=== PATIENT | male | born 1950 | race Caucasian/White ===

== ENCOUNTER 2019-04-15 07:28 | Outpatient (RCR) | payer MEDICARE, OTHER, SELFPAY | END 2019-04-27 00:01 | LOC: SOT 07:28 | PROVIDERS: Family Provider Internal Medicine; Visit Provider Orthopaedic Surgery | DX: Z98.890 Other specified postprocedural states (principal) | CPT/HCPCS: 97110 ×3; 97140 ×2; 97166; L3806 ==

== ENCOUNTER 2019-04-28 09:30 | Outpatient (RCR) | payer MEDICARE, SELFPAY | END 2019-05-28 23:59 | disposition home or self-care (01) | LOC: SOT 09:30 | PROVIDERS: Family Provider Internal Medicine; PCP Orthopaedic Surgery; Visit Provider Internal Medicine | DX: Z98.890 Other specified postprocedural states (principal) | CPT/HCPCS: 97035; 97110; 97112; 97140 ==

== ENCOUNTER 2019-05-31 06:00 | Outpatient (RCR) | payer MEDICARE, SELFPAY | END 2019-06-26 23:59 | disposition home or self-care (01) | LOC: SOT 06:00 | PROVIDERS: Family Provider Internal Medicine; PCP Orthopaedic Surgery; Visit Provider Internal Medicine | DX: Z98.890 Other specified postprocedural states (principal) | CPT/HCPCS: 97035; 97110; 97112; 97140 ==

== ENCOUNTER 2019-06-27 06:00 | Outpatient (RCR) | payer SELFPAY | END 2019-06-28 23:00 | disposition home or self-care (01) | LOC: SOT 06:00 | PROVIDERS: Family Provider Internal Medicine; PCP Orthopaedic Surgery; Visit Provider Internal Medicine | DX: Z01.89 Encounter for other specified special examinations (principal) ==

== ENCOUNTER 2021-12-17 13:36 | Outpatient (RCR) | payer MEDICARE, OTHER, SELFPAY ==
[2021-12-04 13:06] VITALS: BMI 30.4
[2021-12-04 13:11] VITALS: BP 123/85; PULSE 89; RESP 18; TEMP 36.8; O2SAT 96
[2021-12-04] MEDS: ertapenem 1,000 MG in sodium chloride 0.9% (plus) 100 ML 200 MG IV (13:55)
[2021-12-05] MEDS: ertapenem 1,000 MG in sodium chloride 0.9% (plus) 100 ML 200 MG IV (13:05)
[2021-12-05 13:25] VITALS: BP 96/71; PULSE 80; RESP 18; TEMP 36.6; O2SAT 96
[2021-12-06 13:04] VITALS: BP 149/77; PULSE 85; RESP 18; TEMP 36.8; O2SAT 96
[2021-12-06] MEDS: ertapenem 1,000 MG in sodium chloride 0.9% (plus) 100 ML 200 MG IV (13:14)
[2021-12-07] MEDS: ertapenem 1,000 MG in sodium chloride 0.9% (plus) 100 ML 200 MG IV (13:02)
[2021-12-07 13:04] VITALS: BP 133/80; PULSE 96; RESP 18; TEMP 36.7; O2SAT 96
[2021-12-08 08:55] VITALS: BP 136/81; PULSE 88; RESP 18; TEMP 37.1; O2SAT 95
[2021-12-08] MEDS: ertapenem 1,000 MG in sodium chloride 0.9% (plus) 100 ML 200 MG IV (09:00)
[2021-12-09 08:51] VITALS: BP 137/83; PULSE 87; RESP 16; TEMP 37.1; O2SAT 95
[2021-12-09] MEDS: ertapenem 1,000 MG in sodium chloride 0.9% (plus) 100 ML 200 MG IV (08:55)
[2021-12-10 13:00] VITALS: BP 157/83; PULSE 86; RESP 18; TEMP 36.8; O2SAT 94
--- NOTE | 2021-12-10 13:00 | PC.NURSE ---
Monae from Dr. Davidson's office called to inform this nurse to keep midline catheter in place at this time. Pt to have weekly dressing changes and flushes per protocol. Repeat urine culture to obtained next Friday.
[2021-12-10] MEDS: ertapenem 1,000 MG in sodium chloride 0.9% (plus) 100 ML 200 MG IV (13:10)
[2021-12-17 13:10] VITALS: BP 127/86; PULSE 113; RESP 18; TEMP 36.8; O2SAT 97
--- NOTE | 2021-12-17 13:42 | PC.NURSE ---
sorbaview dressing applied
--- NOTE | 2021-12-17 13:47 | PC.NURSE ---
Addendum entered by Lisbeth Miller RN 12/17/21 14:23: Midline catheter removed from right upper arm. Pressure held for approx 2 minutes. No bleeding or hematoma noted. Pt instructed to call Dr. Davidson for any increasing redness, purulent drainage, or warmth at insertion site. Instructed pt to go to ER for any SOB or chest pain. Original Note: [id number]. Lisbeth called Dr Davidson's office and spoke to Monae to report redness and leaking of PICC line site. Order to DC PICC line given.
== END 2021-12-26 23:59 | disposition home or self-care (01) ==
LOC: GILAB 13:36
PROVIDERS: PCP Orthopaedic Surgery; Visit Provider Family Medicine
DX: N41.9 Inflammatory disease of prostate, unspecified (principal); B96.20 Unspecified Escherichia coli [E. coli] as the cause of diseases classified elsewhere
CPT/HCPCS: 36569; 96365; C1751; J1335

== ENCOUNTER 2021-12-17 14:39 | Outpatient (CLI) | payer MEDICARE, OTHER, SELFPAY ==
--- NOTE | 2021-12-17 14:48 | CTR_ITS ---
PROCEDURE INFORMATION: Exam: CT Abdomen And Pelvis With Contrast Exam date and time: 12/17/2021 3:48 PM Age: 71 years old Clinical indication: Abdominal pain; Localized; Right lower quadrant (rlq); Patient HX: RT lower groin area pain and lump; Additional info: R inguinal pain, stat TECHNIQUE: Imaging protocol: Computed tomography of the abdomen and pelvis with contrast. Radiation optimization: All CT scans at this facility use at least one of these dose optimization techniques: automated exposure control; mA and/or kV adjustment per patient size (includes targeted exams where dose is matched to clinical indication); or iterative reconstruction. Contrast material: VISIPAQUE; Contrast volume: 95 ml; Contrast route: INTRAVENOUS (IV); Other contrast: Oral, ReadiCat, 450ml; COMPARISON: No relevant prior studies available. RADIATION DOSE METRICS: Total DLP (mGy-cm): 1198.63 FINDINGS: Diaphragm: Hiatal hernia measuring about 6 cm. Liver: Mild hepatomegaly with no cirrhosis or discrete mass. Gallbladder and bile ducts: Normal. No calcified stones. No ductal dilation. Pancreas: Normal. No ductal dilation. Spleen: Mild splenomegaly. Adrenal glands: Normal. No mass. Kidneys and ureters: Minimal left hydronephrosis with no obstructing calculi or obstructing mass along the left ureter. Bilateral simple renal cysts measuring up to 3.1 cm on the right and 1.6 cm on the left. Stomach and bowel: Low proximal colonic stool burden however there is large amount of fecal retention in the rectum. Colonic diverticulosis. No bowel obstruction, pneumatosis or. The luminal bowel contrast reached the mid small bowel with no evidence of abnormal small bowel or colonic dilatation. Appendix: Normal appendix not identified. Intraperitoneal space: See Soft tissues finding. Vasculature: No abdominal aortic aneurysm. Lymph nodes: No enlarged mesenteric or abdominopelvic adenopathy. Urinary bladder: Moderate urinary bladder distention with mild diffuse wall thickening. There is small amount of air in the anterior bladder lumen. Reproductive: Enlarged prostate. Bones/joints: No acute fracture. Soft tissues: There is a low-density heterogeneous mass with thick irregular enhancing wall demonstrating 1 component in the right inferior rectus abdominus musculature, measuring about 12.2 by 6.3 cm cross-section and is contiguous with a heterogeneous low-density mass in the right lower quadrant mesentery with probable involvement of the adjacent small bowel. The right lower quadrant mesenteric component measures about 8.8 by 8.3 cm. Unclear if the epicenter of this neoplastic process is a arising from the right rectus musculature/right inguinal hernia or right lower quadrant mesentery/bowel loops or appendix however foci of air are seen within this mass suggesting communication with the bowel lumen. Neoplastic mass of appendiceal origin may be present in this setting as there is a suggestion of communication with the lower cecum on axial image 55. The mass also extends to the right superolateral aspect of the urinary bladder likely resulting in bladder-bowel/tumor fistula. Infiltrative mild soft tissue edema is noted in the suprapubic/bilateral inguinal region and along the anterior and lateral right lower quadrant suggesting inflammatory response/mild edema. CT/CT abdomen pelvis w con* [id number] IMPRESSION: 1. Heterogeneous soft tissue mass in the right lower quadrant mesentery, suspicious for malignancy, probably involving adjacent small distal small bowel. The mass is contiguous with another soft tissue component which may be arising from the right lower rectus abdominal muscle/right inguinal hernia. The mass also extends to the urinary bladder with probable bladder-bowel/tumor fistula. No evidence of bowel obstruction, free air or enlarged adenopathy otherwise. No other obvious visceral metastasis. Specific possible etiology is unclear but may represent lymphoma or other locally aggressive/infiltrative neoplasm or sarcoma. Tumor of appendiceal origin may also be considered due to its location. Follow-up delayed CT imaging may be helpful to assess luminal bowel contrast progressing through the area of tumor. Surgical consultation should be obtained. 2. Colonic diverticulosis. Significant rectal fecal retention is noted. 3. Prominent hiatal hernia. 4. Urinary bladder wall thickening which may be related to cystitis/hypertrophy. An element of tumor infiltration may also be present in this setting. 5. Mildly enlarged prostate. 6. Mild hepatosplenomegaly. 7. Minimal left hydronephrosis with no obstructing calculi or obstructing ureteral mass. This may be related to mild reflux. COMMENTS: Consistent with the [employer]'s Incidental Findings Committee white paper (J Am Ernst Radiol 2018): Any incidental renal lesion less than 1 cm or classified as too small to characterize, or any incidental cystic renal lesion characterized as simple-appearing, is likely benign. No follow-up imaging is recommended for these lesions per consensus recommendations based on imaging criteria.
[2021-12-17] MEDS: iodixanol 320 mg/mL 100mL Btl IV (16:06)
[2021-12-17 16:07] LABS: Blood Urea Nitrogen 18 mg/dL (8-23); Glomerular Filtration Rate 83.4 mL/min (90-130)
== END 2021-12-17 14:40 | disposition home or self-care (01) ==
PROVIDERS: PCP Orthopaedic Surgery; Visit Provider Internal Medicine
DX: R10.31 Right lower quadrant pain (principal); R19.00 Intra-abdominal and pelvic swelling, mass and lump, unspecified site; K57.90 Diverticulosis of intestine, part unspecified, without perforation or abscess without bleeding; K44.9 Diaphragmatic hernia without obstruction or gangrene; N40.0 Benign prostatic hyperplasia without lower urinary tract symptoms; R16.2 Hepatomegaly with splenomegaly, not elsewhere classified
CPT/HCPCS: 74177; 82565; 84520

== ENCOUNTER → 2021-12-21 07:57 | Outpatient (BNVA) | payer MEDICARE, OTHER, SELFPAY | PROVIDERS: PCP Orthopaedic Surgery; Visit Provider Surgery | DX: R19.00 Intra-abdominal and pelvic swelling, mass and lump, unspecified site (principal); R30.0 Dysuria | CPT/HCPCS: 99204 ==

== ENCOUNTER 2022-01-04 09:11 | Day surgery (SDC) | payer MEDICARE, OTHER, SELFPAY ==
[2022-01-03 11:28] VITALS: BMI 28.7
[2022-01-04 09:47] VITALS: BP 117/64; PULSE 99; RESP 18; TEMP 36.4; O2SAT 95
[2022-01-04] MEDS: sodium chloride 0.9% 1,000 ML 30 ML IV (10:23)
--- NOTE | 2022-01-04 11:31 | ANES.PREANE2 ---
Pre-Anesthetic Assessment Height/Weight: Height 1.91 m Weight 104.326 kg Temp Pulse Resp BP Pulse Ox O2 Del Method 97.6 F 99 18 117/64 95 01/04/22 09:47 01/04/22 09:47 01/04/22 09:47 01/04/22 09:47 01/04/22 09:47 01/04/22 09:47 Operation Date: 01/04/22 10:45 Proposed Procedures p Colonoscopy 87737/abd mass R19.00(Not Applicable) - Micheal Urena DO Familial anesthetic complications: none Was Beta Vannessa taken within 24 hours: Yes Was Clonidine taken within 24 hours: N/A Last intake: Intake Last Liquid Date 01/03/22 Last Liquid Time 23:50 Last Solid Date 01/02/22 Last Solid Time 22:00 Social No alcohol and No tobacco Exam alert, oriented x 3, clear to auscultation bilaterally and regular rate & rhythm Airway Submandibular: within normal limits Cervical ROM: within normal limits Mallampati: Class II CV/HEM Hypertension Anesthetic Plan ASA status: 2 Anesthesia: MAC Medications/Allergies Home Medications Medication Instructions Recorded Confirmed Last Taken Type amlodipine 10 mg tablet 10 mg PO DAILY 12/05/21 01/03/22 01/03/22 History lisinopril 40 mg tablet 40 mg PO DAILY 12/05/21 01/03/22 01/03/22 History montelukast 10 mg tablet 10 mg PO DAILY 12/05/21 01/03/22 01/03/22 History oxycodone 10 mg tablet 10 mg PO Q6H PRN pain 1 week #28 12/21/21 01/03/22 01/03/22 Rx tabs metoprolol succinate 25 mg capsule 25 mg PO DAILY #30 ea 01/01/22 01/03/22 01/03/22 Rx sprinkle, ext. release 24 hr peg 3350-electrolytes 236 240 ml PO Q10M #4,000 mL 01/01/22 01/03/22 01/03/22 Rx gram-22.74 gram-6.74 gram-5.86 gram solution (Golytely) sulfamethoxazole 800 1 tab PO BID 10 days #60 tabs 01/01/22 01/03/22 01/03/22 Rx mg-trimethoprim 160 mg tablet (Bactrim DS) acetaminophen 500 mg capsule 500 mg PO Q6H PRN Pain 01/04/22 01/04/22 01/04/22 History naproxen sodium 220 mg tablet 220 mg PO BID PRN Pain 01/04/22 01/04/22 01/04/22 History (Aleve) Allergies Allergy/AdvReac Type Severity Reaction Status Date / Time Penicillins Allergy Intermediate ADR-Itching Verified 01/01/22 09:54 [facility] Anesthesia Medical History (Updated 01/01/22 @ 10:14 by Arden Mccartyh MD) Abdominal pain History of broken leg Right leg Hypertension Small bowel fistula Small bowel mass Surgical History History of esophagogastroduodenoscopy (EGD) 20 + yrs ago Hx of colonoscopy Family History Brother Diabetes Social History Smoking and tobacco status: current every day smoker Data Anesthesia Cardiac Studies: No Data to Display
--- NOTE | 2022-01-04 11:51 | W.PM.OPSUD ---
Surgery/Procedure H&P Update DATE OF PROCEDURE: January 04, 2022 DATE H&P PERFORMED: 12/21/21 CHANGES TO PREVIOUS DOCUMENTATION: Getting colonoscopy as part of workup for abdominal mass PLANNED PROCEDURE: Operation Date: 01/04/22 10:45 Proposed Procedures p Colonoscopy 55207/abd mass R19.00(Not Applicable) - Micheal Urena DO
[2022-01-04 14:45] VITALS: BP 107/64; PULSE 72; RESP 16; TEMP 36.1; O2SAT 91
--- NOTE | 2022-01-04 14:49 | ANE.PACU2 ---
Inpatient post-anesthesia follow up: Airway intact: Yes Vital signs: Temperature 97.6 F Pulse Rate 99 Respiratory Rate 18 Blood Pressure 117/64 Pulse Oximetry 95 Oxygen Delivery Me thod Room Air Oxygen Flow Rate Fraction of Inspir ed Oxygen Hydration adequate: Yes Nausea and vomiting: No Pain level: 1 Mental status: Baseline
[2022-01-04 14:50] VITALS: BP 94/64; PULSE 79; RESP 18; O2SAT 92
[2022-01-04 15:00] VITALS: BP 122/69; PULSE 80; RESP 18; O2SAT 94
[2022-01-10 12:49] LABS: Mismatch Repari Proteins-IHC See Report
== END 2022-01-04 15:20 | disposition home or self-care (01) ==
PROVIDERS: PCP Family Medicine; Visit Provider Surgery
PROC: 0DJD8ZZ Inspection of Lower Intestinal Tract, Via Natural or Artificial Opening Endoscopic (ICD-10-PCS; CPT 45378; principal; 2022-01-04 10:45)
DX: C18.9 Malignant neoplasm of colon, unspecified (principal); K57.30 Diverticulosis of large intestine without perforation or abscess without bleeding; I10 Essential (primary) hypertension; F17.200 Nicotine dependence, unspecified, uncomplicated; Z88.0 Allergy status to penicillin
CPT/HCPCS: 45380; 45381; 88305; 88360; J2704; J7030

== ENCOUNTER 2022-01-14 06:30 | Outpatient (CLI) | payer MEDICARE, OTHER, SELFPAY ==
--- NOTE | 2022-01-14 07:00 | CT_ITS ---
WS: [id number] CT PELVIS WITH CONTRAST HISTORY: Follow-up small bowel mass. TECHNIQUE: Contiguous imaging is performed of the pelvis with contrast. Delayed imaging is also submi tted. Coronal and sagittal reformats are reviewed. All CT scans at [facility] use at least on e of these dose optimization techniques: automated exposure control; mA and/or kV adjustment per en ent size (includes targeted exams where dose is matched to clinical indication); or iterative reconst ruction. DLP: 930.61 mGy.cm COMPARISON: 12/17/2021 CT abdomen and pelvis. Initial imaging to the pelvis obtained at 7:48 AM. Oral contrast is predominantly within the proximal to mid small bowel. Aggressive, invasive appearing soft tissue mass in the RIGHT lower quadrant. This was described on 12/17/2021 with no improvement. T here is a necrotic mass in the RIGHT lower quadrant inseparable from the tortuous distal sigmoid, dis zonia small bowel, urinary bladder and extending through the anterior pelvic wall musculature. Infiltra ting aggressive appearing soft tissue mass in the RIGHT lower quadrant measures at least 10.4 x 10.1 cm. There are additional components of this mass. There are fistulous connections extending to the starks bcutaneous soft tissue and also suspected into the urinary bladder and possibly the distal small dom l versus cecum. Follow-up imaging obtained at 11:47 AM. This was to help clarify the extent of involvement. There is oral contrast now within a very small portion of the mass in the RIGHT lower quadrant which I believe this part of the small bowel. The urinary bladder is distended with contrast but there is also air p resent. There does appear to be a tract extending between the urinary bladder and the mass in the RIG HT lower quadrant. Suspect the appendix is involved within this mass. The superficial collection extending into the anterior pelvis to include the rectus muscles extending transversely by 15.5 cm x 5.3 cm in depth. There are a few foci of air present. This collection exte nds along the RIGHT high inguinal region into the pelvis. There is diffuse bladder wall thickening. More focal bladder wall thickening measures up to 1.4 cm at the apex on the RIGHT which is the area of the suspected fistula. RIGHT renal cyst. Prostate gland is enlarged with central calcifications. IMPRESSION: 1. There is a large complex mass in the RIGHT lower quadrant which is probably a neoplastic mass wit h necrosis and numerous fistulous connections. As there is a history of the sigmoid neoplasm and this probably arises from the sigmoid neoplasm with a fistulous connection to the distal small bowel and possibly the cecum and colovesical fistula. Suspect encasement of the appendix. Consider mucinous thuy nocarcinoma. 2. Additional fistulous connection may be from the bladder or the GI tract that extends superficial with a collection in the rectus muscle of the anterior pelvis. This collection measures at least 15.5 x 5.3 cm. 3. No free fluid. Notified Arden Mccarthy MD and Dr. Urena at 01/14/2022 1:08 PM.
[2022-01-14] MEDS: iohexol 350 mg/mL 100 mL Btl IV (07:59)
== END 2022-01-14 06:31 | disposition home or self-care (01) ==
LOC: RAD 06:30
PROVIDERS: PCP Family Medicine; Visit Provider Family Medicine
DX: R19.00 Intra-abdominal and pelvic swelling, mass and lump, unspecified site (principal); K63.89 Other specified diseases of intestine; K63.2 Fistula of intestine
CPT/HCPCS: 72193

== ENCOUNTER → 2022-01-15 13:53 | Outpatient (BNVA) | payer MEDICARE, OTHER, SELFPAY | PROVIDERS: PCP Family Medicine; Visit Provider Surgery | DX: Z09 Encounter for follow-up examination after completed treatment for conditions other than malignant neoplasm (principal); C18.7 Malignant neoplasm of sigmoid colon | CPT/HCPCS: 99212 ==

== ENCOUNTER 2022-01-16 07:49 | Oncology outpatient (recurring) (ONCR) | payer MEDICARE, OTHER, SELFPAY | END 2022-01-25 23:59 | disposition home or self-care (01) | PROVIDERS: PCP Family Medicine; Visit Provider Internal Medicine Hematology & Oncology | DX: C18.7 Malignant neoplasm of sigmoid colon (principal); K59.00 Constipation, unspecified; R63.4 Abnormal weight loss; Z68.29 Body mass index [BMI] 29.0-29.9, adult; Z87.891 Personal history of nicotine dependence | CPT/HCPCS: 99204 ==

== ENCOUNTER 2022-01-18 11:54 | Outpatient (CLI) | payer MEDICARE, OTHER, SELFPAY ==
[2022-01-16 12:16] VITALS: BMI 29.7
--- NOTE | 2022-01-18 | US_ITS ---
WS: [id number] Limited pelvic ultrasound evaluation. HISTORY: Patient presents for biopsy of a pelvic mass. Patient has a known colon cancer. COMPARISON: Pelvic CT 01/14/[address] abdomen and pelvis 12/17/2021. Request is for biopsy of the superficial soft tissue mass in the lower pelvic abdominal wall. There i s no mass in the space of Retzius. This soft tissue mass along the anterior pelvic wall contains flui d with a mildly thickened wall but no increased vascularity. There is no discrete mass identified. Th is is a fluid-filled structure that has a fistulous connection deep within the RIGHT pelvis through t he inguinal canal. There is a large tract extending into the pelvis. This tract was identified on the prior CT and communicates with either the small bowel, colon or bladder. Patient has multiple fistul ous tracts that were demonstrated by CT. There is no identifiable mass for which biopsy should be per formed. If biopsy is performed of this fluid collection which is probably a contained urinoma or melissa ection containing GI tract material patient will be at risk for additional fistulous tracts. I have explained in detail the risks and complications of performing a biopsy of this collection. Saira ray does have known sigmoid neoplasm but there is no additional mass for which biopsy can be safely performed in the RIGHT adnexa or along the anterior subcutaneous pelvic soft tissues. US/US pelvic limited 32424 IMPRESSION: Superficial soft tissue mass within the pelvis connects via a wide mouth fistul a into the pelvis either to the urinary bladder or the GI tract or both. These were identified also on the recent CT. No additional mass for which biopsy can be performed.
--- NOTE | 2022-01-18 12:20 | US_ITS ---
WS: [id number] Limited pelvic ultrasound evaluation. HISTORY: Patient presents for biopsy of a pelvic mass. Patient has a known colon cancer. COMPARISON: Pelvic CT 01/14/[address] abdomen and pelvis 12/17/2021. Request is for biopsy of the superficial soft tissue mass in the lower pelvic abdominal wall. There i s no mass in the space of Retzius. This soft tissue mass along the anterior pelvic wall contains flui d with a mildly thickened wall but no increased vascularity. There is no discrete mass identified. Th is is a fluid-filled structure that has a fistulous connection deep within the RIGHT pelvis through t he inguinal canal. There is a large tract extending into the pelvis. This tract was identified on the prior CT and communicates with either the small bowel, colon or bladder. Patient has multiple fistul ous tracts that were demonstrated by CT. There is no identifiable mass for which biopsy should be per formed. If biopsy is performed of this fluid collection which is probably a contained urinoma or melissa ection containing GI tract material patient will be at risk for additional fistulous tracts. I have explained in detail the risks and complications of performing a biopsy of this collection. Saira ray does have known sigmoid neoplasm but there is no additional mass for which biopsy can be safely performed in the RIGHT adnexa or along the anterior subcutaneous pelvic soft tissues.
[2022-01-18 12:21] VITALS: BP 156/73; PULSE 86; RESP 18; TEMP 36.5; O2SAT 95
[2022-01-18 13:01] LABS: INR 1.03 (0.8-1.2)
[2022-01-18] MEDS: sodium chloride 0.9% 1,000 ML 30 ML IV (13:15)
[2022-01-18 13:20] VITALS: BP 117/53; PULSE 78; PULSE 80; RESP 16; RESP 18; TEMP 36.6; TEMP 36.7; O2SAT 98
[2022-01-18 14:00] VITALS: BP 144/82; PULSE 80; RESP 18; O2SAT 96
== END 2022-01-18 14:18 | disposition home or self-care (01) ==
LOC: GILAB 11:59
PROVIDERS: Radiology Diagnostic Radiology; PCP Family Medicine; Visit Provider Internal Medicine Hematology & Oncology
DX: R19.00 Intra-abdominal and pelvic swelling, mass and lump, unspecified site (principal)
CPT/HCPCS: 76705; 76857; 85610; J7030

== ENCOUNTER 2022-01-24 11:04 | Day surgery (SDC) | payer MEDICARE, OTHER, SELFPAY ==
[2022-01-23 13:24] VITALS: BMI 30.5
--- NOTE | 2022-01-24 | SCC_ITS ---
Procedure done: Mediport insertion 2.9 seconds of fluoroscopic guidance, for a cumulative dose of 0.53 mGy, was provided to Dr. Urena by the radiology department. C-arm images of the chest were saved for the patient's permanent record. [facility]
[2022-01-24 11:23] VITALS: BP 141/77; PULSE 94; RESP 18; TEMP 36.3; O2SAT 95
[2022-01-24] MEDS: sodium chloride 0.9% 1,000 ML 30 ML IV (11:43)
--- NOTE | 2022-01-24 11:55 | ANES.PREANE2 ---
Pre-Anesthetic Assessment Height/Weight: Height 1.88 m Weight 107.955 kg Temp Pulse Resp BP Pulse Ox O2 Del Method 97.4 F L 94 18 141/77 95 01/24/22 11:23 01/24/22 11:23 01/24/22 11:23 01/24/22 11:23 01/24/22 11:23 01/24/22 11:44 Preop Diagnosis: Intraabdominal mass Operation Date: 01/24/22 12:45 Proposed Procedures p lap excisional bx of intraabdominal mass 95839,R19.00(Not Applicable) - Micheal Urena DO Familial anesthetic complications: none Was Beta Vannessa taken within 24 hours: N/A Was Clonidine taken within 24 hours: N/A Last intake: Intake Last Liquid Date 01/23/22 Last Liquid Time 23:59 Last Solid Date 01/23/22 Last Solid Time 23:59 Social No alcohol and No tobacco Exam alert, oriented x 3, clear to auscultation bilaterally and regular rate & rhythm Airway Mallampati: Class III CV/HEM Hypertension GI colon cancer Anesthetic Plan ASA status: 4 Anesthesia: General Risk of > 500 ml blood loss (7ml/kg in children): No Medications/Allergies Home Medications Medication Instructions Recorded Confirmed Last Taken Type amlodipine 10 mg tablet 10 mg PO DAILY 12/05/21 01/23/22 01/17/22 History lisinopril 40 mg tablet 40 mg PO DAILY 12/05/21 01/23/22 01/17/22 History montelukast 10 mg tablet 10 mg PO DAILY 12/05/21 01/23/22 01/17/22 History oxycodone 10 mg tablet 10 mg PO Q6H PRN pain 1 week #28 12/21/21 01/23/22 01/03/22 Rx tabs metoprolol succinate 25 mg capsule 25 mg PO DAILY #30 ea 01/01/22 01/23/22 01/17/22 Rx sprinkle, ext. release 24 hr sulfamethoxazole 800 1 tab PO BID 10 days #60 tabs 01/01/22 01/23/22 01/17/22 Rx mg-trimethoprim 160 mg tablet (Bactrim DS) acetaminophen 500 mg capsule 500 mg PO Q6H PRN Pain 01/04/22 01/23/22 01/17/22 History naproxen sodium 220 mg tablet 220 mg PO BID PRN Pain 01/04/22 01/23/22 01/04/22 History (Aleve) Allergies Allergy/AdvReac Type Severity Reaction Status Date / Time Penicillins Allergy Intermediate ADR-Itching Verified 01/23/22 13:22 Current Medications Generic Name Dose Route Start Last Admin Trade Name Freq PRN Reason Stop Dose Admin Sodium Chloride 1,000 mls @ 30 mls/hr 01/24/22 11:15 01/24/22 11:43 Sodium Chloride 0.9% IV 01/25/22 11:14 30 mls/hr .Q24H SUSANA Administration PFSH Anesthesia Medical History Abdominal pain Adenocarcinoma of sigmoid colon History of broken leg Right leg Hypertension Small bowel fistula Small bowel mass Surgical History History of esophagogastroduodenoscopy (EGD) 20 + yrs ago Hx of colonoscopy Family History Brother Diabetes Social History Smoking and tobacco status: former smoker Data Anesthesia : 01/24/22 11:25 Cardiac Studies: No Data to Display
[2022-01-24 12:10] LABS: Anion Gap 14.7 (5-19); Blood Urea Nitrogen 19 mg/dL (8-23); Calcium 8.9 mg/dL (8.5-10.5); Carbon Dioxide 23 mmol/L (22-29); Chloride 99 mmol/L (98-107); Glomerular Filtration Rate 73.9 mL/min (90-130); Glucose 101 mg/dL (65-115); Osmolality Calculated 276 mOsm/kg (285-295); Potassium 4.7 mmol/L (3.5-5.1); Sodium 132 mmol/L (136-145)
[2022-01-24] MEDS: vancomycin 1,000 MG in sodium chloride 0.9% 250 ML 250 MG IV (12:15)
--- NOTE | 2022-01-24 13:16 | W.PM.OPSUD ---
Surgery/Procedure H&P Update DATE OF PROCEDURE: January 24, 2022 DATE H&P PERFORMED: 01/15/22 CHANGES TO PREVIOUS DOCUMENTATION: Patient will go for laparoscopic excisional biopsy of intra-abdominal mass. The risks and benefits of the procedure, including but not limited to, bleeding, infection, damage to surrounding structures, need to convert to a laparotomy, scar, numbness, pain, were explained to the patient. He was understands risks and wishes to proceed PREOP DIAGNOSIS: Intraabdominal mass PLANNED PROCEDURE: Operation Date: 01/24/22 12:45 Proposed Procedures p lap excisional bx of intraabdominal mass 10660,R19.00(Not Applicable) - Micheal Urena DO
--- NOTE | 2022-01-24 13:25 | SC_ITS ---
WS: [id number] Exam: C-arm FL for CVA [id number] Date/Time of Exam: 01/24/2022 2:03 PM Reason For Exam: portacath insertion Single anterior posterior C-arm image of the upper chest is submitted for evaluation. The image depicts a left subclavian MediPort in place most likely ending in the region of the lower o ne third of the SVC. The visualized upper lung guzman are clear. No pneumothorax is seen. An ET tube is noted in the airway. No other significant finding on this limited study.
[2022-01-24] MEDS: heparin, porcine 1,000 unit/mL INJ 10 mL 10000 UNIT INJECTION (14:10)
--- NOTE | 2022-01-24 14:49 | SUR.OPER ---
1415 port a cath procedure finished. 1424 lap procedure started.
[2022-01-24 14:57] VITALS: BP 115/63; PULSE 69; RESP 21; TEMP 36.4; O2SAT 98
--- NOTE | 2022-01-24 14:57 | P.OP_ITS ---
Operative Report Date of procedure: January 24, 2022 Pre-op diagnosis: Preop Diagnosis Intraabdominal mass Post-op diagnosis: other (Sigmoid adenocarcinoma) Procedure done: Mediport insertion Diagnostic laparoscopy Surgeon: Dr. Micheal Urena DO Anesthesia: General Estimated blood loss (mL): 5 Complications: None apparent Brief History: This is a very pleasant 71-year-old gentleman with known sigmoid adenocarcinoma. Presentation on physical exam and CT were suspicious for possible second primary cancer. Mediport insertion and diagnostic laparoscopy were indicated. The risks and benefits of the procedures were explained and documented. Procedure: The patient was taken to the operating room and placed supine on the operating room table. All bony prominences were padded. She was given IV sedation and monitored throughout the case by the anesthesia personnel. SCDs were placed and turned on. The arms were tucked to the side. Patient received Ancef 2 g preoperatively IV. The bilateral chest wall was prepped and draped in usual sterile fashion using chlorhexidine base prep. Sterile drapes were applied. We did procedure pause prior to beginning. An 18 gauge needle was placed in the left subclavian vein. Dark, nonpulsatile blood was aspirated. A guidewire was placed through the needle centrally toward the atrial/vena caval junction. Fluoroscopy visualized good placement. The needle was removed and the guidewire was clipped to the drape with a hemostat. Further local anesthetic was infiltrated in the soft tissues of the right/left chest wall and a #15 blade was used to make a horizontal skin incision. A subcut aneous Mediport pocket was created using Bovie cautery, dissecting down through the skin and subcutaneous tissues. Meticulous hemostasis was achieved. The Mediport was sutured in position using 3-0 vicryl suture x2 stitches. A #15 blade was used to make a small skin abdon around the guidewire insertion area. The Mediport tubing was tunneled through the subcutaneous tissues up to the needle insertion location. A dilator with a peel-away sheath was placed over the guidewire and placed centrally. After measuring with fluoroscopy, the Mediport tubing was cut to length so that the tip would end at the atrial/vena caval junction. The inner cannula and the guidewire were removed, leaving the dilator sheath in place. The Mediport was flushed. The tip of the catheter was inserted through the peel-away sheath and the peel-away sheath removed in the standard fashion. The Mediport was accessed with a straight Wallis needle and dark, nonpulsatile blood was aspirated and flushed using heparinized saline to hep-lock the Mediport. Final fluoroscopy visualization showed no kink in the catheter and the tip of the Mediport tubing near the atrial/vena caval junction. Both skin incisions were thoroughly irrigated and suctioned dry. Meticulous hemostasis noted. The Mediport incision was closed using interrupted 3-0 Vicryl suture for the deep dermal layer and 4-0 Vicryl run to close the skin edge. The left subclavian insertion site incision was closed with a single subcuticular stitch. Skin glue was applied as a topical dressing. This was allowed to dry. The drapes were then removed. The abdomen was inspected prepped and draped in the usual sterile fashion. 2% lidocaine with epinephrine was used to anesthetize the left upper quadrant. A 5 mm incision was made. A Veress needle was used to bring 15 mm intra-abdominal insufflation. A 5 mm trocar was then placed under Optiview. A 12 mm trocar was then placed in the left lower quadrant under direct vision. The abdomen was inspected. There was a very large and irregular sigmoid colon with adhesions to the bladder and the right groin. There was no extraluminal mass to biopsy. Photos were taken. Attempting any biopsy would have meant puncturing the sigmoid colon. The 12 mm port site fascia was closed with 0 Vicryl in a David-Cindy in a [id number]-[id number] fashion. Insufflation was removed. Skin was closed with 4-0 Monocryl in a subcuticular interrupted fashion. Skin glue was applied. Patient tolerated the procedure well. Patient was awakened from anesthesia and transferred via her cart to the recovery room in stable condition. All needle, sponge, and instrument counts were correct per the operating personnel x2 counts.
--- NOTE | 2022-01-24 15:00 | XR_ITS ---
WS: [id number] Exam: XR chest 1V portable [id number] Date/Time of Exam: 01/24/2022 3:00 PM Reason For Exam: S/P MEDIPORT No previous exams. The lungs are fully expanded and clear. A left subclavian MediPort has been placed and ends in the lo wer one third of the SVC. Normal cardiomediastinal silhouette for portable technique. No pleural effu sions. Bony structures are intact. XR/XR chest 1V portable [id number] IMPRESSION: 1. Left subclavian Mediport ending in the expected region of the lower one thir d of the SVC. No acute cardiopulmonary finding.
[2022-01-24 15:02] VITALS: BP 124/63; PULSE 66; RESP 20; O2SAT 99
[2022-01-24 15:11] VITALS: BP 110/53; PULSE 65; RESP 18; O2SAT 93
[2022-01-24 15:18] VITALS: BP 112/53; PULSE 64; RESP 17; TEMP 36.4; O2SAT 95
[2022-01-24 15:50] VITALS: BP 115/61; PULSE 65; RESP 18; TEMP 36.4; O2SAT 95
== END 2022-01-24 15:52 | disposition home or self-care (01) ==
PROVIDERS: Anesthesiology; PCP Family Medicine; Visit Provider Surgery
PROC: (CPT 49320; principal; 2022-01-24 12:35)
PROC: (CPT 36561; 2022-01-24 12:35)
DX: C18.7 Malignant neoplasm of sigmoid colon (principal); I10 Essential (primary) hypertension; Z87.891 Personal history of nicotine dependence
CPT/HCPCS: 36561; 49320; 36415; 51702; 71045; 76000; 77001; 80048; C1788; J1100; J1644; J2370; J2405; J2704; J2710; J3010; J3370; J3490; J7030; J7050

== ENCOUNTER 2022-01-31 14:03 | Oncology outpatient (recurring) (ONCR) | payer MEDICARE, OTHER, SELFPAY ==
[2022-01-31 14:28] LABS: Basophils % 0.4 %; Eosinophils # 0.2 10^3/uL (0.0-0.8); Eosinophils % 2.9 %; Hematocrit 36.5 % (42.0-52.0); Hemoglobin 11.1 g/dL (11.7-16.6); Lymphocytes # 1.7 10^3/uL (0.8-4.8); Lymphocytes % 21.4 %; Mean Corpuscular HGB Conc 30.4 g/dL (30.0-36.0); Mean Corpuscular Hemoglobin 26.4 pg (28.0-34.0); Mean Corpuscular Volume 86.7 fl (80-94); Monocytes # 0.8 10^3/uL (0.2-0.9); Monocytes % 10.6 %; Neutrophils # 5.11 10^3/uL (1.8-7.7); Neutrophils % 64.2 %; Nucleated Red Blood Cells % 0 %; Platelet Count 272 10^3/cmm (130-400); Red Blood Count 4.21 10^6/uL (4.1-5.3); Red Cell Distribution Width 21.2 % (12.1-15.1)
[2022-01-31 15:03] LABS: Alanine Aminotransferase 14 U/L (0-41); Albumin Level 3.5 g/dL (3.5-5.2); Alkaline Phosphatase 108 U/L (40-130); Anion Gap 13.7 (5-19); Aspartate Amino Transferase 10 U/L (0-40); Blood Urea Nitrogen 23 mg/dL (8-23); Calcium 8.8 mg/dL (8.5-10.5); Cancer Antigen 19 9 16.72 U/mL (0-35); Carbon Dioxide 25 mmol/L (22-29); Chloride 104 mmol/L (98-107); Globulin 3.5 g/dL (1.3-4.6); Glomerular Filtration Rate 59.9 mL/min (90-130); Glucose 117 mg/dL (65-115); Osmolality Calculated 291 mOsm/kg (285-295); Potassium 4.7 mmol/L (3.5-5.1); Sodium 138 mmol/L (136-145); Total Bilirubin 0.2 mg/dL (0.15-1.2)
[2022-01-31 15:34] LABS: Carcinoembryonic Antigen 24.3 ng/mL (0.0-4.7)
== END 2022-02-25 23:59 | disposition home or self-care (01) ==
LOC: ONCMED 14:03
PROVIDERS: PCP Family Medicine; Visit Provider Internal Medicine Hematology & Oncology
DX: C18.7 Malignant neoplasm of sigmoid colon (principal); R19.00 Intra-abdominal and pelvic swelling, mass and lump, unspecified site
CPT/HCPCS: 36415; 80053; 82378; 84153; 85025; 86301; 99214

== ENCOUNTER → 2022-02-05 13:35 | Outpatient (BNVA) | payer MEDICARE, OTHER, SELFPAY | PROVIDERS: PCP Family Medicine; Visit Provider Surgery | DX: C18.7 Malignant neoplasm of sigmoid colon (principal) | CPT/HCPCS: 99214 ==

== ENCOUNTER → 2022-02-22 09:28 | Outpatient (BNVA) | payer MEDICARE, OTHER, SELFPAY | PROVIDERS: PCP Family Medicine; Visit Provider Surgery | DX: C18.7 Malignant neoplasm of sigmoid colon (principal) | CPT/HCPCS: 99212 ==

== ENCOUNTER → 2022-03-04 07:59 | Outpatient (BNVA) | payer MEDICARE, OTHER, SELFPAY | PROVIDERS: PCP Family Medicine; Visit Provider Internal Medicine Medical Oncology | DX: C18.7 Malignant neoplasm of sigmoid colon (principal) | CPT/HCPCS: 99215 ==

== ENCOUNTER → 2022-03-18 07:45 | Outpatient (BNVA) | payer MEDICARE, OTHER, SELFPAY | PROVIDERS: PCP Family Medicine; Visit Provider Nurse Practitioner | DX: C18.7 Malignant neoplasm of sigmoid colon (principal) | CPT/HCPCS: 99214 ==

== ENCOUNTER 2022-03-20 13:00 | Oncology outpatient (recurring) (ONCR) | payer MEDICARE, OTHER, SELFPAY ==
[2022-03-04 08:23] VITALS: BMI 31.9
[2022-03-04 08:35] LABS: Basophils % 0.3 %; Eosinophils # 0.2 10^3/uL (0.0-0.8); Hematocrit 37.3 % (42.0-52.0); Hemoglobin 11.7 g/dL (11.7-16.6); Lymphocytes # 1.8 10^3/uL (0.8-4.8); Lymphocytes % 23.1 %; Mean Corpuscular HGB Conc 31.4 g/dL (30.0-36.0); Mean Corpuscular Hemoglobin 26.4 pg (28.0-34.0); Mean Corpuscular Volume 84.2 fl (80-94); Mean Platelet Volume 8.9 fL (7.4-10.4); Monocytes # 0.7 10^3/uL (0.2-0.9); Monocytes % 9.3 %; Neutrophils # 5.14 10^3/uL (1.8-7.7); Neutrophils % 64.4 %; Nucleated Red Blood Cells % 0 %; Platelet Count 364 10^3/cmm (130-400); Red Blood Count 4.43 10^6/uL (4.1-5.3); Red Cell Distribution Width 19.2 % (12.1-15.1)
[2022-03-04 08:49] LABS: Alanine Aminotransferase 16 U/L (0-41); Albumin Level 3.4 g/dL (3.5-5.2); Alkaline Phosphatase 90 U/L (40-130); Anion Gap 15.3 (5-19); Aspartate Amino Transferase 8 U/L (0-40); Blood Urea Nitrogen 14 mg/dL (8-23); Carbon Dioxide 24 mmol/L (22-29); Chloride 101 mmol/L (98-107); Globulin 3.6 g/dL (1.3-4.6); Glomerular Filtration Rate 83.4 mL/min (90-130); Glucose 93 mg/dL (65-115); Osmolality Calculated 282 mOsm/kg (285-295); Potassium 4.3 mmol/L (3.5-5.1); Sodium 136 mmol/L (136-145); Total Bilirubin 0.2 mg/dL (0.15-1.2)
[2022-03-04] MEDS: dextrose 5% 250 ML 75 ML IV (10:38)
[2022-03-04] MEDS: palonosetron 0.25 mg/5 mL SDV IVP (10:42)
[2022-03-04 11:14] LABS: Iron 34 ug/dL (59-158); Percent Saturation 15.3 % (20-50); Total Iron Binding Capacity 221 mcg/dl; Unsaturated Iron Binding 187 ug/dL (112-347)
[2022-03-04 11:40] LABS: Carcinoembryonic Antigen 23.4 ng/mL (0.0-4.7)
[2022-03-04] MEDS: ELASTOMERIC PUMP PUMP IV (15:23)
[2022-03-04] MEDS: SODIUM CHLORIDE IV (15:23)
[2022-03-04] MEDS: FLUOROURACIL IV (15:23)
[2022-03-04 15:35] VITALS: BP 124/71; PULSE 90; RESP 18; O2SAT 94
[2022-03-06 13:45] VITALS: BP 118/70; PULSE 84; RESP 16; TEMP 36.7; O2SAT 95
[2022-03-18 08:34] LABS: Basophils % 0.1 %; Eosinophils # 0.2 10^3/uL (0.0-0.8); Eosinophils % 2.9 %; Hematocrit 39.5 % (42.0-52.0); Hemoglobin 12.2 g/dL (11.7-16.6); Lymphocytes # 1.6 10^3/uL (0.8-4.8); Lymphocytes % 22.9 %; Mean Corpuscular HGB Conc 30.9 g/dL (30.0-36.0); Mean Corpuscular Hemoglobin 26.5 pg (28.0-34.0); Mean Corpuscular Volume 85.7 fl (80-94); Mean Platelet Volume 9.3 fL (7.4-10.4); Monocytes # 0.7 10^3/uL (0.2-0.9); Monocytes % 9.5 %; Neutrophils # 4.57 10^3/uL (1.8-7.7); Neutrophils % 63.9 %; Nucleated Red Blood Cells % 0 %; Platelet Count 274 10^3/cmm (130-400); Red Blood Count 4.61 10^6/uL (4.1-5.3); Red Cell Distribution Width 19.2 % (12.1-15.1); White Blood Count 7.2 10^3/uL (4.0-10.0)
[2022-03-18 08:52] LABS: Alanine Aminotransferase 21 U/L (0-41); Albumin Level 3.4 g/dL (3.5-5.2); Alkaline Phosphatase 97 U/L (40-130); Aspartate Amino Transferase 14 U/L (0-40); Blood Urea Nitrogen 18 mg/dL (8-23); Calcium 9.2 mg/dL (8.5-10.5); Carbon Dioxide 25 mmol/L (22-29); Chloride 102 mmol/L (98-107); Globulin 3.9 g/dL (1.3-4.6); Glomerular Filtration Rate 95.6 mL/min (90-130); Glucose 150 mg/dL (65-115); Osmolality Calculated 291 mOsm/kg (285-295); Sodium 138 mmol/L (136-145); Total Bilirubin 0.2 mg/dL (0.15-1.2); Total Protein 7.3 g/dL (6.6-8.7)
[2022-03-18] MEDS: dextrose 5% 250 ML 75 ML IV (10:16)
[2022-03-18] MEDS: palonosetron 0.25 mg/5 mL SDV IVP (10:18)
[2022-03-18] MEDS: SODIUM CHLORIDE IV (15:14)
[2022-03-18] MEDS: FLUOROURACIL IV (15:14)
[2022-03-18] MEDS: ELASTOMERIC PUMP PUMP IV (15:14)
[2022-03-18 15:17] VITALS: BP 153/85; PULSE 89; RESP 16; TEMP 36.8; O2SAT 94
[2022-03-20 12:44] VITALS: BP 136/75; PULSE 88; RESP 18; TEMP 37.1; O2SAT 96
== END 2022-03-27 23:59 | disposition home or self-care (01) ==
PROVIDERS: Internal Medicine Hematology & Oncology; PCP Family Medicine; Visit Provider Internal Medicine Medical Oncology
DX: C18.7 Malignant neoplasm of sigmoid colon (principal); Z45.2 Encounter for adjustment and management of vascular access device
CPT/HCPCS: 80053; 82378; 83540; 83550; 85025; 96367; 96368; 96375; 96413; 96415; 96416; 96523; 99213; 99214; J0640; J1100; J2469; J7060; J9190; J9263

== ENCOUNTER 2022-03-27 16:36 | Outpatient (CLI) | payer MEDICARE, OTHER, SELFPAY ==
--- NOTE | 2022-03-27 16:45 | CT_ITS ---
WS: [id number] CT CHEST TECHNIQUE: Contrast enhanced CT of the chest with coronal and sagittal reformatted images. CLINICAL INFORMATION: EVALUATE FOR METASTATIC DISEASE COMPARISON: None. DLP: 838.[address] scans at [facility] use at least one of these dose optimization techniques: automated e xposure control; mA and/or kV adjustment per patient size (includes targeted exams where dose is matc hed to clinical indication); or iterative reconstruction. FINDINGS: Normal caliber thoracic aorta. Aortic calcification. Mild coronary calcification. No mediastinal or h ilar lymphadenopathy. Proximal main pulmonary arteries are normal. No axillary lymphadenopathy. Moderate esophageal hiatal hernia. Mild diffuse fatty infiltration of the liver. Normal portal vein a nd splenic vein. Normal spleen. Adrenal glands are normal. Small bilateral renal cysts partially visu alized. Mild thoracic curve. Mild thoracic kyphosis. Tree-in-bud opacities in the RIGHT lower lobe, LEFT lower lobe, RIGHT middle lobe and LEFT upper lob e along the hilum. Findings likely inflammatory. No focal pneumonia or pleural fluid. No lesions susp icious for metastatic disease. CT/CT chest w con* [id number] IMPRESSION: 1. No pulmonary opacities suspicious for metastatic disease. 2. No mediastinal or hilar lymphadenopathy. 3. A few tree-in-bud opacities in both lower lobes, RIGHT middle lobe, and LEF T upper lobe likely inflammatory. 4. No focal pneumonia or pleural fluid. 5. Moderate esophageal hiatal hernia.
[2022-03-27] MEDS: iohexol 350 mg/mL 500 mL Btl (per mL) IV (17:00)
== END 2022-03-27 16:37 | disposition home or self-care (01) ==
LOC: RAD 16:37
PROVIDERS: PCP Family Medicine; Referring Provider Internal Medicine Medical Oncology; Visit Provider Surgery
DX: C18.9 Malignant neoplasm of colon, unspecified (principal); K44.9 Diaphragmatic hernia without obstruction or gangrene
CPT/HCPCS: 71260; Q9967

== ENCOUNTER 2022-04-22 09:26 | Oncology outpatient (recurring) (ONCR) | payer MEDICARE, OTHER, SELFPAY ==
[2022-04-01] MEDS: alteplase 1 mg/mL SDV 2 mL 2 MG INTRACATH (08:30)
[2022-04-01 08:33] LABS: Basophils % 0.2 %; Eosinophils # 0.1 10^3/uL (0.0-0.8); Eosinophils % 2.4 %; Hematocrit 42.3 % (42.0-52.0); Hemoglobin 13.2 g/dL (11.7-16.6); Lymphocytes # 1.4 10^3/uL (0.8-4.8); Lymphocytes % 23.6 %; Mean Corpuscular HGB Conc 31.2 g/dL (30.0-36.0); Mean Corpuscular Hemoglobin 27.6 pg (28.0-34.0); Mean Corpuscular Volume 88.3 fl (80-94); Mean Platelet Volume 9.8 fL (7.4-10.4); Monocytes # 0.7 10^3/uL (0.2-0.9); Monocytes % 11.3 %; Neutrophils # 3.68 10^3/uL (1.8-7.7); Neutrophils % 62.2 %; Nucleated Red Blood Cells % 0 %; Platelet Count 177 10^3/cmm (130-400); Red Blood Count 4.79 10^6/uL (4.1-5.3); Red Cell Distribution Width 19.9 % (12.1-15.1); White Blood Count 5.9 10^3/uL (4.0-10.0)
[2022-04-01 09:11] LABS: Alanine Aminotransferase 21 U/L (0-41); Albumin Level 3.8 g/dL (3.5-5.2); Alkaline Phosphatase 92 U/L (40-130); Anion Gap 13.3 (5-19); Aspartate Amino Transferase 18 U/L (0-40); Blood Urea Nitrogen 16 mg/dL (8-23); Calcium 9.3 mg/dL (8.5-10.5); Carbon Dioxide 26 mmol/L (22-29); Chloride 102 mmol/L (98-107); Creatinine Clr Calc Pharmacy 84.6434; Globulin 3.4 g/dL (1.3-4.6); Glomerular Filtration Rate 66.2 mL/min (90-130); Glucose 92 mg/dL (65-115); Osmolality Calculated 285 mOsm/kg (285-295); Potassium 4.3 mmol/L (3.5-5.1); Sodium 137 mmol/L (136-145); Total Bilirubin 0.2 mg/dL (0.15-1.2); Total Protein 7.2 g/dL (6.6-8.7)
[2022-04-01] MEDS: dextrose 5% 250 ML 75 ML IV (09:38)
[2022-04-01] MEDS: palonosetron 0.25 mg/5 mL SDV IVP (09:38)
[2022-04-01] MEDS: leucovorin 960 MG in dextrose 5% 250 ML 62.5 MG IV (10:06)
[2022-04-01] MEDS: ELASTOMERIC PUMP PUMP IV (13:50)
[2022-04-01] MEDS: SODIUM CHLORIDE IV (13:50)
[2022-04-01] MEDS: FLUOROURACIL IV (13:50)
[2022-04-03 11:36] VITALS: BP 126/74; PULSE 80; RESP 16; TEMP 37.1; O2SAT 97
[2022-04-15 08:54] LABS: Basophils % 0.3 %; Eosinophils # 0.2 10^3/uL (0.0-0.8); Eosinophils % 3.3 %; Hematocrit 45.2 % (42.0-52.0); Hemoglobin 14.4 g/dL (11.7-16.6); Lymphocytes # 1.7 10^3/uL (0.8-4.8); Lymphocytes % 27.2 %; Mean Corpuscular HGB Conc 31.9 g/dL (30.0-36.0); Mean Corpuscular Hemoglobin 28.2 pg (28.0-34.0); Mean Corpuscular Volume 88.5 fl (80-94); Mean Platelet Volume 10.1 fL (7.4-10.4); Monocytes # 0.8 10^3/uL (0.2-0.9); Monocytes % 13.7 %; Neutrophils # 3.34 10^3/uL (1.8-7.7); Neutrophils % 55.2 %; Nucleated Red Blood Cells % 0 %; Platelet Count 122 10^3/cmm (130-400); Red Blood Count 5.11 10^6/uL (4.1-5.3); Red Cell Distribution Width 18.6 % (12.1-15.1); White Blood Count 6.1 10^3/uL (4.0-10.0)
[2022-04-15 09:10] LABS: Alanine Aminotransferase 25 U/L (0-41); Albumin Level 3.8 g/dL (3.5-5.2); Alkaline Phosphatase 92 U/L (40-130); Anion Gap 15.4 (5-19); Aspartate Amino Transferase 24 U/L (0-40); Blood Urea Nitrogen 20 mg/dL (8-23); Calcium 9.3 mg/dL (8.5-10.5); Carbon Dioxide 24 mmol/L (22-29); Chloride 102 mmol/L (98-107); Globulin 3.3 g/dL (1.3-4.6); Glomerular Filtration Rate 73.9 mL/min (90-130); Glucose 118 mg/dL (65-115); Osmolality Calculated 288 mOsm/kg (285-295); Potassium 4.4 mmol/L (3.5-5.1); Sodium 137 mmol/L (136-145); Total Bilirubin 0.3 mg/dL (0.15-1.2); Total Protein 7.1 g/dL (6.6-8.7)
[2022-04-15] MEDS: dextrose 5% 250 ML 75 ML IV (10:44)
[2022-04-15] MEDS: palonosetron 0.25 mg/5 mL SDV IVP (10:45)
[2022-04-15] MEDS: leucovorin 980 MG in dextrose 5% 250 ML 62.5 MG IV (11:16)
[2022-04-15 13:00] VITALS: BP 137/66; RESP 16; TEMP 36.2; O2SAT 97
[2022-04-15] MEDS: ELASTOMERIC PUMP PUMP IV (13:57)
[2022-04-15] MEDS: FLUOROURACIL IV (13:57)
[2022-04-15] MEDS: SODIUM CHLORIDE IV (13:57)
[2022-04-17 11:46] VITALS: BP 144/90; PULSE 85; RESP 16; TEMP 36.8; O2SAT 97
--- NOTE | 2022-04-22 11:00 | CT_ITS ---
WS: [id number] CT ABDOMEN AND PELVIS WITH CONTRAST HISTORY: Restaging colon cancer. TECHNIQUE: Imaging performed of the abdomen and pelvis with IV contrast. Single phase imaging of the abdomen. Coronal and sagittal reformats are submitted. All CT scans at [facility] use at [facility] [facility] one of these dose optimization techniques: automated exposure control; mA and/or kV adjustment per patient size (includes targeted exams where dose is matched to clinical indication); or iterative re construction. IV CONTRAST: Omnipaque 350; 95 mL IV. Oral contrast: Yes. DLP: 1293.93 mGy.cm COMPARISON: 01/14/2022 and 12/17/2021 Lower thorax: Mild dependent changes at the lung bases. Improved tree-in-bud airspace disease at the lung bases since 03/27/2022. No change in the 2 mm noncalcified nodule LEFT lower lobe. Heart is norm al size. Moderate to large hiatal hernia. Liver/biliary system: Normal size with no intrahepatic dilatation. Gallbladder: Mildly contracted. No adjacent inflammation. Pancreas: Normal size pancreas and pancreatic duct. No adjacent inflammation. Spleen: Normal size spleen. No mass or infarct. Adrenal glands: Normal. Right kidney: Normal size RIGHT kidney. No hydronephrosis. Numerous cortical cysts unchanged in size with the largest measuring 2.0 x 2.5 cm. No ureteral obstruction. Left kidney: Normal size LEFT kidney. Multiple cortical low-attenuation masses are probably cysts. So me of these are too small to characterize. Parapelvic cysts. No hydronephrosis. Aorta: Moderate atherosclerosis with no aneurysm. Lymphadenopathy: None. Free fluid: None. GI tract: Normal appearance of the stomach. No small bowel obstruction or colon obstruction. There has been significant improvement in the complex masses within the pelvis since the prior examin [facility]. Known mass within the distal sigmoid region has significantly decreased in size. Residual mass involving the mucosa and submucosa of the distal sigmoid extends anteriorly and to the RIGHT measuri ng 6.8 x 6.0 cm and extends over a length of 7.1 cm. There is less involvement of the sigmoid and the urinary bladder as compared to the prior study. Contact by the mass on the urinary bladder wall is a pproximately 2.0 cm. There is mild bladder wall thickening along the RIGHT lateral bladder. There is at least 5 cm of contact of the mass within the sigmoid mucosa. Additional small bowel involvement by the tumor in the RIGHT lower quadrant. The small bowel loops that are involved demonstrates fecaliza tion suggesting a long-term obstruction. There is no high-grade obstruction at this time. The complex fistula extending from the RIGHT lower quadrant into the subcutaneous soft tissues and ov er the midline of the pelvis has essentially resolved. There is very mild residual soft tissue thicke lyndsay and a small collection measuring 2.3 x 1.9 cm remaining in the RIGHT inguinal region. There is n o residual air in the urinary bladder. Prostate gland calcifications. Prostate is enlarged. Prominent seminal vesicles. Bones: Unremarkable. CT/CT abdomen pelvis w con* [id number] IMPRESSION: 1. Significant improvement in the multiple fistulous communications and the so ft tissue masses in the pelvis. 2. Residual soft tissue mass associated with the sigmoid colon measures 6.8 x 6.0 x 7.1 cm. This mass extends to involve a small portion of the urinary bladd er and also the distal small bowel. Less contact by this neoplastic mass on the bladder and the small bowel and the sigmoid. 3. Fistulous communicating with the GI tract and the urinary bladder which ext ended into the subcutaneous soft tissue has essentially resolved. There is a ve ry small pocket of remaining fluid measuring 2.3 x 1.9 cm in the RIGHT inguinal region. 4. Resolved air in the urinary bladder. 5. Fecalization of the distal small bowel at the site of the invasive neoplas m consistent with a long-standing obstruction is improving. 6. No hydronephrosis. 7. No metastatic disease to the liver or adrenal glands. 8. Hiatal hernia.
[2022-04-22] MEDS: iohexol 350 mg/mL 500 mL Btl (per mL) IV (11:22)
[2022-04-22] MEDS: iohexol 350 mg/mL 500 mL Btl (per mL) PO (11:22)
== END 2022-04-27 23:59 | disposition home or self-care (01) ==
LOC: ONCMED 04-29 11:57
PROVIDERS: PCP Family Medicine; Visit Provider Internal Medicine Medical Oncology
DX: C18.7 Malignant neoplasm of sigmoid colon; K44.9 Diaphragmatic hernia without obstruction or gangrene
CPT/HCPCS: 36593; 74177; 80053; 82378; 85025; 96367; 96368; 96375; 96413; 96415; 96416; 96523; 99213; 99214; J0640; J1100; J2469; J2997; J7060; J9190; J9263; Q9967

== ENCOUNTER → 2022-04-30 07:46 | Outpatient (BNVA) | payer MEDICARE, OTHER, SELFPAY | PROVIDERS: PCP Family Medicine; Visit Provider Internal Medicine Medical Oncology | DX: C18.7 Malignant neoplasm of sigmoid colon (principal) | CPT/HCPCS: 99214 ==

== ENCOUNTER 2022-05-27 08:00 | Oncology outpatient (recurring) (ONCR) | payer MEDICARE, OTHER, SELFPAY ==
[2022-04-30] MEDS: alteplase 1 mg/mL SDV 2 mL 2 MG INTRACATH (08:10)
[2022-04-30 08:33] LABS: Basophils % 0.2 %; Eosinophils # 0.1 10^3/uL (0.0-0.8); Eosinophils % 2.2 %; Hematocrit 45.6 % (42.0-52.0); Hemoglobin 14.4 g/dL (11.7-16.6); Lymphocytes # 1.5 10^3/uL (0.8-4.8); Mean Corpuscular HGB Conc 31.6 g/dL (30.0-36.0); Mean Corpuscular Hemoglobin 28.2 pg (28.0-34.0); Mean Corpuscular Volume 89.4 fl (80-94); Mean Platelet Volume 9.9 fL (7.4-10.4); Monocytes # 1.1 10^3/uL (0.2-0.9); Monocytes % 16.8 %; Neutrophils # 3.66 10^3/uL (1.8-7.7); Neutrophils % 57.5 %; Nucleated Red Blood Cells % 0 %; Platelet Count 138 10^3/cmm (130-400); Red Cell Distribution Width 18.6 % (12.1-15.1); White Blood Count 6.4 10^3/uL (4.0-10.0)
[2022-04-30 09:02] LABS: Carcinoembryonic Antigen 21.5 ng/mL (0.0-4.7)
[2022-04-30 09:13] LABS: Alanine Aminotransferase 25 U/L (0-41); Albumin Level 3.9 g/dL (3.5-5.2); Alkaline Phosphatase 91 U/L (40-130); Anion Gap 13.7 (5-19); Aspartate Amino Transferase 23 U/L (0-40); Blood Urea Nitrogen 24 mg/dL (8-23); Carbon Dioxide 24 mmol/L (22-29); Chloride 105 mmol/L (98-107); Globulin 3.3 g/dL (1.3-4.6); Glomerular Filtration Rate 66.2 mL/min (90-130); Glucose 98 mg/dL (65-115); Osmolality Calculated 290 mOsm/kg (285-295); Potassium 4.7 mmol/L (3.5-5.1); Sodium 138 mmol/L (136-145); Total Bilirubin 0.3 mg/dL (0.15-1.2); Total Protein 7.2 g/dL (6.6-8.7)
[2022-04-30] MEDS: palonosetron 0.25 mg/5 mL SDV IVP (10:05)
[2022-04-30] MEDS: dextrose 5% 250 ML 75 ML IV (10:05)
[2022-04-30] MEDS: FLUOROURACIL IV (14:43)
[2022-04-30] MEDS: SODIUM CHLORIDE IV (14:43)
[2022-04-30] MEDS: ELASTOMERIC PUMP PUMP IV (14:43)
[2022-04-30 14:45] VITALS: BP 145/81; PULSE 81; RESP 16; TEMP 36.7
[2022-05-14 08:27] LABS: Basophils % 0.5 %; Eosinophils # 0.1 10^3/uL (0.0-0.8); Eosinophils % 1.6 %; Hematocrit 45.8 % (42.0-52.0); Hemoglobin 14.7 g/dL (11.7-16.6); Lymphocytes # 1.9 10^3/uL (0.8-4.8); Lymphocytes % 29.2 %; Mean Corpuscular HGB Conc 32.1 g/dL (30.0-36.0); Mean Corpuscular Hemoglobin 28.2 pg (28.0-34.0); Mean Corpuscular Volume 87.9 fl (80-94); Monocytes # 0.9 10^3/uL (0.2-0.9); Monocytes % 14.3 %; Neutrophils # 3.46 10^3/uL (1.8-7.7); Neutrophils % 54.1 %; Nucleated Red Blood Cells % 0 %; Platelet Count 124 10^3/cmm (130-400); Red Blood Count 5.21 10^6/uL (4.1-5.3); Red Cell Distribution Width 18.4 % (12.1-15.1); White Blood Count 6.4 10^3/uL (4.0-10.0)
[2022-05-14 08:43] LABS: Alanine Aminotransferase 24 U/L (0-41); Alkaline Phosphatase 92 U/L (40-130); Anion Gap 13.7 (5-19); Aspartate Amino Transferase 24 U/L (0-40); Blood Urea Nitrogen 25 mg/dL (8-23); Calcium 9.1 mg/dL (8.5-10.5); Carbon Dioxide 26 mmol/L (22-29); Chloride 99 mmol/L (98-107); Globulin 3.1 g/dL (1.3-4.6); Glomerular Filtration Rate 73.9 mL/min (90-130); Glucose 98 mg/dL (65-115); Osmolality Calculated 282 mOsm/kg (285-295); Potassium 4.7 mmol/L (3.5-5.1); Sodium 134 mmol/L (136-145); Total Bilirubin 0.3 mg/dL (0.15-1.2); Total Protein 7.1 g/dL (6.6-8.7)
[2022-05-14] MEDS: palonosetron 0.25 mg/5 mL SDV IVP (09:31)
[2022-05-14] MEDS: dextrose 5% 250 ML 75 ML IV (09:31)
[2022-05-14] MEDS: SODIUM CHLORIDE IV (13:52)
[2022-05-14] MEDS: ELASTOMERIC PUMP PUMP IV (13:52)
[2022-05-14] MEDS: FLUOROURACIL IV (13:52)
[2022-05-14 14:00] VITALS: BP 135/71; PULSE 73; RESP 16; TEMP 36.4; O2SAT 94
[2022-05-16 11:34] VITALS: BP 148/79; PULSE 84; RESP 18; TEMP 36.9; O2SAT 95
[2022-05-27 08:44] LABS: Basophils % 0.2 %; Eosinophils # 0.2 10^3/uL (0.0-0.8); Eosinophils % 3.2 %; Hematocrit 46.7 % (42.0-52.0); Hemoglobin 14.9 g/dL (11.7-16.6); Lymphocytes # 1.7 10^3/uL (0.8-4.8); Lymphocytes % 28.5 %; Mean Corpuscular HGB Conc 31.9 g/dL (30.0-36.0); Mean Corpuscular Hemoglobin 28.2 pg (28.0-34.0); Mean Corpuscular Volume 88.3 fl (80-94); Mean Platelet Volume 10.2 fL (7.4-10.4); Monocytes # 0.9 10^3/uL (0.2-0.9); Monocytes % 15.5 %; Neutrophils # 3.15 10^3/uL (1.8-7.7); Neutrophils % 52.3 %; Nucleated Red Blood Cells % 0 %; Platelet Count 104 10^3/cmm (130-400); Red Blood Count 5.29 10^6/uL (4.1-5.3); Red Cell Distribution Width 18.1 % (12.1-15.1)
[2022-05-27 09:28] LABS: Alanine Aminotransferase 30 U/L (0-41); Albumin Level 3.9 g/dL (3.5-5.2); Alkaline Phosphatase 107 U/L (40-130); Anion Gap 15.2 (5-19); Aspartate Amino Transferase 29 U/L (0-40); Blood Urea Nitrogen 21 mg/dL (8-23); Calcium 9.1 mg/dL (8.5-10.5); Carbon Dioxide 25 mmol/L (22-29); Chloride 100 mmol/L (98-107); Globulin 3.2 g/dL (1.3-4.6); Glomerular Filtration Rate 73.9 mL/min (90-130); Glucose 104 mg/dL (65-115); Osmolality Calculated 285 mOsm/kg (285-295); Potassium 4.2 mmol/L (3.5-5.1); Sodium 136 mmol/L (136-145); Total Bilirubin 0.5 mg/dL (0.15-1.2); Total Protein 7.1 g/dL (6.6-8.7)
[2022-05-27] MEDS: dextrose 5% 250 ML 75 ML IV (09:52)
[2022-05-27] MEDS: palonosetron 0.25 mg/5 mL SDV IVP (09:53)
[2022-05-27] MEDS: leucovorin 980 MG in dextrose 5% 250 ML 62.5 MG IV (10:16)
[2022-05-27] MEDS: DEXTROSE 5% IV (10:17)
[2022-05-27] MEDS: OXALIPLATIN IV (10:17)
[2022-05-27 14:08] VITALS: BP 142/84; PULSE 72; RESP 16; TEMP 36.4; O2SAT 96
== END 2022-05-28 23:59 | disposition home or self-care (01) ==
PROVIDERS: PCP Family Medicine; Visit Provider Internal Medicine Medical Oncology
DX: Z51.11 Encounter for antineoplastic chemotherapy (principal); C18.7 Malignant neoplasm of sigmoid colon; N32.1 Vesicointestinal fistula; R97.0 Elevated carcinoembryonic antigen [CEA]; Z79.899 Other long term (current) drug therapy; Z87.891 Personal history of nicotine dependence
CPT/HCPCS: 36593; 80053; 82378; 85025; 96367; 96368; 96375; 96413; 96415; 96416; 96523; 99213; 99214; J0640; J1100; J2469; J2997; J7060; J9190; J9263

== ENCOUNTER 2022-06-21 13:17 | Outpatient (CLI) | payer MEDICARE, OTHER, SELFPAY ==
[2022-06-21] MEDS: iohexol 350 mg/mL 500 mL Btl (per mL) PO (13:49)
[2022-06-21] MEDS: iohexol 350 mg/mL 500 mL Btl (per mL) IV (13:49)
--- NOTE | 2022-06-21 15:30 | CT_ITS ---
WS: [id number] CT ABDOMEN PELVIS TECHNIQUE: Contrast-enhanced CT of the abdomen and pelvis with coronal and sagittal reformatted image s. CLINICAL INFORMATION: restaging COMPARISON: CT April 22, 2022 DLP: 1097.[address] scans at [facility] use at least one of these dose optimization techniques: automated e xposure control; mA and/or kV adjustment per patient size (includes targeted exams where dose is matc hed to clinical indication); or iterative reconstruction. FINDINGS:Peripheral enhancing soft tissue mass in the RIGHT lower quadrant presumably sigmoid neoplas m measuring 5.6 x 5.2 x 6.8 cm AP by transverse by craniocaudal is stable in appearance. Stable fistu lous connection to the dome of the bladder unchanged in appearance. Stable involvement of the adjacen t sigmoid colon. This also contacts the ileum and cecum in the RIGHT lower quadrant with similar-appe aring fecalization of the distal small bowel today. No evidence of high-grade obstruction. Mild hepatomegaly. Diffuse fatty infiltration liver. Normal spleen. Moderate esophageal hiatal hernia . Normal portal vein and splenic vein. Adrenal glands are normal. Normal renal parenchymal enhancemen t. No hydronephrosis in either kidney. Bilateral renal cortical cysts. Normal pancreas. Lung bases ar e well aerated. Normal caliber abdominal aorta. Aortic calcification. Sigmoid diverticulosis. Gallbladder is contracted. Adrenal glands are normal. Tiny incidental fat-con taining umbilical hernia. Enlarged prostate with calcification measuring 4.[address]/CT abdomen pelvis w con* [id number] IMPRESSION: 1. Stable sigmoid mass in the RIGHT lower quadrant with fistulous connection t o the dome of the bladder. No air within the bladder today. Overall size of the mass measures 5.6 x 5.2 x 6.8 cm not significantly changed compared to previou s. No evidence of progression. 2. Persistent contact of the cecum and ileum RIGHT lower quadrant with similar appearing fecalization of the ileum unchanged. 3. No other significant changes compared to previous. 4. Moderate esophageal hiatal hernia. 5. Enlarged calcified prostate measuring 4.9 CM. Recommend correlation PSA. En larged thickened seminal vesicles bilaterally.
== END 2022-06-21 13:18 | disposition home or self-care (01) ==
PROVIDERS: PCP Family Medicine; Visit Provider Nurse Practitioner Family
DX: C18.7 Malignant neoplasm of sigmoid colon (principal); R19.03 Right lower quadrant abdominal swelling, mass and lump
CPT/HCPCS: 74177; Q9967

== ENCOUNTER 2022-06-24 08:00 | Oncology outpatient (recurring) (ONCR) | payer MEDICARE, OTHER, SELFPAY ==
[2022-05-29 12:08] VITALS: BP 153/86; PULSE 98; RESP 16; TEMP 36.3; O2SAT 95
[2022-06-10 08:40] LABS: Basophils % 0.2 %; Eosinophils # 0.1 10^3/uL (0.0-0.8); Eosinophils % 1.2 %; Hematocrit 46.6 % (42.0-52.0); Lymphocytes # 1.6 10^3/uL (0.8-4.8); Lymphocytes % 19.8 %; Mean Corpuscular HGB Conc 32.2 g/dL (30.0-36.0); Mean Corpuscular Volume 90.1 fl (80-94); Mean Platelet Volume 10.1 fL (7.4-10.4); Monocytes % 12.6 %; Neutrophils # 5.42 10^3/uL (1.8-7.7); Neutrophils % 65.8 %; Nucleated Red Blood Cells % 0 %; Platelet Count 110 10^3/cmm (130-400); Red Blood Count 5.17 10^6/uL (4.1-5.3); Red Cell Distribution Width 18.1 % (12.1-15.1); White Blood Count 8.2 10^3/uL (4.0-10.0)
[2022-06-10 09:05] LABS: Alanine Aminotransferase 27 U/L (0-41); Albumin Level 3.7 g/dL (3.5-5.2); Alkaline Phosphatase 110 U/L (40-130); Anion Gap 13.1 (5-19); Aspartate Amino Transferase 28 U/L (0-40); Blood Urea Nitrogen 27 mg/dL (8-23); Calcium 9.5 mg/dL (8.5-10.5); Carbon Dioxide 26 mmol/L (22-29); Chloride 101 mmol/L (98-107); Globulin 3.1 g/dL (1.3-4.6); Glomerular Filtration Rate 73.9 mL/min (90-130); Glucose 117 mg/dL (65-115); Osmolality Calculated 288 mOsm/kg (285-295); Potassium 4.1 mmol/L (3.5-5.1); Sodium 136 mmol/L (136-145); Total Bilirubin 0.5 mg/dL (0.15-1.2); Total Protein 6.8 g/dL (6.6-8.7)
[2022-06-10] MEDS: palonosetron 0.25 mg/5 mL SDV IVP (09:52)
[2022-06-10] MEDS: dextrose 5% 250 ML 75 ML IV (09:52)
[2022-06-10] MEDS: leucovorin 980 MG in dextrose 5% 250 ML 62.5 MG IV (10:24)
[2022-06-10] MEDS: OXALIPLATIN IV (10:24)
[2022-06-10] MEDS: DEXTROSE 5% IV (10:24)
[2022-06-10 14:30] VITALS: BP 142/82; PULSE 90; RESP 16; TEMP 36.8; O2SAT 98
[2022-06-12 10:54] VITALS: BP 137/74; PULSE 87; RESP 16; TEMP 36.8; O2SAT 97
[2022-06-24 08:34] LABS: Basophils % 0.3 %; Eosinophils # 0.1 10^3/uL (0.0-0.8); Eosinophils % 1.8 %; Hematocrit 45.7 % (42.0-52.0); Hemoglobin 14.8 g/dL (11.7-16.6); Lymphocytes # 1.3 10^3/uL (0.8-4.8); Lymphocytes % 20.9 %; Mean Corpuscular HGB Conc 32.4 g/dL (30.0-36.0); Mean Corpuscular Hemoglobin 29.3 pg (28.0-34.0); Mean Corpuscular Volume 90.5 fl (80-94); Mean Platelet Volume 10.2 fL (7.4-10.4); Monocytes % 15.5 %; Neutrophils % 61.2 %; Nucleated Red Blood Cells % 0 %; Platelet Count 93 10^3/cmm (130-400); Red Blood Count 5.05 10^6/uL (4.1-5.3); Red Cell Distribution Width 17.6 % (12.1-15.1); White Blood Count 6.2 10^3/uL (4.0-10.0)
[2022-06-24 09:02] LABS: Carcinoembryonic Antigen 18.8 ng/mL (0.0-4.7)
[2022-06-24 09:13] LABS: Alanine Aminotransferase 31 U/L (0-41); Albumin Level 3.6 g/dL (3.5-5.2); Alkaline Phosphatase 96 U/L (40-130); Anion Gap 15.5 (5-19); Aspartate Amino Transferase 31 U/L (0-40); Blood Urea Nitrogen 13 mg/dL (8-23); Calcium 9.2 mg/dL (8.5-10.5); Carbon Dioxide 24 mmol/L (22-29); Chloride 99 mmol/L (98-107); Globulin 3.4 g/dL (1.3-4.6); Glomerular Filtration Rate 73.9 mL/min (90-130); Glucose 112 mg/dL (65-115); Osmolality Calculated 279 mOsm/kg (285-295); Potassium 4.5 mmol/L (3.5-5.1); Sodium 134 mmol/L (136-145); Total Bilirubin 0.5 mg/dL (0.15-1.2)
[2022-06-24] MEDS: palonosetron 0.25 mg/5 mL SDV IVP (10:09)
[2022-06-24] MEDS: dextrose 5% 250 ML 75 ML IV (10:09)
[2022-06-24] MEDS: OXALIPLATIN IV (10:48)
[2022-06-24] MEDS: DEXTROSE 5% IV (10:48)
[2022-06-24] MEDS: leucovorin 980 MG in dextrose 5% 250 ML 62.5 MG IV (10:48)
[2022-06-24 14:41] VITALS: BP 151/83; PULSE 77; RESP 16; TEMP 37; O2SAT 94
== END 2022-06-25 23:59 | disposition home or self-care (01) ==
PROVIDERS: Nurse Practitioner Family; PCP Family Medicine; Visit Provider Internal Medicine Medical Oncology
DX: C18.7 Malignant neoplasm of sigmoid colon (principal); Z51.11 Encounter for antineoplastic chemotherapy; Z79.52 Long term (current) use of systemic steroids; Z79.899 Other long term (current) drug therapy
CPT/HCPCS: 74177; 80053; 82378; 85025; 96366; 96367; 96375; 96413; 96415; 96416; 96417; 96523; 99214; J0640; J1100; J2469; J7060; J9190; J9263; Q9967

== ENCOUNTER → 2022-07-15 08:06 | Outpatient (BNVA) | payer MEDICARE, OTHER, SELFPAY | PROVIDERS: PCP Family Medicine; Visit Provider Nurse Practitioner | DX: C18.7 Malignant neoplasm of sigmoid colon (principal) | CPT/HCPCS: 99214 ==

== ENCOUNTER 2022-07-17 12:30 | Oncology outpatient (recurring) (ONCR) | payer MEDICARE, OTHER, SELFPAY ==
[2022-07-15 08:36] LABS: Basophils % 0.6 %; Eosinophils # 0.3 10^3/uL (0.0-0.8); Eosinophils % 5.5 %; Hematocrit 45.5 % (42.0-52.0); Hemoglobin 14.6 g/dL (11.7-16.6); Lymphocytes # 1.6 10^3/uL (0.8-4.8); Lymphocytes % 33.1 %; Mean Corpuscular HGB Conc 32.1 g/dL (30.0-36.0); Mean Corpuscular Hemoglobin 29.8 pg (28.0-34.0); Mean Corpuscular Volume 92.9 fl (80-94); Mean Platelet Volume 10.2 fL (7.4-10.4); Monocytes # 0.9 10^3/uL (0.2-0.9); Monocytes % 17.4 %; Neutrophils # 2.14 10^3/uL (1.8-7.7); Neutrophils % 43.2 %; Nucleated Red Blood Cells % 0 %; Platelet Count 122 10^3/cmm (130-400); Red Cell Distribution Width 16.9 % (12.1-15.1)
[2022-07-15 09:17] LABS: Alanine Aminotransferase 33 U/L (0-41); Albumin Level 3.6 g/dL (3.5-5.2); Alkaline Phosphatase 77 U/L (40-130); Anion Gap 12.6 (5-19); Aspartate Amino Transferase 30 U/L (0-40); Blood Urea Nitrogen 19 mg/dL (8-23); Calcium 8.9 mg/dL (8.5-10.5); Carbon Dioxide 26 mmol/L (22-29); Chloride 106 mmol/L (98-107); Globulin 3.5 g/dL (1.3-4.6); Glomerular Filtration Rate 66.2 mL/min (90-130); Glucose 107 mg/dL (65-115); Osmolality Calculated 293 mOsm/kg (285-295); Potassium 4.6 mmol/L (3.5-5.1); Sodium 140 mmol/L (136-145); Total Bilirubin 0.3 mg/dL (0.15-1.2); Total Protein 7.1 g/dL (6.6-8.7)
[2022-07-15] MEDS: dextrose 5% 250 ML 75 ML IV (09:59)
[2022-07-15] MEDS: palonosetron 0.25 mg/5 mL SDV IVP (10:02)
[2022-07-15] MEDS: LEUCOVORIN IV (10:48)
[2022-07-15] MEDS: DEXTROSE 5% IV (10:48)
[2022-07-15] MEDS: SODIUM CHLORIDE IV (14:46)
[2022-07-15] MEDS: ELASTOMERIC PUMP PUMP IV (14:46)
[2022-07-15] MEDS: FLUOROURACIL IV (14:46)
[2022-07-17 11:25] VITALS: BP 128/72; PULSE 83; RESP 20; TEMP 36.8; O2SAT 94
== END 2022-07-26 23:59 | disposition home or self-care (01) ==
PROVIDERS: Nurse Practitioner Family; PCP Family Medicine; Visit Provider Internal Medicine Medical Oncology
DX: C18.7 Malignant neoplasm of sigmoid colon (principal)
CPT/HCPCS: 80053; 85025; 96366; 96368; 96375; 96413; 96415; 96416; 96417; 96523; 99214; J0640; J1100; J2469; J7060; J9190; J9263

== ENCOUNTER → 2022-08-12 08:14 | Outpatient (BNVA) | payer MEDICARE, OTHER, SELFPAY | PROVIDERS: PCP Family Medicine; Visit Provider Nurse Practitioner | DX: C18.7 Malignant neoplasm of sigmoid colon (principal) | CPT/HCPCS: 99214 ==

== ENCOUNTER 2022-08-14 13:31 | Oncology outpatient (recurring) (ONCR) | payer MEDICARE, OTHER, SELFPAY ==
[2022-07-29 08:03] VITALS: BP 138/75; PULSE 74; RESP 16; TEMP 36.8; O2SAT 97
[2022-07-29 08:21] LABS: Basophils % 0.2 %; Eosinophils # 0.3 10^3/uL (0.0-0.8); Eosinophils % 6.2 %; Hematocrit 44.2 % (42.0-52.0); Hemoglobin 14.4 g/dL (11.7-16.6); Lymphocytes # 1.5 10^3/uL (0.8-4.8); Lymphocytes % 32.7 %; Mean Corpuscular HGB Conc 32.6 g/dL (30.0-36.0); Mean Corpuscular Hemoglobin 30.1 pg (28.0-34.0); Mean Corpuscular Volume 92.3 fl (80-94); Mean Platelet Volume 9.7 fL (7.4-10.4); Monocytes # 0.6 10^3/uL (0.2-0.9); Monocytes % 12.8 %; Neutrophils # 2.16 10^3/uL (1.8-7.7); Neutrophils % 47.9 %; Nucleated Red Blood Cells % 0 %; Platelet Count 89 10^3/cmm (130-400); Red Blood Count 4.79 10^6/uL (4.1-5.3); Red Cell Distribution Width 16.7 % (12.1-15.1); White Blood Count 4.5 10^3/uL (4.0-10.0)
[2022-07-29 08:53] LABS: Carcinoembryonic Antigen 21.8 ng/mL (0.0-4.7)
[2022-07-29 09:04] LABS: Alanine Aminotransferase 40 U/L (0-41); Albumin Level 3.6 g/dL (3.5-5.2); Alkaline Phosphatase 89 U/L (40-130); Anion Gap 14.9 (5-19); Aspartate Amino Transferase 36 U/L (0-40); Blood Urea Nitrogen 16 mg/dL (8-23); Calcium 8.8 mg/dL (8.5-10.5); Carbon Dioxide 21 mmol/L (22-29); Chloride 101 mmol/L (98-107); Globulin 3.3 g/dL (1.3-4.6); Glomerular Filtration Rate 73.9 mL/min (90-130); Glucose 150 mg/dL (65-115); Osmolality Calculated 280 mOsm/kg (285-295); Potassium 3.9 mmol/L (3.5-5.1); Sodium 133 mmol/L (136-145); Total Bilirubin 0.5 mg/dL (0.15-1.2); Total Protein 6.9 g/dL (6.6-8.7)
[2022-07-29] MEDS: palonosetron 0.25 mg/5 mL SDV IVP (09:45)
[2022-07-29] MEDS: dextrose 5% 250 ML 75 ML IV (09:45)
[2022-07-29] MEDS: leucovorin 980 MG in dextrose 5% 250 ML 62.5 MG IV (10:16)
[2022-07-29] MEDS: oxaliplatin 180 MG in dextrose 5% 250 ML 71.5 MG IV (10:16)
[2022-07-29 14:20] VITALS: BP 126/75; PULSE 76; RESP 16; TEMP 36.4; O2SAT 96
[2022-07-31 12:08] VITALS: BP 135/68; PULSE 72; RESP 16; TEMP 37.2; O2SAT 96
[2022-08-12 08:33] VITALS: BP 151/93; PULSE 77; RESP 16; TEMP 36.9; O2SAT 96
[2022-08-12 08:56] LABS: Basophils % 0.6 %; Eosinophils # 0.2 10^3/uL (0.0-0.8); Eosinophils % 4.4 %; Hematocrit 44.2 % (42.0-52.0); Hemoglobin 14.6 g/dL (11.7-16.6); Lymphocytes # 1.6 10^3/uL (0.8-4.8); Mean Corpuscular Hemoglobin 30.7 pg (28.0-34.0); Mean Corpuscular Volume 92.9 fl (80-94); Mean Platelet Volume 10.3 fL (7.4-10.4); Monocytes # 0.7 10^3/uL (0.2-0.9); Monocytes % 13.4 %; Neutrophils # 2.84 10^3/uL (1.8-7.7); Neutrophils % 52.2 %; Nucleated Red Blood Cells % 0 %; Platelet Count 85 10^3/cmm (130-400); Red Blood Count 4.76 10^6/uL (4.1-5.3); Red Cell Distribution Width 16.4 % (12.1-15.1); White Blood Count 5.4 10^3/uL (4.0-10.0)
[2022-08-12 09:05] LABS: Alanine Aminotransferase 45 U/L (0-41); Albumin Level 3.6 g/dL (3.5-5.2); Alkaline Phosphatase 94 U/L (40-130); Anion Gap 14.1 (5-19); Aspartate Amino Transferase 35 U/L (0-40); Blood Urea Nitrogen 16 mg/dL (8-23); Calcium 8.9 mg/dL (8.5-10.5); Carbon Dioxide 24 mmol/L (22-29); Chloride 100 mmol/L (98-107); Globulin 3.6 g/dL (1.3-4.6); Glucose 114 mg/dL (65-115); Osmolality Calculated 280 mOsm/kg (285-295); Potassium 4.1 mmol/L (3.5-5.1); Sodium 134 mmol/L (136-145); Total Bilirubin 0.5 mg/dL (0.15-1.2); Total Protein 7.2 g/dL (6.6-8.7)
[2022-08-12] MEDS: dextrose 5% 250 ML 75 ML IV (11:19)
[2022-08-12] MEDS: palonosetron 0.25 mg/5 mL SDV IVP (11:20)
[2022-08-12] MEDS: leucovorin 980 MG in dextrose 5% 250 ML 62.5 MG IV (12:02)
[2022-08-12] MEDS: oxaliplatin 180 MG in dextrose 5% 250 ML 71.5 MG IV (12:02)
[2022-08-12 15:45] VITALS: BP 124/78; PULSE 78; RESP 16; TEMP 36.9; O2SAT 97
[2022-08-14 13:39] VITALS: BP 114/72; PULSE 95; RESP 20; TEMP 37.2; O2SAT 96
== END 2022-08-25 23:59 | disposition home or self-care (01) ==
PROVIDERS: Nurse Practitioner; PCP Family Medicine; Visit Provider Internal Medicine Medical Oncology
DX: C18.7 Malignant neoplasm of sigmoid colon (principal)
CPT/HCPCS: 80053; 82378; 84153; 85025; 96366; 96367; 96368; 96375; 96413; 96415; 96416; 96417; 96523; 99214; J0640; J1100; J2469; J7060; J9190; J9263

== ENCOUNTER 2022-08-30 07:49 | Outpatient (CLI) | payer MEDICARE, OTHER, SELFPAY ==
[2022-08-30] MEDS: iohexol 350 mg/mL 500 mL Btl (per mL) PO (07:56)
[2022-08-30] MEDS: iohexol 350 mg/mL 500 mL Btl (per mL) IV (07:56)
--- NOTE | 2022-08-30 09:00 | CT_ITS ---
WS: [id number] CT scan of the abdomen and pelvis with Oral and IV contrast. Additional two-dimensional coronal and s agittal reconstruction was performed. 08/30/2022 Clinical Data: evaluation of treatment Comparison: CT abdomen pelvis, 06/21/2022 DLP: 2106.[address] scans at [facility] use at least one of these dose optimization techniques: automated e xposure control; mA and/or kV adjustment per patient size (includes targeted exams where dose is matc hed to clinical indication); or iterative reconstruction. Findings: The lower lungs show no nodules, masses or effusions. There is a moderate hiatal hernia. The liver, gallbladder, spleen, adrenal glands and pancreas are normal. The kidneys show equal bilateral contrast excretion with multiple simple cysts but no masses. No taylor l calculi or hydronephrosis is seen. The abdominal aorta is normal in size with calcification in the wall.. No appendicitis or diverticulitis is seen. There are numerous sigmoid diverticula Oral contrast is in the stomach and small bowel and there is no bowel dilatation. There is a soft tissue mass in the rig ht lower quadrant measuring 4.8 x 5.1 x 6.8 cm which is unchanged in size or configuration. It abuts the right side of the dome of the bladder, the right abdominal wall and probably the distal small ed wel. The bladder is unremarkable. No inguinal hernia is seen. There is a small fat-containing umbilical he rnia. The prostate is enlarged with calcifications. The bones of the lower thorax, lumbar spine, pelvis, and hips are normal. CT/CT abdomen pelvis w con* [id number] Impression: 1. Right lower quadrant soft tissue mass unchanged in size or configuration. 2. No change in intra-abdominal or pelvic organs from prior scan.
== END 2022-08-30 07:50 | disposition home or self-care (01) ==
LOC: RAD 07:53
PROVIDERS: PCP Family Medicine; Visit Provider Nurse Practitioner
DX: C18.7 Malignant neoplasm of sigmoid colon (principal)
CPT/HCPCS: 74177; Q9967

== ENCOUNTER 2022-09-15 14:08 | Emergency (ER) | payer MEDICARE, OTHER, SELFPAY ==
[2022-09-15 14:17] VITALS: BP 141/83; PULSE 80; RESP 21; TEMP 37; O2SAT 94; BMI 35.9
[2022-09-15 14:23] VITALS: PULSE 75; O2SAT 96
[2022-09-15] MEDS: dexamethasone 10 mg/mL INJ IVP (14:24)
[2022-09-15] MEDS: diphenhydrAMINE 50 mg/mL SDV 1mL IVP (14:24)
[2022-09-15] MEDS: famotidine 20 mg/2 mL INJ 40 MG IVP (14:24)
--- NOTE | 2022-09-15 14:25 | ED_ITS ---
HPI - Allergic Reaction General: Chief complaint: Allergic Reaction Stated complaint: allergic reaction lips swelling Time Seen by Provider: 09/15/22 14:19 History of Present Illness: HPI narrative: Patient presents to the ER this morning with lips and cheek swelling. Patient said this started earlier this morning. Patient does not have any trouble breathing. Patient is on lisinopril and took MiraLAX this morning but he has done both these for years. Patient is allergic to penicillin. MD complaint: allergic reaction and facial swelling Onset (ago): hour(s) (Earlier today) Exposure: unknown Known history of allergy to: Penicillin Associated symptoms: Reports facial swelling and lip swelling; Deny abdominal pain, nausea or vomiting Severity: mild Treatment prior to arrival: none Previous Allergic Reaction History: none Review of Systems General: Reports: 10 or more systems reviewed and unremarkable except in HPI and below Const: Denies: fever(s) or chills Eyes: Denies: change in vision or photophobia ENMT: Denies: throat pain or odynophagia Card: Denies: chest pain, palpitations or irregular heart rhythm Resp: Denies: dyspnea, productive cough or non-productive cough GI: Denies: abdominal pain, nausea or vomiting : Denies: flank pain Musc: Denies: neck pain or back pain Skin/Breast: Denies: rash or pruritus All/Imm: Reports: facial swelling PFS ED PFSH: Medical History Adenocarcinoma of sigmoid colon History of broken leg Right leg Hypertension Surgical History History of esophagogastroduodenoscopy (EGD) 20 + yrs ago History of laparoscopy (01/24/22) Hx of colonoscopy (01/04/22) Family History Brother Diabetes Social History Smoking and tobacco status: former smoker Physical Exam Const: COMMON NORMALS: no acute distress, average body habitus, patient oriented x3, no limitations, healthy appearing, alert and well nourished HENMT: COMMON NORMALS: normocephalic, atraumatic, external ears normal, Normal external nose present and moist oral mucous membranes HEAD & SCALP: normocephalic and atraumatic NOSE: Normal external nose present EXTERNAL EAR: Yes external ears normal OTHER: Patient is very hard of hearing, lips are swollen with bottom lip being more swollen and top lip. Eye: COMMON NORMALS: Equal, round and reactive pupils present, EOMs intact bilaterally, conjunctivae normal and no scleral icterus CONJUNCTIVA: Yes conjunctivae normal PUPIL: Yes Equal, round and reactive pupils present Neck/C-Spine: COMMON NORMALS: full ROM, no lymphadenopathy, supple, no me ningeal signs, no JVD and Thyroid normal THYROID: Thyroid normal Lymph: LYMPHATIC: no lymphadenopathy noted Chest: COMMONS NORMALS: normal inspection of the chest and normal palpation of entire chest wall Resp: COMMON NORMALS: normal respiratory effort, No retractions, No use of accessory muscles and clear to auscultation bilaterally AUSCULTATION: clear to auscultation bilaterally Cardio: COMMON NORMALS: no JVD, regular rate, regular rhythm, S1 normal heart sound present, S2 normal heart sound present, No gallops present (Cardio), No clicks present (Cardio), No murmurs present (Cardio) and No rub (Cardio) RATE: regular rate RHYTHM: regular rhythm HEART SOUNDS: S1 normal heart sound present and S2 normal heart sound present GI: COMMON NORMALS: Normal to inspection, nondistended, normoactive bowel sounds present, Soft to palpation and non-tender PALPATION: Yes Soft to palpation : COMMON NORMALS: Yes no CVA tenderness BLADDER/KIDNEY EXAM: Yes no CVA tenderness Back/Pelvis: COMMON NORMALS: no CVA tenderness Neuro: COMMON NORMALS: patient oriented x3 SENSORIUM/ORIENTATION: Yes alert MENINGEAL SIGNS: Yes no meningeal signs Course Vital Signs: Vital signs: Vital Signs Temperature 98.6 F 09/15/22 14:17 Pulse Rate 70 09/15/22 14:38 Respiratory Rate 21 H 09/15/22 14:17 Blood Pressure 141/83 09/15/22 14:17 Pulse Oximetry 96 09/15/22 14:38 Oxygen Delivery Me thod Room Air 09/15/22 14:38 MDM - Allergic Reaction Medical Decision Making Patient presents to the ER with complaints of swelling of his right cheek and lips. Patient cannot think of anything that he has been over the last several days any different than what he has done before. Patient is on lisinopril but has been on this for many years. Patient is also . Patient was given IV Pepcid Benadryl and Decadron with some relief. Patient will be discharged home and is to follow-up with his family practice physician as it may be possible that the lisinopril is the root of the cause of this angioedema. Differential Diagnosis Likely angioedema; Unlikely anaphylaxis, allergic reaction, contact dermatitis, adverse reaction to drug, viral enanthem or urticaria Medical Records I reviewed the patient's medical records. Lab Data I reviewed the patient's lab results. Discharge Plan Discharge Patient Disposition: Home Clinical Impression: Angioedema Condition: Stable Prescriptions: No Action metoprolol succinate 25 mg capsule,sprinkle,ER 24hr 25 mg PO DAILY Qty: 30 12RF oxycodone 10 mg tablet 10 mg PO Q6H PRN (Reason: pain) 7 Days Qty: 28 0RF prochlorperazine maleate [Compazine] 10 mg tablet 10 mg PO Q4H PRN (Reason: Mild Nausea) Qty: 30 3RF lorazepam 1 mg tablet 0.5 - 1 mg PO Q6H PRN (Reason: Severe Nausea) Qty: 30 3RF budesonide-formoterol [Symbicort] 160-4.5 mcg/actuation HFA aerosol inhaler 1 inh inhalation BID Qty: 10.2 3RF Rx Instructions: 340B amlodipine 10 mg Tablet 10 mg PO DAILY montelukast 10 mg Tablet 10 mg PO DAILY lisinopril 40 mg Tablet 40 mg PO DAILY naproxen sodium [Aleve] 220 mg Tablet 220 mg PO BID PRN (Reason: Pain) Hold Instructions: Resume on 01/07/22. acetaminophen 500 mg Capsule 500 mg PO Q6H PRN (Reason: Pain) Discharge Orders: Discharge ED (Routine); Ordered 09/15/22 Ordered By: Bryce Mcintosh Referrals: Arden Mccarthy MD [Primary Care Provider] - 1 week Patient Instructions: Angioedema (ED), Allergic Reaction Activity Restrictions/Additional Instructions: Please follow-up with your primary care practitioner within the next 1 week. May benefit from further testing and evaluation and/or referral. Please stop taking your lisinopril until seen by primary care as this is unlikely but may be the cause of your facial swelling. Coding Level of Care Code ED [employer] for Kaz Olvera
[2022-09-15 14:38] VITALS: PULSE 70; O2SAT 96
[2022-09-15 15:24] VITALS: PULSE 70; O2SAT 96
== END 2022-09-15 15:25 | disposition home or self-care (01) ==
PROVIDERS: Emergency Provider Emergency Medicine; PCP Family Medicine
DX: T78.3XXA Angioneurotic edema, initial encounter (principal); I10 Essential (primary) hypertension; Z85.038 Personal history of other malignant neoplasm of large intestine; Z87.891 Personal history of nicotine dependence; X58.XXXA Exposure to other specified factors, initial encounter
CPT/HCPCS: 96374; 96375; 99284; J1100; J1200; J3490

== ENCOUNTER 2022-09-17 11:04 | Oncology outpatient (recurring) (ONCR) | payer MEDICARE, OTHER, SELFPAY ==
[2022-09-17 11:17] VITALS: BP 131/77; PULSE 80; RESP 20; TEMP 37.1; O2SAT 96
[2022-09-17 12:08] LABS: Basophils % 0.3 %; Eosinophils # 0.1 10^3/uL (0.0-0.8); Eosinophils % 0.5 %; Hematocrit 44.1 % (42.0-52.0); Hemoglobin 14.3 g/dL (11.7-16.6); Lymphocytes # 1.6 10^3/uL (0.8-4.8); Lymphocytes % 13.7 %; Mean Corpuscular HGB Conc 32.4 g/dL (30.0-36.0); Mean Corpuscular Hemoglobin 30.8 pg (28.0-34.0); Mean Platelet Volume 10.1 fL (7.4-10.4); Monocytes # 1.2 10^3/uL (0.2-0.9); Monocytes % 10.1 %; Neutrophils # 9.02 10^3/uL (1.8-7.7); Neutrophils % 75.1 %; Nucleated Red Blood Cells % 0 %; Platelet Count 175 10^3/cmm (130-400); Red Blood Count 4.64 10^6/uL (4.1-5.3); Red Cell Distribution Width 14.9 % (12.1-15.1)
[2022-09-17 12:46] LABS: Carcinoembryonic Antigen 22.3 ng/mL (0.0-4.7)
[2022-09-17 13:10] LABS: Alanine Aminotransferase 33 U/L (0-41); Albumin Level 3.6 g/dL (3.5-5.2); Alkaline Phosphatase 81 U/L (40-130); Aspartate Amino Transferase 26 U/L (0-40); Blood Urea Nitrogen 26 mg/dL (8-23); Calcium 8.7 mg/dL (8.5-10.5); Carbon Dioxide 20 mmol/L (22-29); Chloride 101 mmol/L (98-107); Globulin 3.7 g/dL (1.3-4.6); Glucose 93 mg/dL (65-115); Osmolality Calculated 284 mOsm/kg (285-295); Sodium 135 mmol/L (136-145); Total Bilirubin 0.4 mg/dL (0.15-1.2); Total Protein 7.3 g/dL (6.6-8.7)
[2022-09-17 13:16] LABS: Anion Gap 17.9 (5-19); Potassium 3.9 mmol/L (3.5-5.1)
== END 2022-09-25 23:59 | disposition home or self-care (01) ==
PROVIDERS: PCP Family Medicine; Visit Provider Internal Medicine Medical Oncology
DX: C18.7 Malignant neoplasm of sigmoid colon; G62.0 Drug-induced polyneuropathy; T45.1X5A Adverse effect of antineoplastic and immunosuppressive drugs, initial encounter; Z79.899 Other long term (current) drug therapy; Z87.891 Personal history of nicotine dependence
CPT/HCPCS: 80053; 82378; 85025; 99214; J1642

== ENCOUNTER 2022-10-15 08:00 | Oncology outpatient (recurring) (ONCR) | payer MEDICARE, OTHER, SELFPAY ==
[2022-09-30 08:15] VITALS: BP 154/90; PULSE 70; RESP 16; TEMP 36.3; O2SAT 95
[2022-09-30 08:31] LABS: Basophils % 0.3 %; Eosinophils # 0.1 10^3/uL (0.0-0.8); Eosinophils % 1.5 %; Hemoglobin 13.9 g/dL (11.7-16.6); Lymphocytes # 1.4 10^3/uL (0.8-4.8); Lymphocytes % 17.2 %; Mean Corpuscular HGB Conc 33.1 g/dL (30.0-36.0); Mean Corpuscular Hemoglobin 31.4 pg (28.0-34.0); Mean Corpuscular Volume 94.8 fl (80-94); Mean Platelet Volume 9.8 fL (7.4-10.4); Monocytes # 0.7 10^3/uL (0.2-0.9); Monocytes % 8.6 %; Neutrophils # 5.63 10^3/uL (1.8-7.7); Neutrophils % 71.9 %; Nucleated Red Blood Cells % 0 %; Platelet Count 141 10^3/cmm (130-400); Red Blood Count 4.43 10^6/uL (4.1-5.3); Red Cell Distribution Width 14.8 % (12.1-15.1); White Blood Count 7.8 10^3/uL (4.0-10.0)
[2022-09-30 08:50] LABS: Alanine Aminotransferase 27 U/L (0-41); Albumin Level 3.6 g/dL (3.5-5.2); Alkaline Phosphatase 99 U/L (40-130); Anion Gap 13.9 (5-19); Aspartate Amino Transferase 28 U/L (0-40); Blood Urea Nitrogen 20 mg/dL (8-23); Carbon Dioxide 25 mmol/L (22-29); Chloride 102 mmol/L (98-107); Globulin 3.5 g/dL (1.3-4.6); Glucose 120 mg/dL (65-115); Osmolality Calculated 288 mOsm/kg (285-295); Potassium 3.9 mmol/L (3.5-5.1); Sodium 137 mmol/L (136-145); Total Bilirubin 0.5 mg/dL (0.15-1.2); Total Protein 7.1 g/dL (6.6-8.7)
[2022-09-30] MEDS: ondansetron 2 mg/ML SDV 2 mL 8 MG IVP (09:42)
[2022-09-30] MEDS: sodium chloride 0.9% 250 ML 75 ML IV (09:42)
[2022-09-30] MEDS: leucovorin 1,000 MG in dextrose 5% 250 ML 500 MG IV (11:50)
[2022-09-30] MEDS: SODIUM CHLORIDE IV (12:12)
[2022-09-30] MEDS: FLUOROURACIL IV (12:12)
[2022-09-30] MEDS: ELASTOMERIC PUMP PUMP IV (12:12)
[2022-09-30 12:16] VITALS: BP 150/85; PULSE 66; RESP 16; TEMP 37.1; O2SAT 97
[2022-09-30 12:52] LABS: Add Urine Culture? Yes; Add Urine Microscopic? YES; Bacteria Urine 4+ /hpf; Bilirubin Urine Neg (Negative); Blood Urine 2+ (Negative); Glucose Urine UA Norm (Normal); Ketones Urine Negative (Negative); Leukocyte Esterase Urine 2+ (Negative); Nitrate Urine Positive (Negative); Protein Urine 1+ (Negative); RBC Urine 0-4 /hpf (0-2); Specific Gravity, Urine 1.015 (1.005-1.030); Squamous Epithelial Cell Urine 0-4 /hpf (0-5); Urine Appearance Cloudy (CLEAR); Urine Color Yellow (Yellow); Urobilinogen Urine Norm (Negative); WBC Urine 40-55 /hpf (0-5); pH Urine 6 (5-7)
[2022-10-02 09:10] VITALS: BP 140/83; PULSE 72; RESP 16; TEMP 37.1; O2SAT 98
[2022-10-14 07:58] VITALS: BP 151/90; PULSE 73; RESP 18; TEMP 36.9; O2SAT 95
[2022-10-14 08:18] LABS: Basophils % 0.2 %; Eosinophils # 0.1 10^3/uL (0.0-0.8); Eosinophils % 1.8 %; Hematocrit 43.4 % (42.0-52.0); Hemoglobin 14.2 g/dL (11.7-16.6); Lymphocytes # 1.6 10^3/uL (0.8-4.8); Lymphocytes % 24.8 %; Mean Corpuscular HGB Conc 32.7 g/dL (30.0-36.0); Mean Corpuscular Hemoglobin 31.2 pg (28.0-34.0); Mean Corpuscular Volume 95.4 fl (80-94); Mean Platelet Volume 9.9 fL (7.4-10.4); Monocytes # 0.7 10^3/uL (0.2-0.9); Monocytes % 10.3 %; Neutrophils # 4.06 10^3/uL (1.8-7.7); Neutrophils % 62.6 %; Nucleated Red Blood Cells % 0 %; Platelet Count 126 10^3/cmm (130-400); Red Blood Count 4.55 10^6/uL (4.1-5.3); Red Cell Distribution Width 15.6 % (12.1-15.1); White Blood Count 6.5 10^3/uL (4.0-10.0)
[2022-10-14 08:38] LABS: Alanine Aminotransferase 21 U/L (0-41); Albumin Level 3.7 g/dL (3.5-5.2); Alkaline Phosphatase 95 U/L (40-130); Anion Gap 12.2 (5-19); Aspartate Amino Transferase 25 U/L (0-40); Blood Urea Nitrogen 19 mg/dL (8-23); Calcium 8.9 mg/dL (8.5-10.5); Carbon Dioxide 26 mmol/L (22-29); Chloride 102 mmol/L (98-107); Globulin 3.3 g/dL (1.3-4.6); Glucose 103 mg/dL (65-115); Osmolality Calculated 285 mOsm/kg (285-295); Potassium 4.2 mmol/L (3.5-5.1); Sodium 136 mmol/L (136-145); Total Bilirubin 0.6 mg/dL (0.15-1.2)
[2022-10-14] MEDS: sodium chloride 0.9% 250 ML 75 ML IV (10:01)
[2022-10-14] MEDS: ondansetron 2 mg/ML SDV 2 mL 8 MG IVP (10:02)
[2022-10-14 10:22] LABS: Add Urine Microscopic? YES; Bilirubin Urine Neg (Negative); Blood Urine 2+ (Negative); Glucose Urine UA Norm (Normal); Ketones Urine Negative (Negative); Leukocyte Esterase Urine 2+ (Negative); Nitrate Urine Positive (Negative); Protein Urine 1+ (Negative); Urine Appearance Hazy (CLEAR); Urine Color Yellow (Yellow); Urobilinogen Urine Norm (Negative); pH Urine 5 (5-7)
[2022-10-14 10:23] LABS: Add Urine Culture? Yes; Bacteria Urine 2+ /hpf; Squamous Epithelial Cell Urine 0-4 /hpf (0-5); WBC Urine >100 /hpf (0-5)
[2022-10-15 07:55] VITALS: BP 167/91; PULSE 73; RESP 16; TEMP 36.7; O2SAT 93
[2022-10-15] MEDS: sodium chloride 0.9% 250 ML IV (08:08)
[2022-10-15] MEDS: ondansetron 2 mg/ML SDV 2 mL 8 MG IVP (08:09)
[2022-10-15] MEDS: leucovorin 1,000 MG in dextrose 5% 250 ML 500 MG IV (09:26)
[2022-10-15] MEDS: SODIUM CHLORIDE IV (10:11)
[2022-10-15] MEDS: FLUOROURACIL IV (10:11)
[2022-10-15] MEDS: ELASTOMERIC PUMP PUMP IV (10:11)
[2022-10-15 10:20] VITALS: BP 167/91; PULSE 73; RESP 16; TEMP 36.7; O2SAT 94
== END 2022-10-15 23:59 | disposition home or self-care (01) ==
PROVIDERS: Nurse Practitioner; Nurse Practitioner Family; PCP Family Medicine; Visit Provider Internal Medicine Medical Oncology
DX: Z51.11 Encounter for antineoplastic chemotherapy; C18.7 Malignant neoplasm of sigmoid colon; Z45.2 Encounter for adjustment and management of vascular access device; Z79.899 Other long term (current) drug therapy; Z87.891 Personal history of nicotine dependence
CPT/HCPCS: 80053; 81001; 85025; 87077; 87086; 87186; 96368; 96374; 96375; 96413; 96416; 96417; 96523; 99214; J0640; J1642; J2405; J7050; J7060; J9190; Q5107

== ENCOUNTER 2022-10-17 08:36 | Oncology outpatient (recurring) (ONCR) | payer MEDICARE, OTHER, SELFPAY ==
[2022-10-17 09:15] VITALS: BP 146/87; PULSE 78; RESP 18; TEMP 37.1; O2SAT 95
== END 2022-10-25 23:59 | disposition home or self-care (01) ==
PROVIDERS: PCP Family Medicine; Visit Provider Internal Medicine Medical Oncology
DX: Z45.2 Encounter for adjustment and management of vascular access device (principal); Z51.11 Encounter for antineoplastic chemotherapy; C18.7 Malignant neoplasm of sigmoid colon; R97.0 Elevated carcinoembryonic antigen [CEA]; G62.0 Drug-induced polyneuropathy; T45.1X5A Adverse effect of antineoplastic and immunosuppressive drugs, initial encounter; K13.79 Other lesions of oral mucosa; Z79.899 Other long term (current) drug therapy; Z87.891 Personal history of nicotine dependence
CPT/HCPCS: 96523; J1642

== ENCOUNTER → 2022-11-01 12:15 | Outpatient (BNVA) | payer MEDICARE, OTHER, SELFPAY | PROVIDERS: PCP Family Medicine; Visit Provider Nurse Practitioner Family | DX: R50.9 Fever, unspecified (principal); N39.0 Urinary tract infection, site not specified | CPT/HCPCS: 81000; 87077; 87086; 87184 ==

== ENCOUNTER 2022-11-05 08:48 | Inpatient (IN) | payer MEDICARE, OTHER, SELFPAY ==
[2022-11-05] VITALS (68 sets, daily range): BP systolic 117–148; BP diastolic 56–81; PULSE 78–115; RESP 18–33; TEMP 36.9; O2SAT 91–98; BMI 35.3
--- NOTE | 2022-11-05 09:47 | XRR_ITS ---
PROCEDURE INFORMATION: Exam: XR Chest Exam date and time: 11/05/2022 9:55 AM Age: 72 years old Clinical indication: Cough and dyspnea; Patient HX: HX of colon cancer; Additional info: Dyspnea/cough TECHNIQUE: Imaging protocol: Radiologic exam of the chest. Views: 1 view. COMPARISON: CT chest w con* [id number] 03/27/2022 4:55 PM FINDINGS: Tubes, catheters and devices: A Port-A-Cath overlies and obscures the left axilla with the catheter tip projected over expected course of the superior vena cava. Lungs: Clear. No consolidation. Pleural spaces: Unremarkable. No pleural effusion. No pneumothorax. Heart/Mediastinum: Unremarkable. No cardiomegaly. Bones/joints: Unremarkable. XR/XR chest 1V portable [id number] IMPRESSION: No acute cardiopulmonary disease
--- NOTE | 2022-11-05 09:47 | W.ED.GENADLT ---
HPI - General Adult General: Chief complaint: General Medical Stated complaint: Dr. Moisés BALDWIN Sent Time Seen by Provider: 11/05/22 09:37 Source: patient and family Mode of arrival: ambulatory History of Present Illness: 72-year-old male presents emergency room he has been short of breath he has not been eating well. He has a poor appetite. Patient was diagnosed approximately a year ago with a colon cancer. There is a mass with some fistula he was it was biopsied he also had a laparoscopy identified the mass but the decision was made not to resect he has been undergoing chemo and radiation. He has been very weak for the last 7 to 10 days with some worsening nausea. No hematemesis or coffee-ground emesis he occasionally has bloody stools which is not a new development for him. He is noted to be very tachypneic when he first arrived in the room. He has budesonide?formoterol inhaler as well as albuterol he states that does help some. He is not having any chest pain. Onset (ago): day(s) Relieving factors: none Exacerbating factors: none Associated symptoms: Reports dyspnea; Deny chest pain, confusion, cough, diaphoresis, decreased appetite, fevers/chills, headache(s), malaise, nausea, rash, palpitations, seizures, short of breath, syncope, vomiting or weakness Review of Systems Const: Denies: fever(s), chills, fatigue, malaise or diaphoresis Card: Denies: chest pain, palpitations or syncope Resp: Reports: dyspnea; Denies: productive cough or non-productive cough GI: Denies: abdominal pain, nausea or vomiting : Denies: flank pain, dysuria, urinary frequency or urinary urgency Musc: Denies: neck pain or back pain Skin/Breast: Denies: rash Neuro: Denies: headache(s) or confusion PFS ED PFSH: Medical History Adenocarcinoma of sigmoid colon History of broken leg Right leg Hypertension Surgical History History of esophagogastroduodenoscopy (EGD) 20 + yrs ago History of laparoscopy (01/24/22) Hx of colonoscopy (09/09/22) Family History Brother Diabetes Father CAD (coronary artery disease) Social History Smoking and tobacco status: former smoker Quit status (tobacco): has quit using tobacco Year quit tobacco: 31 years ago Former quit date comment: Smoked for 25+ years Alcohol intake: never Substance/Drug Use: never Physical Exam Const: GENERAL APPEARANCE: cooperative and comfortable ORIENTATION/CONSCIOUSNESS: Yes awake, Yes oriented to person, Yes oriented to place and Yes oriented to time HENMT: COMMON NORMALS: normocephalic, atraumatic and hearing grossly normal bilaterally HEAD & SCALP: normocephalic and atraumatic Resp: COMMON NORMALS: normal respiratory effort, No retractions and No use of accessory muscles AUSCULTATION: rhonchi (Right mid and upper) and wheezes Cardio: COMMON NORMALS: regular rate, regular rhythm and No murmurs present (Cardio) RATE: regular rate RHYTHM: regular rhythm GI: COMMON NORMALS: Soft to palpation and No hepatosplenomegaly present AUSCULTATION: Yes normoactive bowel sounds PALPATION: Yes Soft to palpation, No Tenderness to palpation present (GI), No Guarding due to palpation present (GI) and Yes No hepatosplenomegaly present Extremity: COMMON NORMALS: normal to inspection, capillary refill normal, no clubbing, cyanosis or edema, no calf tenderness and no pedal edema Neuro: SENSORIUM/ORIENTATION: Yes oriented to person, Yes oriented to place and Yes oriented to time Skin: COMMON NORMALS: no rashes or lesions noted GENERAL SKIN EXAM: no rashes or lesions noted Course Vital Signs: Vital signs: Vital Signs Temperature 98.4 F 11/05/22 19:15 Pulse Rate 63 11/06/22 05:10 Respiratory Rate 22 H 11/06/22 05:10 Blood Pressure 101/60 11/06/22 05:10 Pulse Oximetry 93 11/06/22 05:10 Oxygen Delivery Me thod Nasal Cannula 11/05/22 23:04 Oxygen Flow Rate 2 11/05/22 23:04 MDM - General Adult Medical Decision Making Labs and imaging reviewed. Most concerning the patient presented with such significant dyspnea and tachypnea that he may have a PE there is no PE there is mucin filled area of bronchitis. She reported as slowly enlarging. No PE only minimal atelectasis for the area. Suspect some of this may just be undertreated COPD. He does not have any infiltrate or pneumonia. Reviewed the imaging with Dr. Roland he did not feel there was significant pneumonia either. Patient maintain oxygen sat in the emergency room 93 to 95% on room air. He does have an acute kidney injury as well as a cystitis. His baseline creatinine is usually 0.8 2.9, his creatinine today is 2. There is a question of a 9 x 5 cm irregular mass of encapsulated fluid that may be an abscess on CT. Unfortunately we do not have urology available here. I discussed Dr. Curiel's oncologist we both thought it would be in the best interest of the patient be transferred back to [place] where he has been seen before where the surgeon who initially did the laparoscopy on him as. The potential abscess may need to be drained. There is no hydronephrosis at this time. Discussed with [facility] and Dr. Bala Curiel the hospitalist has accepted the patient unfortunately they do not have any beds available and it may be several days. We will start the patient on antibiotics admit consult pulmonology. Patient will be transferred to [place] once a bed becomes available. Cultures have been done. CT of the abdomen and pelvis by renal protocol did not show any nephrolithiasis or obstruction of the ureters. CTA of the chest did not show any PE. Medical Records I reviewed the patient's medical records. Lab Data I reviewed the patient's lab results. 11/06/22 00:55 11/06/22 00:55 Radiology Impressions Chest X-Ray 11/05/22 09:47 IMPRESSION: No acute cardiopulmonary disease Chest CTA 11/05/22 10:51 IMPRESSION: 1. Slowly enlarging tubular shaped density right middle lobe now measuring 2.5 cm in length likely representing mucin filled ectatic bronchus. Follow-up as clinically indicated. 2. Presumed postsurgical changes involving the soft tissues surrounding left-sided chest port which should be confirmed with history of recent surgical intervention. 3. Moderate size hiatal hernia unchanged. 4. Mild-moderate splenomegaly increased in size from previous exam. Abdomen/Pelvis CT 11/05/22 11:32 IMPRESSION: 1. 9 x 5 cm irregular shaped encapsulated fluid collection right mid pelvis stable in size suspicious for abscess collection with some adjacent reactive bladder wall thickening as well as adjacent abdominal wall inflammatory changes mildly progressed from previous exam. Fluid collection would be amenable to percutaneous drainage under CT guidance. 2. Colonic diverticulosis. No compelling evidence of acute diverticulitis. 3. Moderate splenomegaly increased in size from previous exam. 4. Stable bilateral renal cysts. Negative for renal calculi or hydronephrosis. 5. Additional chronic findings as above. Laboratory Results WBC 7.9 10^3/uL (4.0-10.0) 11/05/22 10:00 RBC 4.48 10^6/uL (4.1-5.3) 11/05/22 10:00 Hgb 14.1 g/dL (11.7-16.6) 11/05/22 10:00 Hct 41.3 % (42.0-52.0) L 11/05/22 10:00 MCV 92.2 fl (80-94) 11/05/22 10:00 MCH 31.5 pg (28.0-34.0) 11/05/22 10:00 MCHC 34.1 g/dL (30.0-36.0) 11/05/22 10:00 RDW 17.4 % (12.1-15.1) H 11/05/22 10:00 Plt Count 83 10^3/cmm (130-400) L 11/05/22 10:00 MPV 12.0 fL (7.4-10.4) H 11/05/22 10:00 Lymph % (Auto) Not Reportable 11/05/22 10:00 [place] % (Auto) Not Reportable 11/05/22 10:00 Lymph # (Auto) Not Reportable 11/05/22 10:00 [place] # (Auto) Not Reportable 11/05/22 10:00 Total Counted 100 (0-100) 11/05/22 10:00 Atypical Lymphs % 13.0 % (0-5) H 11/05/22 10:00 Absolute Neutrophils 5.7 10^3/cmm (1.4-6.5) 11/05/22 10:00 Segmented Neutrophils 71 % 11/05/22 10:00 Abs Segm Neuts (Man) 5.6 10/cmm (1.6-7.1) 11/05/22 10:00 Band Neutrophils 1.0 % 11/05/22 10:00 Abs Band Neuts (Man) 0.1 10^3/cmm (0.0-1.2) 11/05/22 10:00 Absolute Lymphocytes 2.1 10^3/cmm (1.2-3.4) 11/05/22 10:00 Lymphocytes (Manual) 14 % 11/05/22 10:00 Monocytes (Manual) 0.0 % 11/05/22 10:00 Absolute Monocytes 0.0 10^3/cmm (0.1-0.6) L 11/05/22 10:00 Eosinophils (Manual) 0 % 11/05/22 10:00 Absolute Eosinophils 0.0 10^3/cmm (0.0-0.7) 11/05/22 10:00 Basophils (Manual) 0.0 % 11/05/22 10:00 Absolute Basophils 0.0 10^3/cmm (0.0-0.2) 11/05/22 10:00 Metamyelocytes 0.0 % 11/05/22 10:00 Myelocytes 1.0 % 11/05/22 10:00 Promyelocytes 0.0 % 11/05/22 10:00 Nucleated RBCs 0.0 /100WBC (0-1) 11/05/22 10:00 Platelet Estimate Decreased (Normal) 11/05/22 10:00 Ovalocytes 1+ H 11/05/22 10:00 Specimen Type Arterial 11/05/22 18:00 Sample Site Brachial, left 11/05/22 18:00 ABG pH 7.45 (7.35-7.45) 11/05/22 18:00 ABG pCO2 28.3 mmHg (35-45) L 11/05/22 18:00 ABG pO2 63.2 mmHg (80.0-100.0) L 11/05/22 18:00 ABG HCO3 19.5 mmol/L (22-26) L 11/05/22 18:00 ABG O2 Saturation 92.5 11/05/22 18:00 ABG Base Excess -3.2 mmol/L (-2.0-2.0) L 11/05/22 18:00 Agusto Test N/a 11/05/22 18:00 A-a O2 Gradient 6.5 mmHg (5-10) 11/05/22 18:00 Hematocrit 42.0 % (42-52) 11/05/22 18:00 Hgb O2 Saturation 90.8 % (95-100) L 11/05/22 18:00 Carboxyhemoglobin 0.8 %THgb (0.4-20.1) 11/05/22 18:00 Methemoglobin 0.9 % (0.4-1.5) 11/05/22 18:00 Total Hemoglobin 13.7 g/dL (14-18) L 11/05/22 18:00 Sodium 128.0 mmol/L (131-143) L 11/05/22 18:00 Potassium 3.7 mmol/L (3.5-5.0) 11/05/22 18:00 Glucose 108.0 mg/dL (70-115) 11/05/22 18:00 Ionized Calcium 1.2 mmol/L (1.1-1.4) 11/05/22 18:00 O2 Delivery Device Room air 11/05/22 18:00 FiO2 21.0 % 11/05/22 18:00 [place] ID Amh 11/05/22 18:00 Sodium 130 mmol/L (136-145) L 11/05/22 10:00 Potassium 4.0 mmol/L (3.5-5.1) 11/05/22 10:00 Chloride 97 mmol/L (98-107) L 11/05/22 10:00 Carbon Dioxide 22 mmol/L (22-29) 11/05/22 10:00 Anion Gap 15.0 (5-19) 11/05/22 10:00 BUN 40 mg/dL (8-23) H 11/05/22 10:00 Creatinine 2.0 mg/dL (0.7-1.2) H 11/05/22 10:00 GFR Calculation Not Reportable 11/05/22 10:00 Glucose 104 mg/dL (65-115) 11/05/22 10:00 Calculated Osmolality 280 mOsm/kg (285-295) L 11/05/22 10:00 Calcium 8.2 mg/dL (8.5-10.5) L 11/05/22 10:00 Total Bilirubin 1.0 mg/dL (0.15-1.2) 11/05/22 10:00 AST 55 U/L (0-40) H 11/05/22 10:00 ALT 41 U/L (0-41) 11/05/22 10:00 Alkaline Phosphatase 94 U/L (40-130) 11/05/22 10:00 C-Reactive Protein 218.8 mg/L (0.0-4.9) H 11/05/22 05:01 NT-Pro-B Natriuret Pep 95 pg/mL (0-125) 11/05/22 05:01 Total Protein 6.6 g/dL (6.6-8.7) 11/05/22 10:00 Albumin 2.9 g/dL (3.5-5.2) L 11/05/22 10:00 Globulin 3.7 g/dL (1.3-4.6) 11/05/22 10:00 Procalcitonin 3.30 ng/mL (0-0.5) H 11/05/22 05:01 Urine Color Dark yellow (Yellow) 11/05/22 10:13 Urine Appearance Cloudy (CLEAR) A 11/05/22 10:13 Urine pH 5 (5-7) 11/05/22 10:13 Ur Specific [place] 1.030 (1.005-1.030) 11/05/22 10:13 Urine Protein Trace (Negative) 11/05/22 10:13 Urine Glucose (UA) Norm (Normal) 11/05/22 10:13 Urine Ketones Negative (Negative) 11/05/22 10:13 Urine Blood 3+ (Negative) H 11/05/22 10:13 Urine Nitrate Negative (Negative) 11/05/22 10:13 Urine Bilirubin Neg (Negative) 11/05/22 10:13 Urine Urobilinogen Norm mg/dL (Negative) 11/05/22 10:13 Ur Leukocyte Esterase 2+ (Negative) H 11/05/22 10:13 Urine RBC 25-40 /hpf (0-2) H 11/05/22 10:13 Urine WBC Too numerous to cnt /hpf (0-5) H 11/05/22 10:13 Ur Squamous Epith Cells 0-4 /hpf (0-5) H 11/05/22 10:13 Amorphous Sediment Not Reportable 11/05/22 10:13 Urine Bacteria 3+ /hpf (NONE) H 11/05/22 10:13 Hyaline Casts 5-10 /lpf H 11/05/22 10:13 Fine Granular Casts 0-4 /lpf H 11/05/22 10:13 Urine Mucus 1+ /hpf 11/05/22 10:13 Ur Oval Fat Bodies 1+ /hpf 11/05/22 10:13 Discharge Plan Discharge Patient Disposition: Xfer Short-Term Hosp Admit Provider: Abelardo Mayorga Clinical Impression: Abscess of male pelvis, Cystitis, Adenocarcinoma of sigmoid colon, Abdominal mass, Mucus plugging of bronchi, Acute kidney injury, Hyponatremia Condition: Stable Coding Level of Care Code ED [employer] Collector for Kaz Olvera
[2022-11-05 10:13] LABS: Hematocrit 41.3 % (42.0-52.0); Hemoglobin 14.1 g/dL (11.7-16.6); Mean Corpuscular HGB Conc 34.1 g/dL (30.0-36.0); Mean Corpuscular Hemoglobin 31.5 pg (28.0-34.0); Mean Corpuscular Volume 92.2 fl (80-94); Platelet Count 83 10^3/cmm (130-400); Red Blood Count 4.48 10^6/uL (4.1-5.3); Red Cell Distribution Width 17.4 % (12.1-15.1); White Blood Count 7.9 10^3/uL (4.0-10.0)
[2022-11-05 10:32] LABS: Alanine Aminotransferase 41 U/L (0-41); Albumin Level 2.9 g/dL (3.5-5.2); Alkaline Phosphatase 94 U/L (40-130); Aspartate Amino Transferase 55 U/L (0-40); Blood Urea Nitrogen 40 mg/dL (8-23); Calcium 8.2 mg/dL (8.5-10.5); Carbon Dioxide 22 mmol/L (22-29); Chloride 97 mmol/L (98-107); Globulin 3.7 g/dL (1.3-4.6); Glucose 104 mg/dL (65-115); Osmolality Calculated 280 mOsm/kg (285-295); Sodium 130 mmol/L (136-145); Total Protein 6.6 g/dL (6.6-8.7)
[2022-11-05] MEDS: sodium chloride 0.9% 1,000 ML 999 ML IV (10:32)
[2022-11-05 10:42] LABS: Add Urine Microscopic? YES; Bilirubin Urine Neg (Negative); Blood Urine 3+ (Negative); Glucose Urine UA Norm (Normal); Ketones Urine Negative (Negative); Leukocyte Esterase Urine 2+ (Negative); Nitrate Urine Negative (Negative); Protein Urine Trace (Negative); Urine Appearance Cloudy (CLEAR); Urine Color Dark Yellow (Yellow); Urobilinogen Urine Norm (Negative); pH Urine 5 (5-7)
--- NOTE | 2022-11-05 10:49 | PC.PHAR ---
Addendum entered by Makayla Rodriguez 11/05/22 10:51: pts states the pt was on a bactrim ds one tab bid filled 11/01/22 10d/s but then states on 11/04/22 the dced the bactrim ds and changed to macrobid 100mg bid ext shows filled 11/04/22 10d/s Original Note: pts verified pts medications-pts states she thinks the medications entered are all the medications the pt takes-last fill dates are in the pharmacy comments
--- NOTE | 2022-11-05 10:51 | CTR_ITS ---
PROCEDURE INFORMATION: Exam: CTA Chest With Contrast Exam date and time: 11/05/2022 11:53 AM Age: 72 years old Clinical indication: Shortness of breath; Patient HX: HX of colon cancer; Additional info: Dyspnea TECHNIQUE: Imaging protocol: Computed tomographic angiography of the chest with contrast. Exam focused on the arteries. 3D rendering (Not supervised by radiologist): MIP and/or 3D reconstructed images were created by the technologist. Radiation optimization: All CT scans at this facility use at least one of these dose optimization techniques: automated exposure control; mA and/or kV adjustment per patient size (includes targeted exams where dose is matched to clinical indication); or iterative reconstruction. Contrast material: OMNI 350; Contrast volume: 100 ml; Contrast route: INTRAVENOUS (IV); REPORTING DATA: Count of CT and Cardiac NM exams in prior 12 months: This patient has received 6 known CTs and 0 known cardiac nuclear medicine studies in the 12 months prior to the current study. COMPARISON: CT chest w con* [id number] 03/27/2022 4:55 PM RADIATION DOSE METRICS: Total DLP (mGy-cm): 632.85 FINDINGS: Tubes, catheters and devices: There is a left-sided chest port whose tip terminates within the SVC. There is some ill-defined fat stranding, skin thickening and subcutaneous air surrounding the chest port that was not present previously and may be due to recent intervention which should be confirmed with history. Pulmonary arteries: Normal. No pulmonary emboli. Aorta: Scattered atherosclerotic changes of the thoracic aorta. No aortic aneurysm. Lungs: There is a tubular shaped low attenuating density within the right middle lobe measuring 2.5 cm in length mildly increased in size from previous exam probably representing mucin filled dilated bronchus. Minor atelectatic changes posteriorly right lung base otherwise lung guzman are aerated and clear. Pleural spaces: Unremarkable. No pneumothorax. No pleural effusion. Heart: Heart is not significantly enlarged. There are moderate calcifications of the coronary arteries. No significant pericardial effusion. Lymph nodes: Unremarkable. No enlarged lymph nodes. Diaphragm: Moderate size hiatal hernia, stable. Spleen is at least mildly enlarged measuring 15.5 cm increased in size from previous exam. Bones/joints: Unremarkable. No acute fracture. Soft tissues: See Tubes, catheters and devices finding. CT/CT angio chest PE protcl [id number] IMPRESSION: 1. Slowly enlarging tubular shaped density right middle lobe now measuring 2.5 cm in length likely representing mucin filled ectatic bronchus. Follow-up as clinically indicated. 2. Presumed postsurgical changes involving the soft tissues surrounding left-sided chest port which should be confirmed with history of recent surgical intervention. 3. Moderate size hiatal hernia unchanged. 4. Mild-moderate splenomegaly increased in size from previous exam.
[2022-11-05 11:00] LABS: Bacteria Urine 3+ /hpf; Mucus Urine 1+ /hpf; RBC Urine 25-40 /hpf (0-2); Squamous Epithelial Cell Urine 0-4 /hpf (0-5); WBC Urine TOO NUMEROUS TO CNT /hpf (0-5)
[2022-11-05 11:01] LABS: Add Urine Culture? Yes; Fine Granular Casts Urine 0-4 /lpf; Oval Fat Bodies Urine 1+ /hpf
[2022-11-05 11:18] LABS: Absolute Neutrophil 5.7 10^3/cmm (1.4-6.5); Absolute Segmented Neutrophil 5.6 10/cmm (1.6-7.1); Band Neutrophils Absolute 0.1 10^3/cmm (0.0-1.2); Eosinophils 0 %; Lymphocytes 14 %; Lymphocytes Absolute 2.1 10^3/cmm (1.2-3.4); Platelet Estimate Decreased (Normal); Segmented Neutrophils 71 %; Slide Review Slide Review Perform; Total Cells Counted 100 (0-100)
[2022-11-05 11:19] LABS: Ovalocytes 1+
--- NOTE | 2022-11-05 11:32 | CTR_ITS ---
PROCEDURE INFORMATION: Exam: CT Abdomen And Pelvis Without Contrast Exam date and time: 11/05/2022 11:48 AM Age: 72 years old Clinical indication: Abdominal pain; Flank; Lower; Prior surgery; Surgery date: 6+ months; Surgery type: Edg, laparoscopy; Additional info: Flank pain TECHNIQUE: Imaging protocol: Computed tomography of the abdomen and pelvis without contrast. Radiation optimization: All CT scans at this facility use at least one of these dose optimization techniques: automated exposure control; mA and/or kV adjustment per patient size (includes targeted exams where dose is matched to clinical indication); or iterative reconstruction. REPORTING DATA: Count of CT and Cardiac NM exams in prior 12 months: This patient has received 6 known CTs and 0 known cardiac nuclear medicine studies in the 12 months prior to the current study. COMPARISON: CT abdomen pelvis w con* [id number] 08/30/2022 8:59 AM RADIATION DOSE METRICS: Total DLP (mGy-cm): 1146.3 FINDINGS: Limitations: Study is technically limited due to motion artifact. Lungs: There are minor atelectatic changes at the lung bases. Diaphragm: Moderate size hiatal hernia unchanged. Liver: Liver is borderline enlarged, unchanged. No masses detected on this noncontrast study. Gallbladder and bile ducts: Gallbladder is difficult to adequately assess due to motion artifact. Pancreas: Unremarkable. Main pancreatic duct is not significantly dilated. Spleen: The spleen is moderately enlarged and appears increased in size from previous exam. Adrenal glands: Normal. No mass. Kidneys and ureters: Stable small cortical cysts some of which are difficult to resolve as a simple cyst on this noncontrast study. No calculi hydronephrosis detected. Stomach and bowel: Multiple diverticuli noted along the descending sigmoid colon, unchanged. Remainder of the GI tract is unremarkable. Appendix: Not visualized.. Intraperitoneal space: Unremarkable. No free air. No significant fluid collection. Vasculature: Abdominal aorta and iliac vessels are diffusely calcified. There is no aortic aneurysm. Lymph nodes: Unremarkable. No enlarged lymph nodes. Urinary bladder: Asymmetric bladder wall thickening more pronounced right of midline along the bladder dome progressed from previous exam and adjacent to the fluid collection. 9 x 5 cm irregular shaped lobulated cystic mass again noted within the right anterior pelvis adjacent to a loop of sigmoid colon and abutting the right dome of the urinary bladder not significantly changed in size from previous exam. There is increasing reactive bladder wall thickening of the adjacent bladder dome as well as some reactive inflammatory thickening of the right lower abdominal wall that has also progressed from previous exam. The changes raises suspicion for abscess collection. Reproductive: Prostate gland is mildly enlarged. Bones/joints: Unremarkable. No acute fracture. Soft tissues: Small fat containing inguinal hernias larger on the right, stable. CT/CT kidney stone [id number] IMPRESSION: 1. 9 x 5 cm irregular shaped encapsulated fluid collection right mid pelvis stable in size suspicious for abscess collection with some adjacent reactive bladder wall thickening as well as adjacent abdominal wall inflammatory changes mildly progressed from previous exam. Fluid collection would be amenable to percutaneous drainage under CT guidance. 2. Colonic diverticulosis. No compelling evidence of acute diverticulitis. 3. Moderate splenomegaly increased in size from previous exam. 4. Stable bilateral renal cysts. Negative for renal calculi or hydronephrosis. 5. Additional chronic findings as above.
[2022-11-05] MEDS: cefTRIAXone 1,000 MG in sodium chloride 0.9% (plus) 50 ML 100 MG IV (11:39)
[2022-11-05] MEDS: iohexol 350 mg/mL 500 mL Btl (per mL) IV (11:53)
--- NOTE | 2022-11-05 13:43 | ECG_ITS ---
[facility] Test Date: 2022-11-05 Pat Name: Kurt Esquivel Department: Room: [facility] Gender: Male Photo Cartographer: : 1950 Requested By: Abelardo Mayorga Order Number: [id number] Jessica MD: Iban Noriega M.D. Measurements Intervals [employer] Rate: 114 P: 80 WY: 177 QRS: -66 QRSD: 110 T: 78 QT: 307 QTc: 423 Interpretive Statements SINUS TACHYCARDIA LEFT AXIS DEVIATION [QRS AXIS < -30] No previous ECG available for comparison Electronically Signed On 11-06-2022 16:48:57 CDT by Iban Noriega M.D. [email or web address]
--- NOTE | 2022-11-05 15:46 | PC.NURSE ---
patient up to BSC- unsteady, attempted to use walker- unable to coordinate with walker, at the bedside patient is agreeable to BSC instead of going to restroom
--- NOTE | 2022-11-05 18:07 | PM.HP ---
Providers/Chief Complaint Primary Care Provider: Arden Mccarthy MD Chief Complaint: SOB, Dr. Curiel Sent History of Present Illness Kurt Esquivel is a 72 year old male with a history of adenocarcinoma of sigmoid colon, on active chemotherapy, his last round of chemotherapy was on October 28, currently on his 20th cycle, currently managed at [facility], recent history of UTI, obesity, hypertension, who presents to [facility] due to weakness, fatigue, wheezing, shortness of breath. Currently patient is alert oriented x3, following all commands, normotensive, respiratory rate 20-25, actively wheezing, tachycardic, on room air, complaining of wheezing and shortness of breath. He tells me that for the last few days he has been having fevers and chills, feeling unwell, fatigue, malaise complain of joint aches, headaches, no nausea, vomiting, no neck pain, neck stiffness no blurry vision, no flank pain, does report dysuria, increased urinary frequency, he saw his primary care was given Bactrim, but he continues to have symptoms, does report poor oral intake, he tells me for the last 24 hours he has been having increased shortness of breath, no calf pain, no calf swelling, no history of heart failure, no hemoptysis, he has been having increased wheezing, no sick contacts, recent travel, no history of aspiration, reports a productive cough. ER provider spoke to [facility] for transfer, as he is in chemotherapy patient through [facility], transfer was initiated, he has been accepted, however he is awaiting a bed, ER provider has called hospitalist team for admission, so patient to be admitted and, watched in the hospital on the inpatient service, as he awaits a bed at [place] Review of Systems Const: Reports: fever(s), chills, body aches, fatigue and malaise Eyes: Denies: change in vision ENMT: Denies: throat pain Card: Denies: chest pain or palpitations Resp: Reports: dyspnea and non-productive cough GI: Denies: abdominal pain : Reports: urinary frequency; Denies: flank pain, difficulty urinating or dysuria Musc: Denies: neck pain or back pain Skin/Breast: Denies: rash Neuro: Denies: headache(s) or numbness in extremities Psych: Denies: anxiety Endo: Denies: polydipsia Medications/Allergies Home Medications Medication Instructions Recorded Confirmed Last Taken Type amlodipine 10 mg tablet 10 mg PO DAILY 12/05/21 11/05/22 11/04/22 History montelukast 10 mg tablet 10 mg PO DAILY 12/05/21 11/05/22 01/17/22 History oxycodone 10 mg tablet 10 mg PO Q6H PRN pain 1 week #28 12/21/21 11/05/22 01/03/22 Rx tabs naproxen sodium 220 mg tablet 220 mg PO BID PRN Pain 01/04/22 11/05/22 01/04/22 History (Aleve) lorazepam 1 mg tablet 0.5 - 1 mg PO Q6H PRN Severe 03/04/22 11/05/22 Unknown Rx Nausea #30 tabs prochlorperazine maleate 10 mg 10 mg PO Q4H PRN Mild Nausea #30 03/04/22 11/05/22 Unknown Rx tablet (Compazine) tabs budesonide-formoterol HFA 160 1 inh inhalation BID #10.2 grams 09/17/22 11/05/22 11/04/22 Rx mcg-4.5 mcg/actuation aerosol inhaler (Symbicort) metoprolol succinate 50 mg 50 mg PO DAILY #30 tabs 10/28/22 11/05/22 11/04/22 Rx tablet,extended release 24 hr nitrofurantoin 100 mg PO BID 10 days #20 caps 11/04/22 11/05/22 11/04/22 Rx monohydrate/macrocrystals 100 mg capsule (Macrobid) acetaminophen 500 mg tablet 1,000 mg PO Q6H PRN Pain 11/05/22 11/05/22 Unknown History aspirin 325 mg tablet 325 mg PO DAILY PRN Headache 11/05/22 11/05/22 Unknown History Allergies Allergy/AdvReac Type Severity Reaction Status Date / Time lisinopril Allergy Severe angioedema Verified 11/05/22 10:49 Penicillins Allergy Intermediate ADR-Itching Verified 11/05/22 10:49 PFSH Acute PFSH: Medical History Adenocarcinoma of sigmoid colon History of broken leg Right leg Hypertension Surgical History History of esophagogastroduodenoscopy (EGD) 20 + yrs ago History of laparoscopy (01/24/22) Hx of colonoscopy (01/04/22) Family History (Updated 11/05/22 @ 18:12 by Abelardo Mayorga MD) Brother Diabetes Father CAD (coronary artery disease) Social History Smoking and tobacco status: former smoker Quit status (tobacco): has quit using tobacco Year quit tobacco: 31 years ago Former quit date comment: Smoked for 25+ years Alcohol intake: never Substance/Drug Use: never Vitals/I&O/Wt Last Vital Signs Temp 98.5 F 11/05/22 08:57 Pulse 111 H 11/05/22 14:00 Resp 31 H 11/05/22 14:00 BP 117/78 11/05/22 15:30 Pulse Ox 93 11/05/22 14:00 O2 Del Method Room Air 11/05/22 11:42 11/05/22 11/05/22 11/05/22 06:59 14:59 22:59 Intake Total 1050 / 1050 Balance 1050 / 1050 Weight last 48 hrs Weight 124.738 kg Physical Exam Const: COMMON NORMALS: no acute distress and patient oriented x3 GENERAL APPEARANCE: cooperative, well kempt and well developed HENMT: COMMON NORMALS: normocephalic, Normal external nose present and oropharynx normal HEAD & SCALP: normocephalic FACE & SINUS: normal facial exam NOSE: Normal external nose present Eye: COMMON NORMALS: Equal, round and reactive pupils present, EOMs intact bilaterally, conjunctivae normal and no scleral icterus CONJUNCTIVA: Yes conjunctivae normal PUPIL: Yes Equal, round and reactive pupils present Neck/C-Spine: COMMON NORMALS: full ROM, no lymphadenopathy, no meningeal signs, no JVD, Thyroid normal and No carotid bruits THYROID: Thyroid normal Lymph: LYMPHATIC: no lymphadenopathy noted Chest: COMMONS NORMALS: normal inspection of the chest Resp: COMMON NORMALS: normal respiratory effort, No retractions and No use of accessory muscles OTHER: Wheezing in upper airways, wheezing in lower lung guzman tachypneic, Cardio: COMMON NORMALS: no JVD, regular rate, regular rhythm, S1 normal heart sound present, S2 normal heart sound present, No murmurs present (Cardio) and Peripheral pulses 2+ throughout RATE: regular rate RHYTHM: regular rhythm HEART SOUNDS: S1 normal heart sound present and S2 normal heart sound present PERIPHERAL PULSES: Peripheral pulses 2+ throughout GI: COMMON NORMALS: Normal to inspection, nondistended, normoactive bowel sounds present, Soft to palpation and non-tender : BLADDER/KIDNEY EXAM: Yes no CVA tenderness Back/Pelvis: COMMON NORMALS: no CVA tenderness Extremity: COMMON NORMALS: normal to inspection, full ROM, capillary refill normal, no calf tenderness and no pedal edema Neuro: COMMON NORMALS: patient oriented x3, CN's II-XII intact bilaterally, moves all extremities, no focal motor deficits and no sensory deficits noted MENINGEAL SIGNS: Yes no meningeal signs Psych: COMMON NORMALS: mental status grossly normal, Normal thought process present, cooperative and speech normal APPEARANCE: Yes well kempt SPEECH: Yes normal speech THOUGHT PROCESS: Normal thought process present Skin: COMMON NORMALS: turgor normal and no jaundice GENERAL SKIN EXAM: turgor normal Data 11/05/22 10:00 11/05/22 10:00 Micro: Microbiology 11/05/22 12:10 Blood Culture - Preliminary Blood SPECIMEN COLLECTED 11/05/22 11:20 Blood Culture - Preliminary Blood SPECIMEN COLLECTED A&P Assessment and plan (1) Acute respiratory failure with hypoxia: (2) History of ESBL E. coli infection: (3) UTI (urinary tract infection): (4) Mucus plugging of bronchi: (5) Pneumonia: (6) Acute kidney injury: (7) Dehydration: (8) Adenocarcinoma of sigmoid colon: (9) Immunocompromised state: (10) Goals of care, counseling/discussion: (11) Hyponatremia: Plan Acute hypoxic respiratory failure -Secondary to mucous plugging -Possibly secondary to underlying pneumonia Plan -We will admit to ICU -Monitor respiratory status closely -Chest vest therapy -Mucomyst -Hypertonic saline -DuoNeb -Follow blood cultures, urine cultures -We will consider steroids based on clinical progress -There is a possibility of aspiration, aspiration pneumonitis, will place on aspiration precautions, clear liquids, speech therapy eval -Broad-spectrum antibiotic therapy UTI with history of ESBL E. coli UTI infections -Does have a penicillin allergy, cannot use Zosyn, will try meropenem, there is a cross-reactivity with penicillins although low, will have to monitor closely for adverse reaction Acute kidney injury -Sec to dehydration, IV fluids Hyponatremia likely sec to dehydration, insensible water losses, IV fluids Colon cancer, currently on chemotherapy, placed on chemo precautions Chronic thrombocytopenia, monitor Attestations Medical Necessity Statement*: Patient requires hospitalization, inpatient, greater than 2 midnights, for acute hypoxic respiratory failure secondary pneumonia, mucous plugging, UTI, history of ESBL infections, hypoxia, hyponatremia, MAT Coding Level of Care Code Acute Code for Chg Fwd Diagnoses Acute respiratory failure with hypoxia J96.01 History of ESBL E. coli infection Z86.19 UTI (urinary tract infection) N39.0 Mucus plugging of bronchi T17.500A Pneumonia J18.9 Acute kidney injury N17.9 Dehydration E86.0 Adenocarcinoma of sigmoid colon C18.7 Immunocompromised state D84.9 Goals of care, counseling/discussion Z71.89 Hyponatremia E87.1
[2022-11-05 18:10] LABS: ABG PCO2 28.3 mmHg (35-45); ABG PH Result 7.45 (7.35-7.45); Alveolar-Arterial Oxygen Gradi 6.5 mmHg (5-10); Base Excess ABG -3.2 mmol/L (-2.0-2.0); Blood Gas Operator Identificat AMH; Blood Gas Sample Site Brachial, left; Blood Gas Sample Type Arterial; Carboxyhemoglobin 0.8 %THgb (0.4-20.1); HCO3 ABG 19.5 mmol/L (22-26); HGB O2 Sat 90.8 % (95-100); Ionized Calcium Level - ABG 1.2 mmol/L (1.1-1.4); Methemoglobin 0.9 % (0.4-1.5); Oxygen Device ROOM AIR; Oxygen Saturation ABG 92.5; PO2 ABG 63.2 mmHg (80.0-100.0); Potassium Level - ABG 3.7 mmol/L (3.5-5.0); Total Hemoglobin 13.7 g/dL (14-18)
--- NOTE | 2022-11-05 18:32 | P.CONIM_ITS ---
Providers/Reason For Consult Consulting Physician/Specialty*: Abraham Marroquin MD/pulmonary critical care Reason for Consult*: Tachypnea Requesting Physician: Dr. Velazquez Attending Physician: Abelardo Mayorga MD Primary Care Provider: Arden Mccarthy MD History of Present Illness History of Present Illness Kurt Esquivel is a 72 year old male With history of hypertension, obesity, adenocarcinoma sigmoid colon active chemotherapy last round on October 28, currently on managed by [facility], recent history of UTI, presented to [facility] due to weakness fatigue, wheezing shortness of breath. During admission patient also complained of having fever, chills, feeling unwell, fatigue-along with shortness of breath and wheezing. He denied any nausea, vomiting, diarrhea, neck pain or neck stiffness, dysuria,. Recently received Bactrim from PCP but did not help. His shortness of breath has worsened over the last 24 hours and hence he came to ER. Denied any sick contacts. As he was actively on chemotherapy being managed by [facility] attempted to transfer-he was accepted but currently no bed available. CTA showed enlarging tubular shaped density right middle lobe measuring 2.5 cm r epresenting mucin filled ectatic bronchus. There is no evidence of PE. There is moderate size hiatal hernia. ABG on room air pH 7.45/PCO2 28/PaO2 63/bicarb 19/saturation 92%-consistent with compensated respiratory alkalosis. Pulmonary consulted for tachypnea and increased shortness of breath with wheezing. Patient was admitted to ICU-for respiratory distress; Patient denied any history of COPD or asthma. He denied any known allergies. Reported that he uses albuterol once in a while prescribed by his oncologist, and says it helps with his breathing. Former smoker smoked for 25+ years and quit 30 years ago. He just received a treatment and reported that it did help with his breathing. Review of Systems General: Reports: 10 or more systems reviewed and unremarkable except in HPI and below Medications/Allergies Home Medications Medication Instructions Recorded Confirmed Last Taken Type amlodipine 10 mg tablet 10 mg PO DAILY 12/05/21 11/05/22 11/04/22 History montelukast 10 mg tablet 10 mg PO DAILY 12/05/21 11/05/22 01/17/22 History oxycodone 10 mg tablet 10 mg PO Q6H PRN pain 1 week #28 12/21/21 11/05/22 01/03/22 Rx tabs naproxen sodium 220 mg tablet 220 mg PO BID PRN Pain 01/04/22 11/05/22 01/04/22 History (Aleve) lorazepam 1 mg tablet 0.5 - 1 mg PO Q6H PRN Severe 03/04/22 11/05/22 Unknown Rx Nausea #30 tabs prochlorperazine maleate 10 mg 10 mg PO Q4H PRN Mild Nausea #30 03/04/22 11/05/22 Unknown Rx tablet (Compazine) tabs budesonide-formoterol HFA 160 1 inh inhalation BID #10.2 grams 09/17/22 11/05/22 11/04/22 Rx mcg-4.5 mcg/actuation aerosol inhaler (Symbicort) metoprolol succinate 50 mg 50 mg PO DAILY #30 tabs 10/28/22 11/05/22 11/04/22 Rx tablet,extended release 24 hr nitrofurantoin 100 mg PO BID 10 days #20 caps 11/04/22 11/05/22 11/04/22 Rx monohydrate/macrocrystals 100 mg capsule (Macrobid) acetaminophen 500 mg tablet 1,000 mg PO Q6H PRN Pain 11/05/22 11/05/22 Unknown History aspirin 325 mg tablet 325 mg PO DAILY PRN Headache 11/05/22 11/05/22 Unknown History Allergies Allergy/AdvReac Type Severity Reaction Status Date / Time lisinopril Allergy Severe angioedema Verified 11/05/22 10:49 Penicillins Allergy Intermediate ADR-Itching Verified 11/05/22 10:49 PFSH Acute PFSH: Medical History Adenocarcinoma of sigmoid colon History of broken leg Right leg Hypertension Surgical History History of esophagogastroduodenoscopy (EGD) 20 + yrs ago History of laparoscopy (01/24/22) Hx of colonoscopy (01/04/22) Family History Brother Diabetes Father CAD (coronary artery disease) Social History Smoking and tobacco status: former smoker Quit status (tobacco): has quit using tobacco Year quit tobacco: 31 years ago Former quit date comment: Smoked for 25+ years Alcohol intake: never Substance/Drug Use: never Vitals/I&O/Wt Last Vital Signs Temp 98.5 F 11/05/22 08:57 Pulse 111 H 11/05/22 14:00 Resp 31 H 11/05/22 14:00 BP 117/78 11/05/22 15:30 Pulse Ox 93 11/05/22 14:00 O2 Del Method Room Air 11/05/22 11:42 11/05/22 11/05/22 11/05/22 06:59 14:59 22:59 Intake Total 1050 / 1050 Balance 1050 / 1050 Weight last 48 hrs Weight 275 lb Physical Exam Narrative: General: alert, NAD HEENT: conj clear, EOMI, PERRL, mmm, Neck: supple, no meningismus Heme: no cervical LAP Respiratory: Inspection: No visible deformity of the chest wall Palpation: Trachea is mildly deviated to the right, bilateral symmetric expansion Percussion: Bilateral tympanic percussion note both anterior and posteriorly Auscultation: Bilateral diffuse expiratory wheeze Cardiovascular: rrr, nl s1s2, no mrg Abdomen: soft, nt, nd, no r/g, bs+ Extremities: pulses +, no edema, no c/c : no CVA tenderness Skin: intact, no rash MSK: no back or neck pain Neurologic: grossly intact Data 11/07/22 06:16 11/07/22 06:16 Other Labs: Radiology Impressions Chest CTA 11/05/22 10:51 IMPRESSION: 1. Slowly enlarging tubular shaped density right middle lobe now measuring 2.5 cm in length likely representing mucin filled ectatic bronchus. Follow-up as clinically indicated. 2. Presumed postsurgical changes involving the soft tissues surrounding left-sided chest port which should be confirmed with history of recent surgical intervention. 3. Moderate size hiatal hernia unchanged. 4. Mild-moderate splenomegaly increased in size from previous exam. Abdomen/Pelvis CT 11/05/22 11:32 IMPRESSION: 1. 9 x 5 cm irregular shaped encapsulated fluid collection right mid pelvis stable in size suspicious for abscess collection with some adjacent reactive bladder wall thickening as well as adjacent abdominal wall inflammatory changes mildly progressed from previous exam. Fluid collection would be amenable to percutaneous drainage under CT guidance. 2. Colonic diverticulosis. No compelling evidence of acute diverticulitis. 3. Moderate splenomegaly increased in size from previous exam. 4. Stable bilateral renal cysts. Negative for renal calculi or hydronephrosis. 5. Additional chronic findings as above. Chest X-Ray 11/06/22 06:00 IMPRESSION: Subsegmental atelectasis. Laboratory Results WBC 7.6 10^3/uL (4.0-10.0) 11/07/22 06:16 RBC 3.81 10^6/uL (4.1-5.3) L 11/07/22 06:16 Hgb 11.6 g/dL (11.7-16.6) L 11/07/22 06:16 Hct 35.4 % (42.0-52.0) L 11/07/22 06:16 MCV 92.9 fl (80-94) 11/07/22 06:16 MCH 30.4 pg (28.0-34.0) 11/07/22 06:16 MCHC 32.8 g/dL (30.0-36.0) 11/07/22 06:16 RDW 17.2 % (12.1-15.1) H 11/07/22 06:16 Plt Count 80 10^3/cmm (130-400) L 11/07/22 06:16 MPV 12.7 fL (7.4-10.4) H 11/07/22 06:16 Neut % (Auto) 47.8 % 11/07/22 06:16 Lymph % (Auto) 47.3 % 11/07/22 06:16 Castro % (Auto) 4.0 % 11/07/22 06:16 Eos % (Auto) 0.0 % 11/07/22 06:16 Baso % (Auto) 0.5 % 11/07/22 06:16 Neut # (Auto) 3.61 10^3/uL (1.8-7.7) 11/07/22 06:16 Lymph # (Auto) 3.6 10^3/uL (0.8-4.8) 11/07/22 06:16 Castro # (Auto) 0.3 10^3/uL (0.2-0.9) 11/07/22 06:16 Eos # (Auto) 0.0 10^3/uL (0.0-0.8) 11/07/22 06:16 Baso # (Auto) 0.0 10^3/uL (0.0-0.1) 11/07/22 06:16 Nucleated RBC % (auto) 0 % 11/07/22 06:16 Total Counted 100 (0-100) 11/05/22 10:00 Atypical Lymphs % 13.0 % (0-5) H 11/05/22 10:00 Absolute Neutrophils 5.7 10^3/cmm (1.4-6.5) 11/05/22 10:00 Segmented Neutrophils 71 % 11/05/22 10:00 Abs Segm Neuts (Man) 5.6 10/cmm (1.6-7.1) 11/05/22 10:00 Band Neutrophils 1.0 % 11/05/22 10:00 Abs Band Neuts (Man) 0.1 10^3/cmm (0.0-1.2) 11/05/22 10:00 Absolute Lymphocytes 2.1 10^3/cmm (1.2-3.4) 11/05/22 10:00 Lymphocytes (Manual) 14 % 11/05/22 10:00 Monocytes (Manual) 0.0 % 11/05/22 10:00 Absolute Monocytes 0.0 10^3/cmm (0.1-0.6) L 11/05/22 10:00 Eosinophils (Manual) 0 % 11/05/22 10:00 Absolute Eosinophils 0.0 10^3/cmm (0.0-0.7) 11/05/22 10:00 Basophils (Manual) 0.0 % 11/05/22 10:00 Absolute Basophils 0.0 10^3/cmm (0.0-0.2) 11/05/22 10:00 Metamyelocytes 0.0 % 11/05/22 10:00 Myelocytes 1.0 % 11/05/22 10:00 Promyelocytes 0.0 % 11/05/22 10:00 Nucleated RBCs 0.0 /100WBC (0-1) 11/05/22 10:00 Nucleated RBCs # 0.0 /100WBC 11/07/22 06:16 Platelet Estimate Decreased (Normal) 11/05/22 10:00 Ovalocytes 1+ H 11/05/22 10:00 Specimen Type Arterial 11/05/22 18:00 Sample Site Brachial, left 11/05/22 18:00 ABG pH 7.45 (7.35-7.45) 11/05/22 18:00 ABG pCO2 28.3 mmHg (35-45) L 11/05/22 18:00 ABG pO2 63.2 mmHg (80.0-100.0) L 11/05/22 18:00 ABG HCO3 19.5 mmol/L (22-26) L 11/05/22 18:00 ABG O2 Saturation 92.5 11/05/22 18:00 ABG Base Excess -3.2 mmol/L (-2.0-2.0) L 11/05/22 18:00 Agusto Test N/a 11/05/22 18:00 A-a O2 Gradient 6.5 mmHg (5-10) 11/05/22 18:00 Hematocrit 42.0 % (42-52) 11/05/22 18:00 Hgb O2 Saturation 90.8 % (95-100) L 11/05/22 18:00 Carboxyhemoglobin 0.8 %THgb (0.4-20.1) 11/05/22 18:00 Methemoglobin 0.9 % (0.4-1.5) 11/05/22 18:00 Total Hemoglobin 13.7 g/dL (14-18) L 11/05/22 18:00 Sodium 128.0 mmol/L (131-143) L 11/05/22 18:00 Potassium 3.7 mmol/L (3.5-5.0) 11/05/22 18:00 Glucose 108.0 mg/dL (70-115) 11/05/22 18:00 Ionized Calcium 1.2 mmol/L (1.1-1.4) 11/05/22 18:00 O2 Delivery Device Room air 11/05/22 18:00 FiO2 21.0 % 11/05/22 18:00 Racehorse Trainer ID Amh 11/05/22 18:00 Sodium 134 mmol/L (136-145) L 11/07/22 06:16 Potassium 4.4 mmol/L (3.5-5.1) 11/07/22 06:16 Chloride 106 mmol/L (98-107) 11/07/22 06:16 Carbon Dioxide 20 mmol/L (22-29) L 11/07/22 06:16 Anion Gap 12.4 (5-19) 11/07/22 06:16 BUN 35 mg/dL (8-23) H 11/07/22 06:16 Creatinine 1.1 mg/dL (0.7-1.2) 11/07/22 06:16 GFR Calculation Not Reportable 11/07/22 06:16 Glucose 154 mg/dL (65-115) H 11/07/22 06:16 Estimat Average Glucose 114 11/05/22 18:44 Hemoglobin A1c 5.6 % (4.0-6.0) 11/05/22 18:44 Calculated Osmolality 289 mOsm/kg (285-295) 11/07/22 06:16 Lactic Acid 2.1 mmol/L (0.5-2.2) 11/05/22 18:44 Lactic Acid (Sepsis) 2.2 mmol/L (0.5-2.2) 11/05/22 21:38 Calcium 8.1 mg/dL (8.5-10.5) L 11/07/22 06:16 Phosphorus 2.4 mg/dL (2.5-4.5) L 11/07/22 06:16 Magnesium 2.6 mg/dL (1.7-2.3) H 11/07/22 06:16 Total Bilirubin 0.6 mg/dL (0.15-1.2) 11/07/22 06:16 AST 54 U/L (0-40) H 11/07/22 06:16 ALT 43 U/L (0-41) H 11/07/22 06:16 Alkaline Phosphatase 77 U/L (40-130) 11/07/22 06:16 Lactate Dehydrogenase 447 U/L (135-225) H 11/05/22 21:38 Troponin T Baseline 16 ng/L (0-15) H 11/05/22 18:44 Troponin T 120 Minute 16.59 ng/L (0-15) H 11/05/22 21:38 Delta Troponin T 0.59 ABS# (0-10) 11/05/22 21:38 Troponin T Hi Sens 6Hr 14.44 ng/L (0-15) 11/06/22 00:55 Troponin T Hi Sens 6Hr Delta -1.56 ng/L (0-12) L 11/06/22 00:55 C-Reactive Protein 218.8 mg/L (0.0-4.9) H 11/05/22 05:01 NT-Pro-B Natriuret Pep 95 pg/mL (0-125) 11/05/22 05:01 Total Protein 5.9 g/dL (6.6-8.7) L 11/07/22 06:16 Albumin 2.6 g/dL (3.5-5.2) L 11/07/22 06:16 Globulin 3.3 g/dL (1.3-4.6) 11/07/22 06:16 Triglycerides 297 mg/dL (0-150) H 11/05/22 18:44 Cholesterol 112 mg/dL (0-200) 11/05/22 18:44 LDL Cholesterol, Calc 39 mg/dL (50-129) L 11/05/22 18:44 HDL Cholesterol 14 mg/dL (60-100) L 11/05/22 18:44 LDL/HDL Ratio 2.79 RATIO (0.00-3.22) 11/05/22 18:44 Cholesterol/HDL Ratio 8.00 mg/dL (1.0-5.00) H 11/05/22 18:44 Procalcitonin 3.30 ng/mL (0-0.5) H 11/05/22 05:01 Urine Color Dark yellow (Yellow) 11/05/22 10:13 Urine Appearance Cloudy (CLEAR) A 11/05/22 10:13 Urine pH 5 (5-7) 11/05/22 10:13 Ur Specific [place] 1.030 (1.005-1.030) 11/05/22 10:13 Urine Protein Trace (Negative) 11/05/22 10:13 Urine Glucose (UA) Norm (Normal) 11/05/22 10:13 Urine Ketones Negative (Negative) 11/05/22 10:13 Urine Blood 3+ (Negative) H 11/05/22 10:13 Urine Nitrate Negative (Negative) 11/05/22 10:13 Urine Bilirubin Neg (Negative) 11/05/22 10:13 Urine Urobilinogen Norm mg/dL (Negative) 11/05/22 10:13 Ur Leukocyte Esterase 2+ (Negative) H 11/05/22 10:13 Urine RBC 25-40 /hpf (0-2) H 11/05/22 10:13 Urine WBC Too numerous to cnt /hpf (0-5) H 11/05/22 10:13 Ur Squamous Epith Cells 0-4 /hpf (0-5) H 11/05/22 10:13 Amorphous Sediment Not Reportable 11/05/22 10:13 Urine Bacteria 3+ /hpf (NONE) H 11/05/22 10:13 Hyaline Casts 5-10 /lpf H 11/05/22 10:13 Fine Granular Casts 0-4 /lpf H 11/05/22 10:13 Urine Mucus 1+ /hpf 11/05/22 10:13 Ur Oval Fat Bodies 1+ /hpf 11/05/22 10:13 Nasal Influ A H1 2009 PCR Not detected (NOT DETECT) 11/06/22 08:50 Adenovirus (PCR) Not detected (NOT DETECT) 11/06/22 08:50 C. pneumoniae DNA (PCR) Not detected (NOT DETECT) 11/06/22 08:50 Coronavirus 229E (PCR) Not detected (NOT DETECT) 11/06/22 08:50 Human Metapneumovir PCR Not detected (NOT DETECT) 11/06/22 08:50 Influenza A (H1) PCR Not detected (NOT DETECT) 11/06/22 08:50 Influenza A (H3) PCR Not detected (NOT DETECT) 11/06/22 08:50 Influenza Type A (PCR) Not detected (NOT DETECT) 11/06/22 08:50 Influenza Type B (PCR) Not detected (NOT DETECT) 11/06/22 08:50 M. pneumoniae (PCR) Not detected (NOT DETECT) 11/06/22 08:50 Parainfluenza 1 (PCR) Not detected (NOT DETECT) 11/06/22 08:50 Parainfluenza 2 (PCR) Not detected (NOT DETECT) 11/06/22 08:50 Parainfluenza 3 (PCR) Not detected (NOT DETECT) 11/06/22 08:50 Parainfluenza 4 (PCR) Not detected (NOT DETECT) 11/06/22 08:50 RSV Type A (PCR) Not detected (NOT DETECT) 11/06/22 08:50 RSV Type B (PCR) Not detected (NOT DETECT) 11/06/22 08:50 Entero/Rhino (PCR) Not detected (NOT DETECT) 11/06/22 08:50 SARS-CoV-2 (PCR) Not detected (NOT DETECT) 11/06/22 08:50 Micro: Microbiology 11/05/22 12:10 Blood Culture - Preliminary Blood SPECIMEN COLLECTED 11/05/22 11:20 Blood Culture - Preliminary Blood SPECIMEN COLLECTED A&P Assessment and plan (1) COPD exacerbation: History of [id number] smoking history-quit 30 years ago Uses albuterol as needed as outpatient ABG showed compensated respiratory alkalosis with hypoxia. Currently on 2 L supplemental oxygen; CT ruled out PE- Recommended to continue scheduled nebulizations with DuoNeb, IV steroids,, IV antibiotics Taper down frequency of nebulizations as well as steroids based on clinical response Patient will need PFTs as outpatient Upon discharge-give prescriptions for ICS/LABA/LAMA-Trelegy or Breztri (2) Mucus plugging of bronchi: Chest vest 3 times daily Mucomyst and hypertonic saline nebulization With moderate hiatal hernia-patient is at risk of developing aspiration pneumonia-counseled about aspiration precautions (3) Acute respiratory failure with hypoxia: Likely secondary to COPD exacerbation Currently requiring 2 L nasal cannula to keep saturations greater than 90% Plan We will monitor for to next 24 hours Consult Attestations Medical Necessity Statement: Currently in COPD exacerbation-just started on treatments and requires at least 24 hours to check for clinical improvement Time Spent in Patient Care: Greater than 35 minutes (>than 50% of time sp ent in counselling and/or direct pt care on unit) . The high probability of a clinically significant, sudden or life threatening deterioration of the patient's [pulmonary] system(s) required my full and direct attention, intervention and personal management. The critical care time is as shown. This time is in addition to time spent performing any reported procedures but includes the following: [x] Data and vital sign review and interpretation [x] Patient assessment, examination and intervention [x] Documentation [x] Medication orders and management Critical Care Time: Critical Care Time (min): 58 Coding Level of Care Code 47248 Diagnoses COPD exacerbation J44.1 Mucus plugging of bronchi T17.500A Acute respiratory failure with hypoxia J96.01 Time Spent (min) 58
--- NOTE | 2022-11-05 18:58 | PC.NURSE ---
report given to juan in ICU
[2022-11-05 19:15] LABS: Lactic Sepsis W/Reflex 2.1 mmol/L (0.5-2.2)
[2022-11-05 19:16] LABS: Cholesterol 112 mg/dL (0-200); HDL Cholesterol 14 mg/dL (60-100); LDL Cholesterol Calculated 39 mg/dL (50-129); LDL HDL Ratio 2.79 RATIO (0.00-3.22); Triglycerides 297 mg/dL (0-150)
[2022-11-05 19:26] LABS: NT Pro B Type Natriuretic Pept 95 pg/mL (0-125)
[2022-11-05] MEDS: enoxaparin 40 mg/0.4 mL Syringe SUBCUT (19:33)
[2022-11-05] MEDS: meropenem 1,000 MG in sodium chloride 0.9% (plus) 50 ML 100 MG IV (19:33)
[2022-11-05] MEDS: pantoprazole 40 mg SDV IVP (19:34)
[2022-11-05] MEDS: dexamethasone 10 mg/mL INJ 6 MG IVP (19:34)
[2022-11-05 19:38] LABS: C Reactive Protein 218.8 mg/L (0.0-4.9)
[2022-11-05] MEDS: sodium chloride 0.9% 1,000 ML 75 ML IV (20:12)
[2022-11-05 20:13] LABS: Troponin(5th) Baseline 16 ng/L (0-15)
[2022-11-05] MEDS: ipratropium-albuterol 3 mL Neb INHALATION ×2 (20:16→23:04)
[2022-11-05] MEDS: acetylcysteine 200 mg/mL SDV 4 mL 100 MG INHALATION ×2 (20:16→23:03)
[2022-11-05] MEDS: sodium chloride 3.5% neb 4 mL Neb INHALATION (20:17)
[2022-11-05 20:38] LABS: Reflex Lactate Order REFLEX LACTIC ORDERD
[2022-11-05] MEDS: ALPRAZolam 0.5 mg Tablet PO (20:42)
[2022-11-05] MEDS: vancomycin 1,750 MG/350 ML PIGGYBACK 233.33 MG IV (20:51)
[2022-11-05 22:42] LABS: Lactic Acid level (Lactate) 2.2 mmol/L (0.5-2.2)
[2022-11-05 22:44] LABS: Troponin 5 2HR 16.59 ng/L (0-15)
[2022-11-05 22:45] LABS: Troponin 5 2HR Delta 0.59 ABS# (0-10)
[2022-11-05 23:20] LABS: Estmated Average Glucose 114; Hemoglobin A1C 5.6 % (4.0-6.0)
[2022-11-06] VITALS (190 sets, daily range): BP systolic 91–138; BP diastolic 53–89; PULSE 60–80; RESP 15–31; TEMP 35.8–36.6; O2SAT 87–99
[2022-11-06 00:15] LABS: Lactate Dehydrogenase 447 U/L (135-225)
[2022-11-06 01:22] LABS: Basophils % 0.3 %; Hematocrit 34.5 % (42.0-52.0); Hemoglobin 11.6 g/dL (11.7-16.6); Lymphocytes # 2.6 10^3/uL (0.8-4.8); Lymphocytes % 27.7 %; Mean Corpuscular HGB Conc 33.6 g/dL (30.0-36.0); Mean Corpuscular Hemoglobin 31.3 pg (28.0-34.0); Mean Platelet Volume 12.9 fL (7.4-10.4); Monocytes # 0.4 10^3/uL (0.2-0.9); Monocytes % 4.7 %; Neutrophils # 6.13 10^3/uL (1.8-7.7); Neutrophils % 66.8 %; Nucleated Red Blood Cells % 0 %; Platelet Count 74 10^3/cmm (130-400); Red Blood Count 3.71 10^6/uL (4.1-5.3); Red Cell Distribution Width 17.2 % (12.1-15.1); White Blood Count 9.2 10^3/uL (4.0-10.0)
[2022-11-06 01:46] LABS: Troponin 5 6HR 14.44 ng/L (0-15)
[2022-11-06 01:48] LABS: Troponin 5 6HR Delta -1.56 ng/L (0-12)
[2022-11-06 01:57] LABS: Slide Review Slide Review Perform
[2022-11-06 02:09] LABS: Alanine Aminotransferase 37 U/L (0-41); Albumin Level 2.5 g/dL (3.5-5.2); Alkaline Phosphatase 80 U/L (40-130); Aspartate Amino Transferase 55 U/L (0-40); Blood Urea Nitrogen 44 mg/dL (8-23); Calcium 7.6 mg/dL (8.5-10.5); Carbon Dioxide 20 mmol/L (22-29); Globulin 3.2 g/dL (1.3-4.6); Glucose 132 mg/dL (65-115); Magnesium 2.2 mg/dL (1.7-2.3); Phosphorus 3.4 mg/dL (2.5-4.5); Total Bilirubin 0.9 mg/dL (0.15-1.2); Total Protein 5.7 g/dL (6.6-8.7)
[2022-11-06 02:27] LABS: Anion Gap 15.8 (5-19); Chloride 98 mmol/L (98-107); Osmolality Calculated 283 mOsm/kg (285-295); Potassium 3.8 mmol/L (3.5-5.1); Sodium 130 mmol/L (136-145)
--- NOTE | 2022-11-06 06:00 | XRR_ITS ---
PROCEDURE INFORMATION: Exam: XR Chest Exam date and time: 11/06/2022 6:01 AM Age: 72 years old Clinical indication: Shortness of breath; Additional info: SOB TECHNIQUE: Imaging protocol: Radiologic exam of the chest. Views: 1 view. COMPARISON: CR XR chest 1V portable [id number] 11/05/2022 9:55 AM FINDINGS: Tubes, catheters and devices: A Port-A-Cath overlies and obscures the left axilla with the catheter tip projected over the superior vena cava. Lungs: There is subsegmental atelectasis of the left costophrenic sulcus. Pleural spaces: Unremarkable. No pleural effusion. No pneumothorax. Heart/Mediastinum: Unremarkable. No cardiomegaly. Bones/joints: Unremarkable. XR/XR chest 1V portable [id number] IMPRESSION: Subsegmental atelectasis.
[2022-11-06] MEDS: sodium chloride 0.9% 1,000 ML 75 ML IV ×2 (07:50→21:02)
[2022-11-06] MEDS: meropenem 1,000 MG in sodium chloride 0.9% (plus) 50 ML 100 MG IV ×2 (07:50→21:01)
[2022-11-06] MEDS: amlodipine 10 mg Tablet PO (08:13)
[2022-11-06] MEDS: metoprolol succinate ER (24 HR) 50 mg Tablet PO (08:13)
[2022-11-06] MEDS: montelukast sodium 10 mg Tablet PO (08:13)
[2022-11-06] MEDS: sodium chloride 3.5% neb 4 mL Neb INHALATION ×2 (08:22→19:54)
[2022-11-06] MEDS: ipratropium-albuterol 3 mL Neb INHALATION ×4 (08:23→23:51)
[2022-11-06 10:50] LABS: Adenovirus Not Detected (NOT DETECT); Chlamydia Pneumoniae Not Detected (NOT DETECT); Coronavirus 229E,HKU1,NL63,OC4 Not Detected (NOT DETECT); Human Metapneumovirus Not Detected (NOT DETECT); Human Rhinovirus/Enterovirus Not Detected (NOT DETECT); Influenza A Not Detected (NOT DETECT); Influenza A H1 Not Detected (NOT DETECT); Influenza A H1-2009 Not Detected (NOT DETECT); Influenza A H3 Not Detected (NOT DETECT); Influenza B Not Detected (NOT DETECT); Mycoplasma Pneumoniae Not Detected (NOT DETECT); Parainfluenza Virus Type 1 Not Detected (NOT DETECT); Parainfluenza Virus Type 2 Not Detected (NOT DETECT); Parainfluenza Virus Type 3 Not Detected (NOT DETECT); Parainfluenza Virus Type 4 Not Detected (NOT DETECT); Respiratory Syncytial Virus A Not Detected (NOT DETECT); Respiratory Syncytial Virus B Not Detected (NOT DETECT); SARS-COV-2 Not Detected (NOT DETECT)
--- NOTE | 2022-11-06 16:28 | PM.PN ---
Subjective Subjective: Patient was seen this morning, he tells me that his wheezing has significantly improved, denies any abdominal pain, no nausea, no vomiting, no chest pain no fevers, no chills overnight, I had a discussion about potential transfer to [place], he still awaiting a bed, he tells me that he does not want to have any chemotherapy anymore, he still wants to be transferred if needed, he is agreeable to stay here at [facility] until a bed becomes available, we did discuss his prior history of ESBL infections, if indeed his urine is positive for ESBL he might require IV antibiotics, especially as is he is an immunocompromise state given his chemotherapy Vitals/I&O/Wt Last Vital Signs Temp 98 F 11/06/22 13:20 Pulse 60 11/06/22 14:05 Resp 24 H 11/06/22 14:05 BP 103/58 11/06/22 14:05 Pulse Ox 92 11/06/22 14:05 O2 Del Method Room Air 11/06/22 13:20 O2 Flow Rate 2 11/05/22 23:04 11/06/22 11/06/22 11/06/22 06:59 14:59 22:59 Intake Total 400 / 1630 1282.5 / 1282.5 Output Total 525 / 525 400 / 400 Balance -125 / 1105 882.5 / 882.5 Weight last 48 hrs Weight 124.738 kg Physical Exam Const: COMMON NORMALS: no acute distress and patient oriented x3 Resp: COMMON NORMALS: normal respiratory effort, No retractions, No use of accessory muscles and clear to auscultation bilaterally AUSCULTATION: clear to auscultation bilaterally Cardio: COMMON NORMALS: regular rate, regular rhythm, S1 normal heart sound present and S2 normal heart sound present RATE: regular rate RHYTHM: regular rhythm HEART SOUNDS: S1 normal heart sound present and S2 normal heart sound present GI: COMMON NORMALS: Normal to inspection, nondistended, normoactive bowel sounds present Extremity: COMMON NORMALS: no pedal edema Neuro: COMMON NORMALS: patient oriented x3 Psych: COMMON NORMALS: mental status grossly normal Data 11/06/22 00:55 11/06/22 00:55 Micro: Microbiology 11/05/22 12:10 Blood Culture - Preliminary Blood NEGATIVE TO DATE 11/05/22 10:13 Urine Culture - Preliminary Urine,Clean Catch Gram Negative Rods 11/05/22 11:20 Blood Culture - Preliminary Blood Staphylococcus epidermidis CXR: My impression: Subsided ental atelectasis A&P Assessment and plan (1) Acute respiratory failure with hypoxia: (2) History of ESBL E. coli infection: (3) UTI (urinary tract infection): (4) Mucus plugging of bronchi: (5) Pneumonia: (6) Acute kidney injury: (7) Dehydration: (8) Adenocarcinoma of sigmoid colon: (9) Immunocompromised state: (10) Goals of care, counseling/discussion: (11) Hyponatremia: (12) COPD exacerbation: Plan Acute hypoxic respiratory failure -Secondary to mucous plugging, COPD exacerbation -Possibly secondary to underlying pneumonia Plan -We will admit to ICU -Monitor respiratory status closely -Chest vest therapy -Mucomyst -Hypertonic saline -DuoNeb -Follow blood cultures, urine cultures -Continue Decadron -There is a possibility of aspiration, aspiration pneumonitis, will place on aspiration precautions, clear liquids, speech therapy eval -Broad-spectrum antibiotic therapy UTI with history of ESBL E. coli UTI infections -Does have a penicillin allergy, cannot use Zosyn, will try meropenem, there is a cross-reactivity with penicillins although low, will have to monitor closely for adverse reaction Acute kidney injury -Sec to dehydration, IV fluids Hyponatremia likely sec to dehydration, insensible water losses, IV fluids Colon cancer, currently on chemotherapy, placed on chemo precautions Chronic thrombocytopenia, monitor Plan for today up out of bed, continue Decadron, continue respiratory therapy eval, continue meropenem, follow cultures,, spoke to patient, spoke to patient's , patient's son, spoke to nursing staff, spoke to pulmonary Attestations Medical Necessity Statement*: Patient requires hospitalization, inpatient, greater than 2 midnights, for UTI, immunocompromise state, respiratory failure, COPD exacerbation Diagnoses Acute respiratory failure with hypoxia J96.01 History of ESBL E. coli infection Z86.19 UTI (urinary tract infection) N39.0 Mucus plugging of bronchi T17.500A Pneumonia J18.9 Acute kidney injury N17.9 Dehydration E86.0 Adenocarcinoma of sigmoid colon C18.7 Immunocompromised state D84.9 Goals of care, counseling/discussion Z71.89 Hyponatremia E87.1 COPD exacerbation J44.1
[2022-11-06] MEDS: pantoprazole 40 mg SDV IVP (17:34)
[2022-11-06] MEDS: enoxaparin 40 mg/0.4 mL Syringe SUBCUT (17:35)
--- NOTE | 2022-11-06 18:31 | P.PN_ITS ---
Subjective Subjective: Seen at bedside today Reported significant improvement in his shortness of breath and wheezing Currently off supplemental oxygen Blood cultures grew 1/4 bottles gram-positive cocci Staph epidermidis likely contamination however given patient on chemotherapy was covered with vancomycin Urine culture 11/05/2022 growing gram-negative rods-most recent urine culture 11/01/2022-growing rosenberg resistant E. coli sensitive to imipenem. -Family at bedside-updated Medications: Reviewed: Yes Vitals/I&O/Wt Last Vital Signs Temp 98 F 11/06/22 13:20 Pulse 68 11/06/22 17:30 Resp 17 11/06/22 17:30 BP 121/80 11/06/22 17:30 Pulse Ox 96 11/06/22 17:30 O2 Del Method Room Air 11/06/22 15:50 O2 Flow Rate 2 11/05/22 23:04 11/06/22 11/06/22 11/06/22 06:59 14:59 22:59 Intake Total 400 / 1630 1282.5 / 1282.5 Output Total 525 / 525 400 / 400 Balance -125 / 1105 882.5 / 882.5 Weight last 48 hrs Weight 275 lb Physical Exam Narrative: General: alert, NAD HEENT: conj clear, EOMI, PERRL, mmm, Neck: supple, no meningismus Heme: no cervical LAP Respiratory: Inspection: No visible deformity of the chest wall Palpation: Trachea is mildly deviated to the right, bilateral symmetric expansion Percussion: Bilateral tympanic percussion note both anterior and posteriorly Auscultation: Significant improvement in bilateral wheeze Cardiovascular: rrr, nl s1s2, no mrg Abdomen: soft, nt, nd, no r/g, bs+ Extremities: pulses +, no edema, no c/c : no CVA tenderness Skin: intact, no rash MSK: no back or neck pain Neurologic: grossly intact Data 11/07/22 06:16 11/07/22 06:16 Other Labs: Radiology Impressions Chest CTA 11/05/22 10:51 IMPRESSION: 1. Slowly enlarging tubular shaped density right middle lobe now measuring 2.5 cm in length likely representing mucin filled ectatic bronchus. Follow-up as clinically indicated. 2. Presumed postsurgical changes involving the soft tissues surrounding left-sided chest port which should be confirmed with history of recent surgical intervention. 3. Moderate size hiatal hernia unchanged. 4. Mild-moderate splenomegaly increased in size from previous exam. Abdomen/Pelvis CT 11/05/22 11:32 IMPRESSION: 1. 9 x 5 cm irregular shaped encapsulated fluid collection right mid pelvis stable in size suspicious for abscess collection with some adjacent reactive bladder wall thickening as well as adjacent abdominal wall inflammatory changes mildly progressed from previous exam. Fluid collection would be amenable to percutaneous drainage under CT guidance. 2. Colonic diverticulosis. No compelling evidence of acute diverticulitis. 3. Moderate splenomegaly increased in size from previous exam. 4. Stable bilateral renal cysts. Negative for renal calculi or hydronephrosis. 5. Additional chronic findings as above. Chest X-Ray 11/06/22 06:00 IMPRESSION: Subsegmental atelectasis. Laboratory Results WBC 7.6 10^3/uL (4.0-10.0) 11/07/22 06:16 RBC 3.81 10^6/uL (4.1-5.3) L 11/07/22 06:16 Hgb 11.6 g/dL (11.7-16.6) L 11/07/22 06:16 Hct 35.4 % (42.0-52.0) L 11/07/22 06:16 MCV 92.9 fl (80-94) 11/07/22 06:16 MCH 30.4 pg (28.0-34.0) 11/07/22 06:16 MCHC 32.8 g/dL (30.0-36.0) 11/07/22 06:16 RDW 17.2 % (12.1-15.1) H 11/07/22 06:16 Plt Count 80 10^3/cmm (130-400) L 11/07/22 06:16 MPV 12.7 fL (7.4-10.4) H 11/07/22 06:16 Neut % (Auto) 47.8 % 11/07/22 06:16 Lymph % (Auto) 47.3 % 11/07/22 06:16 Gillespie % (Auto) 4.0 % 11/07/22 06:16 Eos % (Auto) 0.0 % 11/07/22 06:16 Baso % (Auto) 0.5 % 11/07/22 06:16 Neut # (Auto) 3.61 10^3/uL (1.8-7.7) 11/07/22 06:16 Lymph # (Auto) 3.6 10^3/uL (0.8-4.8) 11/07/22 06:16 Gillespie # (Auto) 0.3 10^3/uL (0.2-0.9) 11/07/22 06:16 Eos # (Auto) 0.0 10^3/uL (0.0-0.8) 11/07/22 06:16 Baso # (Auto) 0.0 10^3/uL (0.0-0.1) 11/07/22 06:16 Nucleated RBC % (auto) 0 % 11/07/22 06:16 Total Counted 100 (0-100) 11/05/22 10:00 Atypical Lymphs % 13.0 % (0-5) H 11/05/22 10:00 Absolute Neutrophils 5.7 10^3/cmm (1.4-6.5) 11/05/22 10:00 Segmented Neutrophils 71 % 11/05/22 10:00 Abs Segm Neuts (Man) 5.6 10/cmm (1.6-7.1) 11/05/22 10:00 Band Neutrophils 1.0 % 11/05/22 10:00 Abs Band Neuts (Man) 0.1 10^3/cmm (0.0-1.2) 11/05/22 10:00 Absolute Lymphocytes 2.1 10^3/cmm (1.2-3.4) 11/05/22 10:00 Lymphocytes (Manual) 14 % 11/05/22 10:00 Monocytes (Manual) 0.0 % 11/05/22 10:00 Absolute Monocytes 0.0 10^3/cmm (0.1-0.6) L 11/05/22 10:00 Eosinophils (Manual) 0 % 11/05/22 10:00 Absolute Eosinophils 0.0 10^3/cmm (0.0-0.7) 11/05/22 10:00 Basophils (Manual) 0.0 % 11/05/22 10:00 Absolute Basophils 0.0 10^3/cmm (0.0-0.2) 11/05/22 10:00 Metamyelocytes 0.0 % 11/05/22 10:00 Myelocytes 1.0 % 11/05/22 10:00 Promyelocytes 0.0 % 11/05/22 10:00 Nucleated RBCs 0.0 /100WBC (0-1) 11/05/22 10:00 Nucleated RBCs # 0.0 /100WBC 11/07/22 06:16 Platelet Estimate Decreased (Normal) 11/05/22 10:00 Ovalocytes 1+ H 11/05/22 10:00 Specimen Type Arterial 11/05/22 18:00 Sample Site Brachial, left 11/05/22 18:00 ABG pH 7.45 (7.35-7.45) 11/05/22 18:00 ABG pCO2 28.3 mmHg (35-45) L 11/05/22 18:00 ABG pO2 63.2 mmHg (80.0-100.0) L 11/05/22 18:00 ABG HCO3 19.5 mmol/L (22-26) L 11/05/22 18:00 ABG O2 Saturation 92.5 11/05/22 18:00 ABG Base Excess -3.2 mmol/L (-2.0-2.0) L 11/05/22 18:00 Agusto Test N/a 11/05/22 18:00 A-a O2 Gradient 6.5 mmHg (5-10) 11/05/22 18:00 Hematocrit 42.0 % (42-52) 11/05/22 18:00 Hgb O2 Saturation 90.8 % (95-100) L 11/05/22 18:00 Carboxyhemoglobin 0.8 %THgb (0.4-20.1) 11/05/22 18:00 Methemoglobin 0.9 % (0.4-1.5) 11/05/22 18:00 Total Hemoglobin 13.7 g/dL (14-18) L 11/05/22 18:00 Sodium 128.0 mmol/L (131-143) L 11/05/22 18:00 Potassium 3.7 mmol/L (3.5-5.0) 11/05/22 18:00 Glucose 108.0 mg/dL (70-115) 11/05/22 18:00 Ionized Calcium 1.2 mmol/L (1.1-1.4) 11/05/22 18:00 O2 Delivery Device Room air 11/05/22 18:00 FiO2 21.0 % 11/05/22 18:00 Tank Insulator Rubber ID Amh 11/05/22 18:00 Sodium 134 mmol/L (136-145) L 11/07/22 06:16 Potassium 4.4 mmol/L (3.5-5.1) 11/07/22 06:16 Chloride 106 mmol/L (98-107) 11/07/22 06:16 Carbon Dioxide 20 mmol/L (22-29) L 11/07/22 06:16 Anion Gap 12.4 (5-19) 11/07/22 06:16 BUN 35 mg/dL (8-23) H 11/07/22 06:16 Creatinine 1.1 mg/dL (0.7-1.2) 11/07/22 06:16 GFR Calculation Not Reportable 11/07/22 06:16 Glucose 154 mg/dL (65-115) H 11/07/22 06:16 Estimat Average Glucose 114 11/05/22 18:44 Hemoglobin A1c 5.6 % (4.0-6.0) 11/05/22 18:44 Calculated Osmolality 289 mOsm/kg (285-295) 11/07/22 06:16 Lactic Acid 2.1 mmol/L (0.5-2.2) 11/05/22 18:44 Lactic Acid (Sepsis) 2.2 mmol/L (0.5-2.2) 11/05/22 21:38 Calcium 8.1 mg/dL (8.5-10.5) L 11/07/22 06:16 Phosphorus 2.4 mg/dL (2.5-4.5) L 11/07/22 06:16 Magnesium 2.6 mg/dL (1.7-2.3) H 11/07/22 06:16 Total Bilirubin 0.6 mg/dL (0.15-1.2) 11/07/22 06:16 AST 54 U/L (0-40) H 11/07/22 06:16 ALT 43 U/L (0-41) H 11/07/22 06:16 Alkaline Phosphatase 77 U/L (40-130) 11/07/22 06:16 Lactate Dehydrogenase 447 U/L (135-225) H 11/05/22 21:38 Troponin T Baseline 16 ng/L (0-15) H 11/05/22 18:44 Troponin T 120 Minute 16.59 ng/L (0-15) H 11/05/22 21:38 Delta Troponin T 0.59 ABS# (0-10) 11/05/22 21:38 Troponin T Hi Sens 6Hr 14.44 ng/L (0-15) 11/06/22 00:55 Troponin T Hi Sens 6Hr Delta -1.56 ng/L (0-12) L 11/06/22 00:55 C-Reactive Protein 218.8 mg/L (0.0-4.9) H 11/05/22 05:01 NT-Pro-B Natriuret Pep 95 pg/mL (0-125) 11/05/22 05:01 Total Protein 5.9 g/dL (6.6-8.7) L 11/07/22 06:16 Albumin 2.6 g/dL (3.5-5.2) L 11/07/22 06:16 Globulin 3.3 g/dL (1.3-4.6) 11/07/22 06:16 Triglycerides 297 mg/dL (0-150) H 11/05/22 18:44 Cholesterol 112 mg/dL (0-200) 11/05/22 18:44 LDL Cholesterol, Calc 39 mg/dL (50-129) L 11/05/22 18:44 HDL Cholesterol 14 mg/dL (60-100) L 11/05/22 18:44 LDL/HDL Ratio 2.79 RATIO (0.00-3.22) 11/05/22 18:44 Cholesterol/HDL Ratio 8.00 mg/dL (1.0-5.00) H 11/05/22 18:44 Procalcitonin 3.30 ng/mL (0-0.5) H 11/05/22 05:01 Urine Color Dark yellow (Yellow) 11/05/22 10:13 Urine Appearance Cloudy (CLEAR) A 11/05/22 10:13 Urine pH 5 (5-7) 11/05/22 10:13 Ur Specific Arroyo 1.030 (1.005-1.030) 11/05/22 10:13 Urine Protein Trace (Negative) 11/05/22 10:13 Urine Glucose (UA) Norm (Normal) 11/05/22 10:13 Urine Ketones Negative (Negative) 11/05/22 10:13 Urine Blood 3+ (Negative) H 11/05/22 10:13 Urine Nitrate Negative (Negative) 11/05/22 10:13 Urine Bilirubin Neg (Negative) 11/05/22 10:13 Urine Urobilinogen Norm mg/dL (Negative) 11/05/22 10:13 Ur Leukocyte Esterase 2+ (Negative) H 11/05/22 10:13 Urine RBC 25-40 /hpf (0-2) H 11/05/22 10:13 Urine WBC Too numerous to cnt /hpf (0-5) H 11/05/22 10:13 Ur Squamous Epith Cells 0-4 /hpf (0-5) H 11/05/22 10:13 Amorphous Sediment Not Reportable 11/05/22 10:13 Urine Bacteria 3+ /hpf (NONE) H 11/05/22 10:13 Hyaline Casts 5-10 /lpf H 11/05/22 10:13 Fine Granular Casts 0-4 /lpf H 11/05/22 10:13 Urine Mucus 1+ /hpf 11/05/22 10:13 Ur Oval Fat Bodies 1+ /hpf 11/05/22 10:13 Nasal Influ A H1 2009 PCR Not detected (NOT DETECT) 11/06/22 08:50 Adenovirus (PCR) Not detected (NOT DETECT) 11/06/22 08:50 C. pneumoniae DNA (PCR) Not detected (NOT DETECT) 11/06/22 08:50 Coronavirus 229E (PCR) Not detected (NOT DETECT) 11/06/22 08:50 Human Metapneumovir PCR Not detected (NOT DETECT) 11/06/22 08:50 Influenza A (H1) PCR Not detected (NOT DETECT) 11/06/22 08:50 Influenza A (H3) PCR Not detected (NOT DETECT) 11/06/22 08:50 Influenza Type A (PCR) Not detected (NOT DETECT) 11/06/22 08:50 Influenza Type B (PCR) Not detected (NOT DETECT) 11/06/22 08:50 M. pneumoniae (PCR) Not detected (NOT DETECT) 11/06/22 08:50 Parainfluenza 1 (PCR) Not detected (NOT DETECT) 11/06/22 08:50 Parainfluenza 2 (PCR) Not detected (NOT DETECT) 11/06/22 08:50 Parainfluenza 3 (PCR) Not detected (NOT DETECT) 11/06/22 08:50 Parainfluenza 4 (PCR) Not detected (NOT DETECT) 11/06/22 08:50 RSV Type A (PCR) Not detected (NOT DETECT) 11/06/22 08:50 RSV Type B (PCR) Not detected (NOT DETECT) 11/06/22 08:50 Entero/Rhino (PCR) Not detected (NOT DETECT) 11/06/22 08:50 SARS-CoV-2 (PCR) Not detected (NOT DETECT) 11/06/22 08:50 Micro: Microbiology 11/05/22 12:10 Blood Culture - Preliminary Blood NEGATIVE TO DATE 11/05/22 10:13 Urine Culture - Preliminary Urine,Clean Catch Gram Negative Rods 11/05/22 11:20 Blood Culture - Preliminary Blood Staphylococcus epidermidis A&P Assessment and plan (1) COPD exacerbation: History of [id number] smoking history-quit 30 years ago Uses albuterol as needed as outpatient ABG showed compensated respiratory alkalosis with hypoxia. Currently on of supplemental oxygen; CT ruled out PE- Recommended to continue scheduled nebulizations with DuoNeb, IV steroids,, IV antibiotics Taper down frequency of nebulizations as well as steroids based on clinical response Patient will need PFTs as outpatient Upon discharge-give prescriptions for ICS/LABA/LAMA-Trelegy or Breztri (2) Mucus plugging of bronchi: Chest vest 3 times daily Mucomyst and hypertonic saline nebulization With moderate hiatal hernia-patient is at risk of developing aspiration p neumonia-counseled about aspiration precautions (3) Acute respiratory failure with hypoxia: Likely secondary to COPD exacerbation-clinically improving Currently off nasal cannula to keep saturations greater than 90% Plan We will monitor for to next 24 hours Attestations 2 Medical Necessity Statement*: Clinically improving pulmonary standpoint, however given his immunocompromise condition and urine culture reports pending he may still need IV antibiotics Time Spent in Patient Care: Greater than 35 minutes (>than 50% of time spent in counselling and/or direct pt care on unit) . Critical Care Time: The high probability of a clinically significant, sudden or life threatening deterioration of the patient's [pulmonary] system(s) required my full and direct attention, intervention and personal management. The critical care time is as shown. This time is in addition to time spent performing any reported procedures but includes the following: [x] Data and vital sign review and interpretation [x] Patient assessment, examination and intervention [x] Documentation [x] Medication orders and management Critical Care Time (min): 42 Coding Level of Care Code 09144 Diagnoses COPD exacerbation J44.1 Mucus plugging of bronchi T17.500A Acute respiratory failure with hypoxia J96.01 Time Spent (min) 42
--- NOTE | 2022-11-06 18:31 | PC.NURSE ---
Spoke to [facility] for update on bed status at 1038 this am. No bed at this time
[2022-11-06] MEDS: dexamethasone 10 mg/mL INJ 6 MG IVP (21:01)
[2022-11-06] MEDS: vancomycin 1,750 MG/350 ML PIGGYBACK 230 MG IV (21:01)
[2022-11-07] VITALS (15 sets, daily range): BP systolic 100–139; BP diastolic 62–78; PULSE 64–85; RESP 16–19; TEMP 36.3–36.4; O2SAT 92–98
[2022-11-07] MEDS: ipratropium-albuterol 3 mL Neb INHALATION ×6 (03:36→23:18)
[2022-11-07 07:03] LABS: Basophils % 0.5 %; Hematocrit 35.4 % (42.0-52.0); Hemoglobin 11.6 g/dL (11.7-16.6); Lymphocytes # 3.6 10^3/uL (0.8-4.8); Lymphocytes % 47.3 %; Mean Corpuscular HGB Conc 32.8 g/dL (30.0-36.0); Mean Corpuscular Hemoglobin 30.4 pg (28.0-34.0); Mean Corpuscular Volume 92.9 fl (80-94); Mean Platelet Volume 12.7 fL (7.4-10.4); Monocytes # 0.3 10^3/uL (0.2-0.9); Neutrophils # 3.61 10^3/uL (1.8-7.7); Neutrophils % 47.8 %; Nucleated Red Blood Cells % 0 %; Platelet Count 80 10^3/cmm (130-400); Red Blood Count 3.81 10^6/uL (4.1-5.3); Red Cell Distribution Width 17.2 % (12.1-15.1); White Blood Count 7.6 10^3/uL (4.0-10.0)
[2022-11-07 07:19] LABS: Alanine Aminotransferase 43 U/L (0-41); Albumin Level 2.6 g/dL (3.5-5.2); Alkaline Phosphatase 77 U/L (40-130); Anion Gap 12.4 (5-19); Aspartate Amino Transferase 54 U/L (0-40); Blood Urea Nitrogen 35 mg/dL (8-23); Calcium 8.1 mg/dL (8.5-10.5); Carbon Dioxide 20 mmol/L (22-29); Chloride 106 mmol/L (98-107); Globulin 3.3 g/dL (1.3-4.6); Glucose 154 mg/dL (65-115); Magnesium 2.6 mg/dL (1.7-2.3); Osmolality Calculated 289 mOsm/kg (285-295); Phosphorus 2.4 mg/dL (2.5-4.5); Potassium 4.4 mmol/L (3.5-5.1); Sodium 134 mmol/L (136-145); Total Bilirubin 0.6 mg/dL (0.15-1.2); Total Protein 5.9 g/dL (6.6-8.7)
[2022-11-07] MEDS: sodium chloride 3.5% neb 4 mL Neb INHALATION ×2 (07:31→20:29)
[2022-11-07] MEDS: acetylcysteine 200 mg/mL SDV 4 mL 100 MG INHALATION ×5 (07:32→23:19)
[2022-11-07 08:12] LABS: Slide Review Slide Review Perform
[2022-11-07] MEDS: meropenem 1,000 MG in sodium chloride 0.9% (plus) 50 ML 100 MG IV ×2 (08:12→17:31)
[2022-11-07] MEDS: montelukast sodium 10 mg Tablet PO (08:12)
[2022-11-07] MEDS: sodium chloride 0.9% 1,000 ML 75 ML IV (12:46)
[2022-11-07] MEDS: vancomycin 1,750 MG/350 ML PIGGYBACK 233.33 MG IV (12:47)
[2022-11-07] MEDS: enoxaparin 40 mg/0.4 mL Syringe SUBCUT (17:31)
[2022-11-07] MEDS: dexamethasone 10 mg/mL INJ 6 MG IVP (17:31)
[2022-11-07] MEDS: pantoprazole 40 mg SDV IVP (17:31)
--- NOTE | 2022-11-07 18:17 | PM.PN ---
Subjective Subjective: - Patient was seen this morning, patient's at bedside, had extensive meeting with patient and family -I discussed his UTI, so far it shows gram-negative rods I am worried about ESBL infection so I Radha continue him on carbapenem for now, if it is a multidrug resistant infection he will likely need IV antibiotics for at least 14 days, I am awaiting identification and cultures which could take another 24 to 48 hours -The other thing is that one of his 4 blood cultures are positive for Staph epidermidis, this could be an contamination so I ordered repeat blood cultures, but it could be a real infection as he has a left chest port in place so I have repeated blood cultures are watching for the next 24 to 48 hours so far he is afebrile -The only reason we take this very seriously is that he is on chemotherapy, he has a foreign bodies such as a port in place, and any infection can become quite severe and he becomes septic and with a high risk of morbidity and mortality, -In terms of his breathing he tells me he is feeling fine, no shortness of breath, no wheezing, no chest pain, palpitation -We discussed his transfer he tells me he does not want to be transferred anymore, as he is doing well and would like to cancel his transfer, I also confirmed this with his at bedside Vitals/I&O/Wt Last Vital Signs Temp 97.5 F L 11/07/22 16:32 Pulse 80 11/07/22 16:32 Resp 18 11/07/22 16:32 BP 139/62 11/07/22 16:32 Pulse Ox 95 11/07/22 16:32 O2 Del Method Room Air 11/07/22 16:32 O2 Flow Rate 2 11/05/22 23:04 11/07/22 11/07/22 11/07/22 06:59 14:59 22:59 Intake Total 350 / 3012.5 1890 / 1890 350 / 2240 Output Total 375 / 1175 Balance -25 / 1837.5 1890 / 189 350 / 2240 Physical Exam Const: COMMON NORMALS: no acute distress and patient oriented x3 Chest: OTHER: Left chest port site clean and dry Resp: COMMON NORMALS: normal respiratory effort, No retractions, No use of accessory muscles and clear to auscultation bilaterally AUSCULTATION: clear to auscultation bilaterally Cardio: COMMON NORMALS: regular rate, regular rhythm, S1 normal heart sound present and S2 normal heart sound present RATE: regular rate RHYTHM: regular rhythm HEART SOUNDS: S1 normal heart sound present and S2 normal heart sound present GI: COMMON NORMALS: Normal to inspection, nondistended, normoactive bowel sounds present and non-tender Extremity: COMMON NORMALS: no pedal edema Neuro: COMMON NORMALS: patient oriented x3 Psych: COMMON NORMALS: mental status grossly normal Data 11/07/22 06:16 11/07/22 06:16 Micro: Microbiology 11/07/22 11:22 Blood Culture - Preliminary Blood SPECIMEN COLLECTED 11/07/22 11:22 Blood Culture - Preliminary Blood SPECIMEN COLLECTED A&P Assessment and plan (1) Acute respiratory failure with hypoxia: (2) History of ESBL E. coli infection: (3) UTI (urinary tract infection): (4) Mucus plugging of bronchi: (5) Pneumonia: (6) Acute kidney injury: (7) Dehydration: (8) Adenocarcinoma of sigmoid colon: (9) Immunocompromised state: (10) Goals of care, counseling/discussion: (11) Hyponatremia: (12) COPD exacerbation: (13) Staphylococcus epidermidis bacteremia: Plan Acute hypoxic respiratory failure -Secondary to mucous plugging, COPD exacerbation -Possibly secondary to underlying pneumonia -Resolving, overall clinically getting better Plan -Currently under medical floors -Monitor respiratory status closely -Chest vest therapy -Mucomyst -Hypertonic saline -DuoNeb -Follow blood cultures, urine cultures -Continue Decadron -Broad-spectrum antibiotic therapy UTI with history of ESBL E. coli UTI infections -Does have a penicillin allergy, cannot use Zosyn, will try meropenem, there is a cross-reactivity with penicillins although low, will have to monitor closely for adverse reaction -Currently tolerating meropenem -Await urine cultures Staph epidermidis bacteremia -1 out of 4 blood cultures positive -Likely contamination however need to rule out true infection -Repeated blood cultures -He is immunocompromise on chemotherapy -He does have a left chest port in place Acute kidney injury -Sec to dehydration, IV fluids Hyponatremia likely sec to dehydration, resolved Colon cancer, currently on chemotherapy, placed on chemo precautions Chronic thrombocytopenia, monitor Plan for today up out of bed, repeat blood cultures, continue vancomycin, up out of bed, follow urine cultures, blood cultures, monitor for fevers Patient would like to cancel his transfer to [facility] Medical Necessity Statement*: Patient requires hospitalization for acute hypoxic respiratory failure, multidrug-resistant UTI, Staph epidermidis bacteremia Coding Level of Care Code 16312 High Time for a total of 70 minutes, includes reviewing past or interval history, examining/interviewing patient, placing orders, counseling patient/family/other support, updating patient/family/other support, discussing plan of care with staff, communicating with other healthcare providers, documenting encounter and coordinating care Diagnoses Acute respiratory failure with hypoxia J96.01 History of ESBL E. coli infection Z86.19 UTI (urinary tract infection) N39.0 Mucus plugging of bronchi T17.500A Pneumonia J18.9 Acute kidney injury N17.9 Dehydration E86.0 Adenocarcinoma of sigmoid colon C18.7 Immunocompromised state D84.9 Goals of care, counseling/discussion Z71.89 Hyponatremia E87.1 COPD exacerbation J44.1 Staphylococcus epidermidis bacteremia R78.81; B95.7
[2022-11-07] MEDS: vancomycin 1,750 MG/350 ML PIGGYBACK 233 MG IV (23:11)
[2022-11-08] VITALS (10 sets, daily range): BP systolic 124–143; BP diastolic 67–85; PULSE 75–89; RESP 14–17; TEMP 35.9–36.6; O2SAT 94–99
[2022-11-08] MEDS: meropenem 1,000 MG in sodium chloride 0.9% (plus) 50 ML 100 MG IV ×3 (01:35→17:41)
[2022-11-08] MEDS: acetylcysteine 200 mg/mL SDV 4 mL 100 MG INHALATION ×2 (03:11→08:26)
[2022-11-08] MEDS: ipratropium-albuterol 3 mL Neb INHALATION ×3 (03:11→23:38)
[2022-11-08 04:32] LABS: Basophils % 0.3 %; Hematocrit 35.1 % (42.0-52.0); Hemoglobin 11.5 g/dL (11.7-16.6); Lymphocytes # 6.8 10^3/uL (0.8-4.8); Lymphocytes % 55.1 %; Mean Corpuscular HGB Conc 32.8 g/dL (30.0-36.0); Mean Corpuscular Hemoglobin 30.3 pg (28.0-34.0); Mean Corpuscular Volume 92.6 fl (80-94); Mean Platelet Volume 12.8 fL (7.4-10.4); Monocytes # 0.5 10^3/uL (0.2-0.9); Monocytes % 3.8 %; Neutrophils # 4.91 10^3/uL (1.8-7.7); Neutrophils % 39.9 %; Nucleated Red Blood Cells % 0 %; Platelet Count 102 10^3/cmm (130-400); Red Blood Count 3.79 10^6/uL (4.1-5.3); Red Cell Distribution Width 17.6 % (12.1-15.1); White Blood Count 12.3 10^3/uL (4.0-10.0)
[2022-11-08 04:57] LABS: Alanine Aminotransferase 46 U/L (0-41); Albumin Level 2.8 g/dL (3.5-5.2); Alkaline Phosphatase 86 U/L (40-130); Blood Urea Nitrogen 26 mg/dL (8-23); Calcium 7.9 mg/dL (8.5-10.5); Carbon Dioxide 20 mmol/L (22-29); Chloride 109 mmol/L (98-107); Globulin 2.7 g/dL (1.3-4.6); Glucose 151 mg/dL (65-115); Magnesium 2.3 mg/dL (1.7-2.3); Osmolality Calculated 294 mOsm/kg (285-295); Phosphorus 1.7 mg/dL (2.5-4.5); Sodium 138 mmol/L (136-145); Total Bilirubin 0.6 mg/dL (0.15-1.2); Total Protein 5.5 g/dL (6.6-8.7)
[2022-11-08 05:02] LABS: Anion Gap 13.4 (5-19); Aspartate Amino Transferase 47 U/L (0-40); Potassium 4.4 mmol/L (3.5-5.1)
[2022-11-08 05:06] LABS: Slide Review Slide Review Perform
[2022-11-08] MEDS: amlodipine 10 mg Tablet PO (08:08)
[2022-11-08] MEDS: metoprolol succinate ER (24 HR) 50 mg Tablet PO (08:08)
[2022-11-08] MEDS: montelukast sodium 10 mg Tablet PO (08:08)
[2022-11-08] MEDS: sodium chloride 3.5% neb 4 mL Neb INHALATION (08:26)
[2022-11-08] MEDS: predniSONE 20 mg Tablet 40 MG PO (10:04)
[2022-11-08] MEDS: vancomycin 1,750 MG/350 ML PIGGYBACK 233 MG IV ×2 (11:31→23:25)
--- NOTE | 2022-11-08 11:54 | PC.SOCIAL ---
Pg 2 IMM Explained to pt Pg 2 IMM. No questions voiced. Provided pt a copy. Initialed, dated, & timed a copy & placed in chart.
--- NOTE | 2022-11-08 17:01 | PM.PN ---
Subjective Subjective: Patient was seen this morning, he tells me that he feels significantly better, no fevers, chills, nausea, vomiting, abdominal pain, -Again I have an extensive discussion with patient and his about his urine culture, it shows E. coli, it looks like is multidrug-resistant I am highly suspicious that it is an ESBL species although is listed as E. coli, he is other cultures that are growing gram-negative rods given that it is only sensitive to Zosyn and cefepime and meropenem it is very likely to be an ESBL species although the lab has not reported it -Nonetheless he is penicillin allergic, -He is going to need Invanz for at least a total of 10 days -He is agreeable to come through outpatient pharmacy for infusions -The big issue is is that one of his 4 blood cultures are positive for Staph epidermidis -I think that this is a contamination, however he does have a port in place, and I want to make sure that its not a port infection -Obviously I cannot take the port out at this time and there is no clinical evidence of port infection no overlying erythematous drainage -Overall he clinically continues to improve afebrile his repeat blood cultures are negative -I have gone over with family states that if by tomorrow his blood cultures remain negative, then I will discharge him home on Invanz for a total of 10 days, which can be given through the port -However if there is any clinical signs of port infection, or if his repeat blood cultures are negative then this is suspicious for port infection and the port has to come out -Obviously the definitive diagnosis is to take out the port and culture the tip, however family is not too keen on this as the Staph epidermidis culture could be a contaminant, and morbidity and convenience associate with port removal, -After discussing all the risks and benefits of all options they voiced understanding, all questions answered, agreed to proceed with plans to follow blood cultures if they remain negative, to call this Staph epidermidis positive blood culture in 1 out of 4 bottles a contaminate, and to continue with a total of 10 days of Invanz through his port, discussed risk and benefits of all options, he voiced understanding, all questions answered, agreed to proceed Vitals/I&O/Wt Last Vital Signs Temp 97.4 F L 11/08/22 15:22 Pulse 83 11/08/22 15:22 Resp 14 11/08/22 15:22 BP 134/85 11/08/22 15:22 Pulse Ox 96 11/08/22 15:22 O2 Del Method Room Air 11/08/22 08:27 O2 Flow Rate 2 11/05/22 23:04 11/08/22 11/08/22 11/08/22 06:59 14:59 22:59 Intake Total 1400 / 3690 1000 / 1000 Balance 1400 / 3690 1000 / 1000 Physical Exam Const: COMMON NORMALS: no acute distress and patient oriented x3 Resp: COMMON NORMALS: normal respiratory effort, No retractions, No use of accessory muscles and clear to auscultation bilaterally AUSCULTATION: clear to auscultation bilaterally Cardio: COMMON NORMALS: regular rate, regular rhythm, S1 normal heart sound present and S2 normal heart sound present RATE: regular rate RHYTHM: regular rhythm HEART SOUNDS: S1 normal heart sound present and S2 normal heart sound present GI: COMMON NORMALS: Normal to inspection, nondistended, normoactive bowel sounds present and non-tender Extremity: COMMON NORMALS: no pedal edema Neuro: COMMON NORMALS: patient oriented x3 Psych: COMMON NORMALS: mental status grossly normal Data 11/08/22 04:03 11/08/22 04:03 Micro: Microbiology 11/05/22 10:13 Urine Culture - Preliminary Urine,Clean Catch Gram Negative Rods Gram Negative Rods#2 11/07/22 11:22 Blood Culture - Preliminary Blood NEGATIVE TO DATE 11/07/22 11:22 Blood Culture - Preliminary Blood NEGATIVE TO DATE A&P Assessment and plan (1) Acute respiratory failure with hypoxia: (2) History of ESBL E. coli infection: (3) UTI (urinary tract infection): (4) Mucus plugging of bronchi: (5) Pneumonia: (6) Acute kidney injury: (7) Dehydration: (8) Adenocarcinoma of sigmoid colon: (9) Immunocompromised state: (10) Goals of care, counseling/discussion: (11) Hyponatremia: (12) COPD exacerbation: (13) Staphylococcus epidermidis bacteremia: Plan Acute hypoxic respiratory failure -Secondary to mucous plugging, COPD exacerbation -Possibly secondary to underlying pneumonia -Resolved Plan -Currently under medical floors -Monitor respiratory status closely -Chest vest therapy can discontinued -Mucomyst can be discontinued -Hypertonic saline can be discontinued -DuoNeb can be as needed -Follow blood cultures, urine cultures -Transition to p.o. prednisone UTI with history of ESBL E. coli UTI infections -Multidrug-resistant E. coli currently on meropenem -Likely discharged on Invanz 1 g every 24 hours for total of 10 days -Await pending urine cultures Staph epidermidis bacteremia -Currently on vancomycin -1 out of 4 blood cultures positive -Likely contamination however need to rule out true infection, given port -Repeated blood cultures so far negative -He is immunocompromise on chemotherapy -He does have a left chest port in place, no clinical or physical signs of infection Acute kidney injury -Resolved, stop fluids Hyponatremia likely sec to dehydration, resolved Colon cancer, immunocompromise state, currently on chemotherapy, placed on chemo precautions Chronic thrombocytopenia, monitor Plan for today, up out of bed, follow repeat blood cultures, follow repeat urine cultures, continue Vanco, continue meropenem, discharge planning Attestations Medical Necessity Statement*: Patient requires hospitalization for respiratory failure, multidrug-resistant E. coli infection, concerns for Staph epidermidis bacteremia with chest port in place, immunocompromise state, receiving chemotherapy Coding Level of Care Code 77408 High Time for a total of 60 minutes, includes reviewing past or interval history, examining/interviewing patient, placing orders, counseling patient/family/other support, updating patient/family/other support, discussing plan of care with staff, communicating with other healthcare providers, documenting encounter and coordinating care Diagnoses Acute respiratory failure with hypoxia J96.01 History of ESBL E. coli infection Z86.19 UTI (urinary tract infection) N39.0 Mucus plugging of bronchi T17.500A Pneumonia J18.9 Acute kidney injury N17.9 Dehydration E86.0 Adenocarcinoma of sigmoid colon C18.7 Immunocompromised state D84.9 Goals of care, counseling/discussion Z71.89 Hyponatremia E87.1 COPD exacerbation J44.1 Staphylococcus epidermidis bacteremia R78.81; B95.7
[2022-11-08] MEDS: enoxaparin 40 mg/0.4 mL Syringe SUBCUT (17:41)
[2022-11-08] MEDS: pantoprazole 40 mg SDV IVP (18:31)
[2022-11-08] MEDS: zolpidem 5 mg Tablet PO (21:42)
[2022-11-08 22:54] LABS: Vancomycin Trough 16.2 ug/mL (10-15)
[2022-11-09] VITALS: BP 144/87; PULSE 69; RESP 16; TEMP 36.8; O2SAT 96
[2022-11-09] MEDS: meropenem 1,000 MG in sodium chloride 0.9% (plus) 50 ML 100 MG IV ×2 (01:11→08:23)
[2022-11-09 04:00] VITALS: BP 123/77; PULSE 68; RESP 17; TEMP 36.4; O2SAT 94
[2022-11-09 05:13] LABS: Basophils % 0.2 %; Hematocrit 34.9 % (42.0-52.0); Hemoglobin 11.5 g/dL (11.7-16.6); Lymphocytes # 8.6 10^3/uL (0.8-4.8); Mean Corpuscular Volume 94.1 fl (80-94); Mean Platelet Volume 11.6 fL (7.4-10.4); Monocytes # 0.7 10^3/uL (0.2-0.9); Neutrophils % 27.7 %; Nucleated Red Blood Cells % 0 %; Platelet Count 164 10^3/cmm (130-400); Red Blood Count 3.71 10^6/uL (4.1-5.3); Red Cell Distribution Width 17.6 % (12.1-15.1)
[2022-11-09 05:43] LABS: Slide Review Slide Review Perform
[2022-11-09 05:48] LABS: Anion Gap 12.4 (5-19); Blood Urea Nitrogen 19 mg/dL (8-23); Calcium 8.2 mg/dL (8.5-10.5); Carbon Dioxide 20 mmol/L (22-29); Chloride 112 mmol/L (98-107); Glucose 101 mg/dL (65-115); Osmolality Calculated 292 mOsm/kg (285-295); Potassium 4.4 mmol/L (3.5-5.1); Sodium 140 mmol/L (136-145)
[2022-11-09 08:00] VITALS: BP 116/66; PULSE 64; RESP 18; TEMP 36.6; O2SAT 95
[2022-11-09] MEDS: amlodipine 10 mg Tablet PO (08:23)
[2022-11-09] MEDS: predniSONE 20 mg Tablet 40 MG PO (08:23)
[2022-11-09] MEDS: montelukast sodium 10 mg Tablet PO (08:24)
[2022-11-09] MEDS: metoprolol succinate ER (24 HR) 50 mg Tablet PO (08:24)
[2022-11-09 08:51] VITALS: PULSE 66; RESP 16; O2SAT 96
--- NOTE | 2022-11-09 11:33 | P.DS_ITS ---
Discharge Providers Date of Admission: 11/05/22 18:15 Date of Discharge: November 09, 2022 Attending Provider at Admission: Abelardo Mayorga MD Attending Provider at Discharge: Abelardo Mayorga MD Primary Care Provider: Arden Mccarthy MD Diagnoses at Discharge Discharge Diagnosis (1) Acute respiratory failure with hypoxia: Status: Acute (2) History of ESBL E. coli infection: Status: Acute (3) UTI (urinary tract infection): Status: Acute (4) Mucus plugging of bronchi: Status: Acute (5) Pneumonia: Status: Acute (6) Acute kidney injury: Status: Acute (7) Dehydration: Status: Acute (8) Adenocarcinoma of sigmoid colon: Status: Acute (9) Immunocompromised state: Status: Acute (10) Goals of care, counseling/discussion: Status: Acute (11) Hyponatremia: Status: Acute (12) COPD exacerbation: Status: Acute (13) Staphylococcus epidermidis bacteremia: Status: Acute Reason for Visit Reason for Visit: NICOLASA, Dr. Curiel Sent Hospital Course Hospital Course Kurt Esquivel is a 72 year old male with a history of adenocarcinoma of sigmoid colon, on active chemotherapy, his last round of chemotherapy was on October 28, currently on his 20th cycle, currently managed at [facility], recent history of UTI, obesity, hypertension, who presents to [facility] due to weakness, fatigue, wheezing, shortness of breath.? Currently patient is alert oriented x3, following all commands, normotensive, respiratory rate 20-25, actively wheezing, tachycardic, on room air, complaining of wheezing and shortness of breath.? He tells me that for the last few days he has been having fevers and chills, feeling unwell, fatigue, malaise complain of joint aches, headaches, no nausea, vomiting, no neck pain, neck stiffness no blurry vision, no flank pain, does report dysuria, increased urinary frequency, he saw his primary care was given Bactrim, but he continues to have symptoms, does report poor oral intake, he tells me for the last 24 hours he has been having increased shortness of breath, no calf pain, no calf swelling, no history of heart failure, no hemoptysis, he has been having increased wheezing, no sick contacts, recent travel, no history of aspiration, reports a productive cough.? ER provider spoke to [facility] for transfer, as he is in chemotherapy patient through [facility], transfer was initiated, he has been accepted, however he is awaiting a bed, ER provider has called hospitalist team for admission, so patient to be admitted and, watched in the hospital on the inpatient service, as he awaits a bed at [place] Patient was admitted to [facility] for acute hypoxic respiratory failure secondary to mucous plugging, COPD exacerbation, managed in the ICU, with chest vest therapy, hypertonic saline, Mucomyst, pulmonary was consulted, overall patient clinically improved, on room air, no significant wheezing, discharged on 3 more days of prednisone Patient was found to have a UTI on admission, with history of ESBL UTI infections, his urine culture from 11/01/2022 grew multidrug-resistant E. coli, he has a penicillin allergy, managed with meropenem during hospital ligation, discharged on Invanz 1 g every 24 hours for 7 remaining days. His urine cultures from this hospitalization are pending, need to be monitored, but highly suspicious for multidrug-resistant E. coli. During his hospitalization 1 of 4 blood cultures were positive for Staph epidermidis, managed with vancomycin he does have a port in place, is immunocompromise as he is on chemotherapy, no clinical signs of port infection, 3 remaining blood cultures are no growth to date, repeat blood cultures were drawn which are no growth to date , he was overall he is back to baseline significantly clinically improved, I feel likely this is a contamination, however I was honest with patient that there is still a risk that this could be a port infection. After discussing the risks and benefits of all options, he voiced understanding, all questions answered, agreed to medically manage, keep port in place, follow cultures, if he develops any fevers, chills, or if he recurrently has bacteremia, then the port will have to be removed. Him and his voiced understanding, all questions answered, agreed to proceed. Physical Exam Const: COMMON NORMALS: no acute distress and patient oriented x3 Resp: COMMON NORMALS: normal respiratory effort, No retractions, No use of accessory muscles and clear to auscultation bilaterally AUSCULTATION: clear to auscultation bilaterally Cardio: COMMON NORMALS: regular rate, regular rhythm, S1 normal heart sound present and S2 normal heart sound present RATE: regular rate RHYTHM: reg ular rhythm HEART SOUNDS: S1 normal heart sound present and S2 normal heart sound present GI: COMMON NORMALS: Normal to inspection, nondistended, normoactive bowel sounds present and non-tender Extremity: COMMON NORMALS: no pedal edema Neuro: COMMON NORMALS: patient oriented x3 Psych: COMMON NORMALS: mental status grossly normal Discharge Data Studies Completed and Pending Completed Studies During Hospitalization Category Date Time Status CT angio chest PE protcl [id number] Stat Cat Scan 11/05/22 10:[address] kidney stone [id number] Stat Cat Scan 11/05/22 11:32 Completed XR chest 1V portable [id number] QAM Exams 11/06/22 06:00 Completed XR chest 1V portable [id number] Stat Exams 11/05/22 09:47 Completed Pending at discharge Category Date Time Status Basic Metabolic Panel AM LABS Lab 11/10/22 04:00 Ordered Basic Metabolic Panel AM LABS Lab 11/11/22 04:00 Ordered Blood Culture Stat Lab 11/05/22 12:10 Results Blood Culture Stat Lab 11/07/22 11:22 Results Complete Blood Count w/Auto AM LABS Lab 11/10/22 04:00 Ordered Complete Blood Count w/Auto AM LABS Lab 11/11/22 04:00 Ordered Pneumocystis PCP [Pneumocystis jiroveci Qual PCR] Lab 11/06/22 00:07 Ordered Routine Sputum Culture and Gram Stain Stat Lab 11/05/22 18:01 Uncollected Urine Culture Stat Lab 11/05/22 10:13 Results Radiology Impressions Chest CTA 11/05/22 10:51 IMPRESSION: 1. Slowly enlarging tubular shaped density right middle lobe now measuring 2.5 cm in length likely representing mucin filled ectatic bronchus. Follow-up as clinically indicated. 2. Presumed postsurgical changes involving the soft tissues surrounding left-sided chest port which should be confirmed with history of recent surgical intervention. 3. Moderate size hiatal hernia unchanged. 4. Mild-moderate splenomegaly increased in size from previous exam. Abdomen/Pelvis CT 11/05/22 11:32 IMPRESSION: 1. 9 x 5 cm irregular shaped encapsulated fluid collection right mid pelvis stable in size suspicious for abscess collection with some adjacent reactive bladder wall thickening as well as adjacent abdominal wall inflammatory changes mildly progressed from previous exam. Fluid collection would be amenable to percutaneous drainage under CT guidance. 2. Colonic diverticulosis. No compelling evidence of acute diverticulitis. 3. Moderate splenomegaly increased in size from previous exam. 4. Stable bilateral renal cysts. Negative for renal calculi or hydronephrosis. 5. Additional chronic findings as above. Chest X-Ray 11/06/22 06:00 IMPRESSION: Subsegmental atelectasis. Laboratory Results WBC 13.0 10^3/uL (4.0-10.0) H 11/09/22 04:30 RBC 3.71 10^6/uL (4.1-5.3) L 11/09/22 04:30 Hgb 11.5 g/dL (11.7-16.6) L 11/09/22 04:30 Hct 34.9 % (42.0-52.0) L 11/09/22 04:30 MCV 94.1 fl (80-94) H 11/09/22 04:30 MCH 31.0 pg (28.0-34.0) 11/09/22 04:30 MCHC 33.0 g/dL (30.0-36.0) 11/09/22 04:30 RDW 17.6 % (12.1-15.1) H 11/09/22 04:30 Plt Count 164 10^3/cmm (130-400) D 11/09/22 04:30 MPV 11.6 fL (7.4-10.4) H 11/09/22 04:30 Neut % (Auto) 27.7 % 11/09/22 04:30 Lymph % (Auto) 66.0 % 11/09/22 04:30 [place] % (Auto) 5.0 % 11/09/22 04:30 Eos % (Auto) 0.0 % 11/09/22 04:30 Baso % (Auto) 0.2 % 11/09/22 04:30 Neut # (Auto) 3.60 10^3/uL (1.8-7.7) 11/09/22 04:30 Lymph # (Auto) 8.6 10^3/uL (0.8-4.8) H 11/09/22 04:30 [place] # (Auto) 0.7 10^3/uL (0.2-0.9) 11/09/22 04:30 Eos # (Auto) 0.0 10^3/uL (0.0-0.8) 11/09/22 04:30 Baso # (Auto) 0.0 10^3/uL (0.0-0.1) 11/09/22 04:30 Nucleated RBC % (auto) 0 % 11/09/22 04:30 Total Counted 100 (0-100) 11/05/22 10:00 Atypical Lymphs % 13.0 % (0-5) H 11/05/22 10:00 Absolute Neutrophils 5.7 10^3/cmm (1.4-6.5) 11/05/22 10:00 Segmented Neutrophils 71 % 11/05/22 10:00 Abs Segm Neuts (Man) 5.6 10/cmm (1.6-7.1) 11/05/22 10:00 Band Neutrophils 1.0 % 11/05/22 10:00 Abs Band Neuts (Man) 0.1 10^3/cmm (0.0-1.2) 11/05/22 10:00 Absolute Lymphocytes 2.1 10^3/cmm (1.2-3.4) 11/05/22 10:00 Lymphocytes (Manual) 14 % 11/05/22 10:00 Monocytes (Manual) 0.0 % 11/05/22 10:00 Absolute Monocytes 0.0 10^3/cmm (0.1-0.6) L 11/05/22 10:00 Eosinophils (Manual) 0 % 11/05/22 10:00 Absolute Eosinophils 0.0 10^3/cmm (0.0-0.7) 11/05/22 10:00 Basophils (Manual) 0.0 % 11/05/22 10:00 Absolute Basophils 0.0 10^3/cmm (0.0-0.2) 11/05/22 10:00 Metamyelocytes 0.0 % 11/05/22 10:00 Myelocytes 1.0 % 11/05/22 10:00 Promyelocytes 0.0 % 11/05/22 10:00 Nucleated RBCs 0.0 /100WBC (0-1) 11/05/22 10:00 Nucleated RBCs # 0.0 /100WBC 11/09/22 04:30 Platelet Estimate Decreased (Normal) 11/05/22 10:00 Ovalocytes 1+ H 11/05/22 10:00 Specimen Type Arterial 11/05/22 18:00 Sample Site Brachial, left 11/05/22 18:00 ABG pH 7.45 (7.35-7.45) 11/05/22 18:00 ABG pCO2 28.3 mmHg (35-45) L 11/05/22 18:00 ABG pO2 63.2 mmHg (80.0-100.0) L 11/05/22 18:00 ABG HCO3 19.5 mmol/L (22-26) L 11/05/22 18:00 ABG O2 Saturation 92.5 11/05/22 18:00 ABG Base Excess -3.2 mmol/L (-2.0-2.0) L 11/05/22 18:00 Agusto Test N/a 11/05/22 18:00 A-a O2 Gradient 6.5 mmHg (5-10) 11/05/22 18:00 Hematocrit 42.0 % (42-52) 11/05/22 18:00 Hgb O2 Saturation 90.8 % (95-100) L 11/05/22 18:00 Carboxyhemoglobin 0.8 %THgb (0.4-20.1) 11/05/22 18:00 Methemoglobin 0.9 % (0.4-1.5) 11/05/22 18:00 Total Hemoglobin 13.7 g/dL (14-18) L 11/05/22 18:00 Sodium 128.0 mmol/L (131-143) L 11/05/22 18:00 Potassium 3.7 mmol/L (3.5-5.0) 11/05/22 18:00 Glucose 108.0 mg/dL (70-115) 11/05/22 18:00 Ionized Calcium 1.2 mmol/L (1.1-1.4) 11/05/22 18:00 O2 Delivery Device Room air 11/05/22 18:00 FiO2 21.0 % 11/05/22 18:00 Plant Safety Engineer ID [id number] 11/05/22 18:00 Sodium 140 mmol/L (136-145) 11/09/22 04:30 Potassium 4.4 mmol/L (3.5-5.1) 11/09/22 04:30 Chloride 112 mmol/L (98-107) H 11/09/22 04:30 Carbon Dioxide 20 mmol/L (22-29) L 11/09/22 04:30 Anion Gap 12.4 (5-19) 11/09/22 04:30 BUN 19 mg/dL (8-23) 11/09/22 04:30 Creatinine 0.8 mg/dL (0.7-1.2) 11/09/22 04:30 GFR Calculation Not Reportable 11/09/22 04:30 Glucose 101 mg/dL (65-115) 11/09/22 04:30 Estimat Average Glucose 114 11/05/22 18:44 Hemoglobin A1c 5.6 % (4.0-6.0) 11/05/22 18:44 Calculated Osmolality 292 mOsm/kg (285-295) 11/09/22 04:30 Lactic Acid 2.1 mmol/L (0.5-2.2) 11/05/22 18:44 Lactic Acid (Sepsis) 2.2 mmol/L (0.5-2.2) 11/05/22 21:38 Calcium 8.2 mg/dL (8.5-10.5) L 11/09/22 04:30 Phosphorus 1.7 mg/dL (2.5-4.5) L 11/08/22 04:03 Magnesium 2.3 mg/dL (1.7-2.3) 11/08/22 04:03 Total Bilirubin 0.6 mg/dL (0.15-1.2) 11/08/22 04:03 AST 47 U/L (0-40) H 11/08/22 04:03 ALT 46 U/L (0-41) H 11/08/22 04:03 Alkaline Phosphatase 86 U/L (40-130) 11/08/22 04:03 Lactate Dehydrogenase 447 U/L (135-225) H 11/05/22 21:38 Troponin T Baseline 16 ng/L (0-15) H 11/05/22 18:44 Troponin T 120 Minute 16.59 ng/L (0-15) H 11/05/22 21:38 Delta Troponin T 0.59 ABS# (0-10) 11/05/22 21:38 Troponin T Hi Sens 6Hr 14.44 ng/L (0-15) 11/06/22 00:55 Troponin T Hi Sens 6Hr Delta -1.56 ng/L (0-12) L 11/06/22 00:55 C-Reactive Protein 218.8 mg/L (0.0-4.9) H 11/05/22 05:01 NT-Pro-B Natriuret Pep 95 pg/mL (0-125) 11/05/22 05:01 Total Protein 5.5 g/dL (6.6-8.7) L 11/08/22 04:03 Albumin 2.8 g/dL (3.5-5.2) L 11/08/22 04:03 Globulin 2.7 g/dL (1.3-4.6) 11/08/22 04:03 Triglycerides 297 mg/dL (0-150) H 11/05/22 18:44 Cholesterol 112 mg/dL (0-200) 11/05/22 18:44 LDL Cholesterol, Calc 39 mg/dL (50-129) L 11/05/22 18:44 HDL Cholesterol 14 mg/dL (60-100) L 11/05/22 18:44 LDL/HDL Ratio 2.79 RATIO (0.00-3.22) 11/05/22 18:44 Cholesterol/HDL Ratio 8.00 mg/dL (1.0-5.00) H 11/05/22 18:44 Procalcitonin 3.30 ng/mL (0-0.5) H 11/05/22 05:01 Urine Color Dark yellow (Yellow) 11/05/22 10:13 Urine Appearance Cloudy (CLEAR) A 11/05/22 10:13 Urine pH 5 (5-7) 11/05/22 10:13 Ur Specific [place] 1.030 (1.005-1.030) 11/05/22 10:13 Urine Protein Trace (Negative) 11/05/22 10:13 Urine Glucose (UA) Norm (Normal) 11/05/22 10:13 Urine Ketones Negative (Negative) 11/05/22 10:13 Urine Blood 3+ (Negative) H 11/05/22 10:13 Urine Nitrate Negative (Negative) 11/05/22 10:13 Urine Bilirubin Neg (Negative) 11/05/22 10:13 Urine Urobilinogen Norm mg/dL (Negative) 11/05/22 10:13 Ur Leukocyte Esterase 2+ (Negative) H 11/05/22 10:13 Urine RBC 25-40 /hpf (0-2) H 11/05/22 10:13 Urine WBC Too numerous to cnt /hpf (0-5) H 11/05/22 10:13 Ur Squamous Epith Cells 0-4 /hpf (0-5) H 11/05/22 10:13 Amorphous Sediment Not Reportable 11/05/22 10:13 Urine Bacteria 3+ /hpf (NONE) H 11/05/22 10:13 Hyaline Casts 5-10 /lpf H 11/05/22 10:13 Fine Granular Casts 0-4 /lpf H 11/05/22 10:13 Urine Mucus 1+ /hpf 11/05/22 10:13 Ur Oval Fat Bodies 1+ /hpf 11/05/22 10:13 Nasal Influ A H1 2009 PCR Not detected (NOT DETECT) 11/06/22 08:50 Vancomycin Trough 16.2 ug/mL (10-15) H 11/08/22 22:22 Adenovirus (PCR) Not detected (NOT DETECT) 11/06/22 08:50 C. pneumoniae DNA (PCR) Not detected (NOT DETECT) 11/06/22 08:50 Coronavirus 229E (PCR) Not detected (NOT DETECT) 11/06/22 08:50 Human Metapneumovir PCR Not detected (NOT DETECT) 11/06/22 08:50 Influenza A (H1) PCR Not detected (NOT DETECT) 11/06/22 08:50 Influenza A (H3) PCR Not detected (NOT DETECT) 11/06/22 08:50 Influenza Type A (PCR) Not detected (NOT DETECT) 11/06/22 08:50 Influenza Type B (PCR) Not detected (NOT DETECT) 11/06/22 08:50 M. pneumoniae (PCR) Not detected (NOT DETECT) 11/06/22 08:50 Parainfluenza 1 (PCR) Not detected (NOT DETECT) 11/06/22 08:50 Parainfluenza 2 (PCR) Not detected (NOT DETECT) 11/06/22 08:50 Parainfluenza 3 (PCR) Not detected (NOT DETECT) 11/06/22 08:50 Parainfluenza 4 (PCR) Not detected (NOT DETECT) 11/06/22 08:50 RSV Type A (PCR) Not detected (NOT DETECT) 11/06/22 08:50 RSV Type B (PCR) Not detected (NOT DETECT) 11/06/22 08:50 Entero/Rhino (PCR) Not detected (NOT DETECT) 11/06/22 08:50 SARS-CoV-2 (PCR) Not detected (NOT DETECT) 11/06/22 08:50 Vitals Last Vital Signs Temp 97.8 F 11/09/22 08:00 Pulse 66 11/09/22 08:51 Resp 16 11/09/22 08:51 BP 116/66 11/09/22 08:00 Pulse Ox 96 11/09/22 08:51 O2 Del Method Room Air 11/09/22 08:51 O2 Flow Rate 2 11/09/22 08:00 Discharge Plan Discharge Patient Disposition: Home Condition: Stable Prescriptions: New prednisone 20 mg Tablet 40 mg PO DAILY 2 Days Qty: 4 0RF ertapenem [Invanz] 1 gram recon soln 1 g IV DAILY 7 Days Qty: 10 0RF tamsulosin [Flomax] 0.4 mg capsule 0.4 mg PO DAILY 30 Days Qty: 30 0RF Continued metoprolol succinate 50 mg tablet extended release 24 hr 50 mg PO DAILY Qty: 30 3RF oxycodone 10 mg tablet 10 mg PO Q6H PRN (Reason: pain) 7 Days Qty: 28 0RF prochlorperazine maleate [Compazine] 10 mg tablet 10 mg PO Q4H PRN (Reason: Mild Nausea) Qty: 30 3RF lorazepam 1 mg tablet 0.5 - 1 mg PO Q6H PRN (Reason: Severe Nausea) Qty: 30 3RF budesonide-formoterol [Symbicort] 160-4.5 mcg/actuation HFA aerosol inhaler 1 inh inhalation BID Qty: 10.2 3RF Rx Instructions: 340B aspirin 325 mg Tablet 325 mg PO DAILY PRN (Reason: Headache) acetaminophen [Tylenol Ex Str Rapid Release] 500 mg Tablet 1,000 mg PO Q6H PRN (Reason: Pain) amlodipine 10 mg Tablet 10 mg PO DAILY montelukast 10 mg Tablet 10 mg PO DAILY naproxen sodium [Aleve] 220 mg Tablet 220 mg PO BID PRN (Reason: Pain) Hold Instructions: Resume on 01/07/22. Discontinued nitrofurantoin monohyd/m-cryst [Macrobid] 100 mg capsule 100 mg PO BID 10 Days Qty: 20 0RF Rx Instructions: must administer with a meal/food for 10 days (rx filled 11/04/22) Discharge Orders: Discharge Order (Routine); Ordered 11/09/22 Ordered By: Abelardo Mayorga Other Ambulatory Orders: Miscellaneous Procedure (Order) Location: None Selected Ordered By: Abelardo Mayorga Referrals: Out patient GI Lab [facility] [Other] (You will need to come in daily for 7days, starting Friday, at 0830 for an IV infusion of Invanz 1G daily. You can check in at the Surgical entrance on Friday- Friday. On the weekends, you will have to check in at the ER. ) Theresa Harrison MD [Hospitalist] - 2 weeks Arden Mccarthy MD [Primary Care Provider] - Discharge Diet: Regular Discharge Activity: Resume usual activity Patient Instructions: Opioid Safety, Pain Management Activity Restrictions/Additional Instructions: - Please see your primary care provider next week for recheck CBC CMP Discharge Attestations Time Spent in Discharge Care*: greater than 30 min Quality Metrics Clinical Quality Measures [ No reported AMI, CVA or VTE this stay] Coding Level of Care Code 36618 Total time (in minutes) for Discharge: 45 Diagnoses Acute respiratory failure with hypoxia J96.01 History of ESBL E. coli infection Z86.19 UTI (urinary tract infection) N39.0 Mucus plugging of bronchi T17.500A Pneumonia J18.9 Acute kidney injury N17.9 Dehydration E86.0 Adenocarcinoma of sigmoid colon C18.7 Immunocompromised state D84.9 Goals of care, counseling/discussion Z71.89 Hyponatremia E87.1 COPD exacerbation J44.1 Staphylococcus epidermidis bacteremia R78.81; B95.7
[2022-11-09 12:00] VITALS: BP 129/70; PULSE 80; RESP 16; TEMP 36.4; O2SAT 94
--- NOTE | 2022-11-09 12:44 | PC.NURSE ---
Patient and family verbalized understanding of discharge instructions, home medications, and follow up appointments. Patients prescriptions delivered to patient prior to discharge. Patient refused to have port needle removed due to complications in accessing port.
[2022-11-09 12:48] VITALS: BP 129/70; PULSE 80; RESP 16; TEMP 36.4; O2SAT 94
== END 2022-11-09 12:50 | disposition home or self-care (01) | DRG 191 ==
LOC: ER 14:18 → ICU 18:16 → MEDSURG 11-06 23:14
PROVIDERS: Internal Medicine Pulmonary Disease; Admitting Provider Family Medicine; Emergency Provider Family Medicine; PCP Family Medicine; Visit Provider Family Medicine
DX: J44.1 Chronic obstructive pulmonary disease with (acute) exacerbation (principal); C18.7 Malignant neoplasm of sigmoid colon; T17.890A Other foreign object in other parts of respiratory tract causing asphyxiation, initial encounter; N39.0 Urinary tract infection, site not specified; N17.9 Acute kidney failure, unspecified; E87.1 Hypo-osmolality and hyponatremia; D84.821 Immunodeficiency due to drugs; Z16.12 Extended spectrum beta lactamase (ESBL) resistance; E87.3 Alkalosis; Z79.899 Other long term (current) drug therapy; Z87.440 Personal history of urinary (tract) infections; E66.9 Obesity, unspecified; Z68.35 Body mass index [BMI] 35.0-35.9, adult; I10 Essential (primary) hypertension; X58.XXXA Exposure to other specified factors, initial encounter; B96.20 Unspecified Escherichia coli [E. coli] as the cause of diseases classified elsewhere; Z88.0 Allergy status to penicillin; Z79.891 Long term (current) use of opiate analgesic; E86.0 Dehydration; D69.6 Thrombocytopenia, unspecified; T45.1X5A Adverse effect of antineoplastic and immunosuppressive drugs, initial encounter; B95.8 Unspecified staphylococcus as the cause of diseases classified elsewhere; Z95.828 Presence of other vascular implants and grafts; K44.9 Diaphragmatic hernia without obstruction or gangrene
CPT/HCPCS: 36415; 36600; 51798; 71045; 71275; 74176; 80048; 80051; 80053; 80061; 80202; 81001; 82330; 82805; 83036; 83605; 83615; 83735; 83880; 84100; 84145; 84484; 85007; 85025; 86140; 87040; 87077; 87086; 87150; 87186; 87205; 87486; 87581; 87633; 92523; 92610; 93005; 94640; 94669; 96361; 96372; 96374; 96376; 99285; C9113; J0696; J1100; J1650; J2185; J3372; J7030; J7512; J7608; Q9967

== ENCOUNTER 2022-11-14 09:30 | Oncology outpatient (recurring) (ONCR) | payer MEDICARE, OTHER, SELFPAY ==
[2022-10-28 08:34] VITALS: BP 160/91; PULSE 87; RESP 18; TEMP 37.3; O2SAT 96
[2022-10-28 08:48] LABS: Basophils % 0.2 %; Eosinophils # 0.1 10^3/uL (0.0-0.8); Eosinophils % 2.2 %; Hematocrit 42.7 % (42.0-52.0); Hemoglobin 14.2 g/dL (11.7-16.6); Lymphocytes % 15.2 %; Mean Corpuscular HGB Conc 33.3 g/dL (30.0-36.0); Mean Corpuscular Volume 93.2 fl (80-94); Mean Platelet Volume 9.1 fL (7.4-10.4); Monocytes # 0.8 10^3/uL (0.2-0.9); Neutrophils # 4.35 10^3/uL (1.8-7.7); Neutrophils % 69.1 %; Nucleated Red Blood Cells % 0 %; Platelet Count 100 10^3/cmm (130-400); Red Blood Count 4.58 10^6/uL (4.1-5.3); Red Cell Distribution Width 15.7 % (12.1-15.1); White Blood Count 6.3 10^3/uL (4.0-10.0)
[2022-10-28 09:03] LABS: Alanine Aminotransferase 24 U/L (0-41); Albumin Level 3.8 g/dL (3.5-5.2); Alkaline Phosphatase 94 U/L (40-130); Anion Gap 8.8 (5-19); Aspartate Amino Transferase 22 U/L (0-40); Blood Urea Nitrogen 12 mg/dL (8-23); Calcium 8.8 mg/dL (8.5-10.5); Carbon Dioxide 27 mmol/L (22-29); Chloride 101 mmol/L (98-107); Globulin 3.2 g/dL (1.3-4.6); Glucose 113 mg/dL (65-115); Osmolality Calculated 277 mOsm/kg (285-295); Potassium 3.8 mmol/L (3.5-5.1); Sodium 133 mmol/L (136-145); Total Bilirubin 0.8 mg/dL (0.15-1.2)
[2022-10-28] MEDS: dextrose 5% 250 ML 75 ML IV (10:52)
[2022-10-28] MEDS: ondansetron 2 mg/ML SDV 2 mL 8 MG IVP (10:55)
[2022-10-28 10:56] LABS: Bilirubin Urine Neg (Negative); Blood Urine 2+ (Negative); Glucose Urine UA Norm (Normal); Ketones Urine Negative (Negative); Leukocyte Esterase Urine 1+ (Negative); Nitrate Urine Negative (Negative); Protein Urine 3+ (Negative); Specific Gravity, Urine 1.025 (1.005-1.030); Urine Appearance Clear (CLEAR); Urine Color Dark Yellow (Yellow); Urobilinogen Urine 1 mg/dL (Negative); pH Urine 5 (5-7)
[2022-10-28 10:58] LABS: Add Urine Culture? Yes; Bacteria Urine 1+ /hpf; Mucus Urine 1+ /hpf; WBC Urine 15-25 /hpf (0-5)
[2022-10-28] MEDS: leucovorin 1,000 MG in dextrose 5% 250 ML 500 MG IV (11:12)
[2022-10-28] MEDS: SODIUM CHLORIDE IV (11:51)
[2022-10-28] MEDS: ELASTOMERIC PUMP PUMP IV (11:51)
[2022-10-28] MEDS: FLUOROURACIL IV (11:51)
[2022-10-28 12:05] VITALS: BP 164/91; PULSE 88; RESP 16; TEMP 37.6; O2SAT 95
[2022-10-30 10:40] VITALS: BP 143/82; PULSE 100; RESP 20; TEMP 38.2; O2SAT 95
[2022-11-14 09:16] VITALS: BMI 35.8
[2022-11-14 09:17] VITALS: BP 144/89; PULSE 76; RESP 18; TEMP 36.4; O2SAT 97
[2022-11-14 09:30] LABS: Basophils % 0.2 %; Eosinophils % 0.7 %; Hematocrit 38.5 % (42.0-52.0); Hemoglobin 12.3 g/dL (11.7-16.6); Lymphocytes # 2.5 10^3/uL (0.8-4.8); Lymphocytes % 43.4 %; Mean Corpuscular HGB Conc 31.9 g/dL (30.0-36.0); Mean Platelet Volume 9.7 fL (7.4-10.4); Monocytes # 0.6 10^3/uL (0.2-0.9); Monocytes % 10.7 %; Neutrophils # 2.46 10^3/uL (1.8-7.7); Neutrophils % 42.2 %; Nucleated Red Blood Cells % 0 %; Platelet Count 157 10^3/cmm (130-400); Red Blood Count 3.97 10^6/uL (4.1-5.3); Red Cell Distribution Width 17.2 % (12.1-15.1); White Blood Count 5.8 10^3/uL (4.0-10.0)
[2022-11-14 09:57] LABS: Carcinoembryonic Antigen 31.3 ng/mL (0.0-4.7)
[2022-11-14 10:08] LABS: Alanine Aminotransferase 64 U/L (0-41); Alkaline Phosphatase 119 U/L (40-130); Anion Gap 11.5 (5-19); Aspartate Amino Transferase 39 U/L (0-40); Blood Urea Nitrogen 16 mg/dL (8-23); Calcium 7.8 mg/dL (8.5-10.5); Carbon Dioxide 28 mmol/L (22-29); Chloride 103 mmol/L (98-107); Globulin 2.9 g/dL (1.3-4.6); Glucose 93 mg/dL (65-115); Osmolality Calculated 287 mOsm/kg (285-295); Potassium 4.5 mmol/L (3.5-5.1); Sodium 138 mmol/L (136-145); Total Bilirubin 0.5 mg/dL (0.15-1.2); Total Protein 5.9 g/dL (6.6-8.7)
== END 2022-11-25 23:59 | disposition home or self-care (01) ==
PROVIDERS: Nurse Practitioner Family; PCP Family Medicine; Visit Provider Internal Medicine Medical Oncology
DX: C18.7 Malignant neoplasm of sigmoid colon (principal)
CPT/HCPCS: 36591; 80053; 81001; 82378; 85025; 87086; 96368; 96375; 96413; 96416; 96523; 99214; J0640; J1642; J2405; J7060; J9190

== ENCOUNTER 2022-11-16 08:30 | Outpatient (RCR) | payer MEDICARE, OTHER, SELFPAY ==
[2022-11-10] MEDS: ertapenem 1,000 MG in sodium chloride 0.9% (plus) 100 ML 200 MG IV (08:42)
[2022-11-10 09:05] VITALS: BP 127/76; PULSE 78; RESP 17; TEMP 36.6; O2SAT 95
[2022-11-11 08:25] VITALS: BP 140/86; PULSE 66; RESP 18; TEMP 36.2; O2SAT 97
[2022-11-11] MEDS: ertapenem 1,000 MG in sodium chloride 0.9% (plus) 100 ML 200 MG IV (08:35)
[2022-11-12 08:25] VITALS: BP 157/96; PULSE 70; RESP 20; TEMP 36.3; O2SAT 95
[2022-11-12] MEDS: ertapenem 1,000 MG in sodium chloride 0.9% (plus) 100 ML 200 MG IV (08:35)
[2022-11-13] MEDS: ertapenem 1,000 MG in sodium chloride 0.9% (plus) 100 ML 200 MG IV (08:40)
[2022-11-13 08:50] VITALS: BP 144/81; PULSE 79; RESP 18; TEMP 36.6; O2SAT 95
[2022-11-14 08:25] VITALS: BP 129/73; PULSE 71; RESP 18; TEMP 36.3; O2SAT 96
[2022-11-14] MEDS: ertapenem 1,000 MG in sodium chloride 0.9% (plus) 100 ML 200 MG IV (08:30)
[2022-11-15 08:25] VITALS: BP 128/81; PULSE 78; RESP 18; TEMP 36.6; O2SAT 97
[2022-11-15] MEDS: ertapenem 1,000 MG in sodium chloride 0.9% (plus) 100 ML 200 MG IV (08:42)
[2022-11-16] MEDS: ertapenem 1,000 MG in sodium chloride 0.9% (plus) 100 ML 200 MG IV (08:37)
[2022-11-16 08:40] VITALS: BP 136/95; PULSE 73; RESP 18; TEMP 36.2; O2SAT 96
== END 2022-11-25 23:59 | disposition home or self-care (01) ==
LOC: GILAB 08:30
PROVIDERS: PCP Family Medicine; Visit Provider Family Medicine
DX: N39.0 Urinary tract infection, site not specified (principal); Z86.19 Personal history of other infectious and parasitic diseases; Z79.899 Other long term (current) drug therapy
CPT/HCPCS: 96365; J1335; J1642

== ENCOUNTER 2022-11-21 10:53 | Emergency (ER) | payer MEDICARE, OTHER, SELFPAY ==
[2022-11-21 10:56] VITALS: BP 126/71; PULSE 94; RESP 16; TEMP 37.3; O2SAT 94
[2022-11-21 12:49] LABS: Add Urine Microscopic? YES; Bilirubin Urine 1+ (Negative); Blood Urine 3+ (Negative); Glucose Urine UA Norm (Normal); Ketones Urine 1+ (Negative); Leukocyte Esterase Urine 2+ (Negative); Nitrate Urine Positive (Negative); Protein Urine 3+ (Negative); RBC Urine >100 /hpf (0-2); Urine Appearance Cloudy (CLEAR); Urine Color Red (Yellow); Urobilinogen Urine 1 mg/dL (Negative); WBC Urine 15-25 /hpf (0-5); pH Urine 7 (5-7)
[2022-11-21 12:50] LABS: Add Urine Culture? Yes; Bacteria Urine 1+ /hpf; Squamous Epithelial Cell Urine 0-4 /hpf (0-5)
--- NOTE | 2022-11-21 12:54 | ED_ITS ---
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 He states he began having associated chills and subjective fevers. This morning he began noticing bright red hematuria. Patient denies dysuria. He is not having any flank pain. Patient was here in our emergency department on 11/05. CT imaging at that time showed a 9 x 5 cm irregular shaped encapsulated fluid collection that was abutting the right dome of the urinary bladder. There was concern for possible abscess. Plan was for patient to be transferred to [facility] but wait time was several days so patient was subsequently admitted to our hospital to await transfer. During his time here he decided he no longer wished to be transferred so this was canceled. While in the hospital he was being treated for a presumed ESBL cystitis. He states he just finished 7 days worth of IV antibiotics for this. Complaint: other (hematuria) Onset (ago): hour(s) Relieving factors: none Exacerbating factors: none Associated symptoms: Reports hematuria; Deny dysuria, nausea or vomiting Review of Systems Const: Reports: fever(s) (subjective ) and chills; Denies: body aches or fatigue Card: Denies: chest pain Resp: Denies: dyspnea GI: Reports: abdominal pain; Denies: nausea, vomiting or diarrhea : Reports: hematuria; Denies: flank pain, difficulty urinating, dysuria, urinary frequency or urinary urgency Musc: Reports: back pain; Denies: neck pain, extremity pain, extremity swelling or joint pain Skin/Breast: Denies: rash Neuro: Denies: headache(s), numbness in extremities, weakness in extremities, sensory changes or dizziness PFS ED PFSH: Medical History Adenocarcinoma of sigmoid colon History of broken leg Right leg Hypertension Surgical History History of esophagogastroduodenoscopy (EGD) 20 + yrs ago History of laparoscopy (01/24/22) Hx of colonoscopy (01/04/22) Family History Brother Diabetes Father CAD (coronary artery disease) Social History Smoking and tobacco status: former smoker Quit status (tobacco): has quit using tobacco Year quit tobacco: 31 years ago Former quit date comment: Smoked for 25+ years Alcohol intake: never Substance/Drug Use: never Physical Exam Const: COMMON NORMALS: no acute distress, no limitations, alert and well nourished GENERAL APPEARANCE: cooperative NUTRITIONAL APPEARANCE: overweight ORIENTATION/CONSCIOUSNESS: Yes awake, Yes oriented to person, Yes oriented to place and Yes oriented to time Resp: COMMON NORMALS: normal respiratory effort and clear to auscultation bilaterally AUSCULTATION: clear to auscultation bilaterally Cardio: COMMON NORMALS: regular rate and regular rhythm RATE: regular rate RHYTHM: regular rhythm GI: COMMON NORMALS: Normal to inspection, nondistended, normoactive bowel sounds present, Soft to palpation, non-tender, No hepatosplenomegaly present and no masses INSPECTION: Yes normal to inspection PALPATION: Yes Soft to palpation and Yes No hepatosplenomegaly present : COMMON NORMALS: Yes no CVA tenderness BLADDER/KIDNEY EXAM: Yes no CVA tenderness Back/Pelvis: COMMON NORMALS: no CVA tenderness, thoracic and lumbar spine normal to inspection and no thoracic nor lumbar tenderness LUMBAR SPINE/LOWER BACK: Yes paraspinal muscle spasm PELVIS: Yes buttocks normal SACROILIAC JOINTS: Yes SI joints normal SACRUM: no tenderness COCCYX: no tenderness OTHER: tenderness across lower back Extremity: COMMON NORMALS: normal to inspection GENERAL: Yes normal exam except as noted Neuro: SENSORIUM/ORIENTATION: Yes alert, Yes oriented to person, Yes oriented to place and Yes oriented to time Skin: COMMON NORMALS: no rashes or lesions noted GENERAL SKIN EXAM: no rashes or lesions noted Course Consultations: Consultation #1: Dr. Sood-[facility] colorectal surgeon-accepts transfer; states admitting physician will be Dr. Rose Vital Signs: Vital signs: Vital Signs Temperature 99.1 F 11/21/22 10:56 Pulse Rate 103 H 11/21/22 17:46 Respiratory Rate 18 11/21/22 17:46 Blood Pressure 169/83 11/21/22 17:46 Pulse Oximetry 94 11/21/22 17:46 Oxygen Delivery Me thod Room Air 11/21/22 17:46 MDM - Male Medical Decision Making Patient is a nice 72-year-old male here for complaints of back pain radiating around to his right abdomen and gross hematuria starting yesterday and into today. Patient was seen here in the ER on 11/[address] scan which showed a possible pelvic abscess. Plan was for patient to be transferred at that time to [facility] but due to wait times he was subsequently admitted here to await transfer. During his hospitalization he decided he no longer wanted to be transferred. I cannot see any documentation of where the pelvic abscess was addressed or what the plan was following discharge. CT scan today showing significant progression. Findings suggest a large abscess measuring 10 x 5.5 cm. Vital signs are stable. He does have a white count today of 20.9. UA showing overwhelming evidence of urinary tract infection-sensitivity report from previous culture reviewed. On CT scan it does look like the abscess has fistulized into the bladder. I spoke to [facility] colorectal surgery who questioned whether this was an abscess versus worsening of his known sigmoid tumor. They are graciously willing to accept the patient for transfer at this time. He was given IV Cefepime and Flagyl here. Dr. Velazquez aware of patient and agrees with current plan for transfer. Lab Data 11/21/22 12:40 11/21/22 12:40 Radiology Impressions Abdomen/Pelvis CT 11/21/22 13:28 IMPRESSION: 1. Large area air and fluid density within the right pelvis involving the dome of the urinary bladder on the right and in close association with the sigmoid colon with sigmoid colon diverticula. Findings suggest large abscess of approximally 10 x 5.5 cm with surrounding inflammatory appearance in the mesentery. This likely represents large abscess from sigmoid colon diverticulitis with involvement of the dome of the urinary bladder on the right with associated air in the urinary bladder anteriorly and involving the dome, with other consideration being large abscess arising from the dome of the urinary bladder and involving adjacent right pelvis and sigmoid colon. Compared with prior exam, interval worsening with interval progression is seen as noted above. 2. Other nonacute findings as noted above. COMMENTS: Consistent with the [employer]'s Incidental Findings Committee white paper (J Am Ernst Radiol 2018): Any incidental renal lesion less than 1 cm or classified as too small to characterize, or any incidental cystic renal lesion characterized as simple-appearing, is likely benign. No follow-up imaging is recommended for these lesions per consensus recommendations based on imaging criteria. ADDENDUM: 11/21/22 1539 THIS REPORT CONTAINS FINDINGS THAT MAY BE CRITICAL TO PATIENT CARE. The findings were verbally communicated via telephone conference with Mildred Sanchez at 3:37 PM CDT on 11/21/2022. The findings were acknowledged and understood. Chest X-Ray 11/21/22 13:37 IMPRESSION: Subsegmental atelectasis. No interval change from previous Laboratory Results WBC 20.9 10^3/uL (4.0-10.0) H 11/21/22 12:40 RBC 4.28 10^6/uL (4.1-5.3) 11/21/22 12:40 Hgb 13.2 g/dL (11.7-16.6) 11/21/22 12:40 Hct 40.7 % (42.0-52.0) L 11/21/22 12:40 MCV 95.1 fl (80-94) H 11/21/22 12:40 MCH 30.8 pg (28.0-34.0) 11/21/22 12:40 MCHC 32.4 g/dL (30.0-36.0) 11/21/22 12:40 RDW 17.3 % (12.1-15.1) H 11/21/22 12:40 Plt Count 97 10^3/cmm (130-400) L 11/21/22 12:40 MPV 9.8 fL (7.4-10.4) 11/21/22 12:40 Neut % (Auto) 71.4 % 11/21/22 12:40 Lymph % (Auto) 19.9 % 11/21/22 12:40 [place] % (Auto) 7.5 % 11/21/22 12:40 Eos % (Auto) 0.0 % 11/21/22 12:40 Baso % (Auto) 0.2 % 11/21/22 12:40 Neut # (Auto) 14.91 10^3/uL (1.8-7.7) H 11/21/22 12:40 Lymph # (Auto) 4.2 10^3/uL (0.8-4.8) 11/21/22 12:40 [place] # (Auto) 1.6 10^3/uL (0.2-0.9) H 11/21/22 12:40 Eos # (Auto) 0.0 10^3/uL (0.0-0.8) 11/21/22 12:40 Baso # (Auto) 0.0 10^3/uL (0.0-0.1) 11/21/22 12:40 Nucleated RBC % (auto) 0 % 11/21/22 12:40 Nucleated RBCs # 0.0 /100WBC 11/21/22 12:40 Sodium 131 mmol/L (136-145) L 11/21/22 12:40 Potassium 4.1 mmol/L (3.5-5.1) 11/21/22 12:40 Chloride 98 mmol/L (98-107) 11/21/22 12:40 Carbon Dioxide 23 mmol/L (22-29) 11/21/22 12:40 Anion Gap 14.1 (5-19) 11/21/22 12:40 BUN 13 mg/dL (8-23) 11/21/22 12:40 Creatinine 0.9 mg/dL (0.7-1.2) 11/21/22 12:40 GFR Calculation Not Reportable 11/21/22 12:40 Glucose 115 mg/dL (65-115) 11/21/22 12:40 Calculated Osmolality 273 mOsm/kg (285-295) L 11/21/22 12:40 Lactic Acid 1.6 mmol/L (0.5-2.2) 11/21/22 12:40 Calcium 8.2 mg/dL (8.5-10.5) L 11/21/22 12:40 Total Bilirubin 1.3 mg/dL (0.15-1.2) H 11/21/22 12:40 AST 23 U/L (0-40) 11/21/22 12:40 ALT 27 U/L (0-41) 11/21/22 12:40 Alkaline Phosphatase 103 U/L (40-130) 11/21/22 12:40 Total Protein 6.7 g/dL (6.6-8.7) 11/21/22 12:40 Albumin 3.1 g/dL (3.5-5.2) L 11/21/22 12:40 Globulin 3.6 g/dL (1.3-4.6) 11/21/22 12:40 Urine Color Red (Yellow) 11/21/22 12:27 Urine Appearance Cloudy (CLEAR) A 11/21/22 12:27 Urine pH 7 (5-7) 11/21/22 12:27 Ur Specific [place] 1.010 (1.005-1.030) 11/21/22 12:27 Urine Protein 3+ (Negative) H 11/21/22 12:27 Urine Glucose (UA) Norm (Normal) 11/21/22 12:27 Urine Ketones 1+ (Negative) H 11/21/22 12:27 Urine Blood 3+ (Negative) H 11/21/22 12:27 Urine Nitrate Positive (Negative) H 11/21/22 12:27 Urine Bilirubin 1+ (Negative) H 11/21/22 12:27 Urine Urobilinogen 1 mg/dL (Negative) H 11/21/22 12:27 Ur Leukocyte Esterase 2+ (Negative) H 11/21/22 12:27 Urine RBC >100 /hpf (0-2) H 11/21/22 12:27 Urine WBC 15-25 /hpf (0-5) H 11/21/22 12:27 Ur Squamous Epith Cells 0-4 /hpf (0-5) H 11/21/22 12:27 Amorphous Sediment Not Reportable 11/21/22 12:27 Urine Bacteria 1+ /hpf (NONE) H 11/21/22 12:27 Discharge Plan Discharge Patient Disposition: Xfer Short-Term Hosp Clinical Impression: Adenocarcinoma of sigmoid colon, Abscess of male pelvis Condition: Stable Referrals: Arden Mccarthy MD [Primary Care Provider] - Coding Level of Care Code ED Music Artist for Chg Fwd Documented by User: Rudy Velazquez DO 11/23/22 11:29 HPI - Male Genitourinary General: Chief complaint: Urogenital-Male Stated complaint: blood in urine Time Seen by Provider: 11/21/22 12:33 PFSH ED PFSH: Medical History Adenocarcinoma of sigmoid colon History of broken leg Right leg Hypertension Surgical History History of esophagogastroduodenoscopy (EGD) 20 + yrs ago History of laparoscopy (01/24/22) Hx of colonoscopy (01/04/22) Family History Brother Diabetes Father CAD (coronary artery disease) Social History Smoking and tobacco status: former smoker Quit status (tobacco): has quit using tobacco Year quit tobacco: 31 years ago Former quit date comment: Smoked for 25+ years Alcohol intake: never Substance/Drug Use: never Course Vital Signs: Vital signs: Vital Signs Temperature 99.1 F 11/21/22 10:56 Pulse Rate 103 H 11/21/22 17:46 Respiratory Rate 18 11/21/22 17:46 Blood Pressure 169/83 11/21/22 17:46 Pulse Oximetry 94 11/21/22 17:46 Oxygen Delivery Me thod Room Air 11/21/22 17:46 MDM - Male Medical Decision Making Patient is a nice 72-year-old male here for complaints of back pain radiating around to his right abdomen and gross hematuria starting yesterday and into today. Patient was seen here in the ER on 11/[address] scan which showed a possible pelvic abscess. Plan was for patient to be transferred at that time to [facility] but due to wait times he was subsequently admitted here to await transfer. During his hospitalization he decided he no longer wanted to be transferred. I cannot see any documentation of where the pelvic abscess was addressed or what the plan was following discharge. CT scan today showing sign ificant progression. Findings suggest a large abscess measuring 10 x 5.5 cm. Vital signs are stable. He does have a white count today of 20.9. UA showing overwhelming evidence of urinary tract infection-sensitivity report from previous culture reviewed. On CT scan it does look like the abscess has fistulized into the bladder. I spoke to [facility] colorectal surgery who questioned whether this was an abscess versus worsening of his known sigmoid tumor. They are graciously willing to accept the patient for transfer at this time. He was given IV Cefepime and Flagyl here. Dr. Velazquez aware of patient and agrees with current plan for transfer. Chart reviewed and patient discussed with midlevel. Agree with assessment and plan. Lab Data 11/21/22 12:40 11/21/22 12:40 Radiology Impressions Abdomen/Pelvis CT 11/21/22 13:28 IMPRESSION: 1. Large area air and fluid density within the right pelvis involving the dome of the urinary bladder on the right and in close association with the sigmoid colon with sigmoid colon diverticula. Findings suggest large abscess of approximally 10 x 5.5 cm with surrounding inflammatory appearance in the mesentery. This likely represents large abscess from sigmoid colon diverticulitis with involvement of the dome of the urinary bladder on the right with associated air in the urinary bladder anteriorly and involving the dome, with other consideration being large abscess arising from the dome of the urinary bladder and involving adjacent right pelvis and sigmoid colon. Compared with prior exam, interval worsening with interval progression is seen as noted above. 2. Other nonacute findings as noted above. COMMENTS: Consistent with the [employer]'s Incidental Findings Committee white paper (J Am Ernst Radiol 2018): Any incidental renal lesion less than 1 cm or classified as too small to characterize, or any incidental cystic renal lesion characterized as simple-appearing, is likely benign. No follow-up imaging is recommended for these lesions per consensus recommendations based on imaging criteria. ADDENDUM: 11/21/22 1539 THIS REPORT CONTAINS FINDINGS THAT MAY BE CRITICAL TO PATIENT CARE. The findings were verbally communicated via telephone conference with Mildred Sanchez at 3:37 PM CDT on 11/21/2022. The findings were acknowledged and understood. Chest X-Ray 11/21/22 13:37 IMPRESSION: Subsegmental atelectasis. No interval change from previous Laboratory Results WBC 20.9 10^3/uL (4.0-10.0) H 11/21/22 12:40 RBC 4.28 10^6/uL (4.1-5.3) 11/21/22 12:40 Hgb 13.2 g/dL (11.7-16.6) 11/21/22 12:40 Hct 40.7 % (42.0-52.0) L 11/21/22 12:40 MCV 95.1 fl (80-94) H 11/21/22 12:40 MCH 30.8 pg (28.0-34.0) 11/21/22 12:40 MCHC 32.4 g/dL (30.0-36.0) 11/21/22 12:40 RDW 17.3 % (12.1-15.1) H 11/21/22 12:40 Plt Count 97 10^3/cmm (130-400) L 11/21/22 12:40 MPV 9.8 fL (7.4-10.4) 11/21/22 12:40 Neut % (Auto) 71.4 % 11/21/22 12:40 Lymph % (Auto) 19.9 % 11/21/22 12:40 Jennings % (Auto) 7.5 % 11/21/22 12:40 Eos % (Auto) 0.0 % 11/21/22 12:40 Baso % (Auto) 0.2 % 11/21/22 12:40 Neut # (Auto) 14.91 10^3/uL (1.8-7.7) H 11/21/22 12:40 Lymph # (Auto) 4.2 10^3/uL (0.8-4.8) 11/21/22 12:40 Jennings # (Auto) 1.6 10^3/uL (0.2-0.9) H 11/21/22 12:40 Eos # (Auto) 0.0 10^3/uL (0.0-0.8) 11/21/22 12:40 Baso # (Auto) 0.0 10^3/uL (0.0-0.1) 11/21/22 12:40 Nucleated RBC % (auto) 0 % 11/21/22 12:40 Nucleated RBCs # 0.0 /100WBC 11/21/22 12:40 Sodium 131 mmol/L (136-145) L 11/21/22 12:40 Potassium 4.1 mmol/L (3.5-5.1) 11/21/22 12:40 Chloride 98 mmol/L (98-107) 11/21/22 12:40 Carbon Dioxide 23 mmol/L (22-29) 11/21/22 12:40 Anion Gap 14.1 (5-19) 11/21/22 12:40 BUN 13 mg/dL (8-23) 11/21/22 12:40 Creatinine 0.9 mg/dL (0.7-1.2) 11/21/22 12:40 GFR Calculation Not Reportable 11/21/22 12:40 Glucose 115 mg/dL (65-115) 11/21/22 12:40 Calculated Osmolality 273 mOsm/kg (285-295) L 11/21/22 12:40 Lactic Acid 1.6 mmol/L (0.5-2.2) 11/21/22 12:40 Calcium 8.2 mg/dL (8.5-10.5) L 11/21/22 12:40 Total Bilirubin 1.3 mg/dL (0.15-1.2) H 11/21/22 12:40 AST 23 U/L (0-40) 11/21/22 12:40 ALT 27 U/L (0-41) 11/21/22 12:40 Alkaline Phosphatase 103 U/L (40-130) 11/21/22 12:40 Total Protein 6.7 g/dL (6.6-8.7) 11/21/22 12:40 Albumin 3.1 g/dL (3.5-5.2) L 11/21/22 12:40 Globulin 3.6 g/dL (1.3-4.6) 11/21/22 12:40 Urine Color Red (Yellow) 11/21/22 12:27 Urine Appearance Cloudy (CLEAR) A 11/21/22 12:27 Urine pH 7 (5-7) 11/21/22 12:27 Ur Specific [place] 1.010 (1.005-1.030) 11/21/22 12:27 Urine Protein 3+ (Negative) H 11/21/22 12:27 Urine Glucose (UA) Norm (Normal) 11/21/22 12:27 Urine Ketones 1+ (Negative) H 11/21/22 12:27 Urine Blood 3+ (Negative) H 11/21/22 12:27 Urine Nitrate Positive (Negative) H 11/21/22 12:27 Urine Bilirubin 1+ (Negative) H 11/21/22 12:27 Urine Urobilinogen 1 mg/dL (Negative) H 11/21/22 12:27 Ur Leukocyte Esterase 2+ (Negative) H 11/21/22 12:27 Urine RBC >100 /hpf (0-2) H 11/21/22 12:27 Urine WBC 15-25 /hpf (0-5) H 11/21/22 12:27 Ur Squamous Epith Cells 0-4 /hpf (0-5) H 11/21/22 12:27 Amorphous Sediment Not Reportable 11/21/22 12:27 Urine Bacteria 1+ /hpf (NONE) H 11/21/22 12:27 Discharge Plan Discharge Patient Disposition: Xfer Short-Term Hosp Clinical Impression: Adenocarcinoma of sigmoid colon, Abscess of male pelvis Condition: Stable Referrals: Arden Mccarthy MD [Primary Care Provider] - Coding Level of Care Code ED Music Artist for Kaz Olvera
[2022-11-21 12:59] LABS: Basophils % 0.2 %; Hematocrit 40.7 % (42.0-52.0); Hemoglobin 13.2 g/dL (11.7-16.6); Lymphocytes # 4.2 10^3/uL (0.8-4.8); Lymphocytes % 19.9 %; Mean Corpuscular HGB Conc 32.4 g/dL (30.0-36.0); Mean Corpuscular Hemoglobin 30.8 pg (28.0-34.0); Mean Corpuscular Volume 95.1 fl (80-94); Mean Platelet Volume 9.8 fL (7.4-10.4); Monocytes # 1.6 10^3/uL (0.2-0.9); Monocytes % 7.5 %; Neutrophils # 14.91 10^3/uL (1.8-7.7); Neutrophils % 71.4 %; Nucleated Red Blood Cells % 0 %; Platelet Count 97 10^3/cmm (130-400); Red Blood Count 4.28 10^6/uL (4.1-5.3); Red Cell Distribution Width 17.3 % (12.1-15.1); White Blood Count 20.9 10^3/uL (4.0-10.0)
[2022-11-21 13:24] LABS: Alanine Aminotransferase 27 U/L (0-41); Albumin Level 3.1 g/dL (3.5-5.2); Alkaline Phosphatase 103 U/L (40-130); Anion Gap 14.1 (5-19); Aspartate Amino Transferase 23 U/L (0-40); Blood Urea Nitrogen 13 mg/dL (8-23); Calcium 8.2 mg/dL (8.5-10.5); Carbon Dioxide 23 mmol/L (22-29); Chloride 98 mmol/L (98-107); Globulin 3.6 g/dL (1.3-4.6); Glucose 115 mg/dL (65-115); Osmolality Calculated 273 mOsm/kg (285-295); Potassium 4.1 mmol/L (3.5-5.1); Sodium 131 mmol/L (136-145); Total Bilirubin 1.3 mg/dL (0.15-1.2); Total Protein 6.7 g/dL (6.6-8.7)
--- NOTE | 2022-11-21 13:28 | CTR_ITS ---
PROCEDURE INFORMATION: Exam: CT Abdomen And Pelvis With Contrast Exam date and time: 11/21/2022 2:52 PM Age: 72 years old Clinical indication: Abdominal pain; Generalized; Additional info: Hematuria, previous CT scan showing pelvic/bladder abscess-never TECHNIQUE: Imaging protocol: Computed tomography of the abdomen and pelvis with contrast. Radiation optimization: All CT scans at this facility use at least one of these dose optimization techniques: automated exposure control; mA and/or kV adjustment per patient size (includes targeted exams where dose is matched to clinical indication); or iterative reconstruction. Contrast material: OMNI 350; Contrast volume: 100 ml; Contrast route: INTRAVENOUS (IV); REPORTING DATA: Count of CT and Cardiac NM exams in prior 12 months: This patient has received 8 known CTs and 0 known cardiac nuclear medicine studies in the 12 months prior to the current study. COMPARISON: CT kidney stone [id number] 11/05/2022 11:48 AM RADIATION DOSE METRICS: Total DLP (mGy-cm): 1220 FINDINGS: Lungs: Mild subpleural basilar atelectasis. Diaphragm: [id number] hiatal hernia. Liver: Mildly enlarged liver without focal findings. Gallbladder and bile ducts: Normal. No calcified stones. No ductal dilation. Pancreas: Normal. No ductal dilation. Spleen: Mildly enlarged spleen without focal findings. Adrenal glands: Normal. No mass. Kidneys and ureters: Bilateral hypodense renal cortical cysts are seen. No urinary tract stone or obstructive uropathy or perinephric stranding. Stomach and bowel: No dilatation of bowel loops or bowel obstruction. Mild inguinal hernias of fat. Tiny umbilical hernia fat. Colonic diverticula of the descending and sigmoid colon Appendix: No evidence of appendicitis. Intraperitoneal space: Mild free fluid within the pelvis. No significant free fluid within the abdomen. Vasculature: Diffuse atherosclerotic vascular disease without aneurysmal dilatation of the abdominal aorta. Lymph nodes: Unremarkable. No enlarged lymph nodes. Urinary bladder: Urinary bladder demonstrates wall thickening along the dome and right side with some interval progression from previous exam. Air is seen anteriorly within the urinary bladder new from prior exam. Large area of air with fluid density is seen just above the urinary bladder within the right pelvis appearing to involve the dome of the urinary bladder with air in the wall of the urinary bladder at this level. This demonstrates interval worsened appearance from previous exam with significant increased air density that now involves the anterior superior bladder. Area air and fluid density measures approximally 10 x 5.5 cm on coronal exam. Adjacent mesenteric stranding is seen around this region within the pelvis. This also appears to abut a portion of the sigmoid colon. Sigmoid diverticula are seen. This could represent large abscess from sigmoid diverticulitis involving the dome of the urinary bladder with fistulous tract or large abscess arising from the dome of the urinary bladder with adjacent involvement sigmoid colon within the pelvis. Reproductive: Mild prostate enlargement with calcifications which can be seen with chronic prostatitis. Bones/joints: Acute osseous abnormality. Soft tissues: See Stomach and bowel finding. CT/CT abdomen pelvis w con* [id number] IMPRESSION: 1. Large area air and fluid density within the right pelvis involving the dome of the urinary bladder on the right and in close association with the sigmoid colon with sigmoid colon diverticula. Findings suggest large abscess of approximally 10 x 5.5 cm with surrounding inflammatory appearance in the mesentery. This likely represents large abscess from sigmoid colon diverticulitis with involvement of the dome of the urinary bladder on the right with associated air in the urinary bladder anteriorly and involving the dome, with other consideration being large abscess arising from the dome of the urinary bladder and involving adjacent right pelvis and sigmoid colon. Compared with prior exam, interval worsening with interval progression is seen as noted above. 2. Other nonacute findings as noted above. COMMENTS: Consistent with the [employer]'s Incidental Findings Committee white paper (J Am Ernst Radiol 2018): Any incidental renal lesion less than 1 cm or classified as too small to characterize, or any incidental cystic renal lesion characterized as simple-appearing, is likely benign. No follow-up imaging is recommended for these lesions per consensus recommendations based on imaging criteria.
[2022-11-21 13:32] LABS: Slide Review Slide Review Perform
--- NOTE | 2022-11-21 13:37 | XR_ITS ---
WS: [id number] EXAMINATION: XR chest 1V portable [id number] REASON FOR EXAM: leukocytosis COMPARISON: 11/06/2022 ORDER DATE: 11/21/2022 1:39 PM TECHNIQUE: A single, portable frontal chest x-ray was obtained. X-RAY FINDINGS: A Port-A-Cath overlies the left axilla with the catheter tip projected over the superior vena cava. Lungs: There is subsegmental atelectasis of the left costophrenic sulcus. Pleural spaces: Unremarkable. No pleural effusion. No pneumothorax. Heart/Mediastinum: Unremarkable. No cardiomegaly. Bones/joints: Unremarkable. XR/XR chest 1V portable [id number] IMPRESSION: Subsegmental atelectasis. No interval change from previous
[2022-11-21 14:01] LABS: Lactic Sepsis W/Reflex 1.6 mmol/L (0.5-2.2)
[2022-11-21] MEDS: ondansetron 2 mg/ML SDV 2 mL 4 MG IVP (14:30)
[2022-11-21 14:32] VITALS: RESP 18; O2SAT 93
[2022-11-21] MEDS: morphine 4 mg/mL SDV 1 mL IVP ×2 (14:32→18:52)
[2022-11-21] MEDS: cefepime 1,000 MG in sodium chloride 0.9% (plus) 50 ML 100 MG IV (14:34)
[2022-11-21 14:35] VITALS: BP 145/77; PULSE 86; RESP 18; O2SAT 92
[2022-11-21] MEDS: iohexol 350 mg/mL 500 mL Btl (per mL) IV (14:45)
[2022-11-21] MEDS: metroNIDAZOLE IV 500 MG/100 ML PREMIX 100 MG IV (16:42)
[2022-11-21 16:49] VITALS: PULSE 92; RESP 18; O2SAT 98
[2022-11-21 17:46] VITALS: BP 169/83; PULSE 103; RESP 18; O2SAT 94
--- NOTE | 2022-11-21 18:06 | PC.NURSE ---
REPORT CALLED TO CROW SCHILLING [facility]
== END 2022-11-21 19:01 | disposition short-term general hospital (02) ==
PROVIDERS: Emergency Provider Physician Assistant; PCP Family Medicine
DX: C18.7 Malignant neoplasm of sigmoid colon (principal); K65.1 Peritoneal abscess; I10 Essential (primary) hypertension; Z87.891 Personal history of nicotine dependence
CPT/HCPCS: 36415; 71045; 74177; 80053; 81001; 83605; 85025; 87040; 87086; 96365; 96367; 96375; 99285; J0692; J2270; J2405; J3490; Q9967

== ENCOUNTER 2022-12-04 18:22 | Emergency (ER) | payer MEDICARE, OTHER, SELFPAY ==
[2022-12-04 18:46] VITALS: BMI 34.2
[2022-12-04 18:48] VITALS: BP 148/66; PULSE 97; RESP 16; TEMP 36.7; O2SAT 96
--- NOTE | 2022-12-04 18:48 | W.ED.MALEGU ---
HPI - Male Genitourinary General: Chief complaint: Urogenital-Male Stated complaint: cathiter not draining Time Seen by Provider: 12/04/22 18:30 Source: patient Mode of arrival: ambulatory Limitations: no limitations History of Present Illness: 72-year-old male recently been diagnosed with a bladder abscess he had been transferred to [facility] he states are planning on doing surgery on the he had a Mariscal placed he had a Mariscal for 12 days he states he had minimal output of the Mariscal throughout the day and he has not had any output over the last 3 hours. He had some slight pain he states when he feels like he needs to go denies any fevers denies any vomiting Associated symptoms: Reports dysuria; Deny nausea or vomiting Review of Systems Const: Denies: fever(s), chills, body aches or change in appetite ENMT: Denies: throat pain or dental pain Card: Denies: chest pain Resp: Denies: dyspnea GI: Reports: abdominal pain; Denies: nausea, vomiting or diarrhea : Reports: difficulty urinating and dysuria Musc: Denies: neck pain or back pain Skin/Breast: Denies: rash Neuro: Denies: headache(s) PFSH ED PFSH: Medical History Adenocarcinoma of sigmoid colon History of broken leg Right leg Hypertension Surgical History History of esophagogastroduodenoscopy (EGD) 20 + yrs ago History of laparoscopy (01/24/22) Hx of colonoscopy (01/04/22) Family History Brother Diabetes Father CAD (coronary artery disease) Social History Smoking and tobacco status: former smoker Quit status (tobacco): has quit using tobacco Year quit tobacco: 31 years ago Former quit date comment: Smoked for 25+ years Alcohol intake: never Substance/Drug Use: never Physical Exam Const: COMMON NORMALS: no acute distress, patient oriented x3 and healthy appearing HENMT: COMMON NORMALS: normocephalic and atraumatic HEAD & SCALP: normocephalic and atraumatic Neck/C-Spine: COMMON NORMALS: supple Chest: COMMONS NORMALS: normal inspection of the chest Resp: COMMON NORMALS: normal respiratory effort Cardio: COMMON NORMALS: regular rate, regular rhythm and No murmurs present (Cardio) RATE: regular rate RHYTHM: regular rhythm GI: COMMON NORMALS: Normal to inspection, nondistended, normoactive bowel sounds present, Soft to palpation, non-tender and no masses PALPATION: Yes Soft to palpation Extremity: COMMON NORMALS: normal to inspection and full ROM Neuro: COMMON NORMALS: patient oriented x3, moves all extremities and no focal motor deficits Psych: COMMON NORMALS: mental status grossly normal, Normal thought process present and cooperative THOUGHT PROCESS: Normal thought process present Skin: COMMON NORMALS: no rashes or lesions noted and no wounds GENERAL SKIN EXAM: no rashes or lesions noted Course Vital Signs: Vital signs: Vital Signs Temperature 98.0 F 12/04/22 18:48 Pulse Rate 97 12/04/22 18:48 Respiratory Rate 16 12/04/22 18:48 Blood Pressure 148/66 12/04/22 18:48 Pulse Oximetry 96 12/04/22 18:48 Oxygen Delivery Me thod Room Air 12/04/22 18:48 MDM - Male Medical Decision Making Patient presents here with a clogged Mariscal catheter did place a new catheter is draining now he is currently on antibiotics to see his urologist at [facility] next Friday he is to follow-up as scheduled return if worsening he understands agrees to plan Discharge Plan Discharge Patient Disposition: Home Clinical Impression: Complication, blocked Mariscal catheter Condition: Stable Prescriptions: No Action metoprolol succinate 50 mg tablet extended release 24 hr 50 mg PO DAILY Qty: 30 3RF prochlorperazine maleate [Compazine] 10 mg tablet 10 mg PO Q4H PRN (Reason: Mild Nausea) Qty: 30 3RF lorazepam 1 mg tablet 0.5 - 1 mg PO Q6H PRN (Reason: Severe Nausea) Qty: 30 3RF budesonide-formoterol [Symbicort] 160-4.5 mcg/actuation HFA aerosol inhaler 1 inh inhalation BID Qty: 10.2 3RF Rx Instructions: 340B aspirin 325 mg Tablet 325 mg PO DAILY PRN (Reason: Headache) acetaminophen 500 mg Tablet 1,000 mg PO Q6H PRN (Reason: Pain) tamsulosin [Flomax] 0.4 mg capsule 0.4 mg PO DAILY 30 Days Qty: 30 0RF amlodipine 10 mg Tablet 10 mg PO DAILY naproxen sodium [Aleve] 220 mg Tablet 220 mg PO BID PRN (Reason: Pain) Hold Instructions: Resume on 01/07/22. Discharge Orders: Discharge ED (Routine); Ordered 12/04/22 Ordered By: Lebron Curtis Referrals: Arden Mccarthy MD [Primary Care Provider] - Discharge Diet: Advance as tolerated Discharge Activity: Resume usual activity Patient Instructions: Mariscal Catheter Placement and Care (ED) Coding Level of Care Code ED Writing Center Director for Kaz Olvera
[2022-12-04 19:23] VITALS: BP 123/76; PULSE 92; RESP 18; O2SAT 95
== END 2022-12-04 19:32 | disposition home or self-care (01) ==
PROVIDERS: Emergency Provider Emergency Medicine; PCP Family Medicine
DX: T83.098A Other mechanical complication of other urinary catheter, initial encounter (principal); Z79.82 Long term (current) use of aspirin; I10 Essential (primary) hypertension; Z85.038 Personal history of other malignant neoplasm of large intestine; Z87.891 Personal history of nicotine dependence; Y73.8 Miscellaneous gastroenterology and urology devices associated with adverse incidents, not elsewhere classified
CPT/HCPCS: 99282

== ENCOUNTER 2022-12-07 17:25 | Emergency (ER) | payer MEDICARE, OTHER, SELFPAY ==
[2022-12-07 17:43] VITALS: BP 146/70; PULSE 88; RESP 16; TEMP 37.1; O2SAT 95; BMI 34.7
--- NOTE | 2022-12-07 19:33 | W.ED.MALEGU ---
HPI - Male Genitourinary General: Chief complaint: Urogenital-Male Stated complaint: calth issue Time Seen by Provider: 12/07/22 18:09 History of Present Illness: Presents to the ER with complaints of catheter being clogged. Patient has a Mariscal catheter in place and this is a second time in about 3 days it has been clogged up to the point of not working. Patient's states she flushes at home at 4 AM and at noon roughly and it worked just fine but at 4 PM she tried to flush it and and the water would go in but she could not suck any water or urine out. Review of Systems General: Reports: 10 or more systems reviewed and unremarkable except in HPI and below PFSH ED PFSH: Medical History Adenocarcinoma of sigmoid colon History of broken leg Right leg Hypertension Surgical History History of esophagogastroduodenoscopy (EGD) 20 + yrs ago History of laparoscopy (01/24/22) Hx of colonoscopy (01/04/22) Family History Brother Diabetes Father CAD (coronary artery disease) Social History Smoking and tobacco status: former smoker Quit status (tobacco): has quit using tobacco Year quit tobacco: 31 years ago Former quit date comment: Smoked for 25+ years Alcohol intake: never Substance/Drug Use: never Physical Exam Const: COMMON NORMALS: no acute distress, average body habitus, patient oriented x3, no limitations, healthy appearing, alert and well nourished HENMT: COMMON NORMALS: normocephalic, atraumatic, hearing grossly normal bilaterally, external ears normal, Normal external nose present and moist oral mucous membranes HEAD & SCALP: normocephalic and atraumatic NOSE: Normal external nose present EXTERNAL EAR: Yes external ears normal Neck/C-Spine: COMMON NORMALS: full ROM, no lymphadenopathy, supple, no meningeal signs, no JVD and Thyroid normal THYROID: Thyroid normal Chest: COMMONS NORMALS: normal inspection of the chest and normal palpation of entire chest wall Resp: COMMON NORMALS: normal respiratory effort, No retractions, No use of accessory muscles and clear to auscultation bilaterally AUSCULTATION: clear to auscultation bilaterally Cardio: COMMON NORMALS: no JVD, regular rate, regular rhythm, S1 normal heart sound present, S2 normal heart sound present, No gallops present (Cardio), No clicks present (Cardio), No murmurs present (Cardio) and No rub (Cardio) RATE: regular rate RHYTHM: regular rhythm HEART SOUNDS: S1 normal heart sound present and S2 normal heart sound present GI: COMMON NORMALS: Normal to inspection, nondistended, normoactive bowel sounds present, Soft to palpation, non-tender, No hepatosplenomegaly present and no masses PALPATION: Yes Soft to palpation and Yes No hepatosplenomegaly present Neuro: COMMON NORMALS: patient oriented x3 SENSORIUM/ORIENTATION: Yes alert MENINGEAL SIGNS: Yes no meningeal signs Course Vital Signs: Vital signs: Vital Signs Temperature 98.8 F 12/07/22 17:43 Pulse Rate 88 12/07/22 17:43 Respiratory Rate 16 12/07/22 17:43 Blood Pressure 146/70 12/07/22 17:43 Pulse Oximetry 95 12/07/22 17:43 Oxygen Delivery Me thod Room Air 12/07/22 17:43 MDM - Male Medical Decision Making Patient presents to the ER with complaints of Mariscal catheter clogged. This is a second time in approximately 3 to 4 days. Last time it had to be exchanged for a new Mariscal. I will have nursing try to flush the Mariscal again and if it will not flush then we will exchange it for another new 1. Patient is to follow-up with his PCP on an as-needed basis. Differential Diagnosis Likely acute retention of urine; Unlikely urinary tract infection, priapism, urethritis, epididymitis, genital herpes simplex, prostatitis or inguinal hernia Medical Records I reviewed the patient's medical records. Lab Data I reviewed the patient's lab results. Discharge Plan Discharge Patient Disposition: Home Clinical Impression: Malfunction of Mariscal catheter Qualifiers: Encounter type: initial encounter Qualified Code(s): T83.011A - Breakdown (mechanical) of indwelling urethral catheter, initial encounter Condition: Stable Prescriptions: No Action metoprolol succinate 50 mg tablet extended release 24 hr 50 mg PO DAILY Qty: 30 3RF prochlorperazine maleate [Compazine] 10 mg tablet 10 mg PO Q4H PRN (Reason: Mild Nausea) Qty: 30 3RF lorazepam 1 mg tablet 0.5 - 1 mg PO Q6H PRN (Reason: Severe Nausea) Qty: 30 3RF budesonide-formoterol [Symbicort] 160-4.5 mcg/actuation HFA aerosol inhaler 1 inh inhalation BID Qty: 10.2 3RF Rx Instructions: 340B aspirin 325 mg Tablet 325 mg PO DAILY PRN (Reason: Headache) acetaminophen 500 mg Tablet 1,000 mg PO Q6H PRN (Reason: Pain) tamsulosin [Flomax] 0.4 mg capsule 0.4 mg PO DAILY 30 Days Qty: 30 0RF amlodipine 10 mg Tablet 10 mg PO DAILY naproxen sodium [Aleve] 220 mg Tablet 220 mg PO BID PRN (Reason: Pain) Hold Instructions: Resume on 01/07/22. Discharge Orders: Discharge ED (Routine); Ordered 12/07/22 Ordered By: Bryce Mcintosh Referrals: Arden Mccarthy MD [Primary Care Provider] - 1 week Patient Instructions: Mariscal Catheter Care Activity Restrictions/Additional Instructions: Continue to flush Mariscal catheter multiple times a day as help in it not getting clogged. Please return to the ER and/or your primary care doctor or urologist on an as-needed basis if it does become clogged. Coding Level of Care Code ED Management Consulting for Kaz Olvera
--- NOTE | 2022-12-07 20:23 | PC.NURSE ---
nurse attempted to change gonzalez per Dr Mcintosh orders. Pt was urinating sediment around gonzalez catheter. pt family requested that gonzalez be removed and them to go home to see if patient could urinate on his own without the gonzalez since the catheter keeps getting clogged with sediment. Dr Mcintosh is in agreement with this plan. Gonzalez DC at this time.
== END 2022-12-07 20:40 | disposition home or self-care (01) ==
PROVIDERS: Emergency Provider Emergency Medicine; PCP Family Medicine
DX: T83.011A Breakdown (mechanical) of indwelling urethral catheter, initial encounter (principal); Y73.1 Therapeutic (nonsurgical) and rehabilitative gastroenterology and urology devices associated with adverse incidents; Z79.82 Long term (current) use of aspirin; Z87.891 Personal history of nicotine dependence; I10 Essential (primary) hypertension; Z85.038 Personal history of other malignant neoplasm of large intestine
CPT/HCPCS: 99283

== ENCOUNTER 2022-12-08 19:11 | Emergency (ER) | payer MEDICARE, OTHER, SELFPAY ==
[2022-12-08] VITALS (7 sets, daily range): BP systolic 114–153; BP diastolic 67–83; PULSE 90–101; RESP 19–27; TEMP 37.1; O2SAT 90–94
[2022-12-08 19:41] LABS: Basophils % 0.3 %; Eosinophils % 0.2 %; Hemoglobin 12.5 g/dL (11.7-16.6); Lymphocytes # 3.8 10^3/uL (0.8-4.8); Lymphocytes % 27.5 %; Mean Corpuscular HGB Conc 32.9 g/dL (30.0-36.0); Mean Corpuscular Hemoglobin 30.2 pg (28.0-34.0); Mean Corpuscular Volume 91.8 fl (80-94); Mean Platelet Volume 9.7 fL (7.4-10.4); Monocytes # 1.2 10^3/uL (0.2-0.9); Neutrophils # 8.66 10^3/uL (1.8-7.7); Neutrophils % 62.7 %; Nucleated Red Blood Cells % 0 %; Platelet Count 175 10^3/cmm (130-400); Red Blood Count 4.14 10^6/uL (4.1-5.3); Red Cell Distribution Width 16.5 % (12.1-15.1); White Blood Count 13.8 10^3/uL (4.0-10.0)
--- NOTE | 2022-12-08 19:51 | ED_ITS ---
Documented by User: Rudy Velazquez DO 12/09/22 06:00 HPI - Male Genitourinary General: Chief complaint: Urogenital-Male Stated complaint: bladder, increase weakness Time Seen by Provider: 12/08/22 19:15 Source: patient and family Mode of arrival: ambulatory History of Present Illness: 72-year-old male with presents complaining difficulty with urination. Patient has a long complicated history of known colon cancer has a colovesicular fistula. Initially when I evaluated him they opted not to excise the tumor and went to proceed with chemo and radiation. He developed problems including an a bscess he was admitted once here improved today he was on the list to be transferred but ultimately was discharged from the hospital here. He was then reevaluated emergency room at that time transferred to [place]. He was discharged home from [place] to Mariscal catheter and scheduled for resection of this area. Subsequently had difficulty the catheter becoming obstructed and he was here last night and it was removed and he was discharged home without it. He is able to void catheter they tried to replace last night clog shortly after was placed so was removed. He was on some antibiotics for cystitis but is completed. He presents this evening with his family requesting to be admitted until he can be transferred to [place] so that they can do the surgery sooner than December 25 is for which it is scheduled. Onset (ago): week(s) Relieving factors: none Exacerbating factors: none Associated symptoms: Reports nausea and vomiting; Deny discharge, dysuria, fevers/chills, hematuria, rash, swelling, urinary incontinence, urinary retention or mass Review of Systems Const: Denies: fever(s), chills, body aches, change in appetite, fatigue or malaise ENMT: Denies: throat pain, ear or mastoid pain, nasal discharge or nasal congestion Card: Denies: chest pain, edema, dyspnea on exertion or orthopnea Resp: Denies: dyspnea, productive cough or non-productive cough GI: Reports: abdominal pain, nausea and vomiting : Denies: flank pain, dysuria, urinary frequency, urinary urgency, urinary incontinence or hematuria Skin/Breast: Denies: rash or pruritus PFSH ED PFSH: Medical History Adenocarcinoma of sigmoid colon History of broken leg Right leg Hypertension Surgical History History of esophagogastroduodenoscopy (EGD) 20 + yrs ago History of laparoscopy (01/24/22) Hx of colonoscopy (01/04/22) Family History Brother Diabetes Father CAD (coronary artery disease) Social History Smoking and tobacco status: former smoker Quit status (tobacco): has quit using tobacco Year quit tobacco: 31 years ago Former quit date comment: Smoked for 25+ years Alcohol intake: never Substance/Drug Use: never Physical Exam Const: GENERAL APPEARANCE: cooperative and comfortable ORIENT ATION/CONSCIOUSNESS: Yes awake, Yes oriented to person, Yes oriented to place and Yes oriented to time HENMT: COMMON NORMALS: normocephalic, atraumatic and hearing grossly normal bilaterally HEAD & SCALP: normocephalic and atraumatic Resp: COMMON NORMALS: normal respiratory effort, No retractions, No use of accessory muscles and clear to auscultation bilaterally AUSCULTATION: clear to auscultation bilaterally Cardio: COMMON NORMALS: regular rate, regular rhythm and No murmurs present (Cardio) RATE: regular rate RHYTHM: regular rhythm GI: COMMON NORMALS: Soft to palpation and No hepatosplenomegaly present AUSCULTATION: Yes normoactive bowel sounds PALPATION: Yes Soft to palpation, No Tenderness to palpation present (GI), No Guarding due to palpation present (GI) and Yes No hepatosplenomegaly present Extremity: COMMON NORMALS: normal to inspection, capillary refill normal, no clubbing, cyanosis or edema, no calf tenderness and no pedal edema Neuro: SENSORIUM/ORIENTATION: Yes oriented to person, Yes oriented to place and Yes oriented to time Skin: COMMON NORMALS: no rashes or lesions noted GENERAL SKIN EXAM: no rashes or lesions noted Course Vital Signs: Vital signs: Vital Signs Temperature 98.8 F 12/08/22 19:15 Pulse Rate 94 12/08/22 22:50 Respiratory Rate 21 H 12/08/22 22:50 Blood Pressure 143/77 12/08/22 22:50 Pulse Oximetry 93 12/08/22 22:50 Oxygen Delivery Me thod Room Air 12/08/22 22:30 MDM - Male Medical Decision Making CT abdomen pelvis pending. Care signed out to Dr. Curtis at change of shift. See final notes for diagnosis and disposition. Patient presents with a clogged Mariscal to unclog currently running well I did speak to urology at [facility] went over his new CT scan findings they are going to call him Friday and set him up an appointment this week to see them I informed if he worsens he is return he understands agrees to plan. Lab Data 12/08/22 19:34 12/08/22 19:34 Radiology Impressions Abdomen/Pelvis CT 12/08/22 20:48 IMPRESSION: 1. There is an intraperitoneal fluid and air collection in the right lower abdomen, abutting the sigmoid colon. The collection measures 5.7 x 3.9 x 3.1 cm. This is suspicious for tumor versus abscess. This directly contacts the sigmoid colon and the dome of the urinary bladder, and may be the source of the stated colovesicular fistula in the clinical history 2. There is a large fluid collection in the soft tissues of the right anterolateral abdominal wall. The collection, which also contains minimal air, measures 6.2 x 4.2 x 12.8 cm. This is consistent with an abscess. This communicates with the right lower quadrant intraperitoneal collection. 3. Moderate-sized hiatal hernia. COMMENTS: Consistent with the [employer]'s Incidental Findings Committee white paper (J Am Ernst Radiol 2018): Any incidental renal lesion less than 1 cm or classified as too small to characterize, or any incidental cystic renal lesion characterized as simple-appearing, is likely benign. No follow-up imaging is recommended for these lesions per consensus recommendations based on imaging criteria. Laboratory Results WBC 13.8 10^3/uL (4.0-10.0) H 12/08/22 19:34 RBC 4.14 10^6/uL (4.1-5.3) 12/08/22 19:34 Hgb 12.5 g/dL (11.7-16.6) 12/08/22 19:34 Hct 38.0 % (42.0-52.0) L 12/08/22 19:34 MCV 91.8 fl (80-94) 12/08/22 19:34 MCH 30.2 pg (28.0-34.0) 12/08/22 19:34 MCHC 32.9 g/dL (30.0-36.0) 12/08/22 19:34 RDW 16.5 % (12.1-15.1) H 12/08/22 19:34 Plt Count 175 10^3/cmm (130-400) 12/08/22 19:34 MPV 9.7 fL (7.4-10.4) 12/08/22 19:34 Neut % (Auto) 62.7 % 12/08/22 19:34 Lymph % (Auto) 27.5 % 12/08/22 19:34 Obion % (Auto) 9.0 % 12/08/22 19:34 Eos % (Auto) 0.2 % 12/08/22 19:34 Baso % (Auto) 0.3 % 12/08/22 19:34 Neut # (Auto) 8.66 10^3/uL (1.8-7.7) H 12/08/22 19:34 Lymph # (Auto) 3.8 10^3/uL (0.8-4.8) 12/08/22 19:34 Obion # (Auto) 1.2 10^3/uL (0.2-0.9) H 12/08/22 19:34 Eos # (Auto) 0.0 10^3/uL (0.0-0.8) 12/08/22 19:34 Baso # (Auto) 0.0 10^3/uL (0.0-0.1) 12/08/22 19:34 Nucleated RBC % (auto) 0 % 12/08/22 19:34 Nucleated RBCs # 0.0 /100WBC 12/08/22 19:34 Sodium 133 mmol/L (136-145) L 12/08/22 19:34 Potassium 4.3 mmol/L (3.5-5.1) 12/08/22 19:34 Chloride 101 mmol/L (98-107) 12/08/22 19:34 Carbon Dioxide 21 mmol/L (22-29) L 12/08/22 19:34 Anion Gap 15.3 (5-19) 12/08/22 19:34 BUN 18 mg/dL (8-23) 12/08/22 19:34 Creatinine 0.9 mg/dL (0.7-1.2) 12/08/22 19:34 GFR Calculation Not Reportable 12/08/22 19:34 Glucose 129 mg/dL (65-115) H 12/08/22 19:34 Calculated Osmolality 280 mOsm/kg (285-295) L 12/08/22 19:34 Calcium 8.9 mg/dL (8.5-10.5) 12/08/22 19:34 Total Bilirubin 0.9 mg/dL (0.15-1.2) 12/08/22 19:34 AST 17 U/L (0-40) 12/08/22 19:34 ALT 13 U/L (0-41) 12/08/22 19:34 Alkaline Phosphatase 75 U/L (40-130) 12/08/22 19:34 Total Protein 7.2 g/dL (6.6-8.7) 12/08/22 19:34 Albumin 3.2 g/dL (3.5-5.2) L 12/08/22 19:34 Globulin 4.0 g/dL (1.3-4.6) 12/08/22 19:34 Urine Color Yellow (Yellow) 12/08/22 19:47 Urine Appearance Turbid (CLEAR) A 12/08/22 19:47 Urine pH 8 (5-7) H 12/08/22 19:47 Ur Specific Hammond 1.015 (1.005-1.030) 12/08/22 19:47 Urine Protein 2+ (Negative) H 12/08/22 19:47 Urine Glucose (UA) Norm (Normal) 12/08/22 19:47 Urine Ketones Negative (Negative) 12/08/22 19:47 Urine Blood 3+ (Negative) H 12/08/22 19:47 Urine Nitrate Positive (Negative) H 12/08/22 19:47 Urine Bilirubin 1+ (Negative) H 12/08/22 19:47 Prot Sulfosalicylic Acd Positive (Negative) 12/08/22 19:47 Urine Urobilinogen 12 mg/dL (Negative) H 12/08/22 19:47 Ur Leukocyte Esterase 2+ (Negative) H 12/08/22 19:47 Urine RBC 25-40 /hpf (0-2) H 12/08/22 19:47 Urine WBC Too numerous to cnt /hpf (0-5) H 12/08/22 19:47 Ur Squamous Epith Cells 5-10 /hpf (0-5) H 12/08/22 19:47 Ur Transition Epith Cell Software Implementation Specialist 12/08/22 19:47 Ur Renal Epithelial Cell Software Implementation Specialist 12/08/22 19:47 Calcium Oxalate Crystal Software Implementation Specialist 12/08/22 19:47 Uric Acid Crystals Software Implementation Specialist 12/08/22 19:47 Triple Phos Crystals Software Implementation Specialist 12/08/22 19:47 Other Crystals Software Implementation Specialist 12/08/22 19:47 Amorphous Sediment Software Implementation Specialist 12/08/22 19:47 Urine Bacteria 4+ /hpf (NONE) H 12/08/22 19:47 Hyaline Casts Software Implementation Specialist 12/08/22 19:47 Fine Granular Casts Software Implementation Specialist 12/08/22 19:47 Coarse Granular Casts Software Implementation Specialist 12/08/22 19:47 RBC Casts Software Implementation Specialist 12/08/22 19:47 Other Casts Software Implementation Specialist 12/08/22 19:47 Urine Mucus Software Implementation Specialist 12/08/22 19:47 Urine Trichomonas Software Implementation Specialist 12/08/22 19:47 Urine Yeast Software Implementation Specialist 12/08/22 19:47 Urine Sperm Software Implementation Specialist 12/08/22 19:47 Ur Oval Fat Bodies Software Implementation Specialist 12/08/22 19:47 Discharge Plan Discharge Patient Disposition: Home Clinical Impression: Complication, blocked Mariscal catheter Condition: Stable Prescriptions: No Action metoprolol succinate 50 mg tablet extended release 24 hr 50 mg PO DAILY Qty: 30 3RF prochlorperazine maleate [Compazine] 10 mg tablet 10 mg PO Q4H PRN (Reason: Mild Nausea) Qty: 30 3RF lorazepam 1 mg tablet 0.5 - 1 mg PO Q6H PRN (Reason: Severe Nausea) Qty: 30 3RF budesonide-formoterol [Symbicort] 160-4.5 mcg/actuation HFA aerosol inhaler 1 inh inhalation BID Qty: 10.2 3RF Rx Instructions: 340B aspirin 325 mg Tablet 325 mg PO DAILY PRN (Reason: Headache) acetaminophen 500 mg Tablet 1,000 mg PO Q6H PRN (Reason: Pain) amlodipine 10 mg Tablet 10 mg PO DAILY naproxen sodium [Aleve] 220 mg Tablet 220 mg PO BID PRN (Reason: Pain) Hold Instructions: Resume on 01/07/22. Discharge Orders: Discharge ED (Routine); Ordered 12/08/22 Ordered By: Lebron Curtis Referrals: Arden Mccarthy MD [Primary Care Provider] - Discharge Diet: Advance as tolerated Discharge Activity: Resume usual activity Patient Instructions: Mariscal Catheter Placement and Care (ED) Coding Level of Care Code ED Audit Consultant for Chg Fwd Documented by User: Lebron Curtis MD 12/08/22 22:33 HPI - Male Genitourinary General: Chief complaint: Urogenital-Male Stated complaint: bladder, increase weakness Time Seen by Provider: 12/08/22 19:15 PFSH ED PFSH: Medical History Adenocarcinoma of sigmoid colon History of broken leg Right leg Hypertension Surgical History History of esophagogastroduodenoscopy (EGD) 20 + yrs ago History of laparoscopy (01/24/22) Hx of colonoscopy (01/04/22) Family History Brother Diabetes Father CAD (coronary artery disease) Social History Smoking and tobacco status: former smoker Quit status (tobacco): has quit using tobacco Year quit tobacco: 31 years ago Former quit date comment: Smoked for 25+ years Alcohol intake: never Substance/Drug Use: never Course Vital Signs: Vital signs: Vital Signs Temperature 98.8 F 12/08/22 19:15 Pulse Rate 94 12/08/22 22:50 Respiratory Rate 21 H 12/08/22 22:50 Blood Pressure 143/77 12/08/22 22:50 Pulse Oximetry 93 12/08/22 22:50 Oxygen Delivery Me thod Room Air 12/08/22 22:30 MDM - Male Medical Decision Making [facility] running well I did speak to urology at [facility] went over his new CT scan findings they are going to call him Friday and set him up an appointment this week to see them I informed if he worsens he is return he understands agrees to plan. Medical Records I reviewed the patient's medical records. Lab Data I reviewed the patient's lab results. 12/08/22 19:34 12/08/22 19:34 Radiology Impressions Abdomen/Pelvis CT 12/08/22 20:48 IMPRESSION: 1. There is an intraperitoneal fluid and air collection in the right lower abdomen, abutting the sigmoid colon. The collection measures 5.7 x 3.9 x 3.1 cm. This is suspicious for tumor versus abscess. This directly contacts the sigmoid colon and the dome of the urinary bladder, and may be the source of the stated colovesicular fistula in the clinical history 2. There is a large fluid collection in the soft tissues of the right anterolateral abdominal wall. The collection, which also contains minimal air, measures 6.2 x 4.2 x 12.8 cm. This is consistent with an abscess. This communicates with the right lower quadrant intraperitoneal collection. 3. Moderate-sized hiatal hernia. COMMENTS: Consistent with the [employer]'s Incidental Findings Committee white paper (J Am Ernst Radiol 2018): Any incidental renal lesion less than 1 cm or classified as too small to characterize, or any incidental cystic renal lesion characterized as simple-appearing, is likely benign. No follow-up imaging is recommended for these lesions per consensus recommendations based on imaging criteria. Laboratory Results WBC 13.8 10^3/uL (4.0-10.0) H 12/08/22 19:34 RBC 4.14 10^6/uL (4.1-5.3) 12/08/22 19:34 Hgb 12.5 g/dL (11.7-16.6) 12/08/22 19:34 Hct 38.0 % (42.0-52.0) L 12/08/22 19:34 MCV 91.8 fl (80-94) 12/08/22 19:34 MCH 30.2 pg (28.0-34.0) 12/08/22 19:34 MCHC 32.9 g/dL (30.0-36.0) 12/08/22 19:34 RDW 16.5 % (12.1-15.1) H 12/08/22 19:34 Plt Count 175 10^3/cmm (130-400) 12/08/22 19:34 MPV 9.7 fL (7.4-10.4) 12/08/22 19:34 Neut % (Auto) 62.7 % 12/08/22 19:34 Lymph % (Auto) 27.5 % 12/08/22 19:34 Obion % (Auto) 9.0 % 12/08/22 19:34 Eos % (Auto) 0.2 % 12/08/22 19:34 Baso % (Auto) 0.3 % 12/08/22 19:34 Neut # (Auto) 8.66 10^3/uL (1.8-7.7) H 12/08/22 19:34 Lymph # (Auto) 3.8 10^3/uL (0.8-4.8) 12/08/22 19:34 Obion # (Auto) 1.2 10^3/uL (0.2-0.9) H 12/08/22 19:34 Eos # (Auto) 0.0 10^3/uL (0.0-0.8) 12/08/22 19:34 Baso # (Auto) 0.0 10^3/uL (0.0-0.1) 12/08/22 19:34 Nucleated RBC % (auto) 0 % 12/08/22 19:34 Nucleated RBCs # 0.0 /100WBC 12/08/22 19:34 Sodium 133 mmol/L (136-145) L 12/08/22 19:34 Potassium 4.3 mmol/L (3.5-5.1) 12/08/22 19:34 Chloride 101 mmol/L (98-107) 12/08/22 19:34 Carbon Dioxide 21 mmol/L (22-29) L 12/08/22 19:34 Anion Gap 15.3 (5-19) 12/08/22 19:34 BUN 18 mg/dL (8-23) 12/08/22 19:34 Creatinine 0.9 mg/dL (0.7-1.2) 12/08/22 19:34 GFR Calculation Not Reportable 12/08/22 19:34 Glucose 129 mg/dL (65-115) H 12/08/22 19:34 Calculated Osmolality 280 mOsm/kg (285-295) L 12/08/22 19:34 Calcium 8.9 mg/dL (8.5-10.5) 12/08/22 19:34 Total Bilirubin 0.9 mg/dL (0.15-1.2) 12/08/22 19:34 AST 17 U/L (0-40) 12/08/22 19:34 ALT 13 U/L (0-41) 12/08/22 19:34 Alkaline Phosphatase 75 U/L (40-130) 12/08/22 19:34 Total Protein 7.2 g/dL (6.6-8.7) 12/08/22 19:34 Albumin 3.2 g/dL (3.5-5.2) L 12/08/22 19:34 Globulin 4.0 g/dL (1.3-4.6) 12/08/22 19:34 Urine Color Yellow (Yellow) 12/08/22 19:47 Urine Appearance Turbid (CLEAR) A 12/08/22 19:47 Urine pH 8 (5-7) H 12/08/22 19:47 Ur Specific Hammond 1.015 (1.005-1.030) 12/08/22 19:47 Urine Protein 2+ (Negative) H 12/08/22 19:47 Urine Glucose (UA) Norm (Normal) 12/08/22 19:47 Urine Ketones Negative (Negative) 12/08/22 19:47 Urine Blood 3+ (Negative) H 12/08/22 19:47 Urine Nitrate Positive (Negative) H 12/08/22 19:47 Urine Bilirubin 1+ (Negative) H 12/08/22 19:47 Prot Sulfosalicylic Acd Positive (Negative) 12/08/22 19:47 Urine Urobilinogen 12 mg/dL (Negative) H 12/08/22 19:47 Ur Leukocyte Esterase 2+ (Negative) H 12/08/22 19:47 Urine RBC 25-40 /hpf (0-2) H 12/08/22 19:47 Urine WBC Too numerous to cnt /hpf (0-5) H 12/08/22 19:47 Ur Squamous Epith Cells 5-10 /hpf (0-5) H 12/08/22 19:47 Ur Transition Epith Cell Software Implementation Specialist 12/08/22 19:47 Ur Renal Epithelial Cell Software Implementation Specialist 12/08/22 19:47 Calcium Oxalate Crystal Software Implementation Specialist 12/08/22 19:47 Uric Acid Crystals Software Implementation Specialist 12/08/22 19:47 Triple Phos Crystals Software Implementation Specialist 12/08/22 19:47 Other Crystals Software Implementation Specialist 12/08/22 19:47 Amorphous Sediment Software Implementation Specialist 12/08/22 19:47 Urine Bacteria 4+ /hpf (NONE) H 12/08/22 19:47 Hyaline Casts Software Implementation Specialist 12/08/22 19:47 Fine Granular Casts Software Implementation Specialist 12/08/22 19:47 Coarse Granular Casts Software Implementation Specialist 12/08/22 19:47 RBC Casts Software Implementation Specialist 12/08/22 19:47 Other Casts Software Implementation Specialist 12/08/22 19:47 Urine Mucus Software Implementation Specialist 12/08/22 19:47 Urine Trichomonas Software Implementation Specialist 12/08/22 19:47 Urine Yeast Software Implementation Specialist 12/08/22 19:47 Urine Sperm Software Implementation Specialist 12/08/22 19:47 Ur Oval Fat Bodies Software Implementation Specialist 12/08/22 19:47 Discharge Plan Discharge Patient Disposition: Home Clinical Impression: Complication, blocked Mariscal catheter Condition: Stable Prescriptions: No Action metoprolol succinate 50 mg tablet extended release 24 hr 50 mg PO DAILY Qty: 30 3RF prochlorperazine maleate [Compazine] 10 mg tablet 10 mg PO Q4H PRN (Reason: Mild Nausea) Qty: 30 3RF lorazepam 1 mg tablet 0.5 - 1 mg PO Q6H PRN (Reason: Severe Nausea) Qty: 30 3RF budesonide-formoterol [Symbicort] 160-4.5 mcg/actuation HFA aerosol inhaler 1 inh inhalation BID Qty: 10.2 3RF Rx Instructions: 340B aspirin 325 mg Tablet 325 mg PO DAILY PRN (Reason: Headache) acetaminophen 500 mg Tablet 1,000 mg PO Q6H PRN (Reason: Pain) amlodipine 10 mg Tablet 10 mg PO DAILY naproxen sodium [Aleve] 220 mg Tablet 220 mg PO BID PRN (Reason: Pain) Hold Instructions: Resume on 01/07/22. Discharge Orders: Discharge ED (Routine); Ordered 12/08/22 Ordered By: Lebron Curtis Referrals: Arden Mccarthy MD [Primary Care Provider] - Discharge Diet: Advance as tolerated Discharge Activity: Resume usual activity Patient Instructions: Mariscal Catheter Placement and Care (ED) Coding Level of Care Code ED Audit Consultant for Kaz Olvera
--- NOTE | 2022-12-08 19:55 | ECG_ITS ---
[facility] Test Date: 2022-12-08 Pat Name: Kurt Esquivel Department: Room: Gender: Male Consumer Educator: : 1950 Requested By: Rudy Garnder Order Number: [id number] Jessica MD: Marcello Fallon M.D. Measurements Intervals Malone Rate: 96 P: 74 VT: 199 QRS: -59 QRSD: 113 T: 77 QT: 338 QTc: 427 Interpretive Statements SINUS RHYTHM LEFT AXIS DEVIATION [QRS AXIS < -30] MODERATE INTRAVENTRICULAR CONDUCTION DELAY [110+ ms QRS DURATION] Compared to ECG 11/05/2022 13:43:23 Intraventricular conduction delay now present Sinus tachycardia no longer present Electronically Signed On 12-09-2022 9:55:08 CDT by Marcello Fallon M.D. [id number]
[2022-12-08 20:04] LABS: Alanine Aminotransferase 13 U/L (0-41); Albumin Level 3.2 g/dL (3.5-5.2); Alkaline Phosphatase 75 U/L (40-130); Aspartate Amino Transferase 17 U/L (0-40); Blood Urea Nitrogen 18 mg/dL (8-23); Calcium 8.9 mg/dL (8.5-10.5); Carbon Dioxide 21 mmol/L (22-29); Chloride 101 mmol/L (98-107); Glucose 129 mg/dL (65-115); Osmolality Calculated 280 mOsm/kg (285-295); Sodium 133 mmol/L (136-145); Total Bilirubin 0.9 mg/dL (0.15-1.2); Total Protein 7.2 g/dL (6.6-8.7)
[2022-12-08 20:05] LABS: Anion Gap 15.3 (5-19); Potassium 4.3 mmol/L (3.5-5.1)
[2022-12-08 20:47] LABS: Glucose Urine UA Norm (Normal); Ketones Urine Negative (Negative); Protein Urine 2+ (Negative); Specific Gravity, Urine 1.015 (1.005-1.030); Urine Appearance Turbid (CLEAR); pH Urine 8 (5-7)
[2022-12-08 20:48] LABS: Add Urine Microscopic? YES; Bilirubin Urine 1+ (Negative); Blood Urine 3+ (Negative); Leukocyte Esterase Urine 2+ (Negative); Nitrate Urine Positive (Negative); Sulfosalicylic Acid Urine Positive (Negative); Urobilinogen Urine 12 mg/dL (Negative)
--- NOTE | 2022-12-08 20:48 | CTR_ITS ---
PROCEDURE INFORMATION: Exam: CT Abdomen And Pelvis With Contrast Exam date and time: 12/08/2022 9:07 PM Age: 72 years old Clinical indication: Pain and abnormal findings; Abnormal lab test; Elevated wbc; Abdominal pain; Generalized; Patient HX: C/O diffuse abd pain with dysuria. Wbc of 14k with bacteriuria. Mariscal in place. History of colon cancer with colovesicular fistula. ; Additional info: Abd pain/colovesicular fistula TECHNIQUE: Imaging protocol: Computed tomography of the abdomen and pelvis with contrast. Radiation optimization: All CT scans at this facility use at least one of these dose optimization techniques: automated exposure control; mA and/or kV adjustment per patient size (includes targeted exams where dose is matched to clinical indication); or iterative reconstruction. Contrast material: OMNI 350; Contrast volume: 100 ml; Contrast route: INTRAVENOUS (IV); REPORTING DATA: Count of CT and Cardiac NM exams in prior 12 months: This patient has received 9 known CTs and 0 known cardiac nuclear medicine studies in the 12 months prior to the current study. COMPARISON: CT abdomen pelvis w con* [id number] 11/21/2022 2:52 PM RADIATION DOSE METRICS: Total DLP (mGy-cm): 1103.07 FINDINGS: Lungs: Mild atelectasis versus fibrosis noted at the lung bases. Diaphragm: Moderate-sized hiatal hernia. Liver: Unremarkable. No mass. Gallbladder and bile ducts: No calcified stones. No ductal dilation. Pancreas: Unremarkable. No ductal dilation. Spleen: Splenomegaly noted. The spleen measures 16 cm in length. Adrenal glands: Unremarkable. No mass. Kidneys and ureters: Bilateral simple appearing renal cysts, measuring up to 2.5 cm. No hydronephrosis. Ureters are unremarkable. Stomach and bowel: No acute gastric abnormality. No acute abnormality of the small bowel. Diverticulosis of the colon, without acute diverticulitis. The sigmoid colon is in direct contact with a air in fluid collection in the right lower abdomen. Appendix: No evidence of appendicitis. Intraperitoneal space: There is an intraperitoneal fluid and air collection in the right lower abdomen, abutting the sigmoid colon. The collection measures 5.7 x 3.9 x 3.1 cm. This is suspicious for tumor versus abscess. Vasculature: The aorta is atherosclerotic, and measures 2.7 cm in diameter. Lymph nodes: No pathologically enlarged lymph nodes. Urinary bladder: There is a Mariscal catheter in the urinary bladder. Minimal air in the urinary bladder, of indeterminate in etiology. Reproductive: Unremarkable as visualized. Bones/joints: Unremarkable. No acute osseous abnormality. Soft tissues: Small bilateral inguinal hernias identified, containing only fat. There is a large fluid collection in the soft tissues of the right anterolateral abdominal wall. The collection, which also contains minimal air, measures 6.2 x 4.2 x 12.8 cm. This is consistent with an abscess. CT/CT abdomen pelvis w con* [id number] IMPRESSION: 1. There is an intraperitoneal fluid and air collection in the right lower abdomen, abutting the sigmoid colon. The collection measures 5.7 x 3.9 x 3.1 cm. This is suspicious for tumor versus abscess. This directly contacts the sigmoid colon and the dome of the urinary bladder, and may be the source of the stated colovesicular fistula in the clinical history 2. There is a large fluid collection in the soft tissues of the right anterolateral abdominal wall. The collection, which also contains minimal air, measures 6.2 x 4.2 x 12.8 cm. This is consistent with an abscess. This communicates with the right lower quadrant intraperitoneal collection. 3. Moderate-sized hiatal hernia. COMMENTS: Consistent with the [employer]'s Incidental Findings Committee white paper (J Am Ernst Radiol 2018): Any incidental renal lesion less than 1 cm or classified as too small to characterize, or any incidental cystic renal lesion characterized as simple-appearing, is likely benign. No follow-up imaging is recommended for these lesions per consensus recommendations based on imaging criteria.
[2022-12-08 21:03] LABS: Urine Color Yellow (Yellow)
[2022-12-08 21:05] LABS: WBC Urine TOO NUMEROUS TO CNT /hpf (0-5)
[2022-12-08 21:06] LABS: Bacteria Urine 4+ /hpf; RBC Urine 25-40 /hpf (0-2)
[2022-12-08 21:07] LABS: Add Urine Culture? Yes
[2022-12-08] MEDS: iohexol 350 mg/mL 500 mL Btl (per mL) IV (21:10)
== END 2022-12-08 22:52 | disposition home or self-care (01) ==
PROVIDERS: Family Medicine; Emergency Provider Emergency Medicine; PCP Family Medicine
DX: T83.098A Other mechanical complication of other urinary catheter, initial encounter (principal); Y84.6 Urinary catheterization as the cause of abnormal reaction of the patient, or of later complication, without mention of misadventure at the time of the procedure
CPT/HCPCS: 36415; 51702; 51798; 74177; 80053; 81001; 85025; 87077; 87086; 87186; 93005; 99285; Q9967

== ENCOUNTER 2023-05-08 14:56 | Outpatient (CLI) | payer MEDICARE, OTHER, SELFPAY ==
[2023-05-08] MEDS: iohexol 350 mg/mL 500 mL Btl (per mL) PO (15:36)
--- NOTE | 2023-05-08 16:00 | CTR_ITS ---
PROCEDURE INFORMATION: Exam: CT Chest With Contrast; Diagnostic Exam date and time: 05/08/2023 4:33 PM Age: 72 years old Clinical indication: Condition or disease; Cancer; Other: Colon; Other: Followup; Follow-up oncological assessment; Prior surgery; Surgery date: 6+ months; Surgery type: Colostomy; Additional info: Adenocarcinoma of sigmoid colon, TECHNIQUE: Imaging protocol: Diagnostic computed tomography of the chest with contrast. Radiation optimization: All CT scans at this facility use at least one of these dose optimization techniques: automated exposure control; mA and/or kV adjustment per patient size (includes targeted exams where dose is matched to clinical indication); or iterative reconstruction. Contrast material: ISOVUE 350; Contrast volume: 95 ml; Contrast route: INTRAVENOUS (IV); COMPARISON: CT angio chest PE protcl [id number] 11/05/2022 11:53 AM RADIATION DOSE METRICS: Total DLP (mGy-cm): 1888.76 FINDINGS: Lungs: Irregular and branching opacities in the periphery of the left lower lobe posteriorly are nonspecific but can be seen the setting of aspiration or infectious process. Pleural spaces: Small bilateral pleural effusions. Atelectatic changes in the lung bases. Heart: Unremarkable. No cardiomegaly. No pericardial effusion. Lymph nodes: Unremarkable. No enlarged lymph nodes. Vasculature: Unremarkable. No aortic aneurysm. Bones/joints: Unremarkable. No acute fracture. Soft tissues: Unremarkable. PROCEDURE INFORMATION: Exam: CT Abdomen And Pelvis With Contrast Exam date and time: 05/08/2023 4:33 PM Age: 72 years old Clinical indication: Condition or disease; Cancer; Other: Colon; Other: Followup; Follow-up oncological assessment; Prior surgery; Surgery date: 6+ months; Surgery type: Colostomy; Additional info: Adenocarcinoma of sigmoid colon, TECHNIQUE: Imaging protocol: Computed tomography of the abdomen and pelvis with contrast. Radiation optimization: All CT scans at this facility use at least one of these dose optimization techniques: automated exposure control; mA and/or kV adjustment per patient size (includes targeted exams where dose is matched to clinical indication); or iterative reconstruction. Contrast material: ISOVUE 350; Contrast volume: 95 ml; Contrast route: INTRAVENOUS (IV); COMPARISON: CT abdomen pelvis w con* [id number] 12/08/2022 9:07 PM RADIATION DOSE METRICS: Total DLP (mGy-cm): 1888.76 FINDINGS: Diaphragm: Small hiatal hernia. Liver: Normal. No mass. Gallbladder and bile ducts: Normal. No calcified stones. No ductal dilation. Pancreas: Normal. No ductal dilation. Spleen: Normal. No splenomegaly. Adrenal glands: Normal. No mass. Kidneys and ureters: Bilateral simple appearing renal cysts are present which do not need further follow-up, as well as other subcentimeter hypodensities which are too small to adequately characterize. There is a 1.5 cm, previously 1.7 cm, hypodense lesion along the posterolateral cortex of the left kidney measuring 25 Hounsfield units which does not meet imaging criteria for a simple cyst and is indeterminate. This can be more fully assessed with a three-phase renal CT or renal MRI to exclude a solid lesion. Stomach and bowel: Status post partial colectomy with Devin's pouch and left lower quadrant colostomy. No bowel obstruction. Appendix: The appendix is not visualized. Intraperitoneal space: Small amount of free fluid in the abdomen and pelvis. Vasculature: Severe atherosclerotic disease of the abdominal aorta and iliac .. No abdominal aortic aneurysm. Lymph nodes: Unremarkable. No enlarged lymph nodes. Urinary bladder: Irregular mass in the right anterior pelvis extending into the anterior wall of the bladder measuring approximately 6.1 x 4.9 cm, previously 3.7 x 2.8 cm (series 13, image 72), concerning for progression of disease. The mass extends anterior laterally into the wall of the anterior pelvis and rectus abdominis muscles measuring at least 13.7 x 9.1 cm, previously 11.2 x 3.7 cm (series 13, image 79). This is consistent with progression of disease. Reproductive: Unremarkable as visualized. Bones/joints: There is a new 0.9 x 2.6 cm lytic lesion in the L4 vertebral body, consistent with metastatic disease to the bone. Soft tissues: Irregular soft tissue along the anterior pelvic wall measuring approximately 14.6 x 2.5 cm (series 13, image 55) is concerning for peritoneal carcinomatosis. CT/CT chest abdpel w/*[id number] IMPRESSION: 1. Small bilateral pleural effusions. Atelectatic changes in the lung bases. 2. Irregular and branching opacities in the periphery of the left lower lobe posteriorly are nonspecific but can be seen the setting of aspiration or infectious process. Metastatic disease to the lung can not be excluded. 3. No axillary, mediastinal or hilar lymphadenopathy. IMPRESSION: 1. Status post partial colectomy with Devin's pouch and left lower quadrant colostomy. No bowel obstruction. 2. Irregular soft tissue along the anterior pelvic wall measuring approximately 14.6 x 2.5 cm (series 13, image 55) is concerning for peritoneal carcinomatosis. 3. Irregular mass in the right anterior pelvis extending into the anterior wall of the bladder measuring approximately 6.1 x 4.9 cm, previously 3.7 x 2.8 cm (series 13, image 72), concerning for progression of disease. The mass extends anterior laterally into the wall of the anterior pelvis and rectus abdominis muscles measuring at least 13.7 x 9.1 cm, previously 11.2 x 3.7 cm (series 13, image 79). This is consistent with progression of disease. 4. There is a new 0.9 x 2.6 cm lytic lesion in the L4 vertebral body, consistent with metastatic disease to the bone. 5. There is a 1.5 cm, previously 1.7 cm, hypodense lesion along the posterolateral cortex of the left kidney measuring 25 Hounsfield units which does not meet imaging criteria for a simple cyst and is indeterminate. This can be more fully assessed with a three-phase renal CT or renal MRI to exclude a solid lesion. COMMENTS: Consistent with the [employer]'s Incidental Findings Committee white paper (J Am Ernst Radiol 2018): Any incidental renal lesion less than 1 cm or classified as too small to characterize, or any incidental cystic renal lesion characterized as simple-appearing, is likely benign. No follow-up imaging is recommended for these lesions per consensus recommendations based on imaging criteria.
[2023-05-08] MEDS: iohexol 350 mg/mL 500 mL Btl (per mL) IV (16:49)
== END 2023-05-08 14:57 | disposition home or self-care (01) ==
LOC: RAD 14:57
PROVIDERS: PCP Family Medicine; Visit Provider Internal Medicine Medical Oncology
DX: C18.7 Malignant neoplasm of sigmoid colon (principal); J90 Pleural effusion, not elsewhere classified; J98.11 Atelectasis; R91.8 Other nonspecific abnormal finding of lung field; N32.9 Bladder disorder, unspecified; R19.00 Intra-abdominal and pelvic swelling, mass and lump, unspecified site; Z90.49 Acquired absence of other specified parts of digestive tract; Z93.3 Colostomy status; M89.9 Disorder of bone, unspecified; N28.9 Disorder of kidney and ureter, unspecified
CPT/HCPCS: 71260; 74177; Q9967

== ENCOUNTER 2023-05-27 09:45 | Oncology outpatient (recurring) (ONCR) | payer MEDICARE, OTHER, SELFPAY ==
[2023-04-29 15:15] LABS: Basophils % 0.3 %; Eosinophils # 0.1 10^3/uL (0.0-0.8); Eosinophils % 1.2 %; Hematocrit 40.1 % (37-53); Lymphocytes # 2.1 10^3/uL (0.8-4.8); Lymphocytes % 20.1 %; Mean Corpuscular HGB Conc 31.2 g/dL (30-55); Mean Corpuscular Hemoglobin 26.6 pg (27-33); Mean Corpuscular Volume 85.3 fl (82-101); Mean Platelet Volume 9.3 fL (7.4-10.4); Monocytes # 0.8 10^3/uL (0.2-0.9); Monocytes % 7.8 %; Neutrophils # 7.21 10^3/uL (1.8-7.7); Neutrophils % 70.1 %; Nucleated Red Blood Cells % 0 %; Platelet Count 304 10^3/cmm (157-399); Red Cell Distribution Width 15.6 % (12.1-15.1); White Blood Count 10.27 10^3/uL (3.29-11.43)
[2023-04-29 15:36] LABS: Alanine Aminotransferase 15 U/L (0-41); Albumin Level 3.5 g/dL (3.5-5.2); Alkaline Phosphatase 109 U/L (40-130); Anion Gap 13.3 (5-19); Aspartate Amino Transferase 15 U/L (0-40); Blood Urea Nitrogen 14 mg/dL (8-23); Calcium 8.7 mg/dL (8.5-10.5); Carbon Dioxide 28 mmol/L (22-29); Chloride 104 mmol/L (98-107); Globulin 3.9 g/dL (1.3-4.6); Glucose 118 mg/dL (65-115); Osmolality Calculated 294 mOsm/kg (285-295); Potassium 4.3 mmol/L (3.5-5.1); Sodium 141 mmol/L (136-145); Total Bilirubin 0.5 mg/dL (0.15-1.2); Total Protein 7.4 g/dL (6.6-8.7)
[2023-04-29 18:35] LABS: Carcinoembryonic Antigen 213.7 ng/mL (0.0-4.7)
[2023-05-21 08:12] VITALS: BP 116/80; PULSE 81; RESP 18; TEMP 36.6; O2SAT 96
[2023-05-21 08:28] VITALS: BMI 32.0
[2023-05-21 08:31] LABS: Basophils # 0.1 10^3/uL (0.0-0.1); Basophils % 0.5 %; Eosinophils # 0.3 10^3/uL (0.0-0.8); Eosinophils % 3.1 %; Hematocrit 36.6 % (37-53); Lymphocytes # 2.1 10^3/uL (0.8-4.8); Mean Corpuscular HGB Conc 31.1 g/dL (30-55); Mean Corpuscular Hemoglobin 25.9 pg (27-33); Mean Corpuscular Volume 83.2 fl (82-101); Mean Platelet Volume 9.5 fL (7.4-10.4); Monocytes # 0.8 10^3/uL (0.2-0.9); Monocytes % 7.7 %; Neutrophils # 7.48 10^3/uL (1.8-7.7); Neutrophils % 69.1 %; Nucleated Red Blood Cells % 0 %; Platelet Count 389 10^3/cmm (157-399); White Blood Count 10.83 10^3/uL (3.29-11.43)
[2023-05-21 09:01] LABS: Carcinoembryonic Antigen 227.3 ng/mL (0.0-4.7)
[2023-05-21 09:13] LABS: Alanine Aminotransferase 12 U/L (0-41); Albumin Level 3.1 g/dL (3.5-5.2); Alkaline Phosphatase 91 U/L (40-130); Anion Gap 13.8 (5-19); Aspartate Amino Transferase 14 U/L (0-40); Blood Urea Nitrogen 13 mg/dL (8-23); Calcium 8.9 mg/dL (8.5-10.5); Carbon Dioxide 26 mmol/L (22-29); Chloride 99 mmol/L (98-107); Glucose 111 mg/dL (65-115); Osmolality Calculated 281 mOsm/kg (285-295); Potassium 3.8 mmol/L (3.5-5.1); Sodium 135 mmol/L (136-145); Total Bilirubin 0.4 mg/dL (0.15-1.2); Total Protein 7.1 g/dL (6.6-8.7)
[2023-05-21] MEDS: sodium chloride 0.9% 250 ML 75 ML IV (11:00)
[2023-05-21] MEDS: palonosetron 0.25 mg/5 mL SDV IVP (11:04)
[2023-05-21] MEDS: [UNRECOGNIZED DRUG - OTHER] IV (11:33)
[2023-05-21] MEDS: BEVACIZUMAB AWWB IV (11:33)
[2023-05-21] MEDS: dextrose 5% 250 ML 75 ML IV (12:52)
[2023-05-21] MEDS: leucovorin 980 MG in dextrose 5% 250 ML 232 MG IV (12:54)
[2023-05-21] MEDS: DEXTROSE 5% IV (12:55)
[2023-05-21] MEDS: IRINOTECAN IV (12:55)
[2023-05-21] MEDS: atropine 1 mg/mL SDV 1 mL 0.4 MG IV (12:58)
[2023-05-21] MEDS: ELASTOMERIC PUMP PUMP IV (14:43)
[2023-05-21] MEDS: FLUOROURACIL IV (14:43)
[2023-05-21] MEDS: fluorouraciL 50 mg/ml MDV 100 mL 976 MG IVP (14:43)
[2023-05-21] MEDS: SODIUM CHLORIDE IV (14:43)
[2023-05-21 15:05] VITALS: BP 129/84; PULSE 66; O2SAT 96
[2023-05-23 11:04] VITALS: BP 128/82; PULSE 78; RESP 17; TEMP 36.2; O2SAT 95
[2023-05-27 10:15] LABS: Basophils % 0.5 %; Eosinophils # 0.2 10^3/uL (0.0-0.8); Hematocrit 33.2 % (37-53); Lymphocytes # 1.4 10^3/uL (0.8-4.8); Mean Corpuscular HGB Conc 31.9 g/dL (30-55); Mean Corpuscular Hemoglobin 25.8 pg (27-33); Mean Corpuscular Volume 80.8 fl (82-101); Mean Platelet Volume 9.2 fL (7.4-10.4); Monocytes # 0.2 10^3/uL (0.2-0.9); Neutrophils # 3.88 10^3/uL (1.8-7.7); Neutrophils % 69.1 %; Nucleated Red Blood Cells % 0 %; Platelet Count 269 10^3/cmm (157-399); Red Blood Count 4.11 10^6/uL (3.85-5.65); Red Cell Distribution Width 16.6 % (12.1-15.1); White Blood Count 5.62 10^3/uL (3.29-11.43)
[2023-05-27 10:32] LABS: Alanine Aminotransferase 21 U/L (0-41); Albumin Level 3.4 g/dL (3.5-5.2); Alkaline Phosphatase 99 U/L (40-130); Anion Gap 13.7 (5-19); Aspartate Amino Transferase 19 U/L (0-40); Blood Urea Nitrogen 13 mg/dL (8-23); Carbon Dioxide 27 mmol/L (22-29); Chloride 98 mmol/L (98-107); Globulin 3.6 g/dL (1.3-4.6); Glucose 104 mg/dL (65-115); Osmolality Calculated 280 mOsm/kg (285-295); Potassium 3.7 mmol/L (3.5-5.1); Sodium 135 mmol/L (136-145); Total Bilirubin 0.6 mg/dL (0.15-1.2)
[2023-05-27] MEDS: ipratropium-albuterol 3 mL Neb INHALATION (12:50)
== END 2023-05-28 23:59 | disposition home or self-care (01) ==
PROVIDERS: Nurse Practitioner Family; PCP Family Medicine; Visit Provider Internal Medicine Medical Oncology
DX: Z53.9 Procedure and treatment not carried out, unspecified reason (principal); R06.02 Shortness of breath; R05.9 Cough, unspecified; C18.9 Malignant neoplasm of colon, unspecified; Z79.899 Other long term (current) drug therapy
CPT/HCPCS: 99214; 36591; 71046; 80053; 82378; 85025; 96367; 96368; 96375; 96411; 96413; 96415; 96416; 96417; 96523; J0461; J0640; J1100; J1642; J2469; J7050; J7060; J9190; J9206; Q5107

== ENCOUNTER 2023-06-17 07:30 | Oncology outpatient (recurring) (ONCR) | payer MEDICARE, OTHER, SELFPAY ==
[2023-06-03 10:46] LABS: Basophils % 0.3 %; Eosinophils # 0.2 10^3/uL (0.0-0.8); Eosinophils % 3.4 %; Hematocrit 32.6 % (37-53); Lymphocytes # 1.3 10^3/uL (0.8-4.8); Lymphocytes % 22.3 %; Mean Corpuscular HGB Conc 31.6 g/dL (30-55); Mean Corpuscular Hemoglobin 25.9 pg (27-33); Mean Corpuscular Volume 81.9 fl (82-101); Mean Platelet Volume 8.7 fL (7.4-10.4); Monocytes # 0.5 10^3/uL (0.2-0.9); Monocytes % 8.7 %; Neutrophils # 3.81 10^3/uL (1.8-7.7); Nucleated Red Blood Cells % 0 %; Platelet Count 258 10^3/cmm (157-399); Red Blood Count 3.98 10^6/uL (3.85-5.65); Red Cell Distribution Width 17.7 % (12.1-15.1); White Blood Count 5.87 10^3/uL (3.29-11.43)
[2023-06-03 11:03] LABS: Alanine Aminotransferase 12 U/L (0-41); Albumin Level 3.3 g/dL (3.5-5.2); Alkaline Phosphatase 89 U/L (40-130); Anion Gap 14.8 (5-19); Aspartate Amino Transferase 12 U/L (0-40); Blood Urea Nitrogen 12 mg/dL (8-23); Calcium 8.9 mg/dL (8.5-10.5); Carbon Dioxide 26 mmol/L (22-29); Chloride 99 mmol/L (98-107); Creatinine Clr Calc Pharmacy 103.0579; Globulin 3.8 g/dL (1.3-4.6); Glucose 119 mg/dL (65-115); Osmolality Calculated 283 mOsm/kg (285-295); Potassium 3.8 mmol/L (3.5-5.1); Sodium 136 mmol/L (136-145); Total Bilirubin 0.6 mg/dL (0.15-1.2); Total Protein 7.1 g/dL (6.6-8.7)
[2023-06-03 11:25] LABS: Add Urine Microscopic? YES; Bilirubin Urine Neg (Negative); Blood Urine 3+ (Negative); Glucose Urine UA Norm (Normal); Ketones Urine Negative (Negative); Leukocyte Esterase Urine 2+ (Negative); Nitrate Urine Positive (Negative); Protein Urine 3+ (Negative); Specific Gravity, Urine 1.015 (1.005-1.030); Urine Appearance Cloudy (CLEAR); Urine Color Yellow (Yellow); Urobilinogen Urine 1 mg/dL (Negative); pH Urine 6 (5-7)
[2023-06-03 11:29] LABS: Add Urine Culture? Yes; Bacteria Urine 1+ /hpf; Mucus Urine 1+ /hpf; RBC Urine TOO NUMEROUS TO CNT /hpf (0-2); Squamous Epithelial Cell Urine 0-4 /hpf (0-5); WBC Urine TOO NUMEROUS TO CNT /hpf (0-5)
[2023-06-03] MEDS: ipratropium-albuterol 3 mL Neb INHALATION (12:10)
[2023-06-03] MEDS: sodium chloride 0.9% 250 ML 75 ML IV (12:45)
[2023-06-03] MEDS: palonosetron 0.25 mg/5 mL SDV IVP (12:45)
[2023-06-03] MEDS: [UNRECOGNIZED DRUG - OTHER] IV (13:17)
[2023-06-03] MEDS: BEVACIZUMAB AWWB IV (13:17)
[2023-06-03] MEDS: atropine 1 mg/mL SDV 1 mL 0.400000000000000022 MG IV (14:34)
[2023-06-03] MEDS: IRINOTECAN IV (15:02)
[2023-06-03] MEDS: DEXTROSE 5% IV (15:02)
[2023-06-03] MEDS: leucovorin 980 MG in dextrose 5% 250 ML 166.669999999999987 MG IV (15:03)
[2023-06-03] MEDS: calcium carbonate 500 mg Chew Tablet 1000 MG PO (16:48)
[2023-06-03] MEDS: FLUOROURACIL IV (16:49)
[2023-06-03] MEDS: SODIUM CHLORIDE IV (16:49)
[2023-06-03] MEDS: ELASTOMERIC PUMP PUMP IV (16:49)
[2023-06-03] MEDS: fluorouraciL 50 mg/ml MDV 100 mL 972 MG IVP (16:49)
[2023-06-03 16:51] VITALS: BP 131/85; PULSE 73; TEMP 36.8; O2SAT 90
[2023-06-17 07:56] VITALS: BP 163/93; PULSE 88; RESP 18; TEMP 35.9; O2SAT 95
[2023-06-17 08:17] LABS: Basophils % 0.3 %; Eosinophils # 0.1 10^3/uL (0.0-0.8); Eosinophils % 3.3 %; Hematocrit 31.9 % (37-53); Lymphocytes # 1.6 10^3/uL (0.8-4.8); Mean Corpuscular HGB Conc 30.4 g/dL (30-55); Mean Corpuscular Hemoglobin 24.7 pg (27-33); Mean Corpuscular Volume 81.4 fl (82-101); Mean Platelet Volume 9.7 fL (7.4-10.4); Monocytes # 0.5 10^3/uL (0.2-0.9); Monocytes % 14.2 %; Neutrophils # 1.33 10^3/uL (1.8-7.7); Neutrophils % 36.3 %; Nucleated Red Blood Cells % 0 %; Platelet Count 321 10^3/cmm (157-399); Red Blood Count 3.92 10^6/uL (3.85-5.65); White Blood Count 3.66 10^3/uL (3.29-11.43)
[2023-06-17 08:25] LABS: Add Urine Microscopic? YES; Bilirubin Urine 1+ (Negative); Blood Urine 3+ (Negative); Glucose Urine UA Norm (Normal); Ketones Urine Negative (Negative); Leukocyte Esterase Urine Trace (Negative); Nitrate Urine Negative (Negative); Protein Urine 2+ (Negative); Urine Appearance Cloudy (CLEAR); Urine Color Dark Yellow (Yellow); Urobilinogen Urine 4 mg/dL (Negative); pH Urine 6 (5-7)
[2023-06-17 08:38] LABS: Alanine Aminotransferase < 5 U/L (0-41); Albumin Level 3.2 g/dL (3.5-5.2); Alkaline Phosphatase 99 U/L (40-130); Anion Gap 12.7 (5-19); Aspartate Amino Transferase 11 U/L (0-40); Blood Urea Nitrogen 12 mg/dL (8-23); Carbon Dioxide 29 mmol/L (22-29); Chloride 100 mmol/L (98-107); Creatinine Clr Calc Pharmacy 116.2257; Globulin 3.5 g/dL (1.3-4.6); Glucose 112 mg/dL (65-115); Osmolality Calculated 287 mOsm/kg (285-295); Potassium 3.7 mmol/L (3.5-5.1); Sodium 138 mmol/L (136-145); Total Bilirubin 0.5 mg/dL (0.15-1.2); Total Protein 6.7 g/dL (6.6-8.7)
[2023-06-17 08:58] LABS: Slide Review Slide Review Perform
[2023-06-17 09:05] LABS: Bacteria Urine TRACE /hpf; Mucus Urine 1+ /hpf; RBC Urine 80-100 /hpf (0-2); Squamous Epithelial Cell Urine 0-4 /hpf (0-5)
[2023-06-17 09:06] LABS: Add Urine Culture? Yes
[2023-06-17 09:37] LABS: Urine Creatinine 250 mg/dL (39-259)
[2023-06-17 09:47] LABS: Carcinoembryonic Antigen 148.1 ng/mL (0.0-4.7)
[2023-06-17 09:55] LABS: UPRO/UCREAT Ratio 0.93 mg/mg CR; Urine Protein Random 232 mg/dL
[2023-06-17] MEDS: sodium chloride 0.9% 250 ML 75 ML IV (10:34)
[2023-06-17] MEDS: palonosetron 0.25 mg/5 mL SDV IVP (10:35)
[2023-06-17] MEDS: fosaprepitant 150 MG in sodium chloride 0.9% 50 ML, sodium chloride 0.9% (100 ml) 100 ML 300 MG IV (10:37)
[2023-06-17 10:47] LABS: Ferritin 426 ng/mL (30-400)
[2023-06-17] MEDS: OLANZapine 5 mg TABLET 10 MG PO (11:34)
[2023-06-17] MEDS: [UNRECOGNIZED DRUG - OTHER] IV (11:37)
[2023-06-17] MEDS: BEVACIZUMAB AWWB IV (11:37)
[2023-06-17 11:43] LABS: Folate Level > 20.0 ng/mL (4.5-32.2)
[2023-06-17] MEDS: atropine 1 mg/mL SDV 1 mL 0.400000000000000022 MG IV (12:15)
[2023-06-17] MEDS: DEXTROSE 5% IV (12:19)
[2023-06-17] MEDS: IRINOTECAN IV (12:19)
[2023-06-17] MEDS: leucovorin 980 MG in dextrose 5% 250 ML 166.669999999999987 MG IV (12:20)
[2023-06-17] MEDS: fluorouraciL 50 mg/ml MDV 100 mL 970 MG IVP (13:56)
[2023-06-17] MEDS: FLUOROURACIL IV (13:57)
[2023-06-17] MEDS: ELASTOMERIC PUMP PUMP IV (13:57)
[2023-06-17] MEDS: SODIUM CHLORIDE IV (13:57)
[2023-06-17 14:32] VITALS: BP 166/94; PULSE 63; O2SAT 94
[2023-06-17 14:37] LABS: Iron 47 ug/dL (59-158); Percent Saturation 23.2 % (20-50); Total Iron Binding Capacity 202 mcg/dl; Unsaturated Iron Binding 155 ug/dL (112-347)
== END 2023-06-17 23:59 | disposition home or self-care (01) ==
PROVIDERS: Internal Medicine; Nurse Practitioner Family; PCP Family Medicine; Visit Provider Internal Medicine Medical Oncology
DX: Z51.11 Encounter for antineoplastic chemotherapy (principal); Z53.9 Procedure and treatment not carried out, unspecified reason; C18.7 Malignant neoplasm of sigmoid colon; F17.290 Nicotine dependence, other tobacco product, uncomplicated; Z93.3 Colostomy status; Z79.899 Other long term (current) drug therapy; Z79.52 Long term (current) use of systemic steroids; C79.51 Secondary malignant neoplasm of bone; R30.9 Painful micturition, unspecified
CPT/HCPCS: 80053; 81001; 82378; 82570; 82728; 82746; 83540; 83550; 84156; 85025; 87077; 87086; 87186; 96367; 96368; 96375; 96409; 96411; 96413; 96415; 96416; 96417; 96523; 99214; 99215; J0461; J0640; J1100; J1453; J1642; J2469; J7050; J7060; J9190; J9206; Q5107

== ENCOUNTER 2023-06-19 11:32 | Oncology outpatient (recurring) (ONCR) | payer MEDICARE, OTHER, SELFPAY | END 2023-06-26 23:59 | disposition home or self-care (01) | LOC: ONCMED 11:33 | PROVIDERS: PCP Family Medicine; Visit Provider Internal Medicine Medical Oncology | DX: Z45.1 Encounter for adjustment and management of infusion pump | CPT/HCPCS: 96523; J1642 ==

== ENCOUNTER 2023-07-10 12:00 | Oncology outpatient (recurring) (ONCR) | payer MEDICARE, OTHER, SELFPAY ==
[2023-07-01 08:06] LABS: Basophils % 0.6 %; Eosinophils # 0.2 10^3/uL (0.0-0.8); Eosinophils % 5.9 %; Hematocrit 32.1 % (37-53); Lymphocytes # 1.6 10^3/uL (0.8-4.8); Lymphocytes % 49.7 %; Mean Corpuscular HGB Conc 30.8 g/dL (30-55); Mean Corpuscular Hemoglobin 25.3 pg (27-33); Mean Corpuscular Volume 82.1 fl (82-101); Mean Platelet Volume 9.1 fL (7.4-10.4); Monocytes # 0.4 10^3/uL (0.2-0.9); Neutrophils # 0.99 10^3/uL (1.8-7.7); Neutrophils % 30.5 %; Nucleated Red Blood Cells % 0 %; Platelet Count 275 10^3/cmm (157-399); Red Blood Count 3.91 10^6/uL (3.85-5.65); Red Cell Distribution Width 20.5 % (12.1-15.1); White Blood Count 3.24 10^3/uL (3.29-11.43)
[2023-07-01 08:52] LABS: Alanine Aminotransferase 11 U/L (0-41); Albumin Level 3.5 g/dL (3.5-5.2); Alkaline Phosphatase 101 U/L (40-130); Anion Gap 14.5 (5-19); Aspartate Amino Transferase 14 U/L (0-40); Blood Urea Nitrogen 9 mg/dL (8-23); Calcium 8.8 mg/dL (8.5-10.5); Carbon Dioxide 28 mmol/L (22-29); Chloride 100 mmol/L (98-107); Globulin 3.5 g/dL (1.3-4.6); Glucose 107 mg/dL (65-115); Osmolality Calculated 287 mOsm/kg (285-295); Potassium 3.5 mmol/L (3.5-5.1); Sodium 139 mmol/L (136-145); Total Bilirubin 0.3 mg/dL (0.15-1.2)
[2023-07-04 12:05] LABS: Soluble Transferrin Receptor 2.16 mg/L (0.76-1.76)
[2023-07-08 08:58] LABS: Basophils # 0.1 10^3/uL (0.0-0.1); Basophils % 0.8 %; Eosinophils # 0.5 10^3/uL (0.0-0.8); Eosinophils % 6.9 %; Hematocrit 34.9 % (37-53); Lymphocytes # 2.3 10^3/uL (0.8-4.8); Mean Corpuscular HGB Conc 30.1 g/dL (30-55); Mean Corpuscular Hemoglobin 25.2 pg (27-33); Mean Corpuscular Volume 83.9 fl (82-101); Mean Platelet Volume 9.2 fL (7.4-10.4); Monocytes # 0.8 10^3/uL (0.2-0.9); Monocytes % 12.3 %; Neutrophils # 2.73 10^3/uL (1.8-7.7); Neutrophils % 41.9 %; Nucleated Red Blood Cells % 0 %; Platelet Count 391 10^3/cmm (157-399); Red Blood Count 4.16 10^6/uL (3.85-5.65); Red Cell Distribution Width 20.9 % (12.1-15.1); White Blood Count 6.51 10^3/uL (3.29-11.43)
[2023-07-08 09:28] LABS: Alanine Aminotransferase 11 U/L (0-41); Albumin Level 3.5 g/dL (3.5-5.2); Anion Gap 13.7 (5-19); Aspartate Amino Transferase 24 U/L (0-40); Blood Urea Nitrogen 12 mg/dL (8-23); Calcium 8.6 mg/dL (8.5-10.5); Carbon Dioxide 27 mmol/L (22-29); Chloride 102 mmol/L (98-107); Globulin 3.5 g/dL (1.3-4.6); Glucose 118 mg/dL (65-115); Osmolality Calculated 289 mOsm/kg (285-295); Potassium 3.7 mmol/L (3.5-5.1); Sodium 139 mmol/L (136-145); Total Bilirubin 0.3 mg/dL (0.15-1.2)
[2023-07-08 09:39] LABS: Alkaline Phosphatase 121 U/L (40-130)
[2023-07-08] MEDS: fosaprepitant 150 MG in sodium chloride 0.9% 50 ML, sodium chloride 0.9% (100 ml) 100 ML 300 MG IV (10:58)
[2023-07-08] MEDS: sodium chloride 0.9% 250 ML 75 ML IV (10:58)
[2023-07-08] MEDS: OLANZapine 5 mg TABLET 10 MG PO (10:59)
[2023-07-08] MEDS: palonosetron 0.25 mg/5 mL SDV IVP (11:05)
[2023-07-08] MEDS: [UNRECOGNIZED DRUG - OTHER] IV (12:26)
[2023-07-08] MEDS: BEVACIZUMAB AWWB IV (12:26)
[2023-07-08] MEDS: atropine 1 mg/mL SDV 1 mL 0.400000000000000022 MG IV (13:02)
[2023-07-08] MEDS: leucovorin 940 MG in dextrose 5% 250 ML 166.669999999999987 MG IV (13:06)
[2023-07-08] MEDS: DEXTROSE 5% IV (13:07)
[2023-07-08] MEDS: IRINOTECAN IV (13:07)
[2023-07-08] MEDS: ELASTOMERIC PUMP PUMP IV (15:00)
[2023-07-08] MEDS: SODIUM CHLORIDE IV (15:00)
[2023-07-08] MEDS: FLUOROURACIL IV (15:00)
[2023-07-08 15:02] VITALS: BP 127/92; PULSE 69; RESP 17; TEMP 36.1; O2SAT 98
[2023-07-10 12:07] VITALS: BP 142/87; PULSE 88; TEMP 36.9; O2SAT 93
[2023-07-10] MEDS: pegfilgrastim 6 mg/0.6 mL Kit (onpro) SUBCUT (12:17)
== END 2023-07-10 23:59 | disposition home or self-care (01) ==
PROVIDERS: Internal Medicine; Nurse Practitioner Family; PCP Family Medicine; Visit Provider Internal Medicine Medical Oncology
DX: D70.1 Agranulocytosis secondary to cancer chemotherapy (principal); Z53.9 Procedure and treatment not carried out, unspecified reason; C18.7 Malignant neoplasm of sigmoid colon
CPT/HCPCS: 80053; 84238; 85025; 96367; 96368; 96375; 96401; 96413; 96415; 96416; 96417; 96523; 99214; J0461; J0640; J1100; J1453; J1642; J2469; J2506; J7050; J7060; J9190; J9206; Q5107

== ENCOUNTER 2023-07-24 12:45 | Oncology outpatient (recurring) (ONCR) | payer MEDICARE, OTHER, SELFPAY ==
[2023-07-22 09:08] LABS: Basophils % 0.4 %; Eosinophils # 0.4 10^3/uL (0.0-0.8); Eosinophils % 3.9 %; Hematocrit 35.5 % (37-53); Lymphocytes # 2.3 10^3/uL (0.8-4.8); Lymphocytes % 24.9 %; Mean Corpuscular HGB Conc 30.7 g/dL (30-55); Mean Corpuscular Hemoglobin 26.4 pg (27-33); Mean Platelet Volume 10.2 fL (7.4-10.4); Monocytes # 0.7 10^3/uL (0.2-0.9); Neutrophils # 5.44 10^3/uL (1.8-7.7); Neutrophils % 59.6 %; Nucleated Red Blood Cells % 0 %; Platelet Count 202 10^3/cmm (157-399); Red Blood Count 4.13 10^6/uL (3.85-5.65); Red Cell Distribution Width 23.6 % (12.1-15.1); White Blood Count 9.13 10^3/uL (3.29-11.43)
[2023-07-22 09:14] LABS: Add Urine Microscopic? YES; Bilirubin Urine Neg (Negative); Blood Urine 3+ (Negative); Glucose Urine UA Norm (Normal); Ketones Urine Negative (Negative); Leukocyte Esterase Urine 2+ (Negative); Nitrate Urine Positive (Negative); Protein Urine 2+ (Negative); Urine Appearance Cloudy (CLEAR); Urine Color Yellow (Yellow); Urobilinogen Urine Norm (Negative); pH Urine 6 (5-7)
[2023-07-22 09:21] LABS: Add Urine Culture? Yes; Bacteria Urine 2+ /hpf; Mucus Urine 1+ /hpf; RBC Urine 15-25 /hpf (0-2); Squamous Epithelial Cell Urine 0-4 /hpf (0-5); WBC Urine 55-80 /hpf (0-5)
[2023-07-22 09:31] LABS: Carcinoembryonic Antigen 132.9 ng/mL (0.0-4.7)
[2023-07-22 09:45] LABS: Alanine Aminotransferase 16 U/L (0-41); Albumin Level 3.7 g/dL (3.5-5.2); Alkaline Phosphatase 138 U/L (40-130); Anion Gap 15.2 (5-19); Aspartate Amino Transferase 13 U/L (0-40); Blood Urea Nitrogen 16 mg/dL (8-23); Calcium 9.4 mg/dL (8.5-10.5); Carbon Dioxide 27 mmol/L (22-29); Chloride 100 mmol/L (98-107); Globulin 3.2 g/dL (1.3-4.6); Glucose 98 mg/dL (65-115); Osmolality Calculated 287 mOsm/kg (285-295); Potassium 4.2 mmol/L (3.5-5.1); Sodium 138 mmol/L (136-145); Total Bilirubin 0.3 mg/dL (0.15-1.2); Total Protein 6.9 g/dL (6.6-8.7)
[2023-07-22 10:19] LABS: Iron 124 ug/dL (59-158); Total Iron Binding Capacity 248 mcg/dl; Unsaturated Iron Binding 124 ug/dL (112-347)
[2023-07-22] MEDS: sodium chloride 0.9% 250 ML 75 ML IV (11:07)
[2023-07-22] MEDS: palonosetron 0.25 mg/5 mL SDV IVP (11:10)
[2023-07-22] MEDS: fosaprepitant 150 MG in sodium chloride 0.9% 50 ML, sodium chloride 0.9% (100 ml) 100 ML 300 MG IV (11:14)
[2023-07-22] MEDS: OLANZapine 5 mg TABLET 10 MG PO (11:45)
[2023-07-22] MEDS: BEVACIZUMAB AWWB IV (12:20)
[2023-07-22] MEDS: [UNRECOGNIZED DRUG - OTHER] IV (12:20)
[2023-07-22] MEDS: atropine 1 mg/mL SDV 1 mL 0.400000000000000022 MG IV (13:25)
[2023-07-22] MEDS: dextrose 5% 250 ML 75 ML IV (13:37)
[2023-07-22] MEDS: IRINOTECAN IV (13:50)
[2023-07-22] MEDS: DEXTROSE 5% IV (13:50)
[2023-07-22] MEDS: leucovorin 980 MG in dextrose 5% 250 ML 166.669999999999987 MG IV (13:50)
[2023-07-22] MEDS: ELASTOMERIC PUMP PUMP IV (15:45)
[2023-07-22] MEDS: SODIUM CHLORIDE IV (15:45)
[2023-07-22] MEDS: FLUOROURACIL IV (15:45)
[2023-07-22 15:55] VITALS: BP 145/84; PULSE 72; RESP 17; TEMP 36.2; O2SAT 95
[2023-07-24 12:47] VITALS: BP 159/90; PULSE 81; RESP 16; O2SAT 95
[2023-07-24] MEDS: pegfilgrastim 6 mg/0.6 mL Kit (onpro) SUBCUT (12:56)
== END 2023-07-24 23:59 | disposition home or self-care (01) ==
PROVIDERS: PCP Family Medicine; Visit Provider Internal Medicine Medical Oncology
DX: Z53.9 Procedure and treatment not carried out, unspecified reason (principal); D70.1 Agranulocytosis secondary to cancer chemotherapy
CPT/HCPCS: 80053; 81001; 82378; 83540; 83550; 85025; 87077; 87086; 87186; 96365; 96366; 96367; 96368; 96375; 96377; 96413; 96415; 96416; 96417; 96523; 99214; J0461; J0640; J1100; J1453; J1642; J2469; J2506; J7050; J7060; J9190; J9206; Q5107

== ENCOUNTER 2023-08-07 11:00 | Oncology outpatient (recurring) (ONCR) | payer MEDICARE, OTHER, SELFPAY ==
[2023-08-05 08:45] VITALS: BP 135/84; PULSE 83; RESP 18; TEMP 36.4; O2SAT 95
[2023-08-05 08:52] LABS: Basophils % 0.3 %; Eosinophils # 0.3 10^3/uL (0.0-0.8); Eosinophils % 4.4 %; Hematocrit 34.7 % (37-53); Lymphocytes # 1.6 10^3/uL (0.8-4.8); Lymphocytes % 25.2 %; Mean Corpuscular HGB Conc 30.8 g/dL (30-55); Mean Corpuscular Hemoglobin 26.9 pg (27-33); Mean Corpuscular Volume 87.2 fl (82-101); Mean Platelet Volume 9.5 fL (7.4-10.4); Monocytes # 0.6 10^3/uL (0.2-0.9); Monocytes % 9.1 %; Neutrophils # 3.72 10^3/uL (1.8-7.7); Neutrophils % 60.7 %; Nucleated Red Blood Cells % 0 %; Platelet Count 307 10^3/cmm (157-399); Red Blood Count 3.98 10^6/uL (3.85-5.65); Red Cell Distribution Width 24.2 % (12.1-15.1); White Blood Count 6.14 10^3/uL (3.29-11.43)
[2023-08-05 09:11] LABS: Alanine Aminotransferase 10 U/L (0-41); Albumin Level 3.8 g/dL (3.5-5.2); Alkaline Phosphatase 96 U/L (40-130); Anion Gap 14.2 (5-19); Aspartate Amino Transferase 11 U/L (0-40); Blood Urea Nitrogen 18 mg/dL (8-23); Carbon Dioxide 25 mmol/L (22-29); Chloride 105 mmol/L (98-107); Globulin 2.9 g/dL (1.3-4.6); Glucose 122 mg/dL (65-115); Osmolality Calculated 293 mOsm/kg (285-295); Potassium 4.2 mmol/L (3.5-5.1); Sodium 140 mmol/L (136-145); Total Bilirubin 0.3 mg/dL (0.15-1.2); Total Protein 6.7 g/dL (6.6-8.7)
[2023-08-05] MEDS: ipratropium-albuterol 3 mL Neb INHALATION (10:47)
[2023-08-05] MEDS: sodium chloride 0.9% 250 ML 75 ML IV (10:54)
[2023-08-05] MEDS: palonosetron 0.25 mg/5 mL SDV IVP (10:55)
[2023-08-05] MEDS: OLANZapine 10 mg TABLET PO (11:03)
[2023-08-05] MEDS: fosaprepitant 150 MG in sodium chloride 0.9% 50 ML, sodium chloride 0.9% (100 ml) 100 ML 300 MG IV (11:35)
[2023-08-05] MEDS: [UNRECOGNIZED DRUG - OTHER] IV (12:14)
[2023-08-05] MEDS: BEVACIZUMAB AWWB IV (12:14)
[2023-08-05] MEDS: atropine 1 mg/mL SDV 1 mL 0.400000000000000022 MG IV (13:00)
[2023-08-05] MEDS: dextrose 5% 250 ML 75 ML IV (13:03)
[2023-08-05] MEDS: DEXTROSE 5% IV (13:16)
[2023-08-05] MEDS: IRINOTECAN IV (13:16)
[2023-08-05] MEDS: leucovorin 980 MG in dextrose 5% 250 ML 166.669999999999987 MG IV (13:17)
[2023-08-05] MEDS: FLUOROURACIL IV (15:06)
[2023-08-05] MEDS: ELASTOMERIC PUMP PUMP IV (15:06)
[2023-08-05] MEDS: SODIUM CHLORIDE IV (15:06)
[2023-08-05 15:12] VITALS: BP 116/79; PULSE 71; TEMP 36.6; O2SAT 94
[2023-08-07] MEDS: pegfilgrastim 6 mg/0.6 mL Kit (onpro) SUBCUT (11:11)
[2023-08-07 11:15] VITALS: BP 166/91; PULSE 80; RESP 16; O2SAT 94
== END 2023-08-07 23:59 | disposition home or self-care (01) ==
PROVIDERS: PCP Family Medicine; Visit Provider Internal Medicine Medical Oncology
DX: D70.1 Agranulocytosis secondary to cancer chemotherapy (principal); Z53.9 Procedure and treatment not carried out, unspecified reason; C80.0 Disseminated malignant neoplasm, unspecified; C18.7 Malignant neoplasm of sigmoid colon
CPT/HCPCS: 71260; 74177; 80053; 85025; 96367; 96368; 96375; 96377; 96413; 96415; 96416; 96417; 96523; 99214; J0461; J0640; J1100; J1453; J2469; J2506; J7050; J7060; J9190; J9206; Q5107; Q9967

== ENCOUNTER 2023-08-07 11:31 | Outpatient (CLI) | payer MEDICARE, OTHER, SELFPAY ==
--- NOTE | 2023-08-07 12:30 | CT_ITS ---
WS: [id number] CT CHEST, ABDOMEN AND PELVIS WITH CONTRAST HISTORY: colon cancer restaging TECHNIQUE: Contiguous 5 mm axial imaging performed through the chest, abdomen and pelvis with IV cont rast, oral contrast has been provided. Coronal and sagittal reformats chest. Coronal and sagittal ref ormats through the abdomen and pelvis. All CT scans at [facility] use at least one of these d ose optimization techniques: automated exposure control; mA and/or kV adjustment per patient size (in cludes targeted exams where dose is matched to clinical indication); or iterative reconstruction. CONTRAST: Omnipaque 350; 100 mL IV. DLP: 1373.12 mGy.cm COMPARISON: 05/08/2023, 12/08/[address]: Hyperexpanded lungs from emphysema. There is a very tiny, micronodules throughout both lung s. Majority of these have been stable since 03/27/2022. The tree-in-bud airspace disease in the poste rior lower lobes has improved. There is mild residual nodular opacification at the lung bases but gre atest on the LEFT. Improved bilateral pleural effusions. No mediastinal or hilar adenopathy. Normal s ize aorta with mild atherosclerosis. Normal size heart. LEFT subclavian Mediport. Large hiatal hernia . Abdomen CT: No metastatic disease within the liver. Normal spleen. Normal gallbladder and adrenal gla nds. Normal pancreas. Bilateral renal masses are identified. Some of these masses are cysts. Others a re slightly enhancing and indeterminant. Small bilateral extrarenal pelvis. The RIGHT ureter is sligh tly more dilated than on the prior study. The distal RIGHT ureter becomes obscured by soft tissue mas s in the RIGHT pelvis. Mild developing obstruction of the RIGHT ureter is likely. Stomach is not distended. No small bowel obstruction. Patient is status post partial colectomy with a Sethi's pouch. LEFT lower quadrant colostomy. Peritoneal carcinomatosis is reidentified as described on 05/08/2023. New since 12/08/2022. Omental mas ses and nodularity beginning just below the level of the umbilicus. There is continuity of the omenta l carcinomatosis to abut several loops of GI tract in the central pelvis. There are omental nodules i dentified contacting the GI tract. There is a soft tissue complex multiloculated mass in the abdomina l wall of the pelvis. This mass measures 11.6 x 6.5 cm and extends into the RIGHT inguinal region. Th is mass also extends through the RIGHT pelvic abdominal wall musculature into the RIGHT pelvis. There is an additional mass in the RIGHT pelvis which is contiguous from the abdominal wall mass extending to about the bladder and invade the bladder. This additional mass measures 9.2 x 4.3 cm. There is ma rked bladder wall thickening measuring up to 1.2 cm involving the RIGHT lateral fundus of the bladder . There is an additional collection containing air inseparable from small bowel loops. Recurrent fist ulous may be developing between the subcutaneous soft tissues and the GI tract and the RIGHT lower qu adrant. As compared to 05/08/2023 there may be slight improvement in the overall extent of the omental carcinomatosis. The superficial soft tissue mass in the pelvis also slightly decreased in size. The new air collecting in the RIGHT pelvis may indicate progression of disease. Bladder wall thickening a ppears also slightly improved. Pelvic CT: See above. There are a few stable lymph nodes in the mesorectal fat. Metastatic lesion at L4. IMPRESSION: 1. Recently described multifocal omental carcinomatosis, RIGHT pelvic and RIGHT pelvic subcutaneous masses are reidentified. Subcutaneous mass within the RIGHT pelvis appears slightly improved. The ome ntal carcinomatosis appears slightly improved. There is no significant improvement in the RIGHT pelvi c mass. There are a few new foci of air within this mass suggesting there may be developing abscess o r fistula. Continued close follow-up recommended. 2. Bladder wall thickening persists which is contiguous with the RIGHT pelvic neoplastic mass. 3. There is very slight dilatation of the RIGHT ureter as compared to prior studies. The distal uret er is in continuity with the neoplastic mass in the RIGHT pelvis. Recommend continued close follow-up for possible renal obstruction. 4. Prior LEFT colectomy with colostomy.
[2023-08-07] MEDS: iohexol 350 mg/mL 500 mL Btl (per mL) PO (13:13)
[2023-08-07] MEDS: iohexol 350 mg/mL 500 mL Btl (per mL) IV (13:14)
== END 2023-08-07 11:32 | disposition home or self-care (01) ==
PROVIDERS: PCP Family Medicine; Visit Provider Internal Medicine Medical Oncology
DX: C80.0 Disseminated malignant neoplasm, unspecified (principal); C18.7 Malignant neoplasm of sigmoid colon
CPT/HCPCS: 71260; 74177; Q9967

== ENCOUNTER 2023-08-21 12:01 | Oncology outpatient (recurring) (ONCR) | payer MEDICARE, OTHER, SELFPAY ==
[2023-08-19 07:54] LABS: Basophils % 0.4 %; Eosinophils # 0.1 10^3/uL (0.0-0.8); Eosinophils % 1.2 %; Hematocrit 33.7 % (37-53); Lymphocytes # 1.3 10^3/uL (0.8-4.8); Lymphocytes % 23.5 %; Mean Corpuscular HGB Conc 30.9 g/dL (30-55); Mean Corpuscular Hemoglobin 27.7 pg (27-33); Mean Corpuscular Volume 89.6 fl (82-101); Mean Platelet Volume 9.6 fL (7.4-10.4); Monocytes # 0.5 10^3/uL (0.2-0.9); Monocytes % 9.1 %; Neutrophils # 3.74 10^3/uL (1.8-7.7); Neutrophils % 65.6 %; Nucleated Red Blood Cells % 0 %; Platelet Count 201 10^3/cmm (157-399); Red Blood Count 3.76 10^6/uL (3.85-5.65); Red Cell Distribution Width 21.8 % (12.1-15.1)
[2023-08-19 08:36] LABS: Alanine Aminotransferase 9 U/L (0-41); Albumin Level 3.6 g/dL (3.5-5.2); Alkaline Phosphatase 80 U/L (40-130); Anion Gap 11.6 (5-19); Aspartate Amino Transferase 12 U/L (0-40); Blood Urea Nitrogen 11 mg/dL (8-23); Calcium 8.3 mg/dL (8.5-10.5); Carbon Dioxide 26 mmol/L (22-29); Chloride 105 mmol/L (98-107); Globulin 3.1 g/dL (1.3-4.6); Glucose 142 mg/dL (65-115); Osmolality Calculated 290 mOsm/kg (285-295); Potassium 3.6 mmol/L (3.5-5.1); Sodium 139 mmol/L (136-145); Total Bilirubin 0.5 mg/dL (0.15-1.2); Total Protein 6.7 g/dL (6.6-8.7)
[2023-08-19] MEDS: fosaprepitant 150 MG in sodium chloride 0.9% 150 ML 300 MG IV (11:24)
[2023-08-19] MEDS: OLANZapine 5 mg TABLET 10 MG PO (11:24)
[2023-08-19] MEDS: sodium chloride 0.9% 250 ML 75 ML IV (11:24)
[2023-08-19 11:28] LABS: Specific Gravity, Urine 1.025 (1.005-1.030); Urine Appearance Cloudy (CLEAR); Urine Color Dark Yellow (Yellow); pH Urine 6 (5-7)
[2023-08-19 11:29] LABS: Bilirubin Urine Neg (Negative); Blood Urine 3+ (Negative); Glucose Urine UA Norm (Normal); Ketones Urine Negative (Negative); Leukocyte Esterase Urine 1+ (Negative); Nitrate Urine Positive (Negative); Protein Urine 2+ (Negative); Urobilinogen Urine Norm (Negative)
[2023-08-19 11:43] LABS: Bacteria Urine 2+ /hpf; Mucus Urine 2+ /hpf; RBC Urine >100 /hpf (0-2); WBC Urine 55-80 /hpf (0-5)
[2023-08-19 11:44] LABS: Add Urine Culture? Yes
[2023-08-19] MEDS: ipratropium-albuterol 3 mL Neb INHALATION (12:02)
[2023-08-19] MEDS: palonosetron 0.25 mg/5 mL SDV IVP (12:04)
[2023-08-19] MEDS: BEVACIZUMAB AWWB IV (12:38)
[2023-08-19] MEDS: [UNRECOGNIZED DRUG - OTHER] IV (12:38)
[2023-08-19] MEDS: atropine 1 mg/mL SDV 1 mL 0.400000000000000022 MG IV (13:11)
[2023-08-19] MEDS: leucovorin 980 MG in dextrose 5% 250 ML 166.669999999999987 MG IV (13:32)
[2023-08-19] MEDS: DEXTROSE 5% IV (13:32)
[2023-08-19] MEDS: IRINOTECAN IV (13:32)
[2023-08-19] MEDS: ELASTOMERIC PUMP PUMP IV (15:15)
[2023-08-19] MEDS: SODIUM CHLORIDE IV (15:15)
[2023-08-19] MEDS: FLUOROURACIL IV (15:15)
[2023-08-19 15:22] VITALS: BP 154/80; PULSE 68; RESP 16; TEMP 36.5; O2SAT 96
[2023-08-21 12:45] VITALS: BP 148/86; PULSE 80; RESP 17; TEMP 37.1; O2SAT 98
[2023-08-21] MEDS: pegfilgrastim 6 mg/0.6 mL Kit (onpro) SUBCUT (12:45)
== END 2023-08-21 23:59 | disposition home or self-care (01) ==
PROVIDERS: Nurse Practitioner Family; PCP Family Medicine; Visit Provider Internal Medicine Medical Oncology
DX: Z53.9 Procedure and treatment not carried out, unspecified reason (principal); D70.1 Agranulocytosis secondary to cancer chemotherapy; C18.7 Malignant neoplasm of sigmoid colon
CPT/HCPCS: 80053; 81001; 85025; 87077; 87086; 87186; 96367; 96368; 96375; 96377; 96413; 96415; 96417; 96523; 99214; J0461; J0640; J1100; J1453; J2469; J2506; J7050; J7060; J9190; J9206; Q5107

== ENCOUNTER 2023-09-04 14:15 | Oncology outpatient (recurring) (ONCR) | payer MEDICARE, OTHER, SELFPAY ==
[2023-09-02 08:38] LABS: Basophils % 0.4 %; Eosinophils # 0.2 10^3/uL (0.0-0.8); Hematocrit 36.8 % (37-53); Lymphocytes # 2.1 10^3/uL (0.8-4.8); Lymphocytes % 20.1 %; Mean Corpuscular HGB Conc 31.8 g/dL (30-55); Mean Corpuscular Hemoglobin 28.5 pg (27-33); Mean Corpuscular Volume 89.8 fl (82-101); Mean Platelet Volume 9.8 fL (7.4-10.4); Monocytes # 0.6 10^3/uL (0.2-0.9); Monocytes % 5.9 %; Neutrophils # 7.34 10^3/uL (1.8-7.7); Neutrophils % 68.9 %; Nucleated Red Blood Cells % 0.2 %; Platelet Count 173 10^3/cmm (157-399); Red Cell Distribution Width 21.4 % (12.1-15.1); White Blood Count 10.65 10^3/uL (3.29-11.43)
[2023-09-02 10:01] LABS: Carcinoembryonic Antigen 132.3 ng/mL (0.0-4.7)
[2023-09-02 10:12] LABS: Alanine Aminotransferase 11 U/L (0-41); Albumin Level 3.9 g/dL (3.5-5.2); Alkaline Phosphatase 113 U/L (40-130); Aspartate Amino Transferase 14 U/L (0-40); Blood Urea Nitrogen 17 mg/dL (8-23); Calcium 9.3 mg/dL (8.5-10.5); Carbon Dioxide 24 mmol/L (22-29); Chloride 100 mmol/L (98-107); Creatinine Clr Calc Pharmacy 98.5933; Globulin 3.1 g/dL (1.3-4.6); Glucose 103 mg/dL (65-115); Osmolality Calculated 286 mOsm/kg (285-295); Sodium 137 mmol/L (136-145); Total Bilirubin 0.3 mg/dL (0.15-1.2)
[2023-09-02 11:18] LABS: Add Urine Microscopic? YES; Bilirubin Urine Neg (Negative); Blood Urine 3+ (Negative); Glucose Urine UA Norm (Normal); Ketones Urine Negative (Negative); Leukocyte Esterase Urine Negative (Negative); Nitrate Urine Negative (Negative); Protein Urine 2+ (Negative); Urine Appearance SL Hazy (CLEAR); Urine Color Yellow (Yellow); Urobilinogen Urine Norm (Negative); pH Urine 5 (5-7)
[2023-09-02 11:21] LABS: Add Urine Culture? Yes; Mucus Urine 1+ /hpf; RBC Urine 40-50 /hpf (0-2); Squamous Epithelial Cell Urine 0-4 /hpf (0-5); WBC Urine 25-40 /hpf (0-5)
[2023-09-02] MEDS: sodium chloride 0.9% 250 ML 75 ML IV (11:39)
[2023-09-02] MEDS: OLANZapine 5 mg TABLET 10 MG PO (11:40)
[2023-09-02] MEDS: palonosetron 0.25 mg/5 mL SDV IVP (11:40)
[2023-09-02] MEDS: fosaprepitant 150 MG in sodium chloride 0.9% 50 ML, sodium chloride 0.9% (100 ml) 100 ML 300 MG IV (11:42)
[2023-09-02] MEDS: bevacizumab-awwb 400 MG, bevacizumab-awwb 160 MG in sodium chloride 0.9% (100 ml) 100 ML 250 MG IV (12:19)
[2023-09-02] MEDS: atropine 1 mg/mL SDV 1 mL 0.400000000000000022 MG IV (13:13)
[2023-09-02] MEDS: IRINOTECAN IV (13:31)
[2023-09-02] MEDS: DEXTROSE 5% IV (13:31)
[2023-09-02] MEDS: leucovorin 940 MG in dextrose 5% 250 ML 166.669999999999987 MG IV (13:32)
[2023-09-02] MEDS: SODIUM CHLORIDE IV (15:27)
[2023-09-02] MEDS: ELASTOMERIC PUMP PUMP IV (15:27)
[2023-09-02] MEDS: FLUOROURACIL IV (15:27)
[2023-09-02 15:35] VITALS: BP 155/80; PULSE 69; RESP 18; TEMP 36.4; O2SAT 95
[2023-09-04 12:30] VITALS: BP 138/91; PULSE 80; RESP 18; TEMP 36.1; O2SAT 96
[2023-09-04] MEDS: pegfilgrastim 6 mg/0.6 mL Kit (onpro) SUBCUT (12:32)
== END 2023-09-04 23:59 | disposition home or self-care (01) ==
PROVIDERS: Nurse Practitioner Family; PCP Family Medicine; Visit Provider Internal Medicine Medical Oncology
DX: D70.1 Agranulocytosis secondary to cancer chemotherapy (principal); Z53.9 Procedure and treatment not carried out, unspecified reason; C18.7 Malignant neoplasm of sigmoid colon
CPT/HCPCS: 80053; 81001; 82378; 85025; 87086; 96365; 96366; 96367; 96375; 96377; 96413; 96415; 96416; 96417; 96523; 99214; J0461; J0640; J1100; J1453; J2469; J2506; J7050; J7060; J9190; J9206; Q5107

== ENCOUNTER 2023-09-18 13:15 | Oncology outpatient (recurring) (ONCR) | payer MEDICARE, OTHER, SELFPAY ==
[2023-09-16 08:20] VITALS: BP 134/80; PULSE 76; RESP 16; TEMP 36.3; O2SAT 95
[2023-09-16 08:32] LABS: Basophils # 0.1 10^3/uL (0.0-0.1); Basophils % 0.5 %; Eosinophils # 0.2 10^3/uL (0.0-0.8); Eosinophils % 2.2 %; Hematocrit 37.6 % (37-53); Lymphocytes # 1.9 10^3/uL (0.8-4.8); Lymphocytes % 18.1 %; Mean Corpuscular HGB Conc 30.9 g/dL (30-55); Mean Corpuscular Hemoglobin 28.9 pg (27-33); Mean Corpuscular Volume 93.8 fl (82-101); Mean Platelet Volume 10.4 fL (7.4-10.4); Monocytes # 0.8 10^3/uL (0.2-0.9); Monocytes % 7.3 %; Neutrophils # 7.47 10^3/uL (1.8-7.7); Nucleated Red Blood Cells % 0 %; Platelet Count 185 10^3/cmm (157-399); Red Blood Count 4.01 10^6/uL (3.85-5.65); Red Cell Distribution Width 20.6 % (12.1-15.1); White Blood Count 10.53 10^3/uL (3.29-11.43)
[2023-09-16 08:56] LABS: Alanine Aminotransferase 9 U/L (0-41); Albumin Level 3.8 g/dL (3.5-5.2); Alkaline Phosphatase 120 U/L (40-130); Anion Gap 15.9 (5-19); Aspartate Amino Transferase 12 U/L (0-40); Blood Urea Nitrogen 17 mg/dL (8-23); Calcium 8.6 mg/dL (8.5-10.5); Carbon Dioxide 23 mmol/L (22-29); Chloride 105 mmol/L (98-107); Creatinine Clr Calc Pharmacy 80.0439; Globulin 2.9 g/dL (1.3-4.6); Glucose 92 mg/dL (65-115); Osmolality Calculated 291 mOsm/kg (285-295); Potassium 3.9 mmol/L (3.5-5.1); Sodium 140 mmol/L (136-145); Total Bilirubin 0.3 mg/dL (0.15-1.2); Total Protein 6.7 g/dL (6.6-8.7)
[2023-09-16] MEDS: fosaprepitant 150 MG in sodium chloride 0.9% 50 ML, sodium chloride 0.9% (100 ml) 100 ML 300 MG IV (10:47)
[2023-09-16] MEDS: OLANZapine 5 mg TABLET 10 MG PO (10:48)
[2023-09-16] MEDS: sodium chloride 0.9% 250 ML 75 ML IV (10:49)
[2023-09-16] MEDS: palonosetron 0.25 mg/5 mL SDV IVP (10:54)
[2023-09-16] MEDS: atropine 1 mg/mL SDV 1 mL 0.400000000000000022 MG IV (11:57)
[2023-09-16] MEDS: bevacizumab-awwb 400 MG, bevacizumab-awwb 160 MG in sodium chloride 0.9% (100 ml) 100 ML 244 MG IV (11:59)
[2023-09-16] MEDS: IRINOTECAN IV (12:58)
[2023-09-16] MEDS: DEXTROSE 5% IV (12:58)
[2023-09-16] MEDS: leucovorin 940 MG in dextrose 5% 250 ML 166.669999999999987 MG IV (12:58)
[2023-09-16 14:40] VITALS: BP 145/82; RESP 17; TEMP 36.3; O2SAT 96
[2023-09-16] MEDS: FLUOROURACIL IV (14:43)
[2023-09-16] MEDS: SODIUM CHLORIDE IV (14:43)
[2023-09-16] MEDS: ELASTOMERIC PUMP PUMP IV (14:43)
[2023-09-18] MEDS: pegfilgrastim 6 mg/0.6 mL Kit (onpro) SUBCUT (12:58)
== END 2023-09-18 23:59 | disposition home or self-care (01) ==
PROVIDERS: Nurse Practitioner Family; PCP Family Medicine; Visit Provider Internal Medicine Medical Oncology
DX: D70.1 Agranulocytosis secondary to cancer chemotherapy; Z53.9 Procedure and treatment not carried out, unspecified reason
CPT/HCPCS: 80053; 85025; 96367; 96368; 96375; 96377; 96413; 96415; 96416; 96417; 96523; J0461; J0640; J1100; J1453; J2469; J2506; J7050; J7060; J9190; J9206; Q5107

== ENCOUNTER 2023-10-02 13:30 | Oncology outpatient (recurring) (ONCR) | payer MEDICARE, OTHER, SELFPAY ==
[2023-09-30 09:03] LABS: Basophils % 0.5 %; Eosinophils # 0.2 10^3/uL (0.0-0.8); Eosinophils % 2.6 %; Lymphocytes # 1.9 10^3/uL (0.8-4.8); Lymphocytes % 21.9 %; Mean Corpuscular HGB Conc 31.4 g/dL (30-55); Mean Corpuscular Hemoglobin 29.3 pg (27-33); Mean Corpuscular Volume 93.4 fl (82-101); Mean Platelet Volume 9.8 fL (7.4-10.4); Monocytes # 0.6 10^3/uL (0.2-0.9); Monocytes % 6.8 %; Neutrophils # 5.78 10^3/uL (1.8-7.7); Neutrophils % 67.3 %; Nucleated Red Blood Cells % 0 %; Platelet Count 223 10^3/cmm (157-399); Red Blood Count 3.96 10^6/uL (3.85-5.65); Red Cell Distribution Width 18.9 % (12.1-15.1); White Blood Count 8.58 10^3/uL (3.29-11.43)
[2023-09-30 09:23] LABS: Alanine Aminotransferase 12 U/L (0-41); Alkaline Phosphatase 122 U/L (40-130); Anion Gap 12.7 (5-19); Aspartate Amino Transferase 14 U/L (0-40); Blood Urea Nitrogen 14 mg/dL (8-23); Calcium 8.1 mg/dL (8.5-10.5); Carbon Dioxide 25 mmol/L (22-29); Chloride 108 mmol/L (98-107); Glucose 109 mg/dL (65-115); Osmolality Calculated 295 mOsm/kg (285-295); Potassium 3.7 mmol/L (3.5-5.1); Sodium 142 mmol/L (136-145); Total Bilirubin 0.3 mg/dL (0.15-1.2)
[2023-09-30] MEDS: OLANZapine 5 mg TABLET 10 MG PO (11:23)
[2023-09-30] MEDS: sodium chloride 0.9% 250 ML 75 ML IV (11:37)
[2023-09-30] MEDS: fosaprepitant 150 MG in sodium chloride 0.9% 50 ML, sodium chloride 0.9% (100 ml) 100 ML 300 MG IV (11:37)
[2023-09-30] MEDS: palonosetron 0.25 mg/5 mL SDV IVP (11:40)
[2023-09-30 11:45] LABS: Urine Color Yellow (Yellow)
[2023-09-30 11:46] LABS: Add Urine Microscopic? YES; Bilirubin Urine Neg (Negative); Blood Urine 3+ (Negative); Glucose Urine UA Norm (Normal); Ketones Urine Negative (Negative); Leukocyte Esterase Urine 2+ (Negative); Nitrate Urine Positive (Negative); Protein Urine 3+ (Negative); Urine Appearance Cloudy (CLEAR); Urobilinogen Urine Norm (Negative); pH Urine 5 (5-7)
[2023-09-30 11:50] LABS: Add Urine Culture? Yes; Bacteria Urine 1+ /hpf; Mucus Urine 1+ /hpf; RBC Urine >100 /hpf (0-2); Squamous Epithelial Cell Urine 0-4 /hpf (0-5); WBC Urine TOO NUMEROUS TO CNT /hpf (0-5)
[2023-09-30] MEDS: atropine 1 mg/mL SDV 1 mL 0.400000000000000022 MG IV (12:58)
[2023-09-30] MEDS: bevacizumab-awwb 400 MG, bevacizumab-awwb 160 MG in sodium chloride 0.9% (100 ml) 100 ML 275 MG IV (12:58)
[2023-09-30] MEDS: leucovorin 940 MG in dextrose 5% 250 ML 166.669999999999987 MG IV (13:34)
[2023-09-30] MEDS: IRINOTECAN IV (13:35)
[2023-09-30] MEDS: DEXTROSE 5% IV (13:35)
[2023-09-30] MEDS: FLUOROURACIL IV (15:26)
[2023-09-30] MEDS: SODIUM CHLORIDE IV (15:26)
[2023-09-30] MEDS: ELASTOMERIC PUMP PUMP IV (15:26)
[2023-09-30 15:35] VITALS: BP 135/80; PULSE 60; RESP 18; TEMP 36; O2SAT 95
[2023-10-02] MEDS: pegfilgrastim 6 mg/0.6 mL Kit (onpro) SUBCUT (13:27)
== END 2023-10-02 23:59 | disposition home or self-care (01) ==
PROVIDERS: Nurse Practitioner Family; PCP Family Medicine; Visit Provider Internal Medicine Medical Oncology
DX: C18.7 Malignant neoplasm of sigmoid colon; D70.1 Agranulocytosis secondary to cancer chemotherapy; T45.1X5A Adverse effect of antineoplastic and immunosuppressive drugs, initial encounter; Z45.1 Encounter for adjustment and management of infusion pump; Z79.899 Other long term (current) drug therapy
CPT/HCPCS: 80053; 81001; 82378; 85025; 87077; 87086; 87186; 96365; 96366; 96367; 96375; 96377; 96413; 96415; 96416; 96417; 96523; 99214; J0461; J0640; J1100; J1453; J2469; J2506; J7050; J7060; J9190; J9206; Q5107

== ENCOUNTER 2023-10-16 12:00 | Oncology outpatient (recurring) (ONCR) | payer MEDICARE, OTHER, SELFPAY ==
[2023-10-14 08:19] LABS: Basophils # 0.1 10^3/uL (0.0-0.1); Basophils % 0.5 %; Eosinophils # 0.4 10^3/uL (0.0-0.8); Hematocrit 38.7 % (37-53); Lymphocytes # 2.3 10^3/uL (0.8-4.8); Lymphocytes % 18.9 %; Mean Corpuscular HGB Conc 31.8 g/dL (30-55); Mean Corpuscular Hemoglobin 29.6 pg (27-33); Mean Platelet Volume 10.5 fL (7.4-10.4); Monocytes % 7.7 %; Neutrophils # 8.19 10^3/uL (1.8-7.7); Nucleated Red Blood Cells % 0 %; Platelet Count 229 10^3/cmm (157-399); Red Blood Count 4.16 10^6/uL (3.85-5.65); Red Cell Distribution Width 18.1 % (12.1-15.1); White Blood Count 12.41 10^3/uL (3.29-11.43)
[2023-10-14 08:49] LABS: Carcinoembryonic Antigen 99.9 ng/mL (0.0-4.7)
[2023-10-14 09:00] LABS: Alanine Aminotransferase 11 U/L (0-41); Albumin Level 4.1 g/dL (3.5-5.2); Alkaline Phosphatase 135 U/L (40-130); Anion Gap 17.1 (5-19); Aspartate Amino Transferase 14 U/L (0-40); Blood Urea Nitrogen 21 mg/dL (8-23); Carbon Dioxide 23 mmol/L (22-29); Chloride 102 mmol/L (98-107); Globulin 2.9 g/dL (1.3-4.6); Glucose 99 mg/dL (65-115); Osmolality Calculated 289 mOsm/kg (285-295); Potassium 4.1 mmol/L (3.5-5.1); Sodium 138 mmol/L (136-145); Total Bilirubin 0.3 mg/dL (0.15-1.2)
[2023-10-14] MEDS: sodium chloride 0.9% 250 ML 75 ML IV (10:20)
[2023-10-14] MEDS: palonosetron 0.25 mg/5 mL SDV IVP (10:22)
[2023-10-14] MEDS: dexamethasone 4 mg/mL INJ 5 mL 12 MG IVP (10:25)
[2023-10-14] MEDS: OLANZapine 5 mg TABLET 10 MG PO (10:30)
[2023-10-14] MEDS: fosaprepitant 150 MG in sodium chloride 0.9% 50 ML, sodium chloride 0.9% (100 ml) 100 ML 300 MG IV (10:34)
[2023-10-14] MEDS: bevacizumab-awwb 400 MG, bevacizumab-awwb 160 MG in sodium chloride 0.9% (100 ml) 100 ML 260 MG IV (11:19)
[2023-10-14] MEDS: atropine 1 mg/mL SDV 1 mL 0.400000000000000022 MG IV (11:55)
[2023-10-14] MEDS: DEXTROSE 5% IV (12:21)
[2023-10-14] MEDS: IRINOTECAN IV (12:21)
[2023-10-14] MEDS: leucovorin 940 MG in dextrose 5% 250 ML 166.669999999999987 MG IV (12:21)
[2023-10-14 14:01] VITALS: BP 132/76; PULSE 66; RESP 17; TEMP 36.4; O2SAT 97
[2023-10-14] MEDS: FLUOROURACIL IV (14:05)
[2023-10-14] MEDS: ELASTOMERIC PUMP PUMP IV (14:05)
[2023-10-14] MEDS: SODIUM CHLORIDE IV (14:05)
[2023-10-16 11:55] VITALS: BP 135/82; PULSE 81; RESP 18; TEMP 37.1; O2SAT 97
[2023-10-16] MEDS: pegfilgrastim 6 mg/0.6 mL Kit (onpro) SUBCUT (12:06)
== END 2023-10-16 23:59 | disposition home or self-care (01) ==
PROVIDERS: Nurse Practitioner Family; PCP Family Medicine; Visit Provider Internal Medicine Medical Oncology
DX: D70.1 Agranulocytosis secondary to cancer chemotherapy; Z53.9 Procedure and treatment not carried out, unspecified reason
CPT/HCPCS: 80053; 82378; 85025; 96367; 96375; 96377; 96413; 96415; 96416; 96417; 96523; 99214; J0461; J0640; J1100; J1453; J2469; J2506; J7050; J7060; J9190; J9206; Q5107

== ENCOUNTER 2023-10-31 11:00 | Oncology outpatient (recurring) (ONCR) | payer MEDICARE, OTHER, SELFPAY ==
[2023-10-28 08:22] LABS: Basophils # 0.1 10^3/uL (0.0-0.1); Basophils % 0.5 %; Eosinophils # 0.2 10^3/uL (0.0-0.8); Eosinophils % 1.7 %; Hematocrit 38.2 % (37-53); Lymphocytes % 18.5 %; Mean Corpuscular HGB Conc 31.9 g/dL (30-55); Mean Corpuscular Volume 94.1 fl (82-101); Monocytes # 0.7 10^3/uL (0.2-0.9); Monocytes % 6.6 %; Neutrophils # 7.48 10^3/uL (1.8-7.7); Neutrophils % 70.4 %; Nucleated Red Blood Cells % 0 %; Platelet Count 205 10^3/cmm (157-399); Red Blood Count 4.06 10^6/uL (3.85-5.65); Red Cell Distribution Width 17.8 % (12.1-15.1); White Blood Count 10.62 10^3/uL (3.29-11.43)
[2023-10-28 08:46] LABS: Alanine Aminotransferase 23 U/L (0-41); Albumin Level 3.9 g/dL (3.5-5.2); Alkaline Phosphatase 138 U/L (40-130); Aspartate Amino Transferase 19 U/L (0-40); Blood Urea Nitrogen 14 mg/dL (8-23); Calcium 8.8 mg/dL (8.5-10.5); Carbon Dioxide 25 mmol/L (22-29); Chloride 104 mmol/L (98-107); Globulin 2.8 g/dL (1.3-4.6); Glucose 102 mg/dL (65-115); Osmolality Calculated 293 mOsm/kg (285-295); Sodium 141 mmol/L (136-145); Total Bilirubin 0.3 mg/dL (0.15-1.2); Total Protein 6.7 g/dL (6.6-8.7)
[2023-10-28 08:50] LABS: Anion Gap 15.7 (5-19); Potassium 3.7 mmol/L (3.5-5.1)
[2023-10-29 08:08] VITALS: BP 138/82; PULSE 78; RESP 18; TEMP 37; O2SAT 95; BMI 29.9
[2023-10-29] MEDS: sodium chloride 0.9% 250 ML 75 ML IV (08:41)
[2023-10-29] MEDS: OLANZapine 5 mg TABLET 10 MG PO (08:42)
[2023-10-29] MEDS: palonosetron 0.25 mg/5 mL SDV IVP (08:43)
[2023-10-29] MEDS: dexamethasone 4 mg/mL INJ 5 mL 12 MG IV (08:45)
[2023-10-29] MEDS: fosaprepitant 150 MG in sodium chloride 0.9% 50 ML, sodium chloride 0.9% (100 ml) 100 ML 300 MG IV (08:57)
[2023-10-29] MEDS: SODIUM CHLORIDE 0.9% IV (09:47)
[2023-10-29] MEDS: BEVACIZUMAB AWWB IV (09:47)
[2023-10-29] MEDS: atropine 1 mg/mL SDV 1 mL 0.400000000000000022 MG IV (10:39)
[2023-10-29] MEDS: DEXTROSE 5% IV (10:53)
[2023-10-29] MEDS: leucovorin 940 MG in dextrose 5% 250 ML 166.669999999999987 MG IV (10:53)
[2023-10-29] MEDS: IRINOTECAN IV (10:53)
[2023-10-29] MEDS: FLUOROURACIL IV (12:39)
[2023-10-29] MEDS: ELASTOMERIC PUMP PUMP IV (12:39)
[2023-10-29] MEDS: SODIUM CHLORIDE IV (12:39)
[2023-10-29 12:44] VITALS: BP 137/79; PULSE 64; O2SAT 93
[2023-10-31] MEDS: pegfilgrastim 6 mg/0.6 mL Kit (onpro) SUBCUT (11:25)
[2023-10-31 11:39] VITALS: BP 122/73; PULSE 90; RESP 17; TEMP 36.8; O2SAT 95
== END 2023-10-31 23:59 | disposition home or self-care (01) ==
PROVIDERS: PCP Family Medicine; Visit Provider Internal Medicine Medical Oncology
DX: C18.7 Malignant neoplasm of sigmoid colon; Z53.9 Procedure and treatment not carried out, unspecified reason; Z45.2 Encounter for adjustment and management of vascular access device; D70.1 Agranulocytosis secondary to cancer chemotherapy; T45.1X5A Adverse effect of antineoplastic and immunosuppressive drugs, initial encounter; Z79.899 Other long term (current) drug therapy
CPT/HCPCS: 80053; 85025; 96367; 96368; 96375; 96377; 96413; 96415; 96416; 96417; 96523; 99214; J0461; J0640; J1100; J1453; J2469; J2506; J7050; J7060; J9190; J9206; Q5107

== ENCOUNTER 2023-11-25 07:37 | Oncology outpatient (recurring) (ONCR) | payer MEDICARE, OTHER, SELFPAY ==
[2023-11-25 08:00] LABS: Basophils # 0.1 10^3/uL (0.0-0.1); Basophils % 0.5 %; Eosinophils # 0.5 10^3/uL (0.0-0.8); Eosinophils % 3.5 %; Hematocrit 40.5 % (37-53); Lymphocytes # 2.3 10^3/uL (0.8-4.8); Lymphocytes % 17.9 %; Mean Corpuscular HGB Conc 31.6 g/dL (30-55); Mean Corpuscular Hemoglobin 29.4 pg (27-33); Mean Corpuscular Volume 92.9 fl (82-101); Mean Platelet Volume 10.5 fL (7.4-10.4); Monocytes # 0.9 10^3/uL (0.2-0.9); Monocytes % 6.7 %; Neutrophils % 70.9 %; Nucleated Red Blood Cells % 0 %; Platelet Count 228 10^3/cmm (157-399); Red Blood Count 4.36 10^6/uL (3.85-5.65); Red Cell Distribution Width 17.3 % (12.1-15.1); White Blood Count 12.99 10^3/uL (3.29-11.43)
[2023-11-25 08:35] LABS: Carcinoembryonic Antigen 152.8 ng/mL (0.0-4.7)
[2023-11-25 08:47] LABS: Alanine Aminotransferase 14 U/L (0-41); Albumin Level 3.8 g/dL (3.5-5.2); Alkaline Phosphatase 93 U/L (40-130); Anion Gap 16.3 (5-19); Aspartate Amino Transferase 15 U/L (0-40); Blood Urea Nitrogen 22 mg/dL (8-23); Calcium 8.5 mg/dL (8.5-10.5); Carbon Dioxide 22 mmol/L (22-29); Chloride 109 mmol/L (98-107); Globulin 2.9 g/dL (1.3-4.6); Glucose 102 mg/dL (65-115); Osmolality Calculated 300 mOsm/kg (285-295); Potassium 4.3 mmol/L (3.5-5.1); Sodium 143 mmol/L (136-145); Total Bilirubin 0.4 mg/dL (0.15-1.2); Total Protein 6.7 g/dL (6.6-8.7)
[2023-11-25] MEDS: fosaprepitant 150 MG in sodium chloride 0.9% 50 ML, sodium chloride 0.9% (100 ml) 100 ML 300 MG IV (10:00)
[2023-11-25] MEDS: sodium chloride 0.9% 250 ML 75 ML IV (10:04)
[2023-11-25] MEDS: OLANZapine 5 mg TABLET 10 MG PO (10:08)
[2023-11-25] MEDS: dexamethasone 4 mg/mL INJ 5 mL 12 MG IVP (10:48)
[2023-11-25] MEDS: palonosetron 0.25 mg/5 mL SDV IVP (10:58)
[2023-11-25] MEDS: [UNRECOGNIZED DRUG - OTHER] IV (11:01)
[2023-11-25] MEDS: BEVACIZUMAB AWWB IV (11:01)
[2023-11-25] MEDS: atropine 1 mg/mL SDV 1 mL 0.4 MG IV (11:46)
[2023-11-25] MEDS: dextrose 5% 250 ML 75 ML IV (11:48)
[2023-11-25] MEDS: DEXTROSE 5% IV (11:52)
[2023-11-25] MEDS: leucovorin 940 MG in dextrose 5% 250 ML 166.67 MG IV (11:52)
[2023-11-25] MEDS: IRINOTECAN IV (11:52)
[2023-11-25] MEDS: SODIUM CHLORIDE IV (13:43)
[2023-11-25] MEDS: ELASTOMERIC PUMP PUMP IV (13:43)
[2023-11-25] MEDS: FLUOROURACIL IV (13:43)
[2023-11-25 14:15] VITALS: BP 151/91; PULSE 74; RESP 17; TEMP 36.6; O2SAT 98
== END 2023-11-26 23:59 | disposition home or self-care (01) ==
PROVIDERS: PCP Family Medicine; Visit Provider Internal Medicine Medical Oncology
DX: Z51.11 Encounter for antineoplastic chemotherapy; C18.7 Malignant neoplasm of sigmoid colon; Z51.12 Encounter for antineoplastic immunotherapy; Z79.899 Other long term (current) drug therapy; Z79.52 Long term (current) use of systemic steroids; Z79.630 Long term (current) use of alkylating agent; Z79.631 Long term (current) use of antimetabolite agent; Z87.891 Personal history of nicotine dependence; Z79.891 Long term (current) use of opiate analgesic
CPT/HCPCS: 80053; 82378; 85025; 96367; 96375; 96413; 96415; 96416; 96417; 99214; J0461; J0640; J1100; J1453; J2469; J7050; J7060; J9190; J9206; Q5107

== ENCOUNTER 2023-12-09 07:33 | Oncology outpatient (recurring) (ONCR) | payer MEDICARE, OTHER, SELFPAY ==
[2023-11-27] MEDS: pegfilgrastim 6 mg/0.6 mL Kit (onpro) SUBCUT (12:29)
[2023-11-27 12:39] VITALS: BP 136/78; PULSE 80; RESP 16; TEMP 36.2
[2023-12-09 07:53] LABS: Basophils % 0.3 %; Eosinophils # 0.7 10^3/uL (0.0-0.8); Eosinophils % 6.8 %; Hematocrit 34.9 % (37-53); Lymphocytes # 1.9 10^3/uL (0.8-4.8); Lymphocytes % 18.3 %; Mean Corpuscular HGB Conc 32.1 g/dL (30-55); Mean Corpuscular Hemoglobin 29.6 pg (27-33); Mean Corpuscular Volume 92.1 fl (82-101); Mean Platelet Volume 10.1 fL (7.4-10.4); Monocytes # 0.7 10^3/uL (0.2-0.9); Monocytes % 6.4 %; Neutrophils # 6.89 10^3/uL (1.8-7.7); Neutrophils % 67.3 %; Nucleated Red Blood Cells % 0 %; Platelet Count 182 10^3/cmm (157-399); Red Blood Count 3.79 10^6/uL (3.85-5.65); Red Cell Distribution Width 16.4 % (12.1-15.1); White Blood Count 10.24 10^3/uL (3.29-11.43)
[2023-12-09 08:28] LABS: Alanine Aminotransferase 19 U/L (0-41); Albumin Level 3.7 g/dL (3.5-5.2); Alkaline Phosphatase 159 U/L (40-130); Anion Gap 13.4 (5-19); Aspartate Amino Transferase 17 U/L (0-40); Blood Urea Nitrogen 10 mg/dL (8-23); Calcium 8.4 mg/dL (8.5-10.5); Carbon Dioxide 23 mmol/L (22-29); Chloride 106 mmol/L (98-107); Globulin 3.1 g/dL (1.3-4.6); Glucose 115 mg/dL (65-115); Osmolality Calculated 288 mOsm/kg (285-295); Potassium 3.4 mmol/L (3.5-5.1); Sodium 139 mmol/L (136-145); Total Bilirubin 0.3 mg/dL (0.15-1.2); Total Protein 6.8 g/dL (6.6-8.7)
[2023-12-09] MEDS: OLANZapine 5 mg TABLET 10 MG PO (09:54)
[2023-12-09] MEDS: sodium chloride 0.9% 250 ML 75 ML IV (09:55)
[2023-12-09] MEDS: palonosetron 0.25 mg/5 mL SDV IVP (09:56)
[2023-12-09] MEDS: dexamethasone 4 mg/mL INJ 5 mL 12 MG IVP (09:58)
[2023-12-09] MEDS: fosaprepitant 150 MG in sodium chloride 0.9% 50 ML, sodium chloride 0.9% (100 ml) 100 ML 300 MG IV (10:03)
[2023-12-09] MEDS: bevacizumab-awwb 400 MG, bevacizumab-awwb 120 MG in sodium chloride 0.9% (100 ml) 100 ML 240 MG IV (11:12)
[2023-12-09] MEDS: dextrose 5% 250 ML 75 ML IV (11:51)
[2023-12-09] MEDS: atropine 1 mg/mL SDV 1 mL 0.4 MG IV (11:52)
[2023-12-09] MEDS: DEXTROSE 5% IV (12:04)
[2023-12-09] MEDS: IRINOTECAN IV (12:04)
[2023-12-09] MEDS: leucovorin 920 MG in dextrose 5% 250 ML 166.67 MG IV (12:05)
[2023-12-09] MEDS: SODIUM CHLORIDE IV (14:03)
[2023-12-09] MEDS: ELASTOMERIC PUMP PUMP IV (14:03)
[2023-12-09] MEDS: FLUOROURACIL IV (14:03)
[2023-12-09 16:04] VITALS: BP 151/78; PULSE 84; RESP 18; TEMP 36.6; O2SAT 98
== END 2023-12-09 23:59 | disposition home or self-care (01) ==
PROVIDERS: PCP Family Medicine; Visit Provider Internal Medicine Medical Oncology
DX: Z53.9 Procedure and treatment not carried out, unspecified reason (principal); Z51.11 Encounter for antineoplastic chemotherapy; C18.7 Malignant neoplasm of sigmoid colon; Z79.899 Other long term (current) drug therapy; Z79.52 Long term (current) use of systemic steroids; Z51.12 Encounter for antineoplastic immunotherapy; D70.1 Agranulocytosis secondary to cancer chemotherapy; T45.1X5A Adverse effect of antineoplastic and immunosuppressive drugs, initial encounter; X58.XXXA Exposure to other specified factors, initial encounter
CPT/HCPCS: 80053; 82378; 85025; 96365; 96366; 96367; 96375; 96377; 96413; 96415; 96416; 96417; 96523; 99214; J0461; J0640; J1100; J1453; J2469; J2506; J7050; J7060; J9190; J9206; Q5107

== ENCOUNTER 2023-12-23 07:30 | Oncology outpatient (recurring) (ONCR) | payer MEDICARE, OTHER, SELFPAY ==
[2023-12-11 10:15] VITALS: BP 169/95; PULSE 92; TEMP 36.6; O2SAT 98
[2023-12-11] MEDS: pegfilgrastim 6 mg/0.6 mL Kit (onpro) SUBCUT (10:18)
[2023-12-23 07:53] LABS: Basophils % 0.3 %; Eosinophils # 0.1 10^3/uL (0.0-0.8); Eosinophils % 0.7 %; Hematocrit 32.3 % (37-53); Lymphocytes # 2.2 10^3/uL (0.8-4.8); Lymphocytes % 17.7 %; Mean Corpuscular HGB Conc 31.6 g/dL (30-55); Mean Corpuscular Hemoglobin 28.9 pg (27-33); Mean Corpuscular Volume 91.5 fl (82-101); Mean Platelet Volume 9.6 fL (7.4-10.4); Monocytes # 0.8 10^3/uL (0.2-0.9); Monocytes % 6.5 %; Neutrophils # 9.27 10^3/uL (1.8-7.7); Neutrophils % 73.8 %; Nucleated Red Blood Cells % 0 %; Platelet Count 329 10^3/cmm (157-399); Red Blood Count 3.53 10^6/uL (3.85-5.65); Red Cell Distribution Width 15.9 % (12.1-15.1); White Blood Count 12.58 10^3/uL (3.29-11.43)
[2023-12-23 08:19] LABS: Carcinoembryonic Antigen 98.5 ng/mL (0.0-4.7)
[2023-12-23 08:30] LABS: Alanine Aminotransferase 22 U/L (0-41); Albumin Level 3.4 g/dL (3.5-5.2); Alkaline Phosphatase 168 U/L (40-130); Anion Gap 14.3 (5-19); Aspartate Amino Transferase 12 U/L (0-40); Blood Urea Nitrogen 19 mg/dL (8-23); Calcium 8.4 mg/dL (8.5-10.5); Carbon Dioxide 23 mmol/L (22-29); Chloride 105 mmol/L (98-107); Globulin 3.2 g/dL (1.3-4.6); Glucose 116 mg/dL (65-115); Osmolality Calculated 291 mOsm/kg (285-295); Potassium 3.3 mmol/L (3.5-5.1); Sodium 139 mmol/L (136-145); Total Bilirubin 0.3 mg/dL (0.15-1.2); Total Protein 6.6 g/dL (6.6-8.7)
== END 2023-12-27 23:59 | disposition home or self-care (01) ==
PROVIDERS: PCP Family Medicine; Visit Provider Internal Medicine Medical Oncology
DX: Z53.9 Procedure and treatment not carried out, unspecified reason (principal); C18.7 Malignant neoplasm of sigmoid colon; D70.1 Agranulocytosis secondary to cancer chemotherapy; T45.1X5A Adverse effect of antineoplastic and immunosuppressive drugs, initial encounter; X58.XXXA Exposure to other specified factors, initial encounter
CPT/HCPCS: 80053; 82378; 85025; 96377; 96523; 99214; J2506

== ENCOUNTER 2024-01-06 11:00 | Oncology outpatient (recurring) (ONCR) | payer MEDICARE, OTHER, SELFPAY ==
[2023-12-30 09:28] LABS: Basophils % 0.2 %; Eosinophils % 0.2 %; Hematocrit 33.8 % (37-53); Lymphocytes # 2.4 10^3/uL (0.8-4.8); Mean Corpuscular HGB Conc 31.1 g/dL (30-55); Mean Corpuscular Hemoglobin 28.2 pg (27-33); Mean Corpuscular Volume 90.6 fl (82-101); Mean Platelet Volume 9.9 fL (7.4-10.4); Neutrophils # 12.53 10^3/uL (1.8-7.7); Neutrophils % 77.7 %; Nucleated Red Blood Cells % 0 %; Platelet Count 272 10^3/cmm (157-399); Red Blood Count 3.73 10^6/uL (3.85-5.65); Red Cell Distribution Width 16.5 % (12.1-15.1); White Blood Count 16.12 10^3/uL (3.29-11.43)
[2023-12-30 09:36] LABS: Charge for UA Resulting for Rev
[2023-12-30 09:48] LABS: Bilirubin Urine Negative (Negative); Blood Urine 3+ (Negative); Glucose Urine UA Negative (Normal); Ketones Urine Negative (Negative); Leukocyte Esterase Urine 2+ (Negative); Nitrate Urine Positive (Negative); Protein Urine 3+ (Negative); Specific Gravity, Urine 1.018 (1.005-1.030); Urine Appearance Cloudy (CLEAR); Urine Color Yellow (Yellow)
[2023-12-30 09:56] LABS: Alanine Aminotransferase 14 U/L (0-41); Albumin Level 3.5 g/dL (3.5-5.2); Alkaline Phosphatase 118 U/L (40-130); Anion Gap 15.5 (5-19); Aspartate Amino Transferase 13 U/L (0-40); Blood Urea Nitrogen 14 mg/dL (8-23); Calcium 8.8 mg/dL (8.5-10.5); Carbon Dioxide 24 mmol/L (22-29); Chloride 105 mmol/L (98-107); Globulin 3.2 g/dL (1.3-4.6); Glucose 111 mg/dL (65-115); Osmolality Calculated 293 mOsm/kg (285-295); Potassium 3.5 mmol/L (3.5-5.1); Sodium 141 mmol/L (136-145); Total Bilirubin 0.5 mg/dL (0.15-1.2); Total Protein 6.7 g/dL (6.6-8.7)
[2023-12-30 10:13] LABS: UA Manual Slide Review YES; UA Slide Review UA Slide Review Perf
[2023-12-30 10:16] LABS: Add Urine Culture? Yes; Bacteria Urine 2+ /hpf; Oval Fat Bodies Urine 1+ /hpf; RBC Urine >100 /hpf (0-2); WBC Urine >100 /hpf (0-5)
[2023-12-30] MEDS: sodium chloride 0.9% 500 ML 999 ML IV (10:56)
[2024-01-06 08:11] LABS: Basophils % 0.2 %; Eosinophils # 0.1 10^3/uL (0.0-0.8); Eosinophils % 0.8 %; Hematocrit 35.2 % (37-53); Lymphocytes # 2.8 10^3/uL (0.8-4.8); Lymphocytes % 22.1 %; Mean Corpuscular HGB Conc 30.7 g/dL (30-55); Mean Corpuscular Hemoglobin 27.4 pg (27-33); Mean Corpuscular Volume 89.3 fl (82-101); Mean Platelet Volume 9.9 fL (7.4-10.4); Monocytes # 1.3 10^3/uL (0.2-0.9); Monocytes % 10.5 %; Neutrophils # 8.25 10^3/uL (1.8-7.7); Neutrophils % 65.8 %; Nucleated Red Blood Cells % 0 %; Platelet Count 417 10^3/cmm (157-399); Red Blood Count 3.94 10^6/uL (3.85-5.65); Red Cell Distribution Width 16.6 % (12.1-15.1); White Blood Count 12.53 10^3/uL (3.29-11.43)
[2024-01-06 08:11] LABS: Bilirubin Urine 1+ (Negative); Blood Urine 3+ (Negative); Glucose Urine UA Negative (Normal); Ketones Urine Negative (Negative); Leukocyte Esterase Urine 2+ (Negative); Nitrate Urine Positive (Negative); Protein Urine 3+ (Negative); Specific Gravity, Urine 1.021 (1.005-1.030); Urine Appearance Turbid (CLEAR); pH Urine 5.5 (5-7)
[2024-01-06 08:16] LABS: Bacteria Urine 3+ /hpf; Hyaline Casts Urine 12.73 /lpf; RBC Urine >100 /hpf (0-2); Squamous Epithelial Cell Urine 0-5 /hpf (0-5); WBC Urine >100 /hpf (0-5)
[2024-01-06 08:59] LABS: Alanine Aminotransferase 14 U/L (0-41); Albumin Level 3.2 g/dL (3.5-5.2); Alkaline Phosphatase 126 U/L (40-130); Aspartate Amino Transferase 14 U/L (0-40); Blood Urea Nitrogen 12 mg/dL (8-23); Carbon Dioxide 26 mmol/L (22-29); Chloride 96 mmol/L (98-107); Globulin 3.6 g/dL (1.3-4.6); Glucose 129 mg/dL (65-115); Osmolality Calculated 283 mOsm/kg (285-295); Sodium 136 mmol/L (136-145); Total Bilirubin 0.8 mg/dL (0.15-1.2); Total Protein 6.8 g/dL (6.6-8.7)
[2024-01-06 09:02] LABS: Urine Color Orange (Yellow)
[2024-01-06 09:05] LABS: Add Urine Culture? Yes; Oval Fat Bodies Urine 1+ /hpf
[2024-01-06 09:05] LABS: Creatinine Clr Calc Pharmacy 57.0545
--- NOTE | 2024-01-06 09:34 | XRR_ITS ---
PROCEDURE INFORMATION: Exam: XR Abdomen Exam date and time: 01/06/2024 9:57 AM Age: 73 years old Clinical indication: Prior surgery; Surgery date: 6+ months; Surgery type: Colon, ostomy; Patient HX: Colon cancer, L ostomy, constipation x 4 days; Additional info: No passage of stool through ostomy in 3 days TECHNIQUE: Imaging protocol: Radiologic exam of the abdomen. Views: 2 Views. Upright and supine views. COMPARISON: CT chest abdpel w/*[id number] 08/07/2023 1:04 PM FINDINGS: Pleural spaces: Small bilateral pleural effusions. Gastrointestinal tract: Gas fluid levels in multiple loops of prominent upper abdominal small bowel could represent either ileus or obstruction. Colonic fecal material is present and gas is present within colon. Intraperitoneal space: Normal. No free air. Bones/joints: Unremarkable for age. XR/XR abdomen 3V [id number] IMPRESSION: Gas fluid levels in mildly dilated loops of small bowel, ileus versus obstruction.
[2024-01-06] MEDS: iohexol 350 mg/mL 500 mL Btl (per mL) IV (10:25)
[2024-01-06] MEDS: sodium chloride 0.9% 1,000 ML 999 ML IV (10:57)
--- NOTE | 2024-01-06 11:00 | CT_ITS ---
WS: [id number] CT ABDOMEN AND PELVIS WITH CONTRAST HISTORY: colon cancer TECHNIQUE: Imaging performed of the abdomen and pelvis with IV contrast. Single phase imaging of the abdomen. Coronal and sagittal reformats are submitted. All CT scans at [facility] use at [facility] [facility] one of these dose optimization techniques: automated exposure control; mA and/or kV adjustment per patient size (includes targeted exams where dose is matched to clinical indication); or iterative re construction. IV CONTRAST: Omnipaque 350; 100 mL IV. Oral contrast: No DLP: 710.73 mGy.cm COMPARISON: 05/08/2023, 08/07/2023 Lower thorax: Numerous subcentimeter pulmonary nodules are noted at the lung bases. Majority of these nodules have been present in the past. Some of these nodules do appear to be new or increased in siz e. Nodules remain very small. New LEFT distal paraesophageal fluid. Patient has a large hiatal hernia . Heart is normal size. Small bilateral pleural effusions are new. There is slight nodularity along t he surface of the pleural effusions. Increasing ascites within the abdomen and pelvis. Omental carcinomatosis has also slightly progressed . Progressive thickening and nodularity along the midline incision. The solid mass with cystic compon ent centered within the anterior pelvis has progressed in size and nodularity. Mass measures 12.9 x 7 .8 cm. There is new solid nodular component. This mass is contiguous through the RIGHT anterior abdom inal wall with soft tissue extending to the urinary bladder. There is marked soft tissue thickening o f the urinary bladder measuring up to 2.7 cm which is progressed. There is abnormal soft tissue thick ening of the adjacent small bowel loops within the pelvis suggesting progression of tumor between the urinary bladder and GI tract and abdominal wall. Abnormal RIGHT kidney. Progression of renal obstruction with soft tissue mass infiltrating the renal pelvis and the kidney. Mass extends along the ureter. The ureter is markedly dilated to the level of the mass in the pelvis. Delayed excretion from the RIGHT kidney. Additional bilateral renal masses. S ome of these are cysts. Others may be complex cysts or neoplasms. Gallbladder slightly hydropic. There is fluid adjacent to the gallbladder but no wall thickening. Sof t tissue metastatic deposits are noted within the mesentery and pelvis. Status post sigmoidectomy. The LEFT lower quadrant colostomy site is identified. The colon is collaps ed at the colostomy site. The more proximal colon is distended with fecal material and air. Soft tiss ue enhancement involving the RIGHT colon probably representing contiguous infiltration of tumor and p ossible metastatic deposits fluid encasing several of the small bowel loops in the LEFT pelvis. Bones: Mixed lytic and sclerotic changes in L4. CT/CT abdomen pelvis w con* [id number] IMPRESSION: 1. Moderate progression of tumor involvement centered within the pelvis. There has been a progression of the tumor centered in the anterior pelvis with liliana guous extension through the RIGHT lateral abdominal wall to the bladder and GI tract. 2. New tumor infiltration of the RIGHT kidney with decreased excretion. There is marked dilatation of the RIGHT ureter and pelvis. Suspect tumor infiltration along the ureter into the renal pelvis. The RIGHT ureter is being obscured by the mass in the RIGHT pelvis. 3. New mesenteric deposits within the central mesentery and pelvis. 4. New but small bilateral pleural effusions and possible pleural nodules. 5. There are numerous small nodules at the lung bases. Most of these have been present in the past but appears slightly more prominent. 6. Progression of omental carcinomatosis. 7. New ascites. 8. Collapsed distal colon at the ostomy site. Site of obstruction is not appar ent. There are numerous soft tissue nodularities consistent with mesenteric dep osits involving the small bowel and remaining colon.
[2024-01-06 11:22] LABS: Carcinoembryonic Antigen 129.8 ng/mL (0.0-4.7)
== END 2024-01-26 23:59 | disposition home or self-care (01) ==
LOC: RAD 01-07 → ONCMED 01-12 06:52
PROVIDERS: Nurse Practitioner Family; PCP Family Medicine; Visit Provider Internal Medicine Medical Oncology
DX: Z53.9 Procedure and treatment not carried out, unspecified reason (principal); C18.7 Malignant neoplasm of sigmoid colon; R30.9 Painful micturition, unspecified; Z79.899 Other long term (current) drug therapy
CPT/HCPCS: 36591; 74021; 74177; 80053; 81001; 81003; 81015; 82378; 85025; 87077; 87086; 87186; 96360; 99214; J7030; J7040

== ENCOUNTER 2024-01-15 09:31 | Emergency (ER) | payer MEDICARE, OTHER, SELFPAY ==
[2024-01-15 10:24] VITALS: BP 150/72; PULSE 103; RESP 18; TEMP 36.7; O2SAT 93; BMI 26.9
[2024-01-15 11:26] VITALS: BP 142/71; PULSE 96; RESP 19; O2SAT 91
[2024-01-15 11:48] VITALS: BP 148/87; PULSE 99; RESP 18; O2SAT 91
--- NOTE | 2024-01-15 12:38 | ED_ITS ---
HPI - Nausea/Vomiting/Diarrhea General: Chief complaint: Nausea/Vomiting/Diarrhea Stated complaint: Dr. Curiel sent--stomach pump Time Seen by Provider: 01/15/24 09:33 History of Present Illness: 73-year-old male with a history of end-s tage malignant colon cancer who had had an ostomy but now has even further obstruction. He has been vomiting. He was seen by Dr. Curiel in clinic today and was sent to the emergency room with the hopes of having a PEG tube placed to help decompress his abdomen palliatively. They are wanting to be on hospice care. On exam he appears ill but is not in distress with pain at this point. He has some distention of his abdomen mild diffuse tenderness. Related Data Home Medications Medication Instructions Recorded Confirmed ibuprofen 200 mg tablet 600 mg PO Q6H PRN Pain 07/01/23 01/15/24 loratadine 10 mg tablet 10 mg PO DAILY PRN allergies 07/22/23 01/15/24 tamsulosin 0.4 mg capsule 0.4 mg PO BID 01/15/24 01/15/24 Previous Rx's Medication Instructions Recorded lorazepam 1 mg tablet 0.5 - 1 mg (0.5 - 1 x 1 mg) PO Q6H 05/21/23 PRN Severe Nausea #30 tabs amlodipine 10 mg tablet 10 mg PO DAILY #30 tabs 06/18/23 albuterol sulfate 90 mcg/actuation 2 inh inhalation Q4H PRN shortness 08/05/23 aerosol inhaler of breath or wheezing #8.5 grams methenamine hippurate 1 gram tablet 1 g PO BID #60 tabs 10/03/23 alprazolam 0.5 mg tablet (Xanax) 0.5 mg PO TID PRN anxiety #90 tabs 10/14/23 metoclopramide HCl 10 mg tablet 10 mg PO Q8H nausea and vomiting 12/09/23 (Reglan) #90 tabs encorafenib 75 mg capsule 300 mg (4 x 75 mg) PO DAILY #120 01/07/24 caps oxycodone 10 mg tablet 20 mg (2 x 10 mg) PO QID PRN pain 01/08/24 30 days #120 tabs Allergies Allergy/AdvReac Type Severity Reaction Status Date / Time lisinopril Allergy Severe angioedema Verified 01/06/24 08:56 Penicillins Allergy Intermediate ADR-Itching Verified 01/06/24 08:56 Review of Systems Narrative: Constitutional symptoms: Negative except as documented in HPI. Skin symptoms: Negative except as documented in HPI. Eye symptoms: Negative except as documented in HPI. ENMT symptoms: Negative except as documented in HPI. Respiratory symptoms: Negative except as documented in HPI. Cardiovascular symptoms: Negative except as documented in HPI. Gastrointestinal symptoms: Negative except as documented in HPI. Genitourinary symptoms: Negative except as documented in HPI. Musculoskeletal symptoms: Negative except as documented in HPI. Neurologic symptoms: Negative except as documented in HPI. Psychiatric symptoms: Negative except as documented in HPI. Endocrine symptoms: Negative except as documented in HPI. PFSH ED PFSH: Medical History Adenocarcinoma of sigmoid colon History of broken leg Right leg Hypertension UTI (urinary tract infection) Surgical History History of esophagogastroduodenoscopy (EGD) 20 + yrs ago History of laparoscopy (01/24/22) Hx of colonoscopy (01/04/22) Family History Brother Diabetes Father CAD (coronary artery disease) Social History Smoking and tobacco/nicotine status: former use of tobacco/nicotine Quit status (tobacco/nicotine): has quit using Year quit tobacco: 31 years ago Former quit date comment: Smoked for 25+ years Alcohol intake: never Substance/Drug Use: never Physical Exam Narrative: EXAM NARRATIVE: General: Alert, no acute distress. Skin: Warm, dry. Head: Normocephalic, atraumatic. Neck: Supple, trachea midline. Eye: Extraocular movements are intact. Ears, nose, mouth and throat: Dry oral mucosa Cardiovascular: Regular, Normal peripheral perfusion. Respiratory: Lungs are clear to auscultation, respirations are non-labored, breath sounds are equal, Symmetrical chest wall expansion. Gastrointestinal: Soft but somewhat distended and mild diffuse tenderness Musculoskeletal: Normal ROM, no deformity. Neurological: Alert and oriented, No focal neurological deficit observed. Psychiatric: Cooperative, appropriate mood & affect. Course Vital Signs: Vital signs: Vital Signs Temperature 98.1 F 01/15/24 10:24 Pulse Rate 95 01/15/24 12:41 Respiratory Rate 18 01/15/24 12:40 Blood Pressure 132/87 01/15/24 12:41 Pulse Oximetry 88 L 01/15/24 12:41 Oxygen Delivery Me thod Room Air 01/15/24 12:40 MDM - Nausea/Vomiting/Diarrhea Medical Decision Making Consultation: I spoke with Dr. Curiel who is on-call for oncology and sent the patient here. He is hoping to have an NG tube or a PEG tube placed. I discussed with him that [facility] is not going to be able to place a PEG tube. Consultation: I spoke with Dr. Poole who reviewed the patient's recent CT scan and he feels there is no window for placement of a PEG tube. Consultation: Hospice was consulted. Hospice nurse has seen the patient in the emergency room. They said they are not able to manage a NG tube at home so NG tube was not being placed. Assessment and plan: End-stage colon cancer Bowel obstruction Hospice consultation ? Patient is being admitted to hospice. - Discharged home - Discussed plan with patient. Answered any questions. - Evaluation and treatment of this problem were appropriate in the emergency setting. No radiology studies performed this visit Discharge Plan Discharge Patient Disposition: Home Clinical Impression: Bowel obstruction, Stage IV carcinoma of colon, Admission for hospice care Condition: Stable Prescriptions: No Action loratadine 10 mg tablet 10 mg PO DAILY PRN (Reason: allergies) albuterol sulfate 90 mcg/actuation HFA aerosol inhaler 2 inh inhalation Q4H PRN (Reason: shortness of breath or wheezing) Qty: 8.5 3RF alprazolam [Xanax] 0.5 mg tablet 0.5 mg PO TID PRN (Reason: anxiety) Qty: 90 3RF Hold Instructions: duplicate therapy metoclopramide HCl [Reglan] 10 mg tablet 10 mg PO Q8H Qty: 90 3RF lorazepam 1 mg tablet 0.5 - 1 mg PO Q6H PRN (Reason: Severe Nausea) Qty: 30 3RF amlodipine 10 mg tablet 10 mg PO DAILY Qty: 30 0RF ibuprofen 200 mg tablet 600 mg PO Q6H PRN (Reason: Pain) methenamine hippurate 1 gram tablet 1 g PO BID Qty: 60 6RF Rx Instructions: Take with Vitamin C 1000mg twice daily. Start after completion of Cipro. encorafenib 75 mg capsule 300 mg PO DAILY Qty: 120 11RF oxycodone 10 mg tablet 20 mg PO QID PRN (Reason: pain) 30 Days Qty: 120 0RF tamsulosin 0.4 mg capsule 0.4 mg PO BID Rx Instructions: dose increase Discharge Orders: Discharge ED (Routine); Ordered 01/15/24 Ordered By: Yaquelin Gutierrez Referrals: Arden Mccarthy MD [Primary Care Provider] - Discharge Diet: As Directed Patient Instructions: Opioid Safety, Pain Management Activity Restrictions/Additional Instructions: Thank you for choosing [facility] for your healthcare needs today. Please realize this is an emergency room and that we are providing you with a medical screening exam and this may not be complete and all inclusive of all the testing and or work up that you may need to determine your ailment or severity of your illness. You have been screened and evaluated and felt safe for discharge. Health conditions do change or evolve sometimes and as such it is important that you follow up with your Primary Doctor to be re checked, 3-5 days is a general good time frame for follow up. You are always welcome to return to the ED for re assessment if your symptoms are worsening or you have new concerns Coding Level of Care Code ED Practice Clinician for [facility]
[2024-01-15 12:40] VITALS: BP 132/47; PULSE 93; RESP 18; O2SAT 89
[2024-01-15 12:41] VITALS: BP 132/87; PULSE 95; O2SAT 88
== END 2024-01-15 12:52 | disposition home or self-care (01) ==
PROVIDERS: Emergency Provider Emergency Medicine; PCP Family Medicine
DX: C18.9 Malignant neoplasm of colon, unspecified (principal); K56.609 Unspecified intestinal obstruction, unspecified as to partial versus complete obstruction; I10 Essential (primary) hypertension; Z87.891 Personal history of nicotine dependence; Z51.5 Encounter for palliative care
CPT/HCPCS: 99282